=== PATIENT | female | born 1990 | race Caucasian/White ===

== ENCOUNTER 2023-05-08 08:47 | Outpatient (REF) | payer OTHER, SELFPAY ==
[2023-05-12 16:12] LABS: Age Gdln ACOG Testing Note (.); HPV Aptima Negative (Negative); IGP, Aptima HPV, rfx 16/18,45 Note (.)
== END 2023-05-08 10:00 | disposition home or self-care (01) ==
LOC: LAB 08:47
PROVIDERS: Visit Provider Obstetrics & Gynecology
DX: Z12.4 Encounter for screening for malignant neoplasm of cervix (principal)
CPT/HCPCS: 87624; G0145

== ENCOUNTER 2023-05-08 12:31 | Outpatient (OUT) | payer OTHER, SELFPAY ==
[2023-05-08 12:59] LABS: Estimated Average Glucose 103 mg/dL; Glycohemoglobin A1C 5.2 % (4.5-6.2)
[2023-05-08 13:36] LABS: Basophils Absolute Auto 0.1 10^3/uL (0.0-0.1); Basophils Percent Auto 0.7 % (0.2-2.0); Eosinophils Absolute Auto 0.3 10^3/uL (0.0-0.7); Eosinophils Percent Auto 2.8 % (0.9-7.0); Hematocrit 34.1 % (36.0-48.0); Hemoglobin 10.3 g/dL (12.0-16.0); Immature Granulocytes Abs Auto 0.02 10^3/uL (0.00-0.03); Immature Granulocytes Pct Auto 0.2 % (0.0-0.5); Lymphocytes Absolute Auto 3.4 10^3/uL (1.2-3.8); Lymphocytes Percent Auto 35.7 % (20.5-60.0); Mean Corpuscular HGB Conc 30.2 g/dL (29.9-35.2); Mean Corpuscular Hemoglobin 23.3 pg (26.7-34.0); Mean Corpuscular Volume 77.1 fL (81.0-99.0); Mean Platelet Volume 9.9 fL (9.5-13.5); Monocytes Absolute Auto 0.6 10^3/uL (0.3-0.8); Neutrophils Absolute Auto 5.3 10^3/uL (1.4-6.5); Neutrophils Percent Auto 54.6 % (43.0-75.0); Platelet Count 401 10^3/uL (150-450); Red Blood Count 4.42 10^6/uL (4.20-5.40); Red Cell Distribution Width 14.6 % (11.0-15.0); White Blood Count 9.6 10^3/uL (4.0-11.0)
[2023-05-08 14:03] LABS: Free T4 1.08 ng/dL (0.76-1.46)
[2023-05-08 14:07] LABS: HCG Quantitative <1 mIU/mL
[2023-05-09 04:16] LABS: DHEA-Sulfate 89.8 ug/dL (84.8-378.0); Luteinizing Hormone(LH) 3.6 mIU/mL (.)
[2023-05-11 06:09] LABS: DHEA, Serum 172 ng/dL (31-701)
== END 2023-05-08 12:32 | disposition home or self-care (01) ==
LOC: LAB 12:31
PROVIDERS: Visit Provider Obstetrics & Gynecology
DX: N92.6 Irregular menstruation, unspecified (principal)
CPT/HCPCS: 36415; 82626; 82627; 83001; 83002; 83036; 84439; 84443; 84702; 85025

== ENCOUNTER 2023-07-20 11:55 | Outpatient (RCR) | payer SELFPAY ==
[2023-07-20 12:37] LABS: HCG Quantitative 684 mIU/mL
== END 2023-08-16 16:57 | disposition home or self-care (01) ==
LOC: LAB 11:55
PROVIDERS: Visit Provider Obstetrics & Gynecology
DX: N92.6 Irregular menstruation, unspecified (principal)
CPT/HCPCS: 36415; 84702

== ENCOUNTER 2023-07-22 07:30 | Outpatient (OUT) | payer SELFPAY ==
[2023-07-22 08:25] LABS: HCG Quantitative 1839 mIU/mL
== END 2023-07-22 07:31 | disposition home or self-care (01) ==
LOC: LAB 07:33
PROVIDERS: Visit Provider Obstetrics & Gynecology
DX: N92.6 Irregular menstruation, unspecified (principal)
CPT/HCPCS: 36415; 84702

== ENCOUNTER 2023-08-17 08:31 | Outpatient (OUT) | payer OTHER, SELFPAY ==
--- NOTE | 2023-08-17 08:36 | US_ITS ---
The [address] [address] Patient Name: ERIKA NEWMAN MRN: [id number] date: 1990 Sex: F Assigned Patient Location: US Current Patient Location: US Accession/Order Number: [id number] Exam Date: 08/17/2023 08:36 Report Date: 08/17/2023 15:29 At the request of: JOEY MUNOZ Procedure: US OB transvaginal EXAMINATION: US OB transvaginal HISTORY: MISSED MENSES COMPARISON: No relevant comparison available. FINDINGS: GESTATIONAL SAC: Present and normal appearing. YOLK SAC: Present and normal appearing. POLE: Present and normal appearing. CARDIAC: Present. UTERUS: Normal size and appearance. OVARIES: Right: Corpus lutein cyst. Left: Normal. CERVIX: 4.2 cm in length and closed. CUL-DE-SAC: Normal. OTHER: None. AGE BY LMP: 8 weeks 5 days RYANN BY LMP: 03/23/2024 AGE BY US CRL: 8 weeks 3 days RYANN BY US CRL: 03/25/2024 US/US OB transvaginal IMPRESSION: 1. Single live intrauterine . Electronically authenticated by: CAM RODRÍGUEZ Date: 08/17/2023 15:29
== END 2023-08-17 08:32 | disposition home or self-care (01) ==
LOC: US 08:33
PROVIDERS: Visit Provider Obstetrics & Gynecology
DX: Z34.91 Encounter for supervision of normal pregnancy, unspecified, first trimester (principal); Z3A.08 8 weeks gestation of pregnancy; N92.6 Irregular menstruation, unspecified
CPT/HCPCS: 76817

== ENCOUNTER 2023-09-14 13:03 | Outpatient (OUT) | payer OTHER, SELFPAY ==
--- OUTSIDE RECORDS SUMMARY | 2023-09-14 13:07 | XMS_ITS | CCD ---
Author Name Unknown Address [address] [place] [address] Organization [facility] Care Team Providers Care Kaiawhina Kohanga Reo Name Role Phone Eleazar GUARDADO Primary Care Physician [phone] GINGER COOLEY Referring Unavailable KENYATTA BARKER Primary Care Unavailable Shantell Parker Primary Care Physician Eleazar GUARDADO Attending Unavailable Marlen GONZALEZ Attending Unavailable Marlen GONZALEZ Attending Unavailable Shantell Parker Attending Unavailable Shantell Parker Attending Unavailable SANDY NEWMAN Attending Unavailable Allergies Allergy Classification Reported Allergen(s) Allergy Type Date of Onset Reaction(s) Facility (6 sources) metroNIDAZOLE; Translations: [metronidazole] Drug Allergy Weal (disorder) [facility] Medications Current Medications Medication Drug Class(es) Dates Sig (Normalized) Sig (Original) Alcohol Swabs (4 sources) Start: 12-22-2021 Alcohol Swabs Alcohol Swabs, See Instructions, 100 EA, 0, Alcohol swabs to use when testing blood sugar TID PRN, [facility], 164, cm, 12/22/21 8:44:00 EDT, Height/Length Dosing, 126.7, kg, 12/22/21 8:44:00 EDT, Weight Dosing Start Date: 12/22/21 Status: Ordered benzonatate 100 mg oral capsule (1 source) Non-narcotic Antitussive Start: 12-07-2022 End: 12-17-2022 take 1 capsule by mouth three times daily benzonatate 100 mg Cap 100 mg = 1 cap(s), Oral, TID, X 10 day(s), # 30 cap(s), Refills(s) 0, Pharmacy: [id number], 164, cm, 12/07/22 13:57:00 EDT, Height/Length Dosing, 100.8, kg, 12/07/22 13:57:00 EDT, Weight Dosing Start Date: 12/07/22 Stop Date: 12/17/22 Status: Ordered cephalexin 500 mg oral capsule (2 sources) Cephalosporin Antibacterial Start: 03-31-2022 End: 04-07-2022 take 2 capsules by mouth twice daily Keflex 500 mg Cap 1,000 mg = 2 cap(s), Oral, BID, X 7 day(s), # 28 cap(s), Refills(s) 0, Pharmacy: [facility], 164, cm, 03/31/22 16:32:00 EDT, Height/Length Dosing, 121.6, kg, 03/31/22 16:32:00 EDT, Weight Dosing Start Date: 03/31/22 Stop Date: 04/07/22 Status: Ordered Glucometer (4 sources) Start: 12-22-2021 Glucometer Glucometer, See Instructions, 1 EA, 0, Glucometer to test blood sugar TID PRN E11.9, [facility] [address], Supply, 164, cm, 12/22/21 8:44:00 EDT, Height/Length Dosing, 126.7, kg, 12/22/21 8:44:00 EDT, Weight Dosing Start Date: 12/22/21 Status: Ordered metFORMIN hydrochloride 1000 mg oral tablet (4 sources) Biguanide Start: 10-20-2019 take 1 tablet by mouth twice daily metformin 1000 mg oral tablet, extended release 1,000 mg = 1 tab(s), Oral, BID, Refills(s) 0 Start Date: 10/20/19 Status: Ordered Single Use Alcohol Pad (4 sources) Start: 12-22-2021 Single Use Alcohol Pad Single Use Alcohol Pad, See Instructions, 100 EA, 1, Single Use Alcohol Pad - Use once daily prior to injection., [facility] [address], Supply, 164, cm, 12/22/21 8:44:00 EDT, Height/Length Dosing, 126.7, kg, 12/22/21 8:44:00 EDT, Weight Dosing Start Date: 12/22/21 Status: Ordered Completed/Discontinued Medications Medication Drug Class(es) Dates Sig (Normalized) Sig (Original) [id number] 200 actuat albuterol 0.09 mg/actuat metered dose inhaler (2 sources) beta2-Adrenergic Agonist Start: 05-26-2021 take 1 dose by inhalation four times daily for cough ProAir HFA 90 mcg/inh inhalation aerosol 2 puff(s), Inhalation, QID, 1 EA, Refill(s) 0, for cough Start Date: 05/26/21 Status: Ordered Albuterol (Eqv-ProAir HFA) 90 mcg/inh inhalation aerosol (1 source) Start: 12-07-2022 take 1 dose by inhalation every six hours Albuterol (Eqv-ProAir HFA) 90 mcg/inh inhalation aerosol 2 puff(s), Inhalation, q6hr, 1 EA, Refill(s) 1, [id number], 164, cm, 12/07/22 13:57:00 EDT, Height/Length Dosing, 100.8, kg, 12/07/22 13:57:00 EDT, Weight Dosing Start Date: 12/07/22 Status: Ordered ProAir HFA 90 mcg/inh inhalation aerosol (2 sources) Start: 05-26-2021 take 1 dose by inhalation four times daily for cough ProAir HFA 90 mcg/inh inhalation aerosol 2 puff(s), Inhalation, QID, 1 EA, Refill(s) 0, for cough Start Date: 05/26/21 Status: Ordered Problems Active Problems Problem Classification Problem Date Documented Da te Episodic/Chronic Acute bronchitis (1 source) Acute infective bronchitis; Translations: [Acute bronchitis due to other specified organisms] Onset: 12-07-2022 Episodic Administrative/social admission (1 source) Counseling procedure with explicit context; Translations: [Dietary counseling and surveillance] Episodic Diabetes mellitus with complications (6 sources) Type 2 diabetes mellitus in obese; Translations: [Complication due to diabetes mellitus] Onset: 03-31-2022 12-22-2021 Chronic Genitourinary symptoms and ill-defined conditions (4 sources) Dysuria 12-22-2021 Episodic Headache; including migraine (5 sources) Migraine 02-11-2020 Chronic Other endocrine disorders (5 sources) Polycystic ovaries 12-07-2020 Chronic Other female genital disorders (3 sources) Abnormal uterine bleeding 03-31-2022 Chronic Other gastrointestinal disorders (5 sources) Irritable bowel syndrome 11-09-2020 Chronic Other nutritional; endocrine; and metabolic disorders (6 sources) Body mass index 40+ - severely obese; Translations: [Body mass index (BMI) 45.0-49.9, adult] Onset: 03-31-2022 11-09-2020 Chronic Other nutritional; endocrine; and metabolic disorders (6 sources) Morbid obesity; Translations: [Morbid (severe) obesity due to excess calories] Onset: 03-31-2022 12-07-2020 Chronic Other nutritional; endocrine; and metabolic disorders (1 source) Obese class II; Translations: [Body mass index (BMI) 37.0-37.9, adult] Onset: 12-07-2022 Chronic Other nutritional; endocrine; and metabolic disorders (1 source) Obesity; Translations: [Other obesity due to excess calories] Onset: 12-07-2022 Chronic Other skin disorders (5 sources) Acanthosis nigricans 03-03-2019 Episodic Thyroid disorders (5 sources) Goiter 03-03-2019 Chronic Unclassified (1 source) Drug therapy finding 12-07-2020 Urinary tract infections (4 sources) Acute hemorrhagic cystitis; Translations: [Acute cystitis with hematuria] Onset: 03-31-2022 Episodic Past or Other Problems Problem Classification Problem Date Documented Da te Episodic/Chronic Unclassified (5 sources) Onset: 03-17-2012 Resolved: 12-13-2012 03-25-2015 Unclassified (4 sources) Patient encounter status 12-22-2021 Results Test Name Value Interpretation Reference Range Facility Patient Educationon 01-30-20 Patient Education Nutrition BMI for Adults What is BMI? Body mass index (BMI) is a number that is calculated from a person's weight and height. BMI can help estimate how much of a person's weight is composed of fat. BMI does not measure body fat directly. Rather, it is an alternative to procedures that directly measure body fat, which can be difficult and expensive. BMI can help identify people who may be at higher risk for certain medical problems. What are BMI measurements used for? BMI is used as a screening tool to identify possible weight problems. It helps determine whether a person is obese, overweight, a healthy weight, or underweight. BMI is useful for: ? Identifying a weight problem that may be related to a medical condition or may increase the risk for medical problems. ? Promoting changes, such as changes in diet and exercise, to help reach a healthy weight. BMI screening can be repeated to see if these changes are working. How is BMI calculated? BMI involves measuring your weight in relation to your height. Both height and weight are measured, and the BMI is calculated from those numbers. This can be done either in [place] or metric measurements. Note that charts and online BMI calculators are available to help you find your BMI quickly and easily without having to do these calculations yourself. To calculate your BMI in [place] measurements: 1. Measure your weight in pounds (lb). 2. Multiply the number of pounds by 703. ? For example, for a person who weighs 180 lb, multiply that number by 703, which equals 126,540. 3. Measure your height in inches. Then multiply that number by itself to get a measurement called inches squared. ? For example, for a person who is 70 inches tall, the inches squared measurement is 70 inches x 70 inches, which equals 4,900 inches squared. 4. Divide the total from step 2 (number of lb x 703) by the total from step 3 (inches squared): 126,540 ? 4,900 = 25.8. This is your BMI. To calculate your BMI in metric measurements: 1. Measure your weight in kilograms (kg). 2. Measure your height in meters (m). Then multiply that number by itself to get a measurement called meters squared. ? For example, for a person who is 1.75 m tall, the meters squared measurement is 1.75 m x 1.75 m, which is equal to 3.1 meters squared. 3. Divide the number of kilograms (your weight) by the meters squared number. In this example: 70 ? 3.1 = 22.6. This is your BMI. What do the results mean? BMI charts are used to identify whether you are underweight, normal weight, overweight, or obese. The following guidelines will be used: ? Underweight: BMI less than 18.5. ? Normal weight: BMI between 18.5 and 24.9. ? Overweight: BMI between 25 and 29.9. ? Obese: BMI of 30 or above. Keep these notes in mind: ? Weight includes both fat and muscle, so someone with a muscular build, such as an athlete, may have a BMI that is higher than 24.9. In cases like these, BMI is not an accurate measure of body fat. ? To determine if excess body fat is the cause of a BMI of 25 or higher, further assessments may need to be done by a health care provider. ? BMI is usually interpreted in the same way for men and women. Where to find more information For more information about BMI, including tools to quickly calculate your BMI, go to these websites: ? Centers for Disease Control and Prevention: www.cdc.gov ? [place] Heart Association: www.heart.org ? National Heart, Lung, and Blood [place]: www.nhlbi.nih.gov Summary ? Body mass index (BMI) is a number that is calculated from a person's weight and height. ? BMI may help estimate how much of a person's weight is composed of fat. BMI can help identify those who may be at higher risk for certain medical problems. ? BMI can be measured using [place] measurements or metric measurements. ? BMI charts are used to identify whether you are underweight, normal weight, overweight, or obese. This information is not intended to replace advice given to you by your health care provider. Make sure you discuss any questions you have with your health care provider. Document Revised: 05/26/2020 Document Reviewed: 04/02/2020 [employer] Patient Education ? 2022 [employer] Budget-Friendly Healthy Eating There are many ways to save money at the grocery store and continue to eat healthy. You can be successful if you: ? Plan meals according to your budget. ? Make a grocery list and only purchase food according to your grocery list. ? Prepare food yourself at home. What are tips for following this plan? Reading food labels ? Compare food labels between brand name foods and the store brand. Often the nutritional value is the same, but the store brand is lower cost. ? Look for products that do not have added sugar, fat, or salt (sodium). These often cost the same but are healthier for you. Products may be labeled as: ? Sugar-free. ? Nonfat. ? (more content not included)... Normal [facility] Ambulatory Visit Summaryon 0 01-26-2023 Ambulatory Visit Summary ERIKA NEWMAN :1990 Visit Date:01/26/2023 Ambulatory Visit Instructions Your Care Team Attending Physician - Shantell Parker PA-C Primary Care Physician - Shantell Parker PA-C This Is Your Medications List Misc Prescription (Alcohol Swabs) Misc Prescription (Glucometer) Misc Prescription (Lancets) Misc Prescription (Single Use Alcohol Pad) Misc Prescription (Test strips) albuterol (Albuterol (Eqv-ProAir HFA) 90 mcg/inh inhalation aerosol) Procedures Performed TM tube, Tonsillectomy and adenoidectomy. Discharge Vitals Heart Rate (Peripheral) 84 Respiratory Rate 20 Blood Pressure 128/72 Height 164 cm Height 65 in Weight 97.0 kg Weight 213.4 lb BMI 36.06 Medications What How Much When Why Instructions Unchanged albuterol (Albuterol (Eqv-ProAir HFA) 90 mcg/ inh inhalation aerosol) 2 Puffs Inhalation Every 6 hours Unchanged Misc Prescription (Alcohol Swabs) See instructions Type 2 diabetes mellitus with morbid obesity Alcohol swabs to use when testing blood sugar TID PRN Unchanged Misc Prescription (Glucometer) See instructions Type 2 diabetes mellitus with morbid obesity Glucometer to test blood sugar TID PRN E11.9 Unchanged Misc Prescription (Lancets) See instructions Type 2 diabetes mellitus with morbid obesity Test blood sugar TID PRN E11.9 Unchanged Misc Prescription (Single Use Alcohol Pad) See instructions Type 2 diabetes mellitus with morbid obesity Single Use Alcohol Pad - Use once daily prior to injection. Unchanged Misc Prescription (Test strips) See instructions Type 2 diabetes mellitus with morbid obesity Test blood sugar TID PRN E11.9 Allergies metroNIDAZOLE (Hives) Problems Ongoing - Any problem that you are currently receiving treatment for. Acanthosis nigricans Acute cystitis with hematuria BMI 45.0-49.9, adult Dysuria Goiter Irritable bowel Migraines Morbid (severe) obesity due to excess calories Polycystic ovary disease Type 2 diabetes mellitus with morbid obesity Historical - Any problem that you are no longer receiving treatment for. Abnormal uterine bleeding (AUB) Screening for lipid disorders Normal [facility] Medicine Office/Clini c Noteon 12-11-2022 Family Medicine Office/Clinic Note Chief Complaint cough History of Present Illness 32 y/o female presents to the office for concern of cough. Respiratory C/O: Duration: _ 1 day Body aches: no Chest congestion: yes Chills: no Cough: yes Ear complaints: no Eye itching/watering: no Fever: no Headache: yes Nasal congestion: yes Nasal discharge: no Poor appetite: no Reduced activity: no Sinus pain/pressure: yes Sneezing: no Sputum production: no Wheezing: no Ill contacts: no Remedies tried: mucinex, only took one dose. nausea: sometimes. Patient has no other questions or concerns at this time. Review of Systems PHQ Score Initial Depression Screen Score: 0 Negative unless stated in HPI. Physical Exam Vitals & Measurements T: 36.8 ?C(Oral) HR: 60(Peripheral) RR: 20 BP: 128/84 SpO2: 99% HT: 65 in HT: 164 cm WT: 100.8 kg WT: 221.76 lb BMI: 37.48 General: Obese female well hydrated, no apparent distress Head: Normocephalic atraumatic Eyes: EOMI, sclera clear Ears: Bilateral tympanic membranes pearly [place] with good cone of light Nose: clear drainage no deformity or lesion Mouth: Mucous membranes moist. Normal oropharynx with mildly erythematous posterior oropharynx without lesion or exudate. Tongue normal.. Neck: shotty cervical lymph nodes Lungs: Mild wheezing with inspiration, otherwise lungs clear to auscultation. Cardio: Regular rate and rhythm with no murmur Mental status: Alert and oriented x3. Appropriate mood and affect. Assessment/Plan 1. Acute bronchitis, viral (J20.8: Acute bronchitis due to other specified organisms) Discussed with patient this infection is more than likely viral in nature. Advised it can take up to 10 to 12 days for symptoms to completely resolve. Prescription for albuterol inhaler and benzonatate tablets sent to local pharmacy. Albuterol is to be used up to 4 times daily as needed for shortness of breath. Benzonatate tablets can be used to aid with cough suppression. Advised to continue [id number] remedies such as Mucinex, Sudafed, Tylenol or ibuprofen as needed for symptomatic management. Advised to contact office in 1 week if symptoms do not improve or begin to worsen as antibiotic therapy will be considered at that time. 2. Adult BMI 37.0-37.9 kg/sq m (Z68.37: Body mass index [BMI] 37.0-37.9, adult) The standard range for ages 18 and older is >=18.5 and < 25 kg/m2. Your BMI today was above this range, this falls in the overweight to obese category and there are medical benefits to weight loss. We can offer counselling, referral, and/or medical support in addressing this problem. Your BMI and weight management will be followed at subsequent visits. 3. Obesity due to excess calories (E66.09: Other obesity due to excess calories) See above Patient verbalized understanding and is agreeable to plan and course of treatment. This documentation was completed by voice-activated device and software. Inaccuracies compared to the original dictation of this provider are possible although this document has been overread and corrected. Follow-up With When Contact Information Keith BOYD, Shantell Read Only if needed [address] [place] [phone] Additional Instructions: Patient Education Budget-Friendly Healthy Eating Acute Bronchitis, Adult Problem List/Past Medical History Ongoing Acanthosis nigricans Acute cystitis with hematuria BMI 45.0-49.9, adult Dysuria Goiter Irritable bowel Migraines Morbid (severe) obesity due to excess calories Polycystic ovary disease Type 2 diabetes mellitus with morbid obesity Historical Abnormal uterine bleeding (AUB) Screening for lipid disorders Procedure/Surgical History TM tube, Tonsillectomy and adenoidectomy. Medications Albuterol (Eqv-ProAir HFA) 90 mcg/inh inhalation aerosol, 2 puff(s), Inhalation, q6hr, 1 refills Alcohol Swabs, See Instructions benzonatate 100 mg Cap, 100 mg= 1 cap(s), Oral, TID Glucometer, See Instructions Lancets, See Instructions Single Use Alcohol Pad, See Instructions, 1 refills Test strips, See Instructions Allergies metroNIDAZOLE (Hives) Social History Alcohol - Denies Alcohol Use, 12/13/2012 Employment/School Unemployed, 12/13/2012 Exercise - Does not exercise, 12/13/2012 Home/Environment Lives with Father, Mother. Living situation: Home/Independent. Alcohol abuse in household: No. Substance abuse in household: No. Smoker in household: No. Injuries/Abuse/Neg lect in household: No. Feels unsafe at home: No. Safe place to go: Yes. Agency(s)/Others notified: No. Family/Friends available for support: Yes. Concern for family members at home: No. Major illness in household: No. Financial concerns: No. TV/Computer concerns: No., 12/13/2012 Nutrition/Health Regular, 12/13/2012 Sexual Sexually active: Yes., 12/13/2012 Substance Abuse - Denies Substance Abuse, 12/13/2012 Tobacco - Denies Tobacco Use, 12/13/2012 Never (less than 100 in lifetime) Tobacco (more content not included)... Normal [facility] Comment on above: Result Comment: Elec tronically Signed By: Keith BOYD, Shantell Read\.br\Date and Time Signed: 12/11/22 21:41 EDT Patient Educationon 12-12-19 Patient Education Nutrition Budget-Friendly Healthy Eating There are many ways to save money at the grocery store and continue to eat healthy. You can be successful if you: ? Plan meals according to your budget. ? Make a grocery list and only purchase food according to your grocery list. ? Prepare food yourself. What are tips for following this plan? Reading food labels ? Compare food labels between brand name foods and the store brand. Often the nutritional value is the same, but the store brand is lower cost. ? Look for products that do not have added sugar, fat, or salt (sodium). These often cost the same but are healthier for you. Products may be labeled as: ? Sugar-free. ? Nonfat. ? Low-fat. ? Sodium-free. ? Low-sodium. ? Look for lean ground beef labeled as at least 92% lean and 8% fat. Shopping ? Buy only the items on your grocery list and go only to the areas of the store that have the items on your list. ? Use coupons only for foods and brands you normally buy. Avoid buying items you wouldn't normally buy simply because they are on sale. ? Check online and in newspapers for weekly deals. ? Buy healthy items from the bulk bins when available, such as herbs, spices, flour, pasta, nuts, and dried fruit. ? Buy fruits and vegetables that are in season. Prices are usually lower on in-season produce. ? Look at the unit winn on the winn tag. Use it to compare different brands and sizes to find out which item is the best deal. ? Choose healthy items that are often low-cost, such as carrots, potatoes, apples, bananas, and oranges. Dried or canned beans are a low-cost protein source. ? Buy in bulk and freeze extra food. Items you can buy in bulk include meats, fish, poultry, frozen fruits, and frozen vegetables. ? Avoid buying riwxl-tw-qwv foods, such as pre-cut fruits and vegetables and pre-made salads. ? If possible, shop around to discover where you can find the best prices. Consider other retailers such as [employer] stores, larger wholesale stores, local fruit and vegetable [employer], and [employer] markets. ? Do not shop when you are hungry. If you shop while hungry, it may be hard to stick to your list and budget. ? Resist impulse buying. Use your grocery list as your official plan for the week. ? Buy a variety of vegetables and fruits by purchasing fresh, frozen, and canned items. ? Look at the top and bottom shelves for deals. Foods at eye level (eye level of an adult or child) are usually more expensive. ? Be efficient with your time when shopping. The more time you spend at the store, the more money you are likely to spend. ? To save money when choosing more expensive foods like meats and dairy: ? Choose cheaper cuts of meat, such as bone-in chicken thighs and drumsticks instead of skinless and boneless chicken. When you are ready to prepare the chicken, you can remove the skin yourself to make it healthier. ? Choose lean meats like chicken or turkey instead of beef. ? Choose canned seafood, such as tuna, salmon, or sardines. ? Buy eggs as a low-cost source of protein. ? Buy dried beans and peas, such as lentils, split peas, or kidney beans instead of meats. Dried beans and peas are a good alternative source of protein. ? Buy the larger tubs of yogurt instead of individual-sized containers. ? Choose water instead of sodas and other sweetened beverages. ? Avoid buying chips, cookies, and other junk food. These items are usually expensive and not healthy. Cooking ? Make extra food and freeze the extras in meal-sized containers or in individual portions for fast meals and snacks. ? Pre-cook on days when you have extra time to prepare meals in advance. You can keep these meals in the fridge or freezer and reheat for a quick meal. ? When you come home from the grocery store, wash, peel, and cut fruits and vegetables so they are ready to use and eat. This will help reduce food waste. Meal planning ? Do not eat out or get fast food. Prepare food at home. ? Make a grocery list and make sure to bring it with you to the store. If you have a smart phone, you could use your phone to create your shopping list. ? Plan meals and snacks according to a grocery list and budget you create. ? Use leftovers in your meal plan for the week. ? Look for recipes where you can cook once and make enough food for two meals. ? Include budget-friendly meals like stews, casseroles, and stir-jaramillo dishes. ? Try some meatless meals or try no cook meals like salads. ? Make sure that half your plate is filled with fruits or vegetables. Choose from fresh, frozen, or canned fruits and vegetables. If eating canned, remember to rinse them before eating. This will remove any excess salt added for packaging. Summary ? Eating healthy on a budget is possible if you plan your meals according to your budget, purchase according to your budget and grocery list, and prepare food yourself. ? Tips for buying more food on a (more content not included)... Normal [facility] Ambulatory Visit Summaryon 0 12-07-2022 Ambulatory Visit Summary ERIKA NEWMAN :1990 Visit Date:12/07/2022 Ambulatory Visit Instructions Your Diagnosis Acute bronchitis, viral Adult BMI 37.0-37.9 kg/sq m Obesity due to excess calories Your Care Team Attending Physician - Shantell Parker PA-C Primary Care Physician - Shantell Parker PA-C. This Is Your Medications List Misc Prescription (Alcohol Swabs) Misc Prescription (Glucometer) Misc Prescription (Lancets) Misc Prescription (Single Use Alcohol Pad) Misc Prescription (Test strips) albuterol (Albuterol (Eqv-ProAir HFA) 90 mcg/inh inhalation aerosol) benzonatate (benzonatate 100 mg Cap) [Image Removed: STOP]Stop taking these medications metformin (metformin 1000 mg oral tablet, extended release) Procedures Performed TM tube, Tonsillectomy and adenoidectomy. Discharge Vitals Temperature (Oral) 36.8 ?C Heart Rate (Peripheral) 60 Respiratory Rate 20 Blood Pressure 128/84 Height 164 cm Height 65 in Weight 100.8 kg Weight 221.76 lb BMI 37.48 Medications What How Much When Why Instructions New benzonatate (benzonatate 100 mg Cap) 1 Capsules By Mouth 3 times a day Duration: 10 Days Pickup at [facility] #[id number] Changed albuterol (Albuterol (Eqv-ProAir HFA) 90 mcg/ inh inhalation aerosol) 2 Puffs Inhalation Every 6 hours Pickup at [facility] #[id number] Unchanged Misc Prescription (Alcohol Swabs) See instructions Type 2 diabetes mellitus with morbid obesity Alcohol swabs to use when testing blood sugar TID PRN Unchanged Misc Prescription (Glucometer) See instructions Type 2 diabetes mellitus with morbid obesity Glucometer to test blood sugar TID PRN E11.9 Unchanged Misc Prescription (Lancets) See instructions Type 2 diabetes mellitus with morbid obesity Test blood sugar TID PRN E11.9 Unchanged Misc Prescription (Single Use Alcohol Pad) See instructions Type 2 diabetes mellitus with morbid obesity Single Use Alcohol Pad - Use once daily prior to injection. Unchanged Misc Prescription (Test strips) See instructions Type 2 diabetes mellitus with morbid obesity Test blood sugar TID PRN E11.9 Pharmacy Information [facility] #[id number]: [address] [place], [place] [phone] What How Much When Comments Stop Taking metformin (metformin 1000 mg oral tablet, extended release) 1 Tablets By Mouth 2 times a day Medications and Immunizations Administered Not Given influenza virus vaccine, inactivated, Postpone due to refusal Allergies metroNIDAZOLE (Hives) Problems Ongoing - Any problem that you are currently receiving treatment for. Acanthosis nigricans Acute cystitis with hematuria BMI 45.0-49.9, adult Dysuria Goiter Irritable bowel Migraines Morbid (severe) obesity due to excess calories Polycystic ovary disease Type 2 diabetes mellitus with morbid obesity Historical - Any problem that you are no longer receiving treatment for. Abnormal uterine bleeding (AUB) Screening for lipid disorders [facility] Ambulatory Visit Summary ERIKA NEWMAN :1990 Visit Date:12/07/2022 Ambulatory Visit Instructions Your Diagnosis Acute bronchitis, viral Adult BMI 37.0-37.9 kg/sq m Obesity due to excess calories Your Care Team Attending Physician - Shantell Parker PA-C Primary Care Physician - Shantell Parker PA-C This Is Your Medications List Misc Prescription (Alcohol Swabs) Misc Prescription (Glucometer) Misc Prescription (Lancets) Misc Prescription (Single Use Alcohol Pad) Misc Prescription (Test strips) albuterol (Albuterol (Eqv-ProAir HFA) 90 mcg/inh inhalation aerosol) benzonatate (benzonatate 100 mg Cap) [Image Removed: STOP]Stop taking these medications metformin (metformin 1000 mg oral tablet, extended release) Procedures Performed TM tube, Tonsillectomy and adenoidectomy. Discharge Vitals Temperature (Oral) 36.8 ?C Heart Rate (Peripheral) 60 Respiratory Rate 20 Blood Pressure 128/84 Height 164 cm Height 65 in Weight 100.8 kg Weight 221.76 lb BMI 37.48 Medications What How Much When Why Instructions New benzonatate (benzonatate 100 mg Cap) 1 Capsules By Mouth 3 times a day Duration: 10 Days Pickup at [facility] #[id number] Changed albuterol (Albuterol (Eqv-ProAir HFA) 90 mcg/ inh inhalation aerosol) 2 Puffs Inhalation Every 6 hours Pickup at [facility] #[id number] Unchanged Misc Prescription (Alcohol Swabs) See instructions Type 2 diabetes mellitus with morbid obesity Alcohol swabs to use when testing blood sugar TID PRN Unchanged Misc Prescription (Glucometer) See instructions Type 2 diabetes mellitus with morbid obesity Glucometer to test blood sugar TID PRN E11.9 Unchanged Misc Prescription (Lancets) See instructions Type 2 diabetes mellitus with morbid obesity Test blood sugar TID PRN E11.9 Unchanged Misc Prescription (Single Use Alcohol Pad) See instructions Type 2 diabetes mellitus with morbid obesity Single Use Alcohol Pad - Use once daily prior to injection. Unchanged Misc Prescription (Test strips) See instructions Type 2 diabetes mellitus with morbid obesity Test blood sugar TID PRN E11.9 Pharmacy Information [facility] #[id number]: [address], [place] [phone] What How Much When Comments Stop Taking metformin (metformin 1000 mg oral tablet, extended release) 1 Tablets By Mouth 2 times a day Medications and Immunizations Administered Not Given influenza virus vaccine, inactivated, Postpone due to refusal Allergies metroNIDAZOLE (Hives) Problems Ongoing - Any problem that you are currently receiving treatment for. Acanthosis nigricans Acute cystitis with hematuria BMI 45.0-49.9, adult Dysuria Goiter Irritable bowel Migraines Morbid (severe) obesity due to excess calories Polycystic ovary disease Type 2 diabetes mellitus with morbid obesity Historical - Any problem that you are no longer receiving treatment for. Abnormal uterine bleeding (AUB) Screening for lipid disorders [facility] Provider Letteron 12-07-2022 Provider Letter December 07, 2022 ERIKA NEWMAN [address] [place] [address] To Whom It May Concern, Please excuse above patient from work. Date of Illness: From: _12/07/22 To: _ May Return to Work On: 12/08/22 Restrictions: _None Comments: _ Sincerely, Shantell BIRD [facility] [address] [facility] Ambulatory Visit Summaryon 0 03-31-2022 Ambulatory Visit Summary ERIKA NEWMAN :1990 Visit Date:03/31/2022 Ambulatory Visit Instructions Your Diagnosis Acute cystitis with hematuria Dysuria BMI 45.0-49.9, adult Morbid (severe) obesity due to excess calories Urinary frequency Tests Performed Urnls Dip Stick Auto w/ Microscopy POC 96743 Your Care Team Attending Physician - JULY MELLO FAAFP, Marlen Parson Primary Care Physician - Eleazar MELCHOR This Is Your Medications List cephalexin (Keflex 500 mg Cap) Contact prescribing physician if questions or concerns Misc Prescription (Alcohol Swabs) Misc Prescription (Glucometer) Misc Prescription (Lancets) Misc Prescription (Single Use Alcohol Pad) Misc Prescription (Test strips) albuterol (ProAir HFA 90 mcg/inh inhalation aerosol) metformin (metformin 1000 mg oral tablet, extended release) Procedures Performed TM tube, Tonsillectomy and adenoidectomy. Discharge Vitals Temperature (Temporal Artery) 36.7 ?C Heart Rate (Peripheral) 88 Respiratory Rate 16 Blood Pressure 128/84 Height 164.0 cm Height 164 cm Weight 121.6 kg Weight 121.6 kg BMI 45.21 Medications What How Much When Why Instructions New cephalexin (Keflex 500 mg Cap) 2 Capsules By Mouth 2 times a day Duration: 7 Days Pickup at [address] Unchanged albuterol (ProAir HFA 90 mcg/ inh inhalation aerosol) 2 Puffs Inhalation 4 times a day for cough Contact prescribing physician if questions or concerns Unchanged metformin (metformin 1000 mg oral tablet, extended release) 1 Tablets By Mouth 2 times a day Contact prescribing physician if questions or concerns Unchanged Misc Prescription (Alcohol Swabs) See instructions Type 2 diabetes mellitus with morbid obesity Alcohol swabs to use when testing blood sugar TID PRN Contact prescribing physician if questions or concerns Unchanged Misc Prescription (Glucometer) See instructions Type 2 diabetes mellitus with morbid obesity Glucometer to test blood sugar TID PRN E11.9 Contact prescribing physician if questions or concerns Unchanged Misc Prescription (Lancets) See instructions Type 2 diabetes mellitus with morbid obesity Test blood sugar TID PRN E11.9 Contact prescribing physician if questions or concerns Unchanged Misc Prescription (Single Use Alcohol Pad) See instructions Type 2 diabetes mellitus with morbid obesity Single Use Alcohol Pad - Use once daily prior to injection. Contact prescribing physician if questions or concerns Unchanged Misc Prescription (Test strips) See instructions Type 2 diabetes mellitus with morbid obesity Test blood sugar TID PRN E11.9 Contact prescribing physician if questions or concerns Pharmacy Information [address]: [address] [place], [place] [phone] Test Results Urnls Dip Stick Auto w/ Microscopy POC 87055 (03/31/2022) Urine WBC POC - 5-10 Urine RBC POC - too numerous to count Urine Epithelial Cells POC - Negative Bilirubin Urine Dipstick - Negative Blood Urine Dipstick - 3+ Large Glucose Urine Dipstick - Negative Ketones Urine Dipstick - Negative Leukocytes Urine Dipstick - 2+ Moderate Nitrite Urine Dipstick - Negative Protein Urine Dipstick - 2+ (100 mg/dl) Specific [place] Urine Dipstick - 1.025 Urine Appearance Urine Dipstick - Cloudy Urine Color Urine Dipstick - Yellow Urobilinogen Urine Dipstick - Normal 0.2-1 EU/dl pH Urine Dipstick - 8.5 Medications and Immunizations Administered Not Given SARS-CoV-2 mRNA (tozinameran 5y-11y) vac, Postpone due to refusal Allergies metroNIDAZOLE (Hives) Problems Ongoing - Any problem that you are currently receiving treatment for. Acanthosis nigricans Acute cystitis with hematuria BMI 45.0-49.9, adult Dysuria Goiter Irritable bowel Migraines Morbid (severe) obesity due to excess calories Polycystic ovary disease Type 2 diabetes mellitus with morbid obesity Historical - Any problem that you are no longer receiving treatment for. Abnormal uterine bleeding (AUB) Screening for lipid disorders [facility] Family Medicine Office/Clini c Noteon 03-31-2022 Family Medicine Office/Clinic Note Chief Complaint P here for urinary frequency, tired, bilateral low back pain, cramping in pelvic area,some dysuria, light pink noted on toilet paper, no period since December. Last UTI three months ago. Room 3 History of Present Illness Erika is accompanied by her mother. She complains of back pain, fatigue, burning with urination and nausea. She did experience some pink spotting earlier today but none since then. She is not currently menstruating. She notes that her symptoms onset 03/27/2022. She denies fever or vomiting. She was evaluated by Dr. Cooley of [facility] in 11/2021 with menorrhagia and was treated for bladder infection. Dr. Cooley did prescribe progesterone for 2 months as she was having abnormal vaginal bleeding and anemia. She has not had menses in 2 months, her hemoglobin was 9.2 and she does not recall being told to supplement iron. She admits she has increased her caffeine intake lately since she is working a different job and is tired in the morning. She went to the diabetes education class and she has lost some weight. She has not been monitoring her glucose at home consistently as she does not have lancets. Her last home glucose check was about 117 mg/dL following a meal. She is now taking metformin 1000 mg twice daily. She admits to being noncompliant with the metformin in the beginning but has since become more consistent. She has experienced diarrhea since starting this medication if she has increased fats or carbohydrates in her diet. Review of Systems PHQ Score Initial Depression Screen Score: 0 Review of systems is as per above in HPI. Physical Exam Vitals & Measurements T: 36.7 ?C(Temporal Artery) HR: 88(Peripheral) RR: 16 BP: 128/84 SpO2: 97% HT: 164.0 cm HT: 164 cm WT: 121.6 kg WT: 121.6 kg BMI: 45.21 General: Patient is overweight, no acute distress although she is rubbing her central low back throughout this visit. She appears well hydrated. Musculoskeletal: Back without CVA tenderness, her discomfort is more over the lumbosacral area with no palpable muscle spasm in that area. Abdomen: Soft and nontender. Assessment/Plan 1. Acute cystitis with hematuria (N30.01: Acute cystitis with hematuria) She does not present as pyelonephritis, we will treat for 7 days with Keflex, however, since she has had a fairly recent UTI and her symptoms have been nearly a week in duration. We discussed preventative measures particularly to avoid caffeine and increased water for hydration. 2. Type 2 diabetes mellitus with morbid obesity (E11.69: Type 2 diabetes mellitus with other specified complication) Recent diagnosis for the patient, she has not been checking blood sugar herself, she has been to diabetic education and is more compliant with the metformin she had been prescribed in the past for polycystic ovaries. Her mother believes that she has lost weight but unfortunately our scale does not bear that out since 05/2021. 3. BMI 45.0-49.9, adult (Z68.42: Body mass index [BMI] 45.0-49.9, adult) Urged healthy diet with decreased calories and increased vegetables. Encouraged increased activity and a goal of 150min per week of exercise. 4. Morbid (severe) obesity due to excess calories (E66.01: Morbid (severe) obesity due to excess calories) Increases risk to sequelae of type 2 diabetes. Orders: cephalexin, 1,000 mg = 2 cap(s), Oral, BID, X 7 day(s), # 28 cap(s), Refills(s) 0, Pharmacy: [facility], 164, cm, 03/31/22 16:32:00 EDT, Height/Length Dosing, 121.6, kg, 03/31/22 16:32:00 EDT, Weight Dosing Urnls Dip Stick Auto w/ Microscopy POC 59058 ATTESTATION: Documentation services were performed after patient or guardian consented to allow Kristan Melendez to record this visit. ALEXI vessel specialist and provider reviewed before signing. ALEXI: Lulú Bowles. Follow-up With When Contact Information DEBBY BIRD, Eleazar Paul [address] [place] [address]- Additional Instructions: return as otherwise scheduled Patient Education Blood Glucose Monitoring, Adult Problem List/Past Medical History Ongoing Acanthosis nigricans Acute cystitis with hematuria BMI 45.0-49.9, adult Dysuria Goiter Irritable bowel Migraines Morbid (severe) obesity due to excess calories Polycystic ovary disease Type 2 diabetes mellitus with morbid obesity Historical Abnormal uterine bleeding (AUB) Screening for lipid disorders Procedure/Surgical History TM tube, Tonsillectomy and adenoidectomy. Medications Alcohol Swabs, See Instructions, Still taking, not as prescribed: pt states she has not been testing her blood sugars Glucometer, See Instructions, Still taking, not as prescribed: pt states she has not been testing her blood sugars Keflex 500 mg Cap, 1000 mg= 2 cap(s), Oral, BID Lancets, See Instructions, Still taking, not as prescribed: pt states she has not been testing her blood sugars metformin 1000 mg oral tablet, extended release, 1000 mg= 1 tab(s), Oral, BID ProAir (more content not included)... [facility] Comment on above: Result Comment: Elec tronically Signed By: Marlen GONZALEZ MD, FAAFP\.br\Date and Time Signed: 03/31/22 19:00 EDT\.br\Electronically Co-Signed By: Lulú Bowles\.br\Date and Time Co-Signed: 03/31/22 18:13 EDT Patient Educationon 03-31-20 Patient Education Endocrinology Blood Glucose Monitoring, Adult Monitoring your blood sugar (glucose) is an important part of managing your diabetes (diabetes mellitus). Blood glucose monitoring involves checking your blood glucose as often as directed and keeping a record (log) of your results over time. Checking your blood glucose regularly and keeping a blood glucose log can: ? Help you and your health care provider adjust your diabetes management plan as needed, including your medicines or insulin. ? Help you understand how food, exercise, illnesses, and medicines affect your blood glucose. ? Let you know what your blood glucose is at any time. You can quickly find out if you have low blood glucose (hypoglycemia) or high blood glucose (hyperglycemia). Your health care provider will set individualized treatment goals for you. Your goals will be based on your age, other medical conditions you have, and how you respond to diabetes treatment. Generally, the goal of treatment is to maintain the following blood glucose levels: ? Before meals (preprandial): 80?130 mg/dL (4.4?7.2 mmol/L). ? After meals (postprandial): below 180 mg/dL (10 mmol/L). ? A1c level: less than 7%. Supplies needed: ? Blood glucose meter. ? Test strips for your meter. Each meter has its own strips. You must use the strips that came with your meter. ? A needle to prick your finger (lancet). Do not use a lancet more than one time. ? A device that holds the lancet (lancing device). ? A journal or log book to write down your results. How to check your blood glucose 1. Wash your hands with soap and water. 2. Prick the side of your finger (not the tip) with the lancet. Use a different finger each time. 3. Gently rub the finger until a small drop of blood appears. 4. Follow instructions that come with your meter for inserting the test strip, applying blood to the strip, and using your blood glucose meter. 5. Write down your result and any notes. Some meters allow you to use areas of your body other than your finger (alternative sites) to test your blood. The most common alternative sites are: ? Forearm. ? Thigh. ? Palm of the hand. If you think you may have hypoglycemia, or if you have a history of not knowing when your blood glucose is getting low (hypoglycemia unawareness), do not use alternative sites. Use your finger instead. Alternative sites may not be as accurate as the fingers, because blood flow is slower in these areas. This means that the result you get may be delayed, and it may be different from the result that you would get from your finger. Follow these instructions at home: Blood glucose log ? Every time you check your blood glucose, write down your result. Also write down any notes about things that may be affecting your blood glucose, such as your diet and exercise for the day. This information can help you and your health care provider: ? Look for patterns in your blood glucose over time. ? Adjust your diabetes management plan as needed. ? Check if your meter allows you to download your records to a computer. Most glucose meters store a record of glucose readings in the meter. If you have type 1 diabetes: ? Check your blood glucose 2 or more times a day. ? Also check your blood glucose: ? Before every insulin injection. ? Before and after exercise. ? Before meals. ? 2 hours after a meal. ? Occasionally between 2:00 a.m. and 3:00 a.m., as directed. ? Before potentially dangerous tasks, like driving or using heavy machinery. ? At bedtime. ? You may need to check your blood glucose more often, up to 6?10 times a day, if you: ? Use an insulin pump. ? Need multiple daily injections (MDI). ? Have diabetes that is not well-controlled. ? Are ill. ? Have a history of severe hypoglycemia. ? Have hypoglycemia unawareness. If you have type 2 diabetes: ? If you take insulin or other diabetes medicines, check your blood glucose 2 or more times a day. ? If you are on intensive insulin therapy, check your blood glucose 4 or more times a day. Occasionally, you may also need to check between 2:00 a.m. and 3:00 a.m., as directed. ? Also check your blood glucose: ? Before and after exercise. ? Before potentially dangerous tasks, like driving or using heavy machinery. ? You may need to check your blood glucose more often if: ? Your medicine is being adjusted. ? Your diabetes is not well-controlled. ? You are ill. General tips ? Always keep your supplies with you. ? If you have questions or need help, all blood glucose meters have a 24-hour hotline phone number that you can call. You may also contact your health care provider. ? After you use a few boxes of test strips, adjust (calibrate) your blood glucose meter by following instructions that came with your meter. Contact a health care provider if: ? Your blood glucose is at or above 240 mg/dL (13.3 mmol/L) (more content not included)... [facility] Provider Letteron 03-31-2022 Provider Letter March 31, 2022 ERIKA NEWMAN [address] [place] [address] ERIKA NEWMAN 1990 To Whom It May Concern, Please excuse above patient from work. Date of Illness: 03/31/22 May Return to Work On: 04/03/22 Sincerely, Marlen Gonzalez MD [facility] [address] [address] [facility] Diabetic Self Management Edu cationon 03-02-2022 Diabetic Self Management Education [id number] Normal [facility] CHEMISTRYOrdered By: SYSTEM SYSTEM on 12-22-2021 Albumin [Mass/Vol] 4.0 g/dL Normal 3.3 - 5.0 gm/dL [facility] Albumin/Globulin [Mass ratio] 1.3 {ratio} Normal 1.1 - 2.2 [facility] ALP [Catalytic activity/Vol] 45 [iU]/d Normal 21 - 98 Int._Unit/L [facility] ALT No additional P-5'-P [Catalytic activity/Vol] 25 [iU]/d Normal 6 - 46 Int._Unit/L [facility] Anion gap [Moles/Vol] 11 mmol/L Normal 6 - 16 mEq/L [facility] AST [Catalytic activity/Vol] 20 [iU]/d Normal 5 - 43 Int._Unit/L [facility] Bilirubin [Mass/Vol] 0.9 mg/dL Normal 0.0 - 1 .1 mg/dL [facility] Calcium [Mass/Vol] 9.3 mg/dL Normal 8.9 - 11. 1 mg/dL [facility] Chloride [Moles/Vol] 107 mmol/L Normal 101 - 1 11 mmol/L [facility] Cholesterol [Mass/Vol] 138 mg/dL Normal 120 - 200 mg/dL [facility] Cholesterol in HDL [Mass/Vol] 40 mg/dL Invalid Interpretation Code [facility] Cholesterol in LDL [Mass/Vol] 87 mg/dL Normal <=129mg/dL [facility] Cholesterol in VLDL [Mass/Vol] 20 mg/dL Normal 7 - 40 mg/dL [facility] CO2 [Moles/Vol] 23 mmol/L Normal 21 - 31 mmol/L [facility] Creatinine [Mass/Vol] 0.6 mg/dL Normal 0.5 - 1.3 mg/dL [facility] GFR/1.73 sq M.predicted among blacks MDRD (S/P/Bld) [Vol rate/Area] mL/min/1.73 m2 Normal >=59mL/min/1. 73 m2 [facility] Chem S GFR/1.73 sq M.predicted among non-blacks MDRD (S/P/Bld) [Vol rate/Area] mL/min/1.73 m2 Normal >=59mL/min/1. 73 m2 [facility] Globulin (S) [Mass/Vol] 3.1 g/dL Normal 1.4 - 4.0 gm/dL [facility] Glucose [Mass/Vol] 99 mg/dL Normal 55 - 199 mg/dL [facility] Potassium [Moles/Vol] 4.2 mmol/L Normal 3.5 - 5.3 mmol/L [facility] Protein [Mass/Vol] 7.1 g/dL Normal 6.0 - 7.8 gm/dL [facility] Sodium [Moles/Vol] 137 mmol/L Normal 135 - 145 mmol/L [facility] Triglyceride [Mass/Vol] 99 mg/dL Normal <=149mg/dL [facility] TSH Qn 2.73 m[IU]/L Normal 0.34 - 5.60 mcIU/mL [facility] Urea nitrogen [Mass/Vol] 10 mg/dL Normal 5 - 21 mg/dL [facility] Urea nitrogen/Creatinine [Mass ratio] 17 mg/mg Normal 10 - 20 [facility] CHEMISTRYOrdered By: Yari Gray on 12-22-2021 Albumin DL <= 20 mg/L (U) [Mass/Vol] 79.6 microgram/mL High 0.0 - 19.0 mcg/mL [facility] HEMATOLOGYOrdered By: SYSTEM SYSTEM on 12-22-2021 Basophils/100 WBC (Bld) 0.5 % Normal 0.0 - 2.0 % [facility] Basophils/Leukocytes Auto (Bld) [Pure # fraction] 0.1 E9/L Normal 0.0 - 0.2 E9/L [facility] Eosinophils/100 WBC (Bld) 1.5 % Normal 0.0 - 8.0 % [facility] Eosinophils/Leukocytes Auto (Bld) [Pure # fraction] 0.2 E9/L Normal 0.0 - 0.5 E9/L [facility] Lymphocytes/100 WBC (Bld) 36.2 % Normal 14.0 - 50.0 % [facility] Lymphocytes/Leukocytes Auto (Bld) [Pure # fraction] 4.8 E9/L High 1.0 - 4.0 E9/L [facility] Monocytes/100 WBC (Bld) 3.8 % Low 4.0 - 14.0 % [facility] Monocytes/Leukocytes Auto (Bld) [Pure # fraction] 0.5 E9/L Normal 0.2 - 1.0 E9/L [facility] Neutrophils/100 WBC (Bld) 58.0 % Normal 36.0 - 75.0 % [facility] Neutrophils/Leukocytes Auto (Bld) [Pure # fraction] 7.7 E9/L High 2.0 - 7.5 E9/L [facility] HEMATOLOGYOrdered By: Ioana Singletary on 12-22-2021 Erythrocyte distribution width (RBC) [Ratio] 16.2 % High 10.9 - 14.2 % [facility] Hematocrit (Bld) [Volume fraction] 30.1 % Low 34.0 - 46.0 % [facility] Hemoglobin (Bld) [Mass/Vol] 9.2 g/dL Low 12.0 - 16.0 gm/dL [facility] Hypochromia Auto Ql (Bld) Present (12/22/21 10:10 AM) Normal [facility] MCH (RBC) [Entitic mass] 21.8 pg Low 27.0 - 34.0 pg [facility] MCHC (RBC) [Mass/Vol] 30.5 g/dL Low 31.4 - 36.0 gm/dL [facility] MCV (RBC) [Entitic vol] 71.7 fL Low 80.0 - 100.0 fL [facility] Microcytes Ql (Bld) Present (12/22/21 10:10 AM) Normal [facility] Morphology Darci (Bld) [Interp] See Morphology (12/22/21 10:10 AM) Normal [facility] Ovalocytes LM Ql (Bld) Present (12/22/21 10:10 AM) Normal [facility] Platelet mean volume (Bld) [Entitic vol] 7.8 fL Normal 6.4 - 10.8 fL [facility] Platelets (Bld) [#/Vol] 570.0 E9/L High 150.0 - 500.0 E9/L [facility] Platelets Large LM Ql (Bld) Present (12/22/21 10:10 AM) Normal [facility] RBC (Bld) [#/Vol] 4.2 E12/L Low 4.3 - 5.9 E12/L [facility] WBC corrected for nucl RBC Auto (Bld) [#/Vol] 13.2 E9/L High 4.0 - 11.0 E9/L [facility] URINALYSISOrdered By: Maria Ines dutton on 12-22-2021 Bacteria LM Ql (Urine sed) Trace /HPF Normal Trace/HPF [facility] UA Auto SS Bilirubin Ql (U) 1+ *ABN* (12/22/21 10:10 AM) Invalid Interpretation Code Negative [facility] UA Auto SS Clarity (U) Turbid *ABN* (12/22/21 10:10 AM) Invalid Interpretation Code Clear [facility] UA Auto SS Color (U) STRAW Invalid Interpretation Code [facility] UA Auto SS Crystals LM Ql (Urine sed) Present (12/22/21 10:10 AM) Normal [facility] UA Auto SS Epithelial cells.squamous LM.HPF (Urine sed) [#/Area] 0-2 /HPF Normal 0-2/HPF [facility] UA Aut o SS Glucose Test strip (U) [Mass/Vol] Negative (12/22/21 10:10 AM) Normal Negative [facility] UA Auto SS Hemoglobin Ql (U) 3+ *ABN* (12/22/21 10:10 AM) Invalid Interpretation Code Negative [facility] UA Auto SS Ketones (U) [Mass/Vol] Negative (12/22/21 10:10 AM) Normal Negative [facility] UA Auto SS [place].plasma/[place] .RBC (Bld) [Mass ratio] 4-20 /HPF Normal 0-3/HPF [facility] UA Auto SS Nitrite Ql (U) Negative (12/22/21 10:10 AM) Normal Negative [facility] UA Auto SS pH (U) 5.5 *NA* (12/22/21 10:10 AM) Invalid Interpretation Code 5.0 - 9.0 [facility] UA Auto SS Protein (U) [Mass/Vol] 1+ *ABN* (12/22/21 10:10 AM) Invalid Interpretation Code Negative [facility] UA Auto SS Specific gravity (U) [Rel density] >=1.030 *NA* (12/22/21 10:10 AM) Invalid Interpretation Code 1.005 - 1.030 [facility] UA Auto SS UA Spec Desc Clean Catch (12/22/21 10:10 AM) Normal [facility] UA Auto SS Urobilinogen Qn (U) [id number] {Ann'U}/dL Normal 0.0 - 1.0 EU/dL [facility] UA Auto SS WBC Auto Ql (U) Negative (12/22/21 10:10 AM) Normal Negative [facility] UA Auto SS WBC LM.HPF (Urine sed) [#/Area] 0-5 /HPF Normal 0-5/HPF [facility] UA Auto SS Hemoglobin A1Con 12-07-2021 Glucose [Mass/Vol] 157 mg/dL Normal [facility] Comment on above: Result Comment: The ADA and AACC recommend providing the estimated average glucose result to permit better patient understanding of their HBA1c result. Performed By: #### G LYHGB #### [address] [place] [address] Substation Maintenance Technician: Suman Villalta MD HbA1c (Bld) [Mass fraction] 7.1 % High 4.0-6.0 [facility] Comment on above: Performed By: #### G LYHGB #### [address] [place] [address] Substation Maintenance Technician: Suman Villalta MD Vital Signs Date Time Vital Sign Value Performing Clinician Faci lity 12-07-2022 13:53-0400 Blood Pressure Location Shantell Parker [facility] 12-07-2022 13:53-0400 Body temperature 98.24 [degF] Shantell Parker [facility] 12-07-2022 13:53-0400 Diastolic blood pressure 84 mm[Hg] Shantell Parker [facility] 12-07-2022 13:53-0400 Heart rate 60 /min Shantell Parker [facility] 12-07-2022 13:53-0400 Respiratory rate 20 /min Shantell Parker [facility] 12-07-2022 13:53-0400 SaO2% (BldA) [Mass fraction] 99 % Shantell Felixzier [facility] 12-07-2022 13:53-0400 Systolic blood pressure 128 mm[Hg] Shantell Parker [facility] 03-31-2022 16:19-0400 Blood Pressure Location [facility] [employer] [facility] 03-31-2022 16:19-0400 Body temperature 98.06 [degF] Marlen BROWN [facility] 03-31-2022 16:19-0400 Diastolic blood pressure 84 mm[Hg] Marlen BROWN [facility] [place] 03-31-2022 16:19-0400 Heart rate 88 /min Marlen BROWN [facility] [place] 03-31-2022 16:19-0400 Respiratory rate 16 /min Marlen GONZALEZ [facility] 03-31-2022 16:19-0400 SaO2% (BldA) [Mass fraction] 97 % Marlen GONZALEZ [facility] 03-31-2022 16:19-0400 Systolic blood pressure 128 mm[Hg] Marlen GONZALEZ [facility] Encounters Encounter Date Encounter Type Care Provider Facility Start: 09-12-2023 End: 09-12-2023 ambulatory SANDY NEWMAN Not Available Start: 08-17-2023 End: 08-17-2023 ambulatory SANDY NEWMAN Not Available Start: 01-26-2023 End: 01-27-2023 ambulatory [facility] Start: 12-07-2022 End: 12-08-2022 ambulatory Shantell Parker [facility] Start: 12-07-2022 End: 12-07-2022 Patient encounter procedure Shantell Parker [facility] Start: 03-31-2022 End: 04-01-2022 ambulatory Marlen GONZALEZ [facility] Start: 03-31-2022 End: 03-31-2022 Patient encounter procedure Marlen GONZALEZ [facility] Start: 03-31-2022 ambulatory Eleazar GUARDADO Facility:[facility] Start: 03-24-2022 ambulatory Eleazar A GUARDADO [facility] Start: 03-01-2022 ambulatory Eleazar GUARDADO [facility] Start: 01-02-2022 End: 04-02-2022 Recurring Kenyatta VELASQUEZ [facility] Start: 12-22-2021 End: 12-22-2021 Lab Drop off Kenyatta VELASQUEZ [facility] Start: 12-07-2021 End: 12-08-2021 ambulatory [facility] Start: 12-05-2021 End: 12-05-2021 Patient encounter procedure Ana Garcia [facility] Procedures Date Procedure Procedure Detail Performing Clinician TM tube Ana Radha Tonsillectomy and adenoidectomy Ana Radha Immunizations Immunization Date Immunization Notes Care Provider Fa cili 12-15-2012 tetanus toxoid, reduced diphtheria toxoid, and acellular pertussis vaccine, adsorbed Ana Radha [facility] Comment on above: Reason for Medicatio n: Other (see comment) 04-19-2006 tetanus toxoid, reduced diphtheria toxoid, and acellular pertussis vaccine, adsorbed Ana Radha [facility] NEGATED: Highlighted row has not occurred!12-07-2022 influenza virus vaccine, unspecified formulation Shantell Parker [facility] NEGATED: Highlighted row has not occurred!03-31-2022 SARS-CoV-2 mRNA (tozinameran 5y-11y) vaccine Marlen GONZALEZ [facility] NEGATED: Highlighted row has not occurred!09-16-2019 influenza virus vaccine, live, attenuated, for intranasal use Ana Garcia [facility] Payers Date Payer Category Payer Unknown [id number] 2023 Private Health Insurance [id number] 2021 Private Health Insurance 2014 Unknown [id number] 1989 Unknown [id number] 2.16.8 [id number] 1989 Unknown [id number] 2.16.8 [id number] 1989 Unknown [id number] 2.16.8 [id number] 1989 Unknown [id number] 2.16.8 [id number] 1989 Unknown [id number] 2.16.8 [id number] 1989 Unknown [id number] 2.16.8 [id number] 1989 Unknown [id number] 2.16.8 [id number] 1989 Unknown [id number] 1989 Unknown [id number] Private Health Insurance [id number] Social History Date Type Detail Facility Start: 05-25-2021 End: 12-07-2022 Tobacco smoking status Never smoked tobacco (finding) [facility] Tobacco smoking status Never [facility] Sex Assigned At Female [facility] Medical Equipment Procedure Code Equipment Code Equipment Origin al Text Equipment Identifier Dates Lancets, See Instructions, 100 EA, 0, Test blood sugar TID PRN E11.9, [facility], 164, cm, 12/22/21 8:44:00 EDT, Height/Length Dosing, 126.7, kg, 12/22/21 8:44:00 EDT, Weight Dosing Start: 12-22-2021 Test strips, See Instructions, 100 EA, 0, Test blood sugar TID PRN E11.9, [facility] , Supply, 164, cm, 12/22/21 8:44:00 EDT, Height/Length Dosing, 126.7, kg, 12/22/21 8:44:00 EDT, Weight Dosing Start: 12-22-2021 Lancets, See Instructions, 100 EA, 0, Test blood sugar TID PRN E11.9, [facility] , Supply, 164, cm, 12/22/21 8:44:00 EDT, Height/Length Dosing, 126.7, kg, 12/22/21 8:44:00 EDT, Weight Dosing Start: 12-22-2021 Test strips, See Instructions, 100 EA, 0, Test blood sugar TID PRN E11.9, [facility] , Supply, 164, cm, 12/22/21 8:44:00 EDT, Height/Length Dosing, 126.7, kg, 12/22/21 8:44:00 EDT, Weight Dosing Start: 12-22-2021 Lancets, See Instructions, 100 EA, 0, Test blood sugar TID PRN E11.9, [facility], Supply, 164, cm, 12/22/21 8:44:00 EDT, Height/Length Dosing, 126.7, kg, 12/22/21 8:44:00 EDT, Weight Dosing Start: 12-22-2021 Test strips, See Instructions, 100 EA, 0, Test blood sugar TID PRN E11.9, [facility], Supply, 164, cm, 12/22/21 8:44:00 EDT, Height/Length Dosing, 126.7, kg, 12/22/21 8:44:00 EDT, Weight Dosing Start: 12-22-2021 Lancets, See Instructions, 100 EA, 0, Test blood sugar TID PRN E11.9, [facility] [address], Supply, 164, cm, 12/22/21 8:44:00 EDT, Height/Length Dosing, 126.7, kg, 12/22/21 8:44:00 EDT, Weight Dosing Start: 12-22-2021 Test strips, See Instructions, 100 EA, 0, Test blood sugar TID PRN E11.9, [facility], [place], 164, cm, 12/22/21 8:44:00 EDT, Height/Length Dosing, 126.7, kg, 12/22/21 8:44:00 EDT, Weight Dosing Start: 12-22-2021 Functional Status Date Assessment Result Facility 12-07[facility]2022 [facility] Status N/A [facility] Discharge instructions 03-31-2022 Note Date & Type Note Facility 03-31-2022 Hospital Discharg e instructions Patient Education 03/31/2022 16:56:20 Blood Glucose Monitoring, Adult Blood Glucose Monitoring, Adult Monitoring your blood sugar (glucose) is an important part of managing your diabetes (diabetes mellitus). Blood glucose monitoring involves checking your blood glucose as often as directed and keeping a record (log) of your results over time. Checking your blood glucose regularly and keeping a blood glucose log can: Help you and your health care provider adjust your diabetes management plan as needed, including your medicines or insulin. Help you understand how food, exercise, illnesses, and medicines affect your blood glucose. Let you know what your blood glucose is at any time. You can quickly find out if you have low blood glucose (hypoglycemia) or high blood glucose (hyperglycemia). Your health care provider will set individualized treatment goals for you. Your goals will be based on your age, other medical conditions you have, and how you respond to diabetes treatment. Generally, the goal of treatment is to maintain the following blood glucose levels: Before meals (preprandial): 80 130 mg/dL (4.4 7.2 mmol/L). After meals (postprandial): below 180 mg/dL (10 mmol/L). A1c level: less than 7%. Supplies needed: Blood glucose meter. Test strips for your meter. Each meter has its own strips. You must use the strips that came with your meter. A needle to prick your finger (lancet). Do not use a lancet more than one time. A device that holds the lancet (lancing device). A journal or log book to write down your results. How to check your blood glucose 1.Wash your hands with soap and water. 2.Prick the side of your finger (not the tip) with the lancet. Use a different finger each time. 3.Gently rub the finger until a small drop of blood appears. 4.Follow instructions that come with your meter for inserting the test strip, applying blood to the strip, and using your blood glucose meter. 5.Write down your result and any notes. Some meters allow you to use areas of your body other than your finger (alternative sites) to test your blood. The most common alternative sites are: Forearm. Thigh. Palm of the hand. If you think you may have hypoglycemia, or if you have a history of not knowing when your blood glucose is getting low (hypoglycemia unawareness), do not use alternative sites. Use your finger instead. Alternative sites may not be as accurate as the fingers, because blood flow is slower in these areas. This means that the result you get may be delayed, and it may be different from the result that you would get from your finger. Follow these instructions at home: Blood glucose log Every time you check your blood glucose, write down your result. Also write down any notes about things that may be affecting your blood glucose, such as your diet and exercise for the day. This information can help you and your health care provider: ?Look for patterns in your blood glucose over time. ?Adjust your diabetes management plan as needed. Check if your meter allows you to download your records to a computer. Most glucose meters store a record of glucose readings in the meter. If you have type 1 diabetes: Check your blood glucose 2 or more times a day. Also check your blood glucose: ?Before every insulin injection. ?Before and after exercise. ?Before meals. ?2 hours after a meal. ?Occasionally between 2:00 a.m. and 3:00 a.m., as directed. ?Before potentially dangerous tasks, like driving or using heavy machinery. ?At bedtime. You may need to check your blood glucose more often, up to 6 10 times a day, if you: ?Use an insulin pump. ?Need multiple daily injections (MDI). ?Have diabetes that is not well-controlled. ?Are ill. ?Have a history of severe hypoglycemia. ?Have hypoglycemia unawareness. If you have type 2 diabetes: If you take insulin or other diabetes medicines, check your blood glucose 2 or more times a day. If you are on intensive insulin therapy, check your blood glucose 4 or more times a day. Occasionally, you may also need to check between 2:00 a.m. and 3:00 a.m., as directed. Also check your blood glucose: ?Before and after exercise. ?Before potentially dangerous tasks, like driving or using heavy machinery. You may need to check your blood glucose more often if: ?Your medicine is being adjusted. ?Your diabetes is not well-controlled. ?You are ill. General tips Always keep your supplies with you. If you have questions or need help, all blood glucose meters have a 24-hour hotline phone number that you can call. You may also contact your health care provider. After you use a few boxes of test strips, adjust (calibrate) your blood glucose meter by following instructions that came with your meter. Contact a health care provider if: Your blood glucose is at or above 240 mg/dL (13.3 mmol/L) for 2 days in a row. You have been sick or have had a fever for 2 days or longer, and you are not getting better. You have any of the following problems for more than 6 hours: ?You cannot eat or drink. ?You have nausea or vomiting. ?You have diarrhea. Get help right away if: Your blood glucose is lower than 54 mg/dL (3 mmol/L). You become confused or you have trouble thinking clearly. You have difficulty breathing. You have moderate or large ketone levels in your urine. Summary Monitoring your blood sugar (glucose) is an important part of managing your diabetes (diabetes mellitus). Blood glucose monitoring involves checking your blood glucose as often as directed and keeping a record (log) of your results over time. Your health care provider will set individualized treatment goals for you. Your goals will be based on your age, other medical conditions you have, and how you respond to diabetes treatment. Every time you check your blood glucose, write down your result. Also write down any notes about things that may be affecting your blood glucose, such as your diet and exercise for the day. This information is not intended to replace advice given to you by your health care provider. Make sure you discuss any questions you have with your health care provider. Document Released: 09/05/2004 Document Revised: 06/27/2019 Document Reviewed: 02/12/2017 [employer] Patient Education 2020 [employer] Follow Up Care 03/31/2022 11:31:15 With:Eleazar MELCHOR Address: [address] [place] [id number]- When: Unknown Comments:return as otherwise scheduled [facility] + Plan note 12-23-2021 Laboratory Note Date & Type Note Facility 12-23-2021 Evaluation + Plan note Future Scheduled TestsTIBC Calculated 12/23/21Ferritin 12/23/21Folate Level 12/23/21Iron Level 12/23/21Vitamin B12 Level 12/23/21 [facility] Evaluation + Plan note Note Date & Type Note Facility Evaluation + Plan note No data available for this section [facility] Evaluation + Plan note Note Date & Type Note Facility Evaluation + Plan note Future Appointments Appointment Date:01/02/2022 09:00:00 AM Scheduled Provider:Bill ATKINSON, ДМТИРИЙ, Erika FERNANDEZ Location:[facility] Appointment Type:DM Diabetes Initial Assessment [address] (F Appointment Date:03/24/2022 09:00:00 AM Scheduled Provider:Eleazar MELCHOR Location:[facility] Appointment Type:[facility] Discharge instructions Note Date & Type Note Facility Hospital Discharge instructions No data available for this section [facility] Progress note Note Date & Type Note Facility Progress note No data available for this section [facility] Summary Purpose Family History No Family History Records FoundNo Family History Records FoundNo Family History Records Found Advance Directives No Advanced Directives Records FoundNo Advanced Directives Records FoundNo Advanced Directives Records Found Additional Source Comments INFORMATION SOURCE (unrecogn ized section and content) DATE CREATED AUTHOR 12/08/2021 Jackie chicas DATE CREATED AUTHOR AUTHOR'S ORGANIZ ATION 01/29/2023 [facility] DATE CREATED AUTHOR AUTHOR'S ORGANIZ ATION 09/14/2023 [facility] EPIC Care Team (unrecognized sect ion and content) Personnel Name: Eleazar MELCHOR Address: [address] [place] [id number]- Personnel Name: Eleazar MELCHOR Address: [address] [place] [address]- Personnel Name: Shantell Parker PA-C Address: Address: [address] [place] [address]- FOR RECORDS PERTAINING TO PATIENTS WHO ARE OR HAVE BEEN ENROLLED IN A CHEMICAL DEPENDENCY/SUBSTANCEABUSE PROGRAM, SOME INFORMATION MAY BE OMITTED. This clinical summary was aggregated from multiple sources. Caution should be exercised in using it in the provision of clinical care. This summary normalizes information from multiple sources, and as a consequence, information in this document may materially change the coding, format and clinical context of patient data. In addition, data may be omitted in some cases. CLINICAL DECISIONS SHOULD BE BASED ON THE PRIMARY CLINICAL RECORDS. [facility] [employer] provides no warranty or guarantee of the accuracy or completeness of information in this document.
[2023-09-14 13:40] LABS: Basophils Percent Auto 0.4 % (0.2-2.0); Eosinophils Absolute Auto 0.1 10^3/uL (0.0-0.7); Eosinophils Percent Auto 0.9 % (0.9-7.0); Hemoglobin 10.6 g/dL (12.0-16.0); Immature Granulocytes Abs Auto 0.02 10^3/uL (0.00-0.03); Immature Granulocytes Pct Auto 0.2 % (0.0-0.5); Lymphocytes Absolute Auto 3.1 10^3/uL (1.2-3.8); Mean Corpuscular HGB Conc 30.3 g/dL (29.9-35.2); Mean Corpuscular Hemoglobin 24.4 pg (26.7-34.0); Mean Corpuscular Volume 80.5 fL (81.0-99.0); Mean Platelet Volume 9.8 fL (9.5-13.5); Monocytes Absolute Auto 0.5 10^3/uL (0.3-0.8); Monocytes Percent Auto 5.1 % (1.7-12.0); Neutrophils Absolute Auto 6.5 10^3/uL (1.4-6.5); Neutrophils Percent Auto 63.4 % (43.0-75.0); Platelet Count 334 10^3/uL (150-450); Red Blood Count 4.35 10^6/uL (4.20-5.40); Red Cell Distribution Width 16.1 % (11.0-15.0); White Blood Count 10.2 10^3/uL (4.0-11.0)
[2023-09-14 13:48] LABS: Estimated Average Glucose 114 mg/dL; Glycohemoglobin A1C 5.6 % (4.5-6.2)
[2023-09-14 13:55] LABS: Thyroid Stimulating Hormone 1.082 uIU/mL (0.358-3.740)
[2023-09-15 08:13] LABS: HBsAg Screen Negative (Negative); HCV Ab Non Reactive (Non Reactive)
[2023-09-15 09:12] LABS: Rapid Plasma Reagin, Quant Non Reactive titer (NonRea<1:1); Rubella Antibodies, IgG 1.23 index (Immune >0.99)
[2023-09-19 07:09] LABS: HIV Ab/p24 Ag Screen Non Reactive (Non Reactive)
== END 2023-09-14 13:04 | disposition home or self-care (01) ==
LOC: LAB 13:05
PROVIDERS: Visit Provider Obstetrics & Gynecology
DX: N92.6 Irregular menstruation, unspecified (principal)
CPT/HCPCS: 36415; 83036; 84443; 85025; 86592; 86762; 86803; 86850; 86900; 86901; 87086; 87340; 87389

== ENCOUNTER 2023-10-24 09:17 | Outpatient (OUT) | payer OTHER, SELFPAY ==
[2023-10-26 02:07] LABS: AFP Value 24.1 ng/mL (.); Gest. Age on Collection Date 18.4 weeks (.); Gestat. Age Based On As provided (.); Insulin Dep Diabetes No (.); Maternal Age At EDD 34.5 yr (.); OSBR Risk 1 IN 10000 (.); Results Report (.)
== END 2023-10-24 09:18 | disposition home or self-care (01) ==
LOC: LAB 09:17
PROVIDERS: Visit Provider Obstetrics & Gynecology
DX: Z34.92 Encounter for supervision of normal pregnancy, unspecified, second trimester (principal); Z36.1 Encounter for antenatal screening for raised alphafetoprotein level
CPT/HCPCS: 36415; 82105

== ENCOUNTER 2023-11-07 09:31 | Outpatient (OUT) | payer OTHER, SELFPAY ==
--- NOTE | 2023-11-07 09:33 | US_ITS ---
[address] [address] Patient Name: ERIKA NEWMAN MRN: [id number] date: 1990 Sex: F Assigned Patient Location: [facility] Current Patient Location: [facility] Accession/Order Number: [id number] Exam Date: 11/07/2023 09:34 Report Date: 11/07/2023 11:35 At the request of: JOEY MUNOZ Procedure: US OB cervical length EXAMINATION: US OB anatomy, US OB cervical length HISTORY: ANATOMY COMPARISON: No relevant comparison available. TECHNIQUE: Transabdominal sonographic examination was performed for obstetrical and evaluation. FINDINGS: Number: 1 Heart Rate: 155.0 bpm H.B. /min Amniotic Fluid Volume: Subjectively normal Placental Location: ANTERIOR with lower margin 5.7 cm from os. Incidental small venous crooks. Cervix Length: 5.1 cm, closed. ANATOMY: Normal Structures -cerebellum, choroid plexus, cisterna magna, lateral cerebral ventricles, orbits, midline falx, four-chamber heart, RVOT, LVOT, stomach, kidneys, bladder, umbilical cord insertion into abdomen, three-vessel cord, cervical spine, thoracic spine, lumbar spine, sacral spine, right upper extremity, left upper extremity, right lower extremity, left lower extremity. SUBOPTIMALLY SEEN: Hard palate ABNORMALITIES: None BIOMETRY: BPD: 4.8 cm 20 weeks 3 days HC: 17.7 cm 20 weeks 1 days AC: 15.3 cm 20 weeks 4 days FL: 3.3 cm 20 weeks 1 days EFW:347.7 grams; 40% FL/AC: 21.3 FL/BPD: 68.1 HC/AC: 1.2 GESTATIONAL AGE: Age by EDC: 20 weeks 3 days RYANN by EDC: 03/23/2024 Age by current US: 20 weeks 2 days RYANN by current US: 03/24/2024 US/US OB cervical length IMPRESSION: 1. Single live intrauterine with growth detailed above. 2. Suboptimal visualization of the hard palate due to position. Electronically authenticated by: CAM RODRÍGUEZ Date: 11/07/2023 11:35
--- NOTE | 2023-11-07 09:33 | US_ITS ---
[address] [address] Patient Name: ERIKA NEWMAN MRN: [id number] date: 1990 Sex: F Assigned Patient Location: [facility] Current Patient Location: [facility] Accession/Order Number: [id number] Exam Date: 11/07/2023 09:34 Report Date: 11/07/2023 11:35 At the request of: JOEY MUNOZ Procedure: US OB anatomy EXAMINATION: US OB anatomy, US OB cervical length HISTORY: ANATOMY COMPARISON: No relevant comparison available. TECHNIQUE: Transabdominal sonographic examination was performed for obstetrical and evaluation. FINDINGS: Number: 1 Heart Rate: 155.0 bpm H.B. /min Amniotic Fluid Volume: Subjectively normal Placental Location: ANTERIOR with lower margin 5.7 cm from os. Incidental small venous crooks. Cervix Length: 5.1 cm, closed. ANATOMY: Normal Structures -cerebellum, choroid plexus, cisterna magna, lateral cerebral ventricles, orbits, midline falx, four-chamber heart, RVOT, LVOT, stomach, kidneys, bladder, umbilical cord insertion into abdomen, three-vessel cord, cervical spine, thoracic spine, lumbar spine, sacral spine, right upper extremity, left upper extremity, right lower extremity, left lower extremity. SUBOPTIMALLY SEEN: Hard palate ABNORMALITIES: None BIOMETRY: BPD: 4.8 cm 20 weeks 3 days HC: 17.7 cm 20 weeks 1 days AC: 15.3 cm 20 weeks 4 days FL: 3.3 cm 20 weeks 1 days EFW:347.7 grams; 40% FL/AC: 21.3 FL/BPD: 68.1 HC/AC: 1.2 GESTATIONAL AGE: Age by EDC: 20 weeks 3 days RYANN by EDC: 03/23/2024 Age by current US: 20 weeks 2 days RYANN by current US: 03/24/2024 US/US OB anatomy IMPRESSION: 1. Single live intrauterine with growth detailed above. 2. Suboptimal visualization of the hard palate due to position. Electronically authenticated by: CAM RODRÍGUEZ Date: 11/07/2023 11:35
--- OUTSIDE RECORDS SUMMARY | 2023-11-07 09:33 | XMS_ITS | CCD ---
Author Name Unknown Address [address] [place] [address] Organization [facility] Care Team Providers Care Design Cell Engineer Name Role Phone Eleazar GUARDADO Primary Care Physician GINGER COOLEY Referring Unavailable KENYATTA BARKER Primary Care Unavailable Shantell Parker Primary Care Physician NIHARIKA NEWMAN Attending Unavailable JOEY SCHUSTER Attending Unavailable NIHARIKA NEWMAN Attending Unavailable Unavailable Primary Care Provider UnavailShantell Diaz Referring Unavailable Shantell Parker Attending Unavailable Shantell Parker Admitting Unavailable Boo Hoyt Attending Unavailable Boo Hyot Admitting Unavailable Jeremy Ortega Attending Unavailable Boo Hoyt Attending Unavailable Shantell Parker Attending Unavailable Shantell Parker Attending Unavailable Shantell Parker Attending Unavailable Shantell Parker Attending Unavailable Allergies Allergy Classification Reported Allergen(s) Allergy Type Date of Onset Reaction(s) Facility (9 sources) metroNIDAZOLE; Translations: [metronidazole] Drug Allergy Weal (disorder) [facility] (4 sources) Penicillins Propensity to adverse reactions 3 [facility] Medications Current Medications Medication Drug Class(es) Dates Sig (Normalized) Sig (Original) [id number] 200 actuat albuterol 0.09 mg/actuat metered dose inhaler (5 sources) beta2-Adrenergic Agonist Start: 12-07-2022 take 2 puff(s) by mouth every six hours albuterol HFA 90 mcg/act inhaler inhale 2 puffs by mouth and INTO THE LUNGS every 6 hours 0 12/07/2022 Active Start: 05-26-2021 take 1 dose by inhal ation four times daily for cough ProAir HFA 90 mcg/inh inhalation aerosol 2 puff(s), Inhalation, QID, 1 EA, Refill(s) 0, for cough Start Date: 05/26/21 Status: Ordered Alcohol Swabs (7 sources) Start: 12-22-2021 Alcohol Swabs Alcohol Swabs, See Instructions, 100 EA, 0, Alcohol swabs to use when testing blood sugar TID PRN, [facility] , Supply, 164, cm, 12/22/21 8:44:00 EDT, Height/Length Dosing, 126.7, kg, 12/22/21 8:44:00 EDT, Weight Dosing Start Date: 12/22/21 Status: Ordered aspirin 81 mg oral capsule (1 source) Platelet Aggregation Inhibitor, Nonsteroidal Anti-inflammatory Drug Start: 11-01-2023 take 1 mg by mouth every twenty-four hours aspirin 81 mg oral capsule mg cap(s), Oral, q24hr, Refills(s) 0 Start Date: 11/01/23 Status: Ordered benzonatate 100 mg oral capsule (1 source) Non-narcotic Antitussive Start: 12-07-2022 End: 12-17-2022 take 1 capsule by mouth three times daily benzonatate 100 mg Cap 100 mg = 1 cap(s), Oral, TID, X 10 day(s), # 30 cap(s), Refills(s) 0, [id number], 164, cm, 12/07/22 13:57:00 EDT, Height/Length Dosing, 100.8, kg, 12/07/22 13:57:00 EDT, Weight Dosing Start Date: 12/07/22 Stop Date: 12/17/22 Status: Ordered cephalexin 500 mg oral capsule (2 sources) Cephalosporin Antibacterial Start: 03-31-2022 End: 04-07-2022 take 2 capsules by mouth twice daily Keflex 500 mg Cap 1,000 mg = 2 cap(s), Oral, BID, X 7 day(s), # 28 cap(s), Refills(s) 0, Pharmacy: [facility] , 164, cm, 03/31/22 16:32:00 EDT, Height/Length Dosing, 121.6, kg, 03/31/22 16:32:00 EDT, Weight Dosing Start Date: 03/31/22 Stop Date: 04/07/22 Status: Ordered dextromethorphan hydrobromide 3 mg/ml / promethazine hydrochloride 1.25 mg/ml oral solution (2 sources) Phenothiazine, Uncompetitive I-prntub-N-asparta te Receptor Antagonist, Sigma-1 Agonist Start: 10-27-2023 take 5 mL by mouth every six hours for cough dextromethorphan-prom ethazine 15 mg-6.25 mg/5 mL Oral Syrup 5 mL 5 mL, Oral, q6hr for cough, 240 mL, Refill(s) 0, [facility] #[id number], 164, cm, 10/27/23 13:44:00 EST, Height/Length Dosing, 101, kg, 10/27/23 13:44:00 EST, Weight Dosing Start Date: 10/27/23 Status: Ordered Glucometer (7 sources) Start: 12-22-2021 Glucometer Glucometer, See Instructions, 1 EA, 0, Glucometer to test blood sugar TID PRN E11.9, [facility], 164, cm, 12/22/21 8:44:00 EDT, Height/Length Dosing, 126.7, kg, 12/22/21 8:44:00 EDT, Weight Dosing Start Date: 12/22/21 Status: Ordered metFORMIN hydrochloride 1000 mg oral tablet (4 sources) Biguanide Start: 10-20-2019 take 1 tablet by mouth twice daily metformin 1000 mg oral tablet, extended release 1,000 mg = 1 tab(s), Oral, BID, Refills(s) 0 Start Date: 10/20/19 Status: Ordered methylPREDNISolone (3 sources) Corticosteroid Start: 10-24-2023 methylPREDNISolone (Medrol Dospak) 4 MG tablets Indications: Hives Day 1: 6 tablets Day 2: 5 tablets Day 3: 4 tablets Day 4: 3 tablets Day 5: 2 tablets Day 6: 1 tablet 21 tablet 0 10/24/2023 Active polysaccharide iron complex 391 mg oral capsule (4 sources) Start: 09-20-2023 End: 01-03-2025 take 1 capsule by mouth in the morning iron polysaccharides (ProFe) 391.3 (180 Fe) MG capsule Indications: Anemia during in first trimester Take 1 capsule (391.3 mg) by mouth in the morning. 90 capsule 3 09/20/2023 09/19/2024 Active predniSONE 20 mg oral tablet (2 sources) Start: 10-27-2023 take 2 tablets by mouth once daily in the morning, then take 1 tablet by mouth once daily in the morning predniSONE 20 mg Tab See Instructions, 2 po QAM x4 days, then 1 po QAM x4 days, # 12 tab(s), Refills(s) 0, [facility]acy: [id number], 164, cm, 10/27/23 13:44:00 EST, Height/Length Dosing, 101, kg, 10/27/23 13:44:00 EST, Weight Dosing Start Date: 10/27/23 Status: Ordered Multivitamins (1 source) Start: 11-01-2023 take 1 tablet by mouth once daily Multivitamins 1 tab(s), Oral, Daily, Refill(s) 0 Start Date: 11/01/23 Status: Ordered Vit-Fe Fumarate-FA ( Plus/Iron) 27-1 MG tablet (4 sources) Start: 08-17-2023 End: 08-16-2024 take 1 tablet by mouth in the morning Vit-Fe Fumarate-FA ( Plus/Iron) 27-1 MG tablet Indications: Missed menses Take 1 tablet by mouth in the morning. 90 tablet 3 08/17/2023 08/16/2024 Active Single Use Alcohol Pad (7 sources) Start: 12-22-2021 Single Use Alcohol Pad Single Use Alcohol Pad, See Instructions, 100 EA, 1, Single Use Alcohol Pad - Use once daily prior to injection., [facility], Supply, 164, cm, 12/22/21 8:44:00 EDT, Height/Length Dosing, 126.7, kg, 12/22/21 8:44:00 EDT, Weight Dosing Start Date: 12/22/21 Status: Ordered Zinc (1 source) Start: 11-01-2023 take 1 mg by mouth once daily Zinc mg, Oral, Daily, Refills(s) 0 Start Date: 11/01/23 Status: Ordered Completed/Discontinued Medications Medication Drug Class(es) Dates Sig (Normalized) Sig (Original) Albuterol (Eqv-ProAir HFA) 90 mcg/inh inhalation aerosol (3 sources) Start: 11-01-2023 take 1 dose by inhalation every six hours Albuterol (Eqv-ProAir HFA) 90 mcg/inh inhalation aerosol 2 puff(s), Inhalation, q6hr, 1 EA, Refill(s) 0, [facility] #[id number], 164, cm, 11/01/23 15:38:00 EST, Height/Length Dosing, 97.5, kg, 11/01/23 15:38:00 EST, Weight Dosing Start Date: 11/01/23 Status: Ordered Start: 12-07-2022 take 1 dose by inhal ation every six hours Albuterol (Eqv-ProAir HFA) 90 mcg/inh inhalation aerosol 2 puff(s), Inhalation, q6hr, 1 EA, Refill(s) 1, [facility] #[id number], 164, cm, 12/07/22 13:57:00 EDT, Height/Length Dosing, [...] context; Translations: [Dietary counseling and surveillance] Episodic Allergic reactions (2 sources) Urticaria; Translations: [Urticaria, unspecified] 10-24-2023 Episodic Diabetes mellitus with complications (9 sources) Type 2 diabetes mellitus in obese; Translations: [Complication due to diabetes mellitus] Onset: 03-31-2022 12-22-2021 Chronic Genitourinary symptoms and ill-defined conditions (7 sources) Dysuria 12-22-2021 Episodic Headache; including migraine (8 sources) Migraine 02-11-2020 Chronic Influenza (2 sources) Influenza; Translations: [Influenza due to unidentified influenza virus with other respiratory manifestations] Onset: 10-27-2023 Episodic Other endocrine disorders (8 sources) Polycystic ovaries 12-07-2020 Chronic Other female genital disorders (6 sources) Abnormal uterine bleeding 03-31-2022 Chronic Other gastrointestinal disorders (8 sources) Irritable bowel syndrome 11-09-2020 Chronic Other inflammatory condition of skin (2 sources) Pruritus, unspecified; Translations: [Unspecified pruritic disorder] 10-24-2023 Episodic Other nutritional; endocrine; and metabolic disorders (9 sources) Body mass index 40+ - severely obese; Translations: [Body mass index (BMI) 45.0-49.9, adult] Onset: 03-31-2022 11-09-2020 Chronic Other nutritional; endocrine; and metabolic disorders (9 sources) Morbid obesity; Translations: [Morbid (severe) obesity due to excess calories] Onset: 03-31-2022 12-07-2020 Chronic Other nutritional; endocrine; and metabolic disorders (3 sources) Obese class II; Translations: [Body mass index (BMI) 37.0-37.9, adult] Onset: 12-07-2022 Chronic Other nutritional; endocrine; and metabolic disorders (2 sources) Obesity; Translations: [Other obesity due to excess calories] Onset: 12-07-2022 Chronic Other nutritional; endocrine; and metabolic disorders (1 source) Body mass index 30+ - obesity 11-01-2023 Chronic Other nutritional; endocrine; and metabolic disorders (1 source) Obesity caused by energy imbalance 11-01-2023 Chronic Other skin disorders (8 sources) Acanthosis nigricans 03-03-2019 Episodic Other upper respiratory infections (1 source) Acute pharyngitis; Translations: [Acute pharyngitis, unspecified] Onset: 10-27-2023 Episodic Residual codes; unclassified (1 source) Gestation period, 19 weeks; Translations: [19 weeks gestation of ] Onset: 11-01-2023 Episodic Thyroid disorders (8 sources) Goiter 03-03-2019 Chronic Unclassified (1 source) Drug therapy finding 12-07-2020 Urinary tract infections (7 sources) Acute hemorrhagic cystitis; Translations: [Acute cystitis with hematuria] Onset: 03-31-2022 Episodic Past or Other Problems Problem Classification Problem Date Documented Da te Episodic/Chronic Unclassified (8 sources) Onset: 03-17-2012 Resolved: 12-13-2012 03-25-2015 Unclassified (7 sources) Patient encounter status 12-22-2021 Results Test Name Value Interpretation Reference Range Facility Family Medicine Office/Clini c Noteon 11-06-2023 Family Medicine Office/Clinic Note Chief Complaint c/o sore throat, not feeling well HPI Staff C/O: Onset: Sunday Location: Symptoms: cough, nasal congestion, ear congestion, rattle in chest OTC: tested flu B + History of Present Illness I have reviewed staff HPI and it is correct. Erika Newman is a 33-year-old female with concerns regarding sore throat, still not feeling well. The patient was seen on 08/26/2023, diagnosed with influenza B. She is accompanied by her mother. Patient denies any known contact with individuals with influenza. She mentions a female coworker, who has bronchitis and pneumonia. She denies experiencing fevers and has been monitoring her temperature daily. She also denies any episodes of vomiting, but reports experiencing nausea when she has severe coughing spells. Since becoming , she notes that blowing her nose triggers vomiting. She used a neti pot without any issues. She reports otalgia, particularly during coughing episodes, with the right ear being more affected than the left. Sprite tastes unusual to her. She consumes Coca Cola but has been hydrating adequately with water. She took Tylenol Cold and Flu for 2 days in a row, which alleviated her headache and throat pain. She was taking promethazine but discontinued since she started taking Tylenol. She has somnolence when taking Benadryl. Her symptoms started 10/30/2023 PM. Her mother asked if she could consume chicken or bone broth. She does not prefer broth. On 07/24/2023, she visited her HEATING AND COOLING SYSTEMS ENGINEER due to the presence of hives on her hand and arm. She was prescribed steroids. She completed a course of metronidazole at the end of 09/2023 for bacterial vaginosis. Currently, she is 19 weeks after trying to conceive for 5 years. She also reported an episode of urinary incontinence. The patient was advised that she was beyond the recommended period for Tamiflu administration. Patient has no other questions at this time. Her sister's is 4 days behind. She has been absent from her job since 10/29/2023 Review of Systems PHQ Score Initial Depression Screen Score: 0 SCORE All negative except as noted in the HPI. Physical Exam Vitals & Measurements T: 36.8 ?C(Temporal Artery) HR: 103(Peripheral) RR: 18 BP: 124/72 SpO2: 100% HT: 65 in HT: 164 cm WT: 97.5 kg WT: 214.5 lb BMI: 36.25 General: Obese female appears mildly ill, well hydrated, no acute distress. Head: Normocephalic atraumatic? Eyes: EOMI, sclera clear? Ears: Fluid line present bilaterally, serous in nature. Nose: No deformity, discharge, inflammation or lesion? Mouth: Mucous membranes moist. Normal oropharynx, posterior pharynx without lesion or exudate. Tongue normal.? Neck: Tender cervical lymphadenopathy. Lungs: Lungs clear to auscultation? Cardio: Regular rate and rhythm with no murmur? Mental status: Alert and oriented x3. Appropriate mood and affect. Assessment/Plan 1. Influenza B (J10.1: Influenza due to other identified influenza virus with other respiratory manifestations) Encouraged the patient can use Tylenol Cold, Sudafed, saline nasal spray, Afrin, Nasacort, Benadryl, Claritin, or Zyrtec for symptomatic management. A prescription for albuterol inhaler was sent to the local pharmacy. Advised to use every 6 hours as needed for shortness of breath or chest congestion. Encouraged to stay hydrated, rest, and was offered a work note if needed. 2. 19 weeks gestation of (Z3A.19: 19 weeks gestation of ) Encouraged the patient to follow up with rotary adjuster. If symptoms worsen, she will contact our office. 3. BMI 36.0-36.9,adult (Z68.36: Body mass index [BMI] 36.0-36.9, adult) The standard range for ages 18 and older is >=18.5 and < 25 kg/m2. Your BMI today was above this range, this falls in the overweight to obese category and there are medical benefits to weight loss. We can offer counselling, referral, and/or medical support in addressing this problem. Your BMI and weight management will be followed at subsequent visits. 4. Class 2 obesity due to excess calories in adult (E66.09: Other obesity due to excess calories) See above. Patient verbalized understanding and is agreeable to plan and course of treatment. This documentation was completed by voice-activated device and software. Inaccuracies compared to the original dictation of this provider are possible although this document has been overread and corrected. Portions of this record may have been created with voice recognition artificial intelligence software, specifically [employer] Voice, Webstep and or [employer]. Substitutions may have occurred due to the inherent limitations of voice recognition and artificial intelligence software. ATTESTATION: This note has been generated by [employer] and edited by Isaac Higgins, Quality Collar Separator. Follow-up No qualifying data available Patient Education Influenza, Adult Problem List/Past Medical History (more content not included)... Normal [facility] Comment on above: Result Comment: Elec tronically Signed By: Shantell Parker PA-C\.br\Date and Time Signed: 11/06/23 06:36 EST\.br\Electronically Co-Signed By: Kamila Vogt\.br\Date and Time Co-Signed: 11/01/23 19:15 EST Ambulatory Visit Summaryon 0 11-01-2023 Ambulatory Visit Summary TRENTERIKA :1990 Visit Date:11/01/2023 Ambulatory Visit Instructions Your Diagnosis Influenza B 19 weeks gestation of BMI 36.0-36.9,adult Class 2 obesity due to excess calories in adult Your Care Team Attending Physician - Shantell Parker PA-C Primary Care Physician - Shantell Parker PA-C This Is Your Medications List albuterol (Albuterol (Eqv-ProAir HFA) 90 mcg/inh inhalation aerosol) Contact prescribing physician if questions or concerns Misc Prescription (Alcohol Swabs) Misc Prescription (Glucometer) Misc Prescription (Lancets) Misc Prescription (Single Use Alcohol Pad) Misc Prescription (Test strips) aspirin (aspirin 81 mg oral capsule) dextromethorphan-pr omethazine (dextromethorphan-p romethazine 15 mg-6.25 mg/5 mL Oral Syrup 5 mL) multivitamin, ( Multivitamins) predniSONE (predniSONE 20 mg Tab) zinc sulfate (Zinc) Procedures Performed TM tube, Tonsillectomy and adenoidectomy. Discharge Vitals Temperature (Temporal Artery) 36.8 ?C Heart Rate (Peripheral) 103 Respiratory Rate 18 Blood Pressure 124/72 Height 164 cm Height 65 in Weight 97.5 kg Weight 214.5 lb BMI 36.25 Medications What How Much When Why Instructions New albuterol (Albuterol (Eqv-ProAir HFA) 90 mcg/ inh inhalation aerosol) 2 Puffs Inhalation Every 6 hours Pickup at [facility] #[id number] Unchanged aspirin (aspirin 81 mg oral capsule) By Mouth Every 24 hours Contact prescribing physician if questions or concerns Unchanged dextromethorphan-pr omethazine (dextromethorphan-p romethazine 15 mg-6.25 mg/ 5 mL Oral Syrup 5 mL) 5 Milliliter By Mouth Every 6 hours as needed for for cough Influenza Sore throat BMI 37.0-37.9, adult Contact prescribing physician if questions or concerns [...] prescribing physician if questions or concerns Unchanged multivitamin, ( Multivitamins) 1 Tablets By Mouth Every day Contact prescribing physician if questions or concerns Unchanged predniSONE (predniSONE 20 mg Tab) See instructions Influenza Sore throat BMI 37.0-37.9, adult 2 po QAM x4 days, then 1 po QAM x4 days Contact prescribing physician if questions or concerns Unchanged zinc sulfate (Zinc) By Mouth Every day Contact prescribing physician if questions or concerns Pharmacy Information [facility] #[id number]: [address], [place] [id number] [phone] Allergies metroNIDAZOLE (Hives) Problems Ongoing - Any problem that you are currently receiving treatment for. Acanthosis nigricans Acute cystitis with hematuria BMI 36.0-36.9,adult Class 2 obesity due to excess calories in adult Dysuria Goiter Irritable bowel Migraines Morbid (severe) obesity due to excess calories Polycystic ovary disease Type 2 diabetes mellitus with morbid obesity Historical - Any problem that you are no longer receiving treatment for. Abnormal uterine bleeding (AUB) BMI 45.0-49.9, adult Screening for lipid disorders Patient Survey You may receive a survey via text or e-mail asking about your office visit. Please share your experience with us by completing your survey. We appreciate your feedback and thank you for choosing us for your care. [facility] Patient Educationon 11-01-19 Patient Education Infectious Disease Influenza, Adult Influenza, also called the flu, is a viral infection that mainly affects the respiratory tract. This includes the lungs, nose, and throat. The flu spreads easily from person to person (is contagious). It causes common cold symptoms, along with high fever and body aches. What are the causes? This condition is caused by the influenza virus. You can get the virus by: ? Breathing in droplets that are in the air from an infected person's cough or sneeze. ? Touching something that has the virus on it (has been contaminated) and then touching your mouth, nose, or eyes. What increases the risk? The following factors may make you more likely to get the flu: ? Not washing or sanitizing your hands often. ? Having close contact with many people during cold and flu season. ? Touching your mouth, eyes, or nose without first washing or sanitizing your hands. ? Not getting an annual flu shot. You may have a higher risk for the flu, including serious problems, such as a lung infection (pneumonia), if you: ? Are older than 65. ? Are . ? Have a weakened disease-fighting system (immune system). This includes people who have HIV or AIDS, are on chemotherapy, or are taking medicines that reduce (suppress) the immune system. ? Have a long-term (chronic) illness, such as heart disease, kidney disease, diabetes, or lung disease. ? Have a liver disorder. ? Are severely overweight (morbidly obese). ? Have anemia. ? Have asthma. What are the signs or symptoms? Symptoms of this condition usually begin suddenly and last 4?14 days. These may include: ? Fever and chills. ? Headaches, body aches, or muscle aches. ? Sore throat. ? Cough. ? Runny or stuffy (congested) nose. ? Chest discomfort. ? Poor appetite. ? Weakness or fatigue. ? Dizziness. ? Nausea or vomiting. How is this diagnosed? This condition may be diagnosed based on: ? Your symptoms and medical history. ? A physical exam. ? Swabbing your nose or throat and testing the fluid for the influenza virus. How is this treated? If the flu is diagnosed early, you can be treated with antiviral medicine that is given by mouth (orally) or through an IV. This can help reduce how severe the illness is and how long it lasts. Taking care of yourself at home can help relieve symptoms. Your health care provider may recommend: ? Taking giii-ifs-ftatxsn medicines. ? Drinking plenty of fluids. In many cases, the flu goes away on its own. If you have severe symptoms or complications, you may be treated in a hospital. Follow these instructions at home: Activity ? Rest as needed and get plenty of sleep. ? Stay home from work or school as told by your health care provider. Unless you are visiting your health care provider, avoid leaving home until your fever has been gone for 24 hours without taking medicine. Eating and drinking ? Take an oral rehydration solution (ORS). This is a drink that is sold at pharmacies and retail stores. ? Drink enough fluid to keep your urine pale yellow. ? Drink clear fluids in small amounts as you are able. Clear fluids include water, ice chips, fruit juice mixed with water, and low-calorie sports drinks. ? Eat bland, fjws-qh-mfqwrs foods in small amounts as you are able. These foods include bananas, applesauce, rice, lean meats, toast, and crackers. ? Avoid drinking fluids that contain a lot of sugar or caffeine, such as energy drinks, regular sports drinks, and soda. ? Avoid alcohol. ? Avoid spicy or fatty foods. General instructions ? Take movt-hjy-xknunxh and prescription medicines only as told by your health care provider. ? Use a cool mist humidifier to add humidity to the air in your home. This can make it easier to breathe. ? When using a cool mist humidifier, clean it daily. Empty the water and replace it with clean water. ? Cover your mouth and nose when you cough or sneeze. ? Wash your hands with soap and water often and for at least 20 seconds, especially after you cough or sneeze. If soap and water are not available, use alcohol-based hand agronomy professor. ? Keep all follow-up visits. This is important. How is this prevented? ? Get an annual flu shot. This is usually available in late summer, fall, or winter. Ask your health care provider when you should get your flu shot. ? Avoid contact with people who are sick during cold and flu season. This is generally fall and winter. Contact a health care provider if: ? You develop new symptoms. ? You have: ? Chest pain. ? Diarrhea. ? A fever. ? Your cough gets worse. ? You produce more mucus. ? You feel nauseous or you vomit. Get help right away if you: ? Develop shortness of breath or have difficulty breathing. ? Have skin or nails that turn a bluish color. ? Have severe pain or stiffness in your neck. ? Deve (more content not included)... Normal [facility] Grp A Strp PCRon 10-29-2023 Grp A Strp Intrl Ctrl Pass Normal [facility] Comment on above: Performed By: #### 1 [id number] ####[facility] [id number] [place] [address] S. pyogenes DNA ARNIE+probe Ql (Throat) Negative [facility] Comment on above: Result Comment: Test ing performed using DNA amplification. Performed By: #### 1 [id number] ####[facility] [id number] [place] [address] Family Medicine Office/Clini c Noteon 10-27-2023 Family Medicine Office/Clinic Note Chief Complaint sore throat, cough, ear pain HPI Staff 33 year old female presents with a sore throat since yesterday, cough, ear pain when coughing feels pain in her abdomen 19 weeks has been exposed to strep throat History of Present Illness 33-year-old female currently 19 weeks to the clinic for complaint of a sore throat which started yesterday. She also has a cough which is hurting her ears 1 cough and causes mild discomfort in the upper abdomen area. Review of Systems PHQ Score Initial Depression Screen Score: 0 SCORE Constitutional: Denies fevers, chills or general sense of illness Eyes: Denies visual change or eye discharge Head/Ears/Nose/Thro at: Denies earache. Focal complaint of a sore throat Respiratory: Denies shortness of breath. She does have a cough which is keeping her up at nighttime Cardiovascular: Denies chest pain GI/ : Denies abdominal pain, n/v. Musculoskeletal: Denies Joint pain, Denies muscle pain Neurologic: Denies Headache, Denies focal neuro symptoms Physical Exam Vitals & Measurements T: 36.7 ?C(Oral) HR: 97(Peripheral) BP: 122/74 SpO2: 100% HT: 65 in HT: 164 cm WT: 101 kg WT: 222.2 lb BMI: 37.55 Primary assessment: Airway patent. Respirations unlabored. Normal respiratory effort Constitutional: Vital signs reviewed. Well appearing. No distress. Psychiatric: Mental status appropriate. Normal affect Skin: Warm and dry. No rashes noted. Eyes: Conjunctiva clear. No photophobia HENT: Normal TMs. Posterior pharynx clear. Negative cervical lymphadenopathy. Thorax/ Respiratory: Respiratory effort non-labored. BBS clear ant/post. No wheezes, rales or rhonchi. Musculoskeletal: Neck supple Neurologic: Alert and oriented Assessment/Plan 1. Influenza (J11.1: Influenza due to unidentified influenza virus with other respiratory manifestations) Ordered: dextromethorphan-pr omethazine, 5 mL, Oral, q6hr for cough, 240 mL, Refill(s) 0, [id number], 164, cm, 10/27/23 13:44:00 EST, Height/Length Dosing, 101, kg, 10/27/23 13:44:00 EST, Weight Dosing predniSONE, See Instructions, 2 po QAM x4 days, then 1 po QAM x4 days, # 12 tab(s), Refills(s) 0, Pharmacy: [facility] #[id number], 164, cm, 10/27/23 13:44:00 EST, Height/Length Dosing, 101, kg, 10/27/23 13:44:00 EST, Weight Dosing 2. Sore throat (J02.9: Acute pharyngitis, unspecified) Ordered: dextromethorphan-pr omethazine, 5 mL, Oral, q6hr for cough, 240 mL, Refill(s) 0, [facility] #[id number], 164, cm, 10/27/23 13:44:00 EST, Height/Length Dosing, 101, kg, 10/27/23 13:44:00 EST, Weight Dosing predniSONE, See Instructions, 2 po QAM x4 days, then 1 po QAM x4 days, # 12 tab(s), Refills(s) 0, Pharmacy: [facility] #[id number], 164, cm, 10/27/23 13:44:00 EST, Height/Length Dosing, 101, kg, 10/27/23 13:44:00 EST, Weight Dosing Group A Strep by PCR Influenza Type A&B POC 10102 Rapid Strep POC 64154 3. BMI 37.0-37.9, adult (Z68.37: Body mass index [BMI] 37.0-37.9, adult) Ordered: dextromethorphan-pr omethazine, 5 mL, Oral, q6hr for cough, 240 mL, Refill(s) 0, [facility] #[id number], 164, cm, 10/27/23 13:44:00 EST, Height/Length Dosing, 101, kg, 10/27/23 13:44:00 EST, Weight Dosing predniSONE, See Instructions, 2 po QAM x4 days, then 1 po QAM x4 days, # 12 tab(s), Refills(s) 0, Pharmacy: [facility] #[id number], 164, cm, 10/27/23 13:44:00 EST, Height/Length Dosing, 101, kg, 10/27/23 13:44:00 EST, Weight Dosing Body Mass Index (BMI) documented 3008F -Patient is positive for influenza B, strep test was negative. The throat swab will be sent for a strep culture. -40-20 prednisone taper over total of 8 days. She has been advised she can stop this early if she desires. This is to help with her sore throat and her tightness with breathing. We did talk about an inhaler and she feels she does not need the same. -Prescription for Promethazine DM cough syrup, 5 mL every 6 hours for cough. She has been advised this will make her sleepy -Primary care provider in 5 to 7 days for symptoms or not improving. Follow-up No qualifying data available Problem List/Past Medical History Ongoing Acanthosis nigricans Acute cystitis with hematuria Dysuria Goiter Irritable bowel Migraines Morbid (severe) obesity due to excess calories Polycystic ovary disease Type 2 diabetes mellitus with morbid obesity Historical Abnormal uterine bleeding (AUB) BMI 45.0-49.9, adult Screening for lipid disorders Procedure/Surgical History TM tube, Tonsillectomy and adenoidectomy. Medications Alcohol Swabs, See Instructions dextromethorphan-pr omethazine 15 mg-6.25 mg/5 mL Oral Syrup 5 mL, 5 mL, Oral, q6hr, PRN Glucometer, See Instructions Lancets, See Instructions predniSONE 20 mg Tab, See Instructions Single Use Alcohol Pad, See Instructions, 1 refills Test strips, See Instructions Allergies metroNIDAZOLE (Hives) Social History Alcohol - Denies Alcohol Use, 12/13/2012 Employment/School Unemployed, 12/13/2012 Exercise - Does not exe (more content not included)... Normal [facility] Comment on above: Result Comment: Elec tronically Signed By: Lai BOYD, Boo Saha\.br\Date and Time Signed: 10/27/23 14:06 EST Patient Letter FTon 2023 Patient Letter [facility] [address], [facility] [place] [address] October 27, 2023 ERIKA NEWMAN [address] [place] [address] : 1990 Please excuse ERIKA NEWMAN from work . Date and/or Time of Absence: From: 10/26/2023 To: 10/30/2023 May return to work on: 10/31/2023 Restrictions: None Comments: Please excuse due to an acute illness. Provider Signature: Boo Hoyt PA-C Physician [employer] [facility] [address] [place] [address] [place] [address] Gagan [facility] AFP, SERUM, OPEN SPINA BIFID Aon 10-26-2023 AFP MOM 0.65 . [facility] AFP VALUE 24.1 ng/mL . [facility] COMMENT: Comment . [facility] Comment on above: Zulema Farr , Ph.D., [facility] Director References: Available Upon Request. Multiples Of Median Cutoffs For AFP Elevations Pham 2.5 Black 2.8 IDD 2.0 Twins 4.5 Abbreviation Definitions IDD - Insulin Dep Diabetes OSBR - Open Spina Bifida Risk For further inquiries contact [employer] [facility] at [phone]. This test was developed and its performance characteristics determined by [employer]. It has not been cleared or approved by the Food and Drug Administration. Performed at: [facility] [place], [place] [id number] Ballistics Professor: Marita Duggan [facility], Phone: [phone] GEST. AGE ON COLLECTION DATE 18.4 . weeks [facility] GESTAT. AGE BASED ON As provided . [facility] Comment on above: Recalculations are n ot recommended when gestational dating by LMP and ultrasound are within 10 days. INSULIN DEP DIABETES No . [facility] INTERPRETATION Comment . [facility] Comment on above: Interpretation: Scre en Negative This result is screen negative for OSB. The AFP MoM calculated is based on the gestational age provided. MS-AFP can identify up to 80% of open neural tube defects. Closed neural tube defects and some open defects may not be detected by this test. This test does not screen for Down Syndrome or Trisomy 18. If screening for Down Syndrome or Trisomy 18 is desired, contact [facility] [employer] [facility] to discuss available options. The [place] [employer] recommends amniocentesis be offered to women age 35 and older. [age] [facility] MULTIPLE GESTATION No . [facility] OSBR RISK [address] [place] [address] . [facility] RACE . [facility] RESULTS Report . [facility] TEST RESULTS: Negative . [facility] WEIGHT 215 . lbs [facility] N [id number] 3 16 N 1 Y 215 White/ [facility] CT Abdomen w/ Contraston CT Abdomen w/ Contrast Exam Date/Time: 02/06/2023 10:25 EDT Reason for Exam: Soft tissue mass, flank, deep;Other (please specify) Report IMPRESSION: NO MASS OF SUBCUTANEOUS FATTY TISSUE OR ABDOMINAL WALL MUSCULATURE IS EVIDENT. CLINICAL HISTORY: Soft tissue mass, flank, deep. COMPARISON: 08/25/2018. COMMENT: Images were obtained following the administration of oral and intravenous contrast. No mass is delineated in subcutaneous fatty tissue of the abdomen or pelvis. The abdominal wall musculature is normal in appearance, without evidence of mass or diastases. The liver, spleen, pancreas, gallbladder, adrenal glands, and kidneys are normal in appearance. The renal collecting systems are not dilated. There are small nonspecific retroperitoneal lymph nodes. No retroperitoneal lymphadenopathy is evident. The abdominal aorta is normal in diameter. No aneurysm is noted. There is orally administered contrast in the stomach, small bowel, and colon. Bowel loops are not dilated, and there is no evidence of bowel obstruction. The appendix is normal. There is fecal material in the colon, that limits evaluation. There is no evidence of diverticulitis. No abdominal inflammatory complex, no free air, nor free fluid is noted. There is minimal umbilical dehiscence, that contains fat. The uterus is anteverted. There is heterogeneity in the density of the myometrium, with areas of decreased attenuation and areas that mildly contrast enhance, with the appearance nonspecific. Leiomyomatous involvement is a possibility. There are small follicular ovarian cysts bilaterally. The urinary bladder is unremarkable. No pelvic lymphadenopathy is evident. No significant bony abnormality is evident. All CT scans at this facility use dose modulation, iterative reconstruction, and/or weight based dosing when appropriate to reduce radiation dose to as low as reasonably achievable. Ordering Provider: Shantell Parker FINAL REPORT Dictated: 02/06/2023 2:14 pm Al Burks M.D. Signed (Electronic Signature): 02/06/2023 2:14 pm Signed by: Al Burks M.D. Transcribed by: HIWOT Technologist: RICHELLE Technical Comments GFR (mL/min/1/73m2) na Contrast: Isovue 300 Contrast amount in ml's: 100 Oral contrast amount in ml's: 900 Normal [facility] Consent for Treatmenton 01-16 Consent for Treatment [id number]#[id number]:127 Normal [facility] Medicine Office/Clini c Noteon 02-01-2023 Family Medicine Office/Clinic Note Chief Complaint See below HPI Staff complaints of _pt has lost 70lbs recently (jun 08-present). pt has bilateral spots under bilat breast. Onset:1 month Characteristics:L side tender at times OTC tried: History of Present Illness I have reviewed staff HPI and it is correct. 32 y/o female presents to the office for concerns of spots under our breasts. Started about a month ago. Painful to touch, reports no redness, swelling to the area. Does not affect breathing. Pain described as a throbbing, sometimes dull ache, other times stabbing. Comes and goes. Never had this happen before. No hx of skin cancer, eczema, or rashes. No hx of injury or surgery to the area. Patient reports intentional 70 lb weight loss since June. Decreased portion size and increased physical activity. No chest pain, palpitations, cough, congestion, abdominal pain, N/V/D, hematuria, or dysuria. Review of Systems PHQ Score Initial Depression Screen Score: 0 Negative unless stated in HPI. Physical Exam Vitals & Measurements HR: 84(Peripheral) RR: 20 BP: 128/72 SpO2: 98% HT: 65 in HT: 164 cm WT: 97.0 kg WT: 213.4 lb BMI: 36.06 General: obese female, well hydrated in no acute distress Eyes: EOMI, conjunctiva and sclera are clear Ears: No deformity or lesion of external ear. Canals and TM appear normal bilaterally. TM's intact and pearly louis with normal light reflex. Hearing grossly normal and conversational to speech Nose: no deformity, discharge, inflammation or lesions Mouth: Mucous membranes moist with non-erythematous or edematous oropharynx and posterior pharynx. Tongue normal and free of lesions. Neck: supple, trachea is midline with no masses or lymphadenopathy. Thyroid is without nodules or tenderness Lungs: Normal respiratory effort and clear to auscultation Cardio: regular rate and rhythm, no murmur or rub Abdomen: flat, nondistended. Excess skin due to weight loss. Normoactive bowel sounds in all four quadrants. Tenderness to palpation of Upper quadrant by the lower ribs. multiple Small soft tissue masses, less than 3 mm. left more tender than right. Musculoskeletal: No deformity or scoliosis noted. Normal range of motion. Joints normal. No erythema, edema, effusion, or ecchymosis Extremity: No clubbing, cyanosis, edema, or deformity, with normal ROM in both upper and lower bilateral extremities Neurologic: Grossly normal Skin: No rashes, ulcerations, or suspicious lesions on exposed skin Mental Status: Alert and oriented x3. Normal mood and affect Assessment/Plan 1. Abdominal wall mass of right upper quadrant (R19.01: Right upper quadrant abdominal swelling, mass and lump) I am unsure the cause of the pain, but there are multiple soft tissue masses located superficial to the ribs. Second opinion from Devorah Russo CNP in office to confirm need for imaging. Advised to try Tylenol or ibuprofen along with ice or heat for relief. Does not seem muscular in nature. CT scan ordered to determine cause of pain. Patient will be contacted once prior authorization is performed to schedule imaging. Ordered: CT Abdomen w/ Contrast 2. BMI 36.0-36.9,adult (Z68.36: Body mass index [BMI] 36.0-36.9, adult) The standard range for ages 18 and older is >=18.5 and < 25 kg/m2. Your BMI today was above this range, this falls in the overweight to obese category and there are medical benefits to weight loss. We can offer counselling, referral, and/or medical support in addressing this problem. Your BMI and weight management will be followed at subsequent visits. 3. Morbid (severe) obesity due to excess calories (E66.01: Morbid (severe) obesity due to excess calories) See above. Patient verbalized understanding and is agreeable to plan and course of treatment. This documentation was completed by voice-activated device and software. Inaccuracies compared to the original dictation of this provider are possible although this document has been overread and corrected. Follow-up With When Contact Information Keith BOYD, Shantell Read Only if needed [address] [place] [phone]- [phone] Additional Instructions: Patient Education BMI for Adults Budget-Friendly Healthy Eating Problem List/Past Medical History Ongoing Acanthosis nigricans Acute cystitis with hematuria Dysuria Goiter Irritable bowel Migraines Morbid (severe) obesity due to excess calories Polycystic ovary disease Type 2 diabetes mellitus with morbid obesity Historical Abnormal uterine bleeding (AUB) BMI 45.0-49.9, adult Screening for lipid disorders Procedure/Surgical History TM tube, Tonsillectomy and adenoidectomy. Medications Albuterol (Eqv-ProAir HFA) 90 mcg/inh inhalation aerosol, 2 puff(s), Inhalation, q6hr, 1 refills Alcohol Swabs, See Instructions Glucometer, See Instructions Lancets, See Instructions Single Use Alcohol Pad, See Instructions, 1 refills Test strips, See Instructions Allergies metroNIDAZOLE (Hives) (more content not included)... Normal [facility] Comment on above: Result Comment: Elec tronically Signed By: Keith BOYD, Shantell Read\.br\Date and Time Signed: 02/01/23 11:16 EDT Patient Educationon 01-30-20 Patient Education Nutrition BMI [...] numbers. This can be done either in [place] or metric measurements. Note that charts and online BMI calculators are available to help you find your BMI quickly and easily without having to do these calculations yourself. To calculate your BMI in [place] ([place] measurements: 1. Measure your weight in [...] for Disease Control and Prevention: www.cdc.gov ? [place] Heart Association: www.heart.org ? National Heart, Lung, and Blood [place]: www.nhlbi.nih.gov Summary ? Body mass index (BMI) is a number that is calculated from a person's weight and height. ? BMI may help estimate how much of a person's weight is composed of fat. BMI can help identify those who may be at higher risk for certain medical problems. ? BMI can be measured using [place] measurements or metric measurements. ? BMI charts are used to identify whether you are underweight, normal weight, overweight, or obese. This information is not intended to replace advice given to you by your health care provider. Make sure you discuss any questions you have with your health care provider. Document Revised: 05/26/2020 Document Reviewed: 04/02/2020 [employer] Patient Education ? 2022 [employer]. Budget-Friendly Healthy Eating There are many ways [...] Nonfat. ? (more content not included)... Normal [facility] Ambulatory Visit Summaryon 0 01-26-2023 Ambulatory Visit Summary ERIKA NEWMAN :1990 MRN: Visit Date:01/26/2023 Ambulatory Visit Instructions Your Care [...] bleeding (AUB) Screening for lipid disorders Normal [facility] Family Medicine Office/Clini c Noteon 12-11-2022 Family Medicine [...] aid with cough suppression. Advised to continue dxhf-rky-vtaohzo remedies such as Mucinex, Sudafed, Tylenol or [...] and corrected. Follow-up With When Contact Information Shantell Parker PA-C Only if needed [address] [place] [address]- [phone] Additional Instructions: Patient Education Budget-Friendly Healthy Eating [...] in household: No. Smoker in household: No. Injuries/Abuse/Negl ect in household: No. Feels unsafe at home: [...] lifetime) Tobacco (more content not included)... Normal [facility] Comment on above: Result Comment: Elec tronically Signed By: Shantell Parker PA-C\.br\Date and Time Signed: 12/11/22 21:41 EDT Patient [...] fruits, and frozen vegetables. ? Avoid buying bbsfe-jt-qmk foods, such as pre-cut fruits and vegetables and pre-made salads. ? If possible, shop around to discover where you can find the best prices. Consider other retailers such as dollar stores, larger wholesale stores, local fruit and vegetable [employer], and [employer]iest [employer] markets. ? Do not shop when you [...] on a (more content not included)... Normal [facility] Ambulatory Visit Summaryon 0 12-07-2022 Ambulatory Visit Summary ERIKA NEWMAN Jennifer :1990 Visit Date:12/07/2022 Ambulatory Visit Instructions Your [...] a day Duration: 10 Days Pickup at [facility] #[id number] Changed albuterol (Albuterol (Eqv-ProAir HFA) 90 mcg/ inh inhalation aerosol) 2 Puffs Inhalation Every 6 hours Pickup at [facility] #[id number] Unchanged Misc Prescription (Alcohol Swabs) See instructions [...] TID PRN E11.9 Pharmacy Information [facility] #[id number]: [address] [place], [place] [id number] [phone] What How Much When Comments Stop Taking [...] uterine bleeding (AUB) Screening for lipid disorders [facility] Ambulatory Visit Summary ERIKA NEWMAN :1990 Visit [...] a day Duration: 10 Days Pickup at [facility] #[id number] Changed albuterol (Albuterol (Eqv-ProAir HFA) 90 mcg/ inh inhalation aerosol) 2 Puffs Inhalation Every 6 hours Pickup at [facility] #[id number] Unchanged Misc Prescription (Alcohol Swabs) See instructions [...] blood sugar TID PRN E11.9 Pharmacy Information [facility] #[id number]: [address], [place] [id number] [phone] What How Much When Comments Stop Taking [...] uterine bleeding (AUB) Screening for lipid disorders [facility] Provider Letteron 12-07-2022 Provider Letter December 07, 2022 ERIKA [address] [place] [address] To Whom It May Concern, Please excuse above patient from work. Date of Illness: From: _12/07/22 To: _ May Return to Work On: 12/08/22 Restrictions: _None Comments: _ Sincerely, Shantell BIRD [facility] [address] [address] Normal [facility] CHEMISTRYOrdered By: SYSTEM SYSTEM on 12-22-2021 [...] 3.1 g/dL Normal 1.4 - 4.0 gm/dL [facility] Rem[facility] Glucose [Mass/Vol] 99 mg/dL Normal 55 - 199 mg/dL [facility] Potassium [Moles/Vol] 4.2 mmol/L Normal 3.5 - 5.3 mmol/L [facility] Protein [Mass/Vol] 7.1 g/dL Normal 6.0 - 7.8 gm/dL [facility] Remisol Sodium [Moles/Vol] 137 mmol/L Normal 135 - 145 mmol/L [facility] Remisol Triglyceride [Mass/Vol] 99 mg/dL Normal <=149mg/dL [facility] TSH Qn 2.73 m[IU]/L Normal 0.34 - 5.60 mcIU/mL [facility] Rem[facility] Urea nitrogen [Mass/Vol] 10 mg/dL Normal 5 - 21 mg/dL [facility] Remisol Urea nitrogen/Creatinine [Mass ratio] 17 mg/mg Normal 10 - 20 [facility] Remisol CHEMISTRYOrdered By: Yari Gray on 12-22-2021 Albumin DL <= 20 mg/L (U) [Mass/Vol] 79.6 microgram/mL High 0.0 - 19.0 mcg/mL [facility] Remisol HEMATOLOGYOrdered By: [employer] SYSTEM on 12-22-2021 Basophils/100 WBC (Bld) 0.5 % Normal 0.0 - 2.0 % [facility] HemeAutoSS Basophils/Leukocytes Auto (Bld) [Pure # fraction] 0.1 E9/L Normal 0.0 - 0.2 E9/L [facility] HemeAutoSS Eosinophils/100 WBC (Bld) 1.5 % Normal 0.0 - 8.0 % [facility] HemeAutoSS Eosinophils/Leukocyte s Auto (Bld) [Pure # fraction] 0.2 E9/L Normal 0.0 - 0.5 E9/L [facility] HemeAutoSS Lymphocytes/100 WBC (Bld) 36.2 % Normal 14.0 - 50.0 % [facility] HemeAutoSS Lymphocytes/Leukocyte s Auto (Bld) [Pure # fraction] 4.8 E9/L High 1.0 - 4.0 E9/L [facility] HemeAutoSS Monocytes/100 WBC (Bld) 3.8 % Low 4.0 - 14.0 % [facility] HemeAutoSS Monocytes/Leukocytes Auto (Bld) [Pure # fraction] 0.5 E9/L Normal 0.2 - 1.0 E9/L [facility] HemeAutoSS Neutrophils/100 WBC (Bld) 58.0 % Normal 36.0 - 75.0 % [facility] HemeAutoSS Neutrophils/Leukocyte s Auto (Bld) [Pure # fraction] 7.7 E9/L [...] Present (12/22/21 10:10 AM) Normal [facility] HemeManSS MCH (RBC) [Entitic mass] 21.8 pg [...] AM) Normal Negative [facility] UA Auto SS [place].plasma/Lith[place] m.RBC (Bld) [Mass ratio] 4-20 /HPF Normal 0-3/HPF [facility] UA Auto SS Nitrite Ql (U) Negative (12/22/21 10:10 AM) Normal Negative [facility] UA Auto SS pH (U) 5.5 *NA* (12/22/21 10:10 AM) Invalid Interpretation Code 5.0 - 9.0 [facility] UA Auto SS Protein (U) [Mass/Vol] 1+ *ABN* (12/22/21 10:10 AM) Invalid Interpretation Code Negative [facility] UA Auto SS Specific gravity (U) [Rel density] >=1.030 *NA* (12/22/21 10:10 AM) Invalid Interpretation Code 1.005 - 1.030 [facility] UA Auto SS UA Spec Desc Clean Catch (12/22/21 10:10 AM) Normal [facility] UA Auto SS Urobilinogen Qn (U) 0.0349952 {Ann'U}/dL Normal 0.0 - 1.0 EU/dL [facility] UA Auto SS WBC Auto Ql (U) Negative (12/22/21 10:10 AM) Normal Negative [facility] UA Auto SS WBC LM.HPF (Urine sed) [#/Area] 0-5 /HPF Normal 0-5/HPF [facility] UA Auto SS Hemoglobin A1Con 12-07-2021 Glucose [Mass/Vol] 157 mg/dL Normal [facility] Comment on above: Result Comment: The ADA and AACC recommend providing the estimated average glucose result to permit better patient understanding of their HBA1c result. Performed By: #### G LYHGB #### [facility] [address] [place] [address] Ballistics Professor: Suman Villalta MD HbA1c (Bld) [Mass fraction] 7.1 % High 4.0-6.0 [facility] Comment on above: Performed By: #### G LYHGB #### [facility] [facility] [address] [place] [address] Ballistics Professor: Suman Villalta MD Vital Signs Date Time Vital Sign Value Performing Clinician Facility 11-01-2023 15:29-0500 Blood Pressure Location Shantell Parker [facility] [place] 11-01-2023 15:29-0500 Body temperature 98.24 [degF] Shantell Parker [facility] 11-01-2023 15:29-0500 Diastolic blood pressure 72 mm[Hg] Shantell Parker [facility] 11-01-2023 15:29-0500 Heart rate 103 /min Shantell Parker [facility] 11-01-2023 15:29-0500 Respiratory rate 18 /min Shantell Parker [facility] 11-01-2023 15:29-0500 SaO2% (BldA) [Mass fraction] 100 % Shantell Parker [facility] 11-01-2023 15:29-0500 Systolic blood pressure 124 mm[Hg] Shantell Parker [facility] 10-27-2023 13:41-0500 Blood Pressure Location Boo Hoyt [facility] 10-27-2023 13:41-0500 Body temperature 98.06 [degF] Boo Hoyt [facility] 10-27-2023 13:41-0500 Diastolic blood pressure 74 mm[Hg] Boo Hoyt [facility] 10-27-2023 13:41-0500 Heart rate 97 /min Boo Hoyt [facility] 10-27-2023 13:41-0500 SaO2% (BldA) [Mass fraction] 100 % Boo Hoyt [facility] 10-27-2023 13:41-0500 Systolic blood pressure 122 mm[Hg] Boo Hoyt [facility] 12-07-2022 13:53-0400 Blood Pressure Location Shantell Felixzier [facility] 12-07-2022 13:53-0400 Body temperature 98.24 [degF] Shantell Felixzier [facility] 12-07-2022 13:53-0400 Diastolic blood pressure 84 mm[Hg] Shantell Felixzier [facility] 12-07-2022 13:53-0400 Heart rate 60 /min Shantell Felixzier [facility] 12-07-2022 13:53-0400 Respiratory rate 20 /min Shantell Felixzier [facility] 12-07-2022 13:53-0400 SaO2% (BldA) [Mass fraction] 99 % Shantell Felixzier [facility] 12-07-2022 13:53-0400 Systolic blood pressure 128 mm[Hg] Shantell Felixzier [facility] 03-31-2022 16:19-0400 Blood Pressure [facility] 03-31-2022 16:19-0400 Body temperature 98.06 [degF] Marlen BROWN [facility] 03-31-2022 16:19-0400 Diastolic blood pressure 84 mm[Hg] [facility] 07-15-20[facility] 16:19-0400 Heart rate 88 /min [facility] 03-31-2022 16:19-0400 Respiratory rate 16 /min [facility] 03-31-2022 16:19-0400 SaO2% (BldA) [Mass fraction] 97 % [facility] 03-31-2022 16:19-0400 Systolic blood pressure 128 mm[Hg] [facility] Encounters Encounter Date Encounter Type Care Provider Facility Start: 11-01-2023 End: 11-02-2023 ambulatory Shantell Parker Facility:[facility] Start: 11-01-2023 ambulatory Jeremy Borjai lity:[facility] Start: 11-01-2023 End: 11-01-2023 Patient encounter procedure Shantell Parker [facility] Start: 10-27-2023 End: 10-28-2023 ambulatory Boo Hoyt Facility:[facility] Start: 10-27-2023 End: 10-27-2023 Patient encounter procedure Boo Hoyt [facility] Start: 10-24-2023 Bamboo flowsheet Niharika BIRD Work Phone: [facility] Start: 10-24-2023 Bamboo flowsheet Niharika BIRD Work Phone: [facility] Start: 10-24-2023 Clinisync Result Encounter Joey Schuster DO Work Phone: [facility] Unsolicited Start: 10-24-2023 End: 10-25-2023 ambulatory NIHARIKA NEWMAN Not Available Start: 10-24-2023 End: 10-24-2023 Patient encounter procedure Shantell Parker [facility] Start: 10-24-2023 End: 10-24-2023 Office outpatient visit 15 minutes Niharika Trent PA Work Phone: [facility] Comment on above: Pruritus; Hives Start: 10-10-2023 End: 10-10-2023 ambulatory JOEY MARIELY Not Available Start: 09-12-2023 End: 09-12-2023 ambulatory NIHARIKA NEWMAN Not Available Start: 08-17-2023 End: 08-17-2023 ambulatory NIHARIKA NEWMAN Not Available Start: 02-06-2023 End: 02-07-2023 ambulatory Shantell Parker Facility:[facility] Start: 01-26-2023 End: 01-27-2023 [facility] Start: 12-07-2022 End: 12-08-2022 ambulatory Shantell Parker Facility:[facility] Start: 12-07-2022 End: 12-07-2022 Patient encounter procedure Shantell Parker [facility] Start: 03-31-2022 End: 03-31-2022 Patient encounter procedure Marlen MCDOWELL [facility] Start: 01-02-2022 End: 04-02-2022 Recurring Kenyatta VELASQUEZ [facility] Start: 12-22-2021 End: 12-22-2021 Lab Drop off Kenyatta VELASQUEZ [facility] Start: 12-07-2021 End: 12-08-2021 ambulatory GINGER Rosa [facility] Start: 12-05-2021 End: 12-05-2021 Patient encounter procedure Ana Garcia [facility] Procedures Date Procedure Procedure Detail Performing Clinician Start: 10-24-2023 AFP, SERUM, OPEN SPI NA BIFIDA Joey Mariely DO Work Phone: TM tube Ana Garcia Tonsillectomy and adenoidectomy Ana Radha Plan of Treatment Date Care Activity Detail Author Start: 11-07-2023 End: 11-07-2023 Patient encounter procedure 11/07/2023 10:50 AM EST Routine [facility] [address] [facility] [place] [address] Niharika Newman PA [facility] [place] [address] [facility] Start: 11-07-2023 End: 11-07-2023 Professional / ancillary services management 11/07/2023 9:30 AM EST Ancillary Procedure [facility] [address] [place] [id number] [facility] Start: 10-24-2023 End: 10-24-2023 Patient encounter procedure 10/24/2023 9:50 AM EST Office Visit [facility] [address] [place] [address] Niharika Newman PA [address] [place], [place] [id number] Arrived [facility] Comment on above: Arrived Bile acids, total Bile acids, to rosa Lab Routine Pruritus Ordered: 10/24/2023 [facility] Work Phone: Comment on above: Ordered: 10/24/2023 Hepatic function 200 0 panel - Serum or Plasma Hepatic function panel Lab Routine Pruritus Ordered: 10/24/2023 [facility] Comment on above: Ordered: 10/24/2023 Immunizations Immunization Date Immunization Notes Care Provider Julian gregg 12-15-2012 tetanus toxoid, reduced diphtheria toxoid, and acellular pertussis vaccine, adsorbed Ana Radha [facility] Comment on above: Reason for Medicatio n: Other (see comment) 04-19-2006 tetanus toxoid, reduced diphtheria toxoid, and acellular pertussis vaccine, adsorbed Ana Radha [facility] NEGATED: Highlighted row has not occurred!12-07-2022 influenza virus vaccine, unspecified formulation Shantellmichael FelixParker [facility] NEGATED: Highlighted row has not occurred!03-31-2022 SARS-CoV-2 mRNA (tozinameran 5y-11y) vaccine Marlen MCDOWELL [facility] NEGATED: Highlighted row has not occurred!09-16-2019 influenza virus vaccine, live, attenuated, for intranasal use Ana Radha [facility] Payers Date Payer Category Payer Unknown [id number] 2023 Unknown RUPAL CARLTONDebra [employer] [id number] 2023-Present [phone] [address] [facility] [place] [address] [id number] 2023 Private Health Insurance [id number] 2014 Unknown [id number] 1989 Unknown [id number] [id number] .2.174 1989 Unknown [id number] 2.16.840.1.018638.3.579 .2.1259 1989 Unknown [id number] 2.16.840.1.013275.3.579 .2.1259 1989 Unknown [id number] 2.16.840.1.297826.3.579 .2.1259 1989 Unknown [id number] 2.16.840.1.457184.3.579 .2.1259 1989 Unknown [id number] 2.16.840.1.836450.3.579 .2.727 1989 Unknown [id number] 2.16.840.1.985355.3.579 .2.727 1989 Unknown [id number] 2.16.840.1.717944.3.579 .2.727 1989 Unknown [id number] 2.16.840.1.695145.3.579 .2.727 1989 Unknown [id number] 2.16.840.1.590049.3.579 .2.727 1989 Unknown [id number] 2.16.840.1.650181.3.579 .2.727 1989 Unknown [id number] 2.16.840.1.309838.3.579 .2.727 1989 Unknown [id number] 2.16.840.1.081195.3.579 .2.727 Private Health Insurance [id number] Self-pay Social History Date Type Detail Facility Start: 05-25-2021 End: 11-01-2023 Tobacco smoking status Never smoked tobacco (finding) [facility] Tobacco smoking status Never [facility] Sex Assigned At Female [facility] Tobacco smoking status NHIS Tobacco smoking consumption unknown [facility] Start: 07-01-2023 [facility] Start: 1990 Sex Assigned At Not on file [facility] Medical Equipment Procedure Code Equipment Code Equipment [...] 12-22-2021 Functional Status Date Assessment Result Facility 11-01-2023 Functional Status N/A [facility] 10-27-2023 Functional Status N/A [facility] 12-07-2022 Functional Status N/A [facility] 03-31-2022 Functional Status N/A [facility] Discharge instructions 11-01-2023 Note Date & Type Note Facility 11-01-2023 Hospital Discharg e instructions Patient Education 11/01/2023 16:19:53 Influenza, Adult Influenza, Adult Influenza, also called the flu, is a viral infection that mainly affects the respiratory tract. This includes the lungs, nose, and throat. The flu spreads easily from person to person (is contagious). It causes common cold symptoms, along with high fever and body aches. What are the causes? This condition is caused by the influenza virus. You can get the virus by: Breathing in droplets that are in the air from an infected person's cough or sneeze. Touching something that has the virus on it (has been contaminated) and then touching your mouth, nose, or eyes. What increases the risk? The following factors may make you more likely to get the flu: Not washing or sanitizing your hands often. Having close contact with many people during cold and flu season. Touching your mouth, eyes, or nose without first washing or sanitizing your hands. Not getting an annual flu shot. You may have a higher risk for the flu, including serious problems, such as a lung infection (pneumonia), if you: Are older than 65. Are . Have a weakened disease-fighting system (immune system). This includes people who have HIV or AIDS, are on chemotherapy, or are taking medicines that reduce (suppress) the immune system. Have a long-term (chronic) illness, such as heart disease, kidney disease, diabetes, or lung disease. Have a liver disorder. Are severely overweight (morbidly obese). Have anemia. Have asthma. What are the signs or symptoms? Symptoms of this condition usually begin suddenly and last 4 14 days. These may include: Fever and chills. Headaches, body aches, or muscle aches. Sore throat. Cough. Runny or stuffy (congested) nose. Chest discomfort. Poor appetite. Weakness or fatigue. Dizziness. Nausea or vomiting. How is this diagnosed? This condition may be diagnosed based on: Your symptoms and medical history. A physical exam. Swabbing your nose or throat and testing the fluid for the influenza virus. How is this treated? If the flu is diagnosed early, you can be treated with antiviral medicine that is given by mouth (orally) or through an IV. This can help reduce how severe the illness is and how long it lasts. Taking care of yourself at home can help relieve symptoms. Your health care provider may recommend: Taking mfmq-hfj-bixoecs medicines. Drinking plenty of fluids. In many cases, the flu goes away on its own. If you have severe symptoms or complications, you may be treated in a hospital. Follow these instructions at home: Activity Rest as needed and get plenty of sleep. Stay home from work or school as told by your health care provider. Unless you are visiting your health care provider, avoid leaving home until your fever has been gone for 24 hours without taking medicine. Eating and drinking Take an oral rehydration solution (ORS). This is a drink that is sold at pharmacies and retail stores. Drink enough fluid to keep your urine pale yellow. Drink clear fluids in small amounts as you are able. Clear fluids include water, ice chips, fruit juice mixed with water, and low-calorie sports drinks. Eat bland, mudk-ly-olvyuj foods in small amounts as you are able. These foods include bananas, applesauce, rice, lean meats, toast, and crackers. Avoid drinking fluids that contain a lot of sugar or caffeine, such as energy drinks, regular sports drinks, and soda. Avoid alcohol. Avoid spicy or fatty foods. General instructions Take bnyr-kce-ldbitge and prescription medicines only as told by your health care provider. Use a cool mist humidifier to add humidity to the air in your home. This can make it easier to breathe. ?When using a cool mist humidifier, clean it daily. Empty the water and replace it with clean water. Cover your mouth and nose when you cough or sneeze. Wash your hands with soap and water often and for at least 20 seconds, especially after you cough or sneeze. If soap and water are not available, use alcohol-based hand agronomy professor. Keep all follow-up visits. This is important. How is this prevented? Get an annual flu shot. This is usually available in late summer, fall, or winter. Ask your health care provider when you should get your flu shot. Avoid contact with people who are sick during cold and flu season. This is generally fall and winter. Contact a health care provider if: You develop new symptoms. You have: ?Chest pain. ?Diarrhea. ?A fever. Your cough gets worse. You produce more mucus. You feel nauseous or you vomit. Get help right away if you: Develop shortness of breath or have difficulty breathing. Have skin or nails that turn a bluish color. Have severe pain or stiffness in your neck. Develop a sudden headache or sudden pain in your face or ear. Cannot eat or drink without vomiting. These symptoms may represent a serious problem that is an emergency. Do not wait to see if the symptoms will go away. Get medical help right away. Call your local emergency services (911 in the [place] Do not drive yourself to the hospital. Summary Influenza, also called the flu, is a viral infection that primarily affects your respiratory tract. Symptoms of the flu usually begin suddenly and last 4 14 days. Getting an annual flu shot is the best way to prevent getting the flu. Stay home from work or school as told by your health care provider. Unless you are visiting your health care provider, avoid leaving home until your fever has been gone for 24 hours without taking medicine. Keep all follow-up visits. This is important. This information is not intended to replace advice given to you by your health care provider. Make sure you discuss any questions you have with your health care provider. Document Revised: 04/22/2021 Document Reviewed: 04/22/2021 [employer] Patient Education 2022 [employer]. [facility] History of Present illness Narrative 10-24-2023 Niharika MARGE Newman - 10/24/2023 9:50 AM EST Note Date & Type Note Facility 10-24-2023 History of Presen t illness Narrative Reason for Appointment: Patient ID: Erika Newman is a 33 y.o. female who presents for Rash Patient presents today for Acute Visit appointment. Pt presents for hives, uticaria to the left wrist and right wrist post having beer spilled on area yesterday. Pt denies taking any medication prior to arrival today. Denied fever, chills or abdominal pain Current Medications: has a current medication list which includes the following prescription(s): albuterol hfa, profe, methylprednisolone, and plus/iron. Medical History: Active Ambulatory Problems Diagnosis Date Noted No Active Ambulatory Problems Resolved Ambulatory Problems Diagnosis Date Noted No Resolved Ambulatory Problems Past Medical History: Diagnosis Date PCOS (polycystic ovarian syndrome) Family History Problem Relation Name Age of Onset No Known Problems Mother Heart disease Father Diabetes Father Hypertension Father No Known Problems Sister No Known Problems Son Social History Tobacco Use Smoking status: Not on file Smokeless tobacco: Not on file Substance Use Topics Alcohol use: Not on file Drug use: Not on file Past Surgical History: Procedure Laterality Date TONSILLECTOMY and adenoidectomy Allergies Allergen Reactions Penicillins Review of Systems: Review of Systems Constitutional: Negative. HENT: Negative. Eyes: Negative. Respiratory: Negative. Cardiovascular: Negative. Gastrointestinal: Negative. Genitourinary: Negative. Musculoskeletal: Negative. Skin: Positive for rash. Hives to bilateral upper extremities Neurological: Negative. All other systems reviewed and are negative. Hematological: Negative. Endocrine: Negative. Allergic/Immunologic: Negative. Objective Physical Exam Constitutional: Appearance: Normal appearance. She is normal weight. HENT: Head: Normocephalic. Cardiovascular: Rate and Rhythm: Normal rate. Pulses: Normal pulses. Pulmonary: Effort: Pulmonary effort is normal. Breath sounds: Normal breath sounds. Abdominal: Palpations: Abdomen is soft. Musculoskeletal: General: Normal range of motion. Neurological: General: No focal deficit present. Mental Status: She is alert and oriented to person, place, and time. Skin: General: Skin is warm and dry. Findings: Rash present. Comments: Hives to palms, wrists and head, Psychiatric: Mood and Affect: Mood normal. Behavior: Behavior normal. Thought Content: Thought content normal. Judgment: Judgment normal. Vitals and nursing note reviewed. Vitals: Estimated body mass index is 38.09 kg/m as calculated from the following: Height as of 03/12/23: 5' 3 . Weight as of 10/10/23: 215 lb. BP: Patient's last menstrual period was 06/17/2023. Assessment/Plan Encounter Diagnoses Name Primary? Pruritus Hives Rash appears to be uricaria s/p spilling beer on wrist. Pt given script for medrol dose guanako. Encouraged to take pepcid and benadryl. Bile salt and liver panel labs given if symptoms continue but pt denies abdominal pain or nausea. Pt will follow up for sched ob appointment heart rate 156 Documented by MARGE Moreno on behalf of: MARGE Moreno documented in this encounter [facility] Discharge instructions 03-31-2022 Note Date & [...] 09/05/2004 Document Revised: 06/27/2019 Document Reviewed: 02/12/2017 [employer] Patient Education 2020 [employer]. Follow Up Care 03/31/2022 11:31:15 With:Eleazar MELCHOR Address: [address] [place] [address]- When: Unknown Comments:return as otherwise scheduled [facility] Evaluation + Plan note 12-23-2021 Laboratory Note Date & Type Note Facility 12-23-2021 Evaluation + Plan note Future Scheduled TestsTIBC Calculated 12/23/21Ferritin 12/23/21Folate Level 12/23/21Iron Level 12/23/21Vitamin B12 Level 12/23/21 [facility] Evaluation + Plan note Note Date & Type Note Facility Evaluation + Plan note No data available for this section [facility] Evaluation + Plan note Note Date & Type Note Facility Evaluation + Plan note Future Appointments Appointment Date:01/02/2022 09:00:00 AM Scheduled Provider:Bill ATKINSON, ДМИТРИЙ, Erika FERNANDEZ Location:[facility] Appointment Type:DM Diabetes Initial Assessment [address] (F Appointment Date:03/24/2022 09:00:00 AM Scheduled Provider:Eleazar MELCHOR Location:[facility] Appointment Type:[facility] Evaluation note Note Date & Type Note Facility Evaluation note Diagnosis Pruritus Unspecified pruritic disorder Hives Unspecified urticaria documented in this encounter [facility] Discharge instructions Note Date & Type Note Facility Hospital Discharge instructions No data available for this section [facility] Progress note Note Date & Type Note Facility Progress note No data available for this section [facility] Summary Purpose Family History No Family History Records FoundNo Family History Records Found No data available for this section No data available for this section No data available for this section No Family History Records Found Advance Directives No Advanced Directives Records FoundNo Advanced Directives Records FoundNo Advanced Directives Records Found Additional Source Comments INFORMATION SOURCE (unrecogn ized section and content) DATE CREATED AUTHOR 12/08/2021 [facility] DATE CREATED AUTHOR AUTHOR'S ORGANIZ ATION 10/25/2023 [facility] EPIC DATE CREATED AUTHOR AUTHOR'S ORGANIZ ATION 11/07/2023 [facility] Care Team (unrecognized sect ion and content) Personnel Name: Eleazar MELCHOR Address: [address] [place] [address] Personnel Name: Eleazar MELCHOR Address: [address] [place] [address]- Personnel Name: Shantell Parker PA-C Address: Address: [address] [place] [address]- Personnel Name: Shantell Parker PA-C Address: Address: [address] [place] [address]- Personnel Name: Shantell Parker PA-C Address: Address: [address] [place] [address]- Personnel Name: Shantell Parker PA-C Address: Address: [address] [place] [address]- Reason for Visit (unrecogniz ed section and content) Reason Comments Rash FOR RECORDS PERTAINING TO PATIENTS WHO ARE [...] BE BASED ON THE PRIMARY CLINICAL RECORDS. [employer] [facility]. provides no warranty or guarantee of the accuracy or completeness of information in this document.
== END 2023-11-07 09:32 | disposition home or self-care (01) ==
LOC: NOMS 09:31
PROVIDERS: Visit Provider Obstetrics & Gynecology
DX: Z36.89 Encounter for other specified antenatal screening (principal); Z3A.20 20 weeks gestation of pregnancy
CPT/HCPCS: 76805; 76817

== ENCOUNTER 2023-11-28 10:08 | Outpatient (OUT) | payer OTHER, SELFPAY ==
--- NOTE | 2023-11-28 10:10 | US_ITS ---
[address] [address] Patient Name: ERIKA NEWMAN MRN: [id number] date: 1990 Sex: F Assigned Patient Location: [facility] Current Patient Location: [facility] Accession/Order Number: [id number] Exam Date: 11/28/2023 10:11 Report Date: 11/28/2023 11:26 At the request of: JOEY MUNOZ Procedure: US OB incomplete anatomy EXAM: US OB incomplete anatomy HISTORY: Second trimester COMPARISON: Ultrasound OB anatomy 11/07/2023 TECHNIQUE: Transabdominal ultrasound FINDINGS: Heart rate: 148 bpm Amniotic fluid: Subjectively normal Anatomy: Nose and lips (hard palate) without appreciable abnormality. GA: 23 weeks 3 days RYANN: 03/23/2024 US/US OB incomplete anatomy IMPRESSION: 1. Single live intrauterine . 2. Adequate visualization of the hard palate; no appreciable abnormality. Electronically authenticated by: CAM RODRÍGUEZ Date: 11/28/2023 11:26
--- OUTSIDE RECORDS SUMMARY | 2023-11-28 10:20 | XMS_ITS | CCD ---
Author Name Unknown Address [address] [place] [address] Organization [facility] Care Team Providers Care Joy Operator Name Role Phone Eleazar GUARDADO Primary Care Physician [phone] GINGER COOLEY Referring Unavailable KENYATTA BARKER Primary Care Unavailable Shantell Parker Primary Care Physician Unavailable Primary Care Provider UnavailShantell Diaz Referring Unavailable Shantell Parker Attending Unavailable Shantell Parker Admitting Unavailable Boo Hoyt Attending Unavailable Boo Hoyt Admitting Unavailable Jeremy Ortega Attending Unavailable Boo Hoyt Attending Unavailable Shantell Parker Attending Unavailable Shantell Parker Attending Unavailable Shantell Parker Attending Unavailable Shantell Parker Attending Unavailable NIHARIKA NEWMAN Attending Unavailable JOEY MUNOZ Attending Unavailable NIHARIKA NEWMAN Attending Unavailable NIHARIKA NEWMAN Attending Unavailable Allergies Allergy Classification Reported Allergen(s) Allergy Type Date of Onset Reaction(s) Facility (9 sources) metroNIDAZOLE; Translations: [metronidazole] Drug Allergy Weal (disorder) [facility] (4 sources) Penicillins Propensity to adverse reactions 3 [facility] Medications Current Medications Medication Drug Class(es) Dates Sig (Normalized) Sig (Original) [id number] 200 actuat albuterol 0.09 mg/actuat metered dose [...] blood sugar TID PRN, [facility] , Supply, 164, cm, 12/22/21 8:44:00 EDT, [...] day(s), # 30 cap(s), Refills(s) 0, Pharm[facility]: [id number], 164, cm, 12/07/22 13:57:00 EDT, Height/Length Dosing, [...] 28 cap(s), Refills(s) 0, Pharmacy: [facility] [place] , 164, cm, 03/31/22 16:32:00 EDT, Height/Length Dosing, 121.6, kg, 03/31/22 16:32:00 EDT, Weight Dosing Start Date: 03/31/22 Stop Date: 04/07/22 Status: Ordered dextromethorphan hydrobromide 3 mg/ml / promethazine hydrochloride 1.25 mg/ml oral solution (2 sources) Phenothiazine, Uncompetitive C-pxdrop-C-asparta te Receptor Antagonist, Sigma-1 Agonist Start: 10-27-2023 take 5 mL by mouth every six hours for cough dextromethorphan-prom ethazine 15 mg-6.25 mg/5 mL Oral Syrup 5 mL 5 mL, Oral, q6hr for cough, 240 mL, Refill(s) 0, [id number], 164, cm, 10/27/23 13:44:00 EST, Height/Length Dosing, 101, kg, 10/27/23 13:44:00 EST, Weight Dosing Start Date: 10/27/23 Status: Ordered Glucometer (7 sources) Start: 12-22-2021 Glucometer Glucometer, See Instructions, 1 EA, 0, Glucometer to test blood sugar TID PRN E11.9, [facility], 164, cm, 12/22/21 8:44:00 EDT, Height/Length Dosing, [...] oral capsule (4 sources) Start: 09-20-2023 End: 09-19-2024 take 1 capsule by mouth in the [...] days, # 12 tab(s), Refills(s) 0, [id number], 164, cm, 10/27/23 13:44:00 EST, Height/Length Dosing, [...] - Use once daily prior to injection., [facility], Supply, 164, cm, 12/22/21 8:44:00 EDT, [...] q6hr, 1 EA, Refill(s) 0, [facility] #[id number], 164, cm, 11/01/23 15:38:00 EST, Height/Length Dosing, 97.5, kg, 11/01/23 15:38:00 EST, Weight Dosing Start Date: 11/01/23 Status: Ordered Start: 12-07-2022 take 1 dose by inhal ation every six hours Albuterol (Eqv-ProAir HFA) 90 mcg/inh inhalation aerosol 2 puff(s), Inhalation, q6hr, 1 EA, Refill(s) 1, [facility] #89794, 164, cm, 12/07/22 13:57:00 EDT, Height/Length Dosing, [...] prefer broth. 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 If symptoms worsen, she will contact our [...] with voice recognition artificial intelligence software, specifically [employer], [employer] and or [employer]. Substitutions may have occurred due to the inherent limitations of voice recognition and artificial intelligence software. ATTESTATION: This note has been generated by Eduora and edited by Isaac Higgins, Quality Instructor Programmable Controllers. Follow-up No qualifying data available Patient Education Influenza, Adult Problem List/Past Medical History (more content not included)... Normal [facility] Comment on above: Result Comment: Elec [...] Puffs Inhalation Every 6 hours Pickup at [id number] Unchanged aspirin (aspirin 81 mg oral capsule) [...] physician if questions or concerns Pharmacy Information [facility][id number]: [address], [place] [phone] Allergies metroNIDAZOLE (Hives) Problems Ongoing - Any [...] you for choosing us for your care. [facility] Patient Educationon 11-01-19 Patient Education Infectious Disease [...] health care provider may recommend: ? Taking bmur-iyf-tcilscn medicines. ? Drinking plenty of fluids. In [...] and low-calorie sports drinks. ? Eat bland, xlwu-bt-wjnytk foods in small amounts as you are able. These foods include bananas, applesauce, rice, lean meats, toast, and crackers. ? Avoid drinking fluids that contain a lot of sugar or caffeine, such as energy drinks, regular sports drinks, and soda. ? Avoid alcohol. ? Avoid spicy or fatty foods. General instructions ? Take pvfi-lac-rokzwoe and prescription medicines only as told by [...] water are not available, use alcohol-based hand sanitation supervisor. ? Keep all follow-up visits. This is [...] ? Deve (more content not included)... Normal [facility] Grp A Strp PCRon 10-29-2023 Grp A Strp Intrl Ctrl Pass Normal [facility] Comment on above: Performed By: #### 1 [id number] ####[facility] [address] [place] [address] S. pyogenes DNA ARNIE+probe Ql (Throat) Negative Normal [facility] Comment on above: Result Comment: Test ing performed using DNA amplification. Performed By: #### 1 [id number] ####[facility] [address] [place] [address] Family Medicine Office/Clini c Noteon 10-27-2023 Family [...] cough, 240 mL, Refill(s) 0, [facility][id number], 164, cm, 10/27/23 13:44:00 EST, Height/Length Dosing, 101, kg, 10/27/23 13:44:00 EST, Weight Dosing predniSONE, See Instructions, 2 po QAM x4 days, then 1 po QAM x4 days, # 12 tab(s), Refills(s) 0, Pharmacy: [facility] #07207, 164, cm, 10/27/23 13:44:00 EST, Height/Length Dosing, 101, kg, 10/27/23 13:44:00 EST, Weight Dosing 2. Sore throat (J02.9: Acute pharyngitis, unspecified) Ordered: dextromethorphan-pr omethazine, 5 mL, Oral, q6hr for cough, 240 mL, Refill(s) 0, [facility] #29395, 164, cm, 10/27/23 13:44:00 EST, Height/Length Dosing, 101, kg, 10/27/23 13:44:00 EST, Weight Dosing predniSONE, See Instructions, 2 po QAM x4 days, then 1 po QAM x4 days, # 12 tab(s), Refills(s) 0, Pharmacy: [facility] #[id number], 164, cm, 10/27/23 13:44:00 EST, Height/Length Dosing, 101, kg, 10/27/23 13:44:00 EST, Weight Dosing Group A Strep by PCR Influenza Type A&B POC 17151 Rapid Strep POC 04706 3. BMI 37.0-37.9, adult (Z68.37: Body mass index [BMI] 37.0-37.9, adult) Ordered: dextromethorphan-pr omethazine, 5 mL, Oral, q6hr for cough, 240 mL, Refill(s) 0, [facility] #[id number], 164, cm, 10/27/23 13:44:00 EST, Height/Length Dosing, 101, kg, 10/27/23 13:44:00 EST, Weight Dosing predniSONE, See Instructions, 2 po QAM x4 days, then 1 po QAM x4 days, # 12 tab(s), Refills(s) 0, Pharmacy: [facility] #03800, 164, cm, 10/27/23 13:44:00 EST, Height/Length Dosing, [...] not exe (more content not included)... Normal [facility] Comment on above: Result Comment: Elec tronically Signed By: Boo Hoyt PA-C\.br\Date and Time Signed: 10/27/23 14:06 EST Patient Letter FTon 2023 Patient Letter [facility] [address], [place] [address] October 27, 2023 ERIKA NEWMAN [address] [place] [address] : 1990 Please excuse ERIKA NEWMAN from work . Date and/or Time of Absence: From: 10/26/2023 To: 10/30/2023 May return to work on: 10/31/2023 Restrictions: None Comments: Please excuse due to an acute illness. Provider Signature: Boo Hoyt PA-C Physician Playground Aide [facility] Care [address] [place] [address]. [place] [address] Normal [facility] AFP, SERUM, OPEN SPINA BIFID Aon 10-26-2023 AFP MOM 0.65 . [facility] AFP VALUE 24.1 ng/mL . [facility] COMMENT: Comment . [facility] Comment on above: Zulema Farr , Ph.D., [facility] Director References: Available Upon Request. Multiples Of Median Cutoffs For AFP Elevations Pham 2.5 Black 2.8 IDD 2.0 Twins 4.5 Abbreviation Definitions IDD - Insulin Dep Diabetes OSBR - Open Spina Bifida Risk For further inquiries contact [employer] at [phone]. This test was developed and its performance characteristics determined by [employer]. It has not been cleared or approved by the Food and Drug Administration. Performed at: [facility] [address] [place], [place] [id number] Acid Filler: Marita Duggan [facility], Phone: [phone] GEST. AGE ON COLLECTION DATE 18.4 . weeks [facility] GESTAT. AGE BASED ON As provided . [facility] Comment on above: Recalculations are n ot recommended when gestational dating by LMP and ultrasound are within 10 days. INSULIN DEP DIABETES No . [facility] INTERPRETATION Comment . [facility] Comment on above: Interpretation: Scre en Negative [...] Customer Services to discuss available options. The [employer]nec[employer] recommends amniocentesis be offered to women age 35 and older. [age] [facility] MULTIPLE GESTATION No . [facility] OS[place] [address] [place] [address] . [facility] RACE . [facility] RESULTS Report . [facility] TEST RESULTS: Negative . [facility] WEIGHT 215 . lbs [facility] N [id number] 3 16 N 1 Y 215 White/ [facility] CT Abdomen w/ Contraston CT Abdomen w/ [...] Oral contrast amount in ml's: 900 Normal [facility] Consent for Treatmenton 01-16 Consent for Treatment [id number] Normal [facility] Medicine Office/Clini c Noteon 02-01-2023 Family Medicine [...] Keith BOYD, Shantell Read Only if needed [address] [place] [phone] Additional Instructions: Patient Education BMI for Adults [...] metroNIDAZOLE (Hives) (more content not included)... Normal [facility] Comment on above: Result Comment: Elec [...] numbers. This can be done either in Indian (U.S.) or metric measurements. Note that charts and online BMI calculators are available to help you find your BMI quickly and easily without having to do these calculations yourself. To calculate your BMI in Indian (U.S.) measurements: 1. Measure your weight in [...] for Disease Control and Prevention: www.cdc.gov ? [place] Heart Association: www.heart.org ? National Heart, Lung, and Blood [place]: www.nhlbi.nih.gov Summary ? Body mass index (BMI) is a number that is calculated from a person's weight and height. ? BMI may help estimate how much of a person's weight is composed of fat. BMI can help identify those who may be at higher risk for certain medical problems. ? BMI can be measured using Indian measurements or metric measurements. ? BMI charts are used to identify whether you are underweight, normal weight, overweight, or obese. This information is not intended to replace advice given to you by your health care provider. Make sure you discuss any questions you have with your health care provider. Document Revised: 05/26/2020 Document Reviewed: 04/02/2020 [employer] Patient Education ? 2022 Embrace. Budget-Friendly Healthy Eating There are many ways [...] Nonfat. ? (more content not included)... Normal [facility] Ambulatory Visit Summaryon 0 01-26-2023 Ambulatory [...] bleeding (AUB) Screening for lipid disorders [facility] Family Medicine Office/Clini c Noteon 12-11-2022 [...] aid with cough suppression. Advised to continue otzq-jxk-mzufqvc remedies such as Mucinex, Sudafed, Tylenol or [...] Shantell Parker PA-C Only if needed [address] [place] [address] [phone] Additional Instructions: Patient Education Budget-Friendly Healthy Eating [...] lifetime) Tobacco (more content not included)... Normal [facility] Comment on above: Result Comment: Elec [...] fruits, and frozen vegetables. ? Avoid buying mxirg-nu-isp foods, such as pre-cut fruits and vegetables and pre-made salads. ? If possible, shop around to discover where you can find the best prices. Consider other retailers such as dollar stores, larger wholesale stores, local fruit and vegetable IntoOutdoors, and [place] markets. ? Do not shop when you [...] on a (more content not included)... Normal [facility] Ambulatory Visit Summaryon 0 12-07-2022 Ambulatory Visit Summary DEE DEE NEWMANChel Rodriguez :1990 Visit Date:12/07/2022 Ambulatory Visit Instructions Your [...] a day Duration: 10 Days Pickup at [facility] #53157 Changed albuterol (Albuterol (Eqv-ProAir HFA) 90 mcg/ inh inhalation aerosol) 2 Puffs Inhalation Every 6 hours [facility]up at [facility]571 Unchanged Misc Prescription (Alcohol Swabs) See instructions [...] blood sugar TID PRN E11.9 Pharmacy Information [id number]: [address] [place], [place] [phone] What How Much When Comments Stop Taking [...] uterine bleeding (AUB) Screening for lipid disorders [facility] Ambulatory Visit Summary ERIKA NEWMAN :1990 MRN:[id number] Visit Date:12/07/2022 Ambulatory Visit Instructions Your Diagnosis [...] a day Duration: 10 Days [facility]up at [facility]202 Changed albuterol (Albuterol (Eqv-ProAir HFA) 90 mcg/ inh inhalation aerosol) 2 Puffs Inhalation Every 6 hours Pickup at [facility] #47037 Unchanged Misc Prescription (Alcohol Swabs) See instructions [...] blood sugar TID PRN E11.9 Pharmacy Information [facility] #[id number]: [address] [place], [place] [phone] What How Much When Comments Stop Taking [...] bleeding (AUB) Screening for lipid disorders Normal [facility] Provider Letteron 12-07-2022 Provider Letter December 07, 2022 ERIKA [address]erv[address] [place] [address] To Whom It May Concern, Please excuse above patient from work. Date of Illness: From: _12/07/22 To: _ May Return to Work On: 12/08/22 Restrictions: _None Comments: _ Sincerely, Shantell BIRD Family [facility] [address] [address] Normal [facility] CHEMISTRYOrdered By: SYSTEM SYSTEM on 12-22-2021 [...] - 19.0 mcg/mL [facility] Remisol HEMATOLOGYOrdered By: Akvo SYSTEM on 12-22-2021 Basophils/100 WBC (Bld) 0.5 [...] AM) Normal Negative [facility] UA Auto SS [place].plasma/Lithiu m.RBC (Bld) [Mass ratio] 4-20 /HPF Normal 0-3/HPF [facility] UA Auto SS Nitrite Ql (U) Negative (12/22/21 10:10 AM) Normal Negative [facility] UA Auto SS pH (U) 5.5 *NA* (12/22/21 10:10 AM) Invalid Interpretation Code 5.0 - 9.0 [facility]A Auto SS Protein (U) [Mass/Vol] 1+ *ABN* (12/22/21 10:10 AM) Invalid Interpretation Code Negative [facility] UA Auto SS Specific gravity (U) [Rel density] >=1.030 *NA* (12/22/21 10:10 AM) Invalid Interpretation Code 1.005 - 1.030 [facility] UA Auto SS UA Spec Desc Clean Catch (12/22/21 10:10 AM) Normal [facility] UA Auto SS Urobilinogen Qn (U) 0.9177889 {Ann'U}/dL Normal 0.0 - 1.0 EU/dL [facility] UA Auto SS WBC Auto Ql (U) Negative (12/22/21 10:10 AM) Normal Negative [facility] UA Auto SS WBC LM.HPF (Urine sed) [#/Area] 0-5 /HPF Normal 0-5/HPF [facility] UA Auto SS Hemoglobin A1Con 12-07-2021 Glucose [Mass/Vol] 157 mg/dL Normal [facility] Comment on above: Result Comment: The ADA and AACC recommend providing the estimated average glucose result to permit better patient understanding of their HBA1c result. Performed By: #### G LYHGB #### [address] [place], [place] [id number] Acid Filler: Suman Villalta MD HbA1c (Bld) [Mass fraction] 7.1 % High 4.0-6.0 [facility] Comment on above: Performed By: #### G LYHGB #### [address] [place] [address] Acid Filler: Suman Villalta MD Vital Signs Date Time Vital Sign Value Performing Clinician Facility 11-01-2023 15:29-0500 Blood Pressure Location Shantell Parker [facility] 11-01-2023 15:29-0500 Body temperature 98.24 [degF] Shantell Parker [facility] 11-01-2023 15:29-0500 Diastolic blood pressure 72 mm[Hg] Shantell Parker [facility] 11-01-2023 15:29-0500 Heart rate 103 /min Shantell Parker [facility] 11-01-2023 15:29-0500 Respiratory rate 18 /min Shantell Parker [facility] 11-01-2023 15:29-0500 SaO2% (BldA) [Mass fraction] 100 % Shantell Parker [facility] 11-01-2023 15:29-0500 Systolic blood pressure 124 mm[Hg] Shantell Parker [facility] 10-27-2023 13:41-0500 Blood Pressure Location Boo Hoyt [facility] 10-27-2023 13:41-0500 Body temperature 98.06 [degF] Boo Hoyt [facility] 10-27-2023 13:41-0500 Diastolic blood pressure 74 mm[Hg] Boo Hoyt [facility] 10-27-2023 13:41-0500 Heart rate 97 /min Boo Hoyt [facility] 10-27-2023 13:41-0500 SaO2% (BldA) [Mass fraction] 100 % Boo Hoyt [facility] 10-27-2023 13:41-0500 Systolic blood pressure 122 mm[Hg] Boo Hoyt [facility] 12-07-2022 13:53-0400 Blood Pressure Location Shantell Felixzier [facility] 12-07-2022 13:53-0400 Body temperature 98.24 [degF] Shantell Felixzier [facility] 12-07-2022 13:53-0400 Diastolic blood pressure 84 mm[Hg] Shantell Felixzier [facility] 12-07-2022 13:53-0400 Heart rate 60 /min Shantell Felixzier [facility] 12-07-2022 13:53-0400 Respiratory rate 20 /min Shantell Felixzier [facility] 12-07-2022 13:53-0400 SaO2% (BldA) [Mass fraction] 99 % Shantell Felixzier [facility] 12-07-2022 13:53-0400 Systolic blood pressure 128 mm[Hg] Shantell Felixzier [facility] 03-31-2022 16:19-0400 [facility] 03-31-2022 16:19-0400 Body temperature 98.06 [degF] [facility] 03-31-2022 16:19-0400 Diastolic blood pressure 84 mm[Hg] Marlen BROWN [facility] 03-31-2022 16:19-0400 Heart rate 88 /min Marlen [employer] [facility] 03-31-2022 16:19-0400 Respiratory rate 16 /min [employer] [facility] 03-31-2022 16:19-0400 SaO2% (BldA) [Mass fraction] 97 % [employer] [facility] 03-31-2022 16:19-0400 Systolic blood pressure 128 mm[Hg] [employer] [facility] Encounters Encounter Date Encounter Type Care Provider Facility Start: 11-07-2023 End: 11-07-2023 ambulatory NIHARIKA NEWMAN Not Available Start: 11-01-2023 End: 11-02-2023 ambulatory Shantell Parker Facility:[facility] Start: 11-01-2023 ambulatory Jeremy Guerrero lity:PINKY Becker Start: 11-01-2023 End: 11-01-2023 Patient encounter procedure Shantell Parker [facility] Start: 10-27-2023 End: 10-28-2023 ambulatory Boo Hoyt Facility:[facility] Start: 10-27-2023 End: 10-27-2023 Patient encounter procedure Boo Hoyt [facility] Start: 10-24-2023 Bamboo flowsheet Niharika BIRD Work Phone: [facility] Start: 10-24-2023 Bamboo flowsheet Niharika BIRD Work Phone: [facility] Start: 10-24-2023 [facility] Result Encounter Joey Kaspero DO Work Phone: [facility] Unsolicited Start: 10-24-2023 End: 10-25-2023 ambulatory Shantell Parker Facility:[facility] Start: 10-24-2023 End: 10-24-2023 Patient encounter procedure Shantell Parker [facility] Start: 10-24-2023 End: 10-24-2023 Office outpatient visit 15 minutes Niharika Newman PA Work Phone: [facility] Comment on above: Pruritus; Hives Start: 10-10-2023 End: 10-10-2023 ambulatory JOEY MARIELY Not Available Start: 09-12-2023 End: 09-12-2023 ambulatory NIHARIKA TRENT Not Available Start: 08-17-2023 End: 08-17-2023 ambulatory NIHARIKA TRENT Not Available Start: 02-06-2023 End: 02-07-2023 ambulatory Shantell Parker Facility:[facility] Start: 01-26-2023 End: 01-27-2023 ambulatory Shantell Parker Facility:[facility] Start: 12-07-2022 End: 12-08-2022 ambulatory Shantell Parker Facility:[facility] Start: 12-07-2022 End: 12-07-2022 Patient encounter procedure Shantell Parker [facility] Start: 03-31-2022 End: 03-31-2022 Patient encounter procedure Marlen MCDOWELL [facility] Start: 01-02-2022 End: 04-02-2022 Recurring Kenyatta VELASQUEZ [facility] Start: 12-22-2021 End: 12-22-2021 Lab Drop off Kenyatta VELASQUEZ [facility] Start: 12-07-2021 End: 12-08-2021 [facility] Start: 12-05-2021 End: 12-05-2021 Patient encounter procedure Ana Blank Radha [facility] Procedures Date Procedure Procedure Detail Performing Clinician Start: 10-24-2023 AFP, SERUM, OPEN SPI NA BIFIDA Joey Mariely DO Work Phone: TM tube Ana Radha Tonsillectomy and adenoidectomy Ana Radha Plan of Treatment Date Care Activity Detail Author Start: 11-07-2023 End: 11-07-2023 Patient encounter procedure 11/07/2023 10:50 AM EST Routine [facility] [address] [place] [id number] Niharika Newman PA [address] [place] [address] [facility] Start: 11-07-2023 End: 11-07-2023 Professional / ancillary services management 11/07/2023 9:30 AM EST Ancillary Procedure [facility] [address] [place] [phone] [facility] Start: 10-24-2023 End: 10-24-2023 Patient encounter procedure 10/24/2023 9:50 AM EST Office Visit [facility] [address] [place] [phone] Niharika Newman, PA [address] [place] [address] Arrived [facility] Comment on above: Arrived Bile acids, total Bile acids, to rosa Lab Routine Pruritus Ordered: 10/24/2023 [email or web address] Work Phone: Comment on above: Ordered: 10/24/2023 Hepatic function 200 0 panel - Serum or Plasma Hepatic function panel Lab Routine Pruritus Ordered: 10/24/2023 [facility] Comment on above: Ordered: 10/24/2023 Immunizations Immunization Date Immunization Notes Care Provider Fa marysol 12-15-2012 tetanus toxoid, reduced diphtheria toxoid, and acellular pertussis vaccine, adsorbed Ana Radha [facility] Comment on above: Reason for Medicatio n: Other (see comment) 04-19-2006 tetanus toxoid, reduced diphtheria toxoid, and acellular pertussis vaccine, adsorbed Ana Radha [facility] NEGATED: Highlighted row has not occurred!12-07-2022 influenza virus vaccine, unspecified formulation Shantell Parker [place] [facility] NEGATED: Highlighted row has not occurred!03-31-2022 SARS-CoV-2 mRNA (tozinameran 5y-11y) vaccine Marlen MCDOWELL [place] [facility] NEGATED: Highlighted row has not occurred!09-16-2019 influenza virus vaccine, live, attenuated, for intranasal use Ana Radha [facility] Payers Date Payer Category Payer Unknown RUPAL GOLDSMITH [employer] [id number] 2023-Present [phone] [place] [id number] 2023 Unknown [id number] 2023 Private Health Insurance [id number] 2014 Unknown [id number] 1989 Unknown [id number] 2.16.840.1.338931.3.579 .2.174 1989 Unknown [id number] 2.16.840.1.778323.3.579 .2.727 1989 Unknown [id number] 2.16.840.1.560930.3.579 .2.727 1989 Unknown [id number] 2.16.840.1.148236.3.579 .2.727 1989 Unknown [id number] 2.16.840.1.922086.3.579 .2.727 1989 Unknown [id number] 2.16.840.1.670003.3.579 .2.727 1989 Unknown [id number] 2.16.840.1.633782.3.579 .2.727 1989 Unknown [id number] 2.16.840.1.377147.3.579 .2.727 1989 Unknown [id number] 2.16.840.1.754275.3.579 .2.727 1989 Unknown [id number] 2.16.840.1.069239.3.579 .2.1259 1989 Unknown [id number] 2.16.840.1.742621.3.579 .2.1259 1989 Unknown [id number] 2.16.840.1.449116.3.579 .2.1259 1989 Unknown [id number] 2.16.840.1.305954.3.579 .2.1259 1989 Unknown [id number] 2.16.840.1.776364.3.579 .2.1259 Private Health Insurance [id number] Self-pay Social History Date Type Detail Facility Start: 05-25-2021 End: 11-01-2023 Tobacco smoking status Never smoked tobacco (finding) [facility] Tobacco smoking status Never [facility] Sex Assigned At Female [facility] Tobacco smoking status NHIS Tobacco smoking consumption unknown [facility] Healthcare Start: 07-01-2023 [facility] Start: 1990 Sex Assigned At Not on file N [facility] Healthcare Medical Equipment Procedure Code Equipment Code Equipment Origin al Text Equipment Identifier Dates Lancets, See Instructions, 100 EA, 0, Test blood sugar TID PRN E11.9, [facility] [address], Supply, 164, cm, 12/22/21 8:44:00 EDT, Height/Length Dosing, 126.7, kg, 12/22/21 8:44:00 EDT, Weight Dosing Start: 12-22-2021 Test strips, See Instructions, 100 EA, 0, Test blood sugar TID PRN E11.9, [facility] [address], Supply, 164, cm, 12/22/21 8:44:00 EDT, Height/Length Dosing, 126.7, kg, 12/22/21 8:44:00 EDT, Weight Dosing Start: 12-22-2021 Lancets, See Instructions, 100 EA, 0, Test blood sugar TID PRN E11.9, [facility] [address], Supply, 164, cm, 12/22/21 8:44:00 EDT, Height/Length Dosing, 126.7, kg, 12/22/21 8:44:00 EDT, Weight Dosing Start: 12-22-2021 Test strips, See Instructions, 100 EA, 0, Test blood sugar TID PRN E11.9, [facility] [address], Supply, 164, cm, 12/22/21 8:44:00 EDT, Height/Length Dosing, 126.7, kg, 12/22/21 8:44:00 EDT, Weight Dosing Start: 12-22-2021 Lancets, See Instructions, 100 EA, 0, Test blood sugar TID PRN E11.9, [facility] [address], Supply, 164, cm, 12/22/21 8:44:00 EDT, Height/Length Dosing, 126.7, kg, 12/22/21 8:44:00 EDT, Weight Dosing Start: 12-22-2021 Test strips, See Instructions, 100 EA, 0, Test blood sugar TID PRN E11.9, [facility] , Supply, 164, cm, 12/22/21 8:44:00 EDT, Height/Length Dosing, 126.7, kg, 12/22/21 8:44:00 EDT, Weight Dosing Start: 12-22-2021 Lancets, See Instructions, 100 EA, 0, Test blood sugar TID PRN E11.9, [facility] , Supply, 164, cm, 12/22/21 8:44:00 EDT, Height/Length Dosing, 126.7, kg, 12/22/21 8:44:00 EDT, Weight Dosing Start: 12-22-2021 Test strips, See Instructions, 100 EA, 0, Test blood sugar TID PRN E11.9, [facility] , Supply, 164, cm, 12/22/21 8:44:00 EDT, Height/Length Dosing, 126.7, kg, 12/22/21 8:44:00 EDT, Weight Dosing Start: 12-22-2021 Lancets, See Instructions, 100 EA, 0, Test blood sugar TID PRN E11.9, [facility] [address], Supply, 164, cm, 12/22/21 8:44:00 EDT, Height/Length Dosing, 126.7, kg, 12/22/21 8:44:00 EDT, Weight Dosing Start: 12-22-2021 Test strips, See Instructions, 100 EA, 0, Test blood sugar TID PRN E11.9, [facility] [address], Supply, 164, cm, 12/22/21 8:44:00 EDT, Height/Length Dosing, 126.7, kg, 12/22/21 8:44:00 EDT, Weight Dosing Start: 12-22-2021 Lancets, See Instructions, 100 EA, 0, Test blood sugar TID PRN E11.9, [facility] [address], Supply, 164, cm, 12/22/21 8:44:00 EDT, Height/Length Dosing, 126.7, kg, 12/22/21 8:44:00 EDT, Weight Dosing Start: 12-22-2021 Test strips, See Instructions, 100 EA, 0, Test blood sugar TID PRN E11.9, [facility] [address], Supply, 164, cm, 12/22/21 8:44:00 EDT, Height/Length Dosing, 126.7, kg, 12/22/21 8:44:00 EDT, Weight Dosing Start: 12-22-2021 Lancets, See Instructions, 100 EA, 0, Test blood sugar TID PRN E11.9, [facility] [address], Supply, 164, cm, 12/22/21 8:44:00 EDT, Height/Length Dosing, 126.7, kg, 12/22/21 8:44:00 EDT, Weight Dosing Start: 12-22-2021 Test strips, See Instructions, 100 EA, 0, Test blood sugar TID PRN E11.9, [facility] [address], Supply, 164, cm, 12/22/21 8:44:00 EDT, Height/Length Dosing, 126.7, kg, 12/22/21 8:44:00 EDT, Weight Dosing Start: 12-22-2021 Functional Status Date Assessment Result Facility 11-01-2023 Functional Status N/A [facility] 10-27-2023 Functional Status N/A [facility] 12-07-2022 Functional Status N/A [facility] 03-31-2022 Functional Status N/A [facility] Discharge instructions 11-01-2023 Note Date & [...] Your health care provider may recommend: Taking bwgz-myt-lyfeaza medicines. Drinking plenty of fluids. In many [...] water, and low-calorie sports drinks. Eat bland, tmpc-ec-avredr foods in small amounts as you are able. These foods include bananas, applesauce, rice, lean meats, toast, and crackers. Avoid drinking fluids that contain a lot of sugar or caffeine, such as energy drinks, regular sports drinks, and soda. Avoid alcohol. Avoid spicy or fatty foods. General instructions Take ogjr-dag-prlbren and prescription medicines only as told by [...] water are not available, use alcohol-based hand sanitation supervisor. Keep all follow-up visits. This is important. [...] provider. Document Revised: 04/22/2021 Document Reviewed: 04/22/2021 [employer] Patient Education 2022 [employer]. [facility] History of Present illness Narrative 10-24-2023 MARGE Moreno - 10/24/2023 9:50 AM EST Note Date [...] of: MARGE Moreno documented in this encounter [facility] Discharge instructions 03-31-2022 Note Date & Type [...] 09/05/2004 Document Revised: 06/27/2019 Document Reviewed: 02/12/2017 [employer] Patient Education [employer]bill. Follow Up Care 03/31/2022 11:31:15 With:Eleazar MELCHOR Address: [address] [place] [phone] When: Unknown Comments[facility] 12-23-2021 Laboratory Note Date & Type Note Facility 12-23-2021 Evaluation + Plan note Future Scheduled TestsTIBC Calculated 12/23/21Ferritin 12/23/21Folate Level 12/23/21Iron Level 12/23/21Vitamin B12 Level 12/23/21 [place] [facility] Evaluation + Plan note Note Date & Type Note Facility Evaluation + Plan note No data available for this section [facility] Evaluation + Plan note Note Date & Type Note Facility Evaluation + Plan note Future Appointments Appointment Date:01/02/2022 09:00:00 AM Scheduled Provider:Bill ATKINSON RDN, Erika FERNANDEZ Location:[facility] Appointment Type:DM Diabetes Initial Assessment [address] (F Appointment Date:03/24/2022 09:00:00 AM Scheduled Provider:Eleazar MELCHOR Location:[facility] Appointment Type: [facility] Evaluation note Note Date & Type Note Facility Evaluation note Diagnosis Pruritus Unspecified pruritic disorder Hives Unspecified urticaria documented in this encounter [facility] Discharge instructions Note Date & Type Note Facility Hospital Discharge instructions No data available for this section [facility] Progress note Note Date & Type Note Facility Progress note No data available for this section [facility] Summary Purpose Family History No Family History Records Found No data available for this section No data available for this section No data available for this section No Family History Records FoundNo Family History Records Found Advance Directives No Advanced Directives Records FoundNo Advanced Directives Records FoundNo Advanced Directives Records Found Additional Source Comments INFORMATION SOURCE (unrecogn ized section and content) DATE CREATED AUTHOR 12/08/2021 [facility] DATE CREATED AUTHOR AUTHOR'S ORGANIZ ATION 11/07/2023 [facility] DATE CREATED AUTHOR AUTHOR'S ORGANIZ ATION 11/14/2023 [facility] EPIC Care Team (unrecognized sect ion and content) Personnel Name: Eleazar MELCHOR Address: [address] [place] [address] Personnel Name: Eelazar MELCHOR Address: [address] [place] [address] Personnel Name: Shantell Parker PA-C Address: Address: [address] [place] [address]- Personnel Name: Shantell Parker PA-C Address: Address: [address] [place] [address]- Personnel Name: Shantell Parker PA-C Address: Address: [address] [place] [address]- Personnel Name: Shantell Parker PA-C Address: Address: [address] [place] [address]- Reason for Visit (unrecogniz ed section and [...] BE BASED ON THE PRIMARY CLINICAL RECORDS. [facility] [employer] [facility]. provides no warranty or guarantee of the accuracy or completeness of information in this document.
== END 2023-11-28 10:09 | disposition home or self-care (01) ==
LOC: NOMS 10:08
PROVIDERS: Visit Provider Obstetrics & Gynecology
DX: Z34.92 Encounter for supervision of normal pregnancy, unspecified, second trimester (principal); Z3A.23 23 weeks gestation of pregnancy
CPT/HCPCS: 76815

== ENCOUNTER 2023-12-06 09:10 | Outpatient (OUT) | payer OTHER, SELFPAY ==
--- OUTSIDE RECORDS SUMMARY | 2023-12-06 09:19 | XMS_ITS | CCD ---
Author Organization [facility] Care Team Providers Care Design Draftsman Name Role Phone Eleazar GUARDADO Primary Care [...] Attending Unavailable NIHARIKA NEWMAN Attending Unavailable JOEY SHCUSTER Attending Unavailable NIHARIKA NEWMAN Attending Unavailable NIHARIKA NEWMAN Attending Unavailable Allergies Allergy Classification Reported Allergen(s) Allergy Type Date of Onset Reaction(s) Facility (9 sources) metroNIDAZOLE; Translations: [metronidazole] Drug Allergy Weal (disorder) [facility] (4 sources) Penicillins Propensity to adverse reactions 3 [facility] Medications Current Medications Medication Drug Class(es) Dates Sig (Normalized) Sig (Original) [id number] 200 actuat albuterol 0.09 mg/actuat metered dose [...] blood sugar TID PRN, [facility], Supply, 164, cm, 12/22/21 8:44:00 EDT, Height/Length [...] day(s), # 30 cap(s), Refills(s) 0, Pharmacy: [facility] #[id number], 164, cm, 12/07/22 13:57:00 EDT, Height/Length Dosing, 100.8, kg, 12/07/22 13:57:00 EDT, Weight Dosing Start Date: 12/07/22 Stop Date: 12/17/22 Status: Ordered cephalexin 500 mg oral capsule (2 sources) Cephalosporin Antibacterial Start: 03-31-2022 End: 04-07-2022 take 2 capsules by mouth twice daily Keflex 500 mg Cap 1,000 mg = 2 cap(s), Oral, BID, X 7 day(s), # 28 cap(s), Refills(s) 0, [facility]: [facility], 164, cm, 03/31/22 16:32:00 EDT, Height/Length Dosing, 121.6, kg, 03/31/22 16:32:00 EDT, Weight Dosing Start Date: 03/31/22 Stop Date: 04/07/22 Status: Ordered dextromethorphan hydrobromide 3 mg/ml / promethazine hydrochloride 1.25 mg/ml oral solution (2 sources) Phenothiazine, Uncompetitive H-frpqcl-M-asparta te Receptor Antagonist, Sigma-1 Agonist Start: 10-27-2023 take 5 mL by mouth every six hours for cough dextromethorphan-prom ethazine 15 mg-6.25 mg/5 mL Oral Syrup 5 mL 5 mL, Oral, q6hr for cough, 240 mL, Refill(s) 0, [id number], 164, cm, 10/27/23 13:44:00 EST, Height/Length Dosing, 101, kg, 10/27/23 13:44:00 EST, Weight Dosing Start Date: 10/27/23 Status: Ordered Glucometer (7 sources) Start: 12-22-2021 Glucometer Glucometer, See Instructions, 1 EA, 0, Glucometer to test blood sugar TID PRN E11.9, [facility], 164, cm, 12/22/21 8:44:00 EDT, Height/Length [...] days, # 12 tab(s), Refills(s) 0, Pharmacy: [facility] #[id number], 164, cm, 10/27/23 13:44:00 EST, Height/Length Dosing, [...] - Use once daily prior to injection., [facility], Supply, 164, cm, 12/22/21 8:44:00 EDT, [...] q6hr, 1 EA, Refill(s) 0, [facility] #[id number], 164, cm, 11/01/23 15:38:00 EST, Height/Length Dosing, 97.5, kg, 11/01/23 15:38:00 EST, Weight Dosing Start Date: 11/01/23 Status: Ordered Start: 12-07-2022 take 1 dose by inhal ation every six hours Albuterol (Eqv-ProAir HFA) 90 mcg/inh inhalation aerosol 2 puff(s), Inhalation, q6hr, 1 EA, Refill(s) 1, [facility] #[id number], 164, cm, 12/07/22 13:57:00 EDT, Height/Length Dosing, [...] prefer broth. On 07/24/2023, she visited her [facility] [facility] due to the presence of hives on [...] Encouraged the patient to follow up with oncology rep. If symptoms worsen, she will contact our [...] with voice recognition artificial intelligence software, specifically [employer], Sulia and or SeeOn. Substitutions may have occurred due to the inherent limitations of voice recognition and artificial intelligence software. ATTESTATION: This note has been generated by Candido TRUONG and edited by Isaac Higgins, Quality Radio Despatcher. Follow-up No qualifying data available Patient Education Influenza, Adult Problem List/Past Medical History (more content not included)... Normal [facility] Comment on above: Result Comment: Elec tronically [...] Puffs Inhalation Every 6 hours [facility] at [id number] Unchanged aspirin (aspirin 81 mg oral capsule) [...] questions or concerns Pharmacy Information [id number]: [address] [place], [place] [phone] Allergies metroNIDAZOLE (Hives) Problems Ongoing - Any [...] you for choosing us for your care. Gagan [facility] Patient Educationon 11-01-19 Patient Education Infectious Disease [...] health care provider may recommend: ? Taking vhid-gob-ccjuptc medicines. ? Drinking plenty of fluids. In [...] and low-calorie sports drinks. ? Eat bland, kqcf-zx-zkptqw foods in small amounts as you are able. These foods include bananas, applesauce, rice, lean meats, toast, and crackers. ? Avoid drinking fluids that contain a lot of sugar or caffeine, such as energy drinks, regular sports drinks, and soda. ? Avoid alcohol. ? Avoid spicy or fatty foods. General instructions ? Take oioi-jax-xbuddtk and prescription medicines only as told by [...] water are not available, use alcohol-based hand pallet rectifier. ? Keep all follow-up visits. This is [...] ? Deve (more content not included)... Normal [facility] Grp A Strp PCRon 10-29-2023 Grp A Strp Intrl Ctrl Pass Normal Fis [facility] Comment on above: Performed By: #### 1 [id number] ####[facility] [address] [place] [address] S. pyogenes DNA ARNIE+probe Ql (Throat) Negative Normal [facility] Comment on above: Result Comment: Test ing performed using DNA amplification. Performed By: #### 1 [id number] ####[facility] [address] [place] [address] Family Medicine Office/Clini c Noteon 10-27-2023 Family [...] cough, 240 mL, Refill(s) 0, [facility] #[id number], 164, cm, 10/27/23 13:44:00 EST, Height/Length Dosing, 101, kg, 10/27/23 13:44:00 EST, Weight Dosing predniSONE, See Instructions, 2 po QAM x4 days, then 1 po QAM x4 days, # 12 tab(s), Refills(s) 0, Pharmacy: [facility] #[id number], 164, cm, 10/27/23 13:44:00 EST, Height/Length Dosing, 101, kg, 10/27/23 13:44:00 EST, Weight Dosing 2. Sore throat (J02.9: Acute pharyngitis, unspecified) Ordered: dextromethorphan-pr omethazine, 5 mL, Oral, q6hr for cough, 240 mL, Refill(s) 0, [facility] #[id number], 164, cm, 10/27/23 13:44:00 EST, Height/Length Dosing, 101, kg, 10/27/23 13:44:00 EST, Weight Dosing predniSONE, See Instructions, 2 po QAM x4 days, then 1 po QAM x4 days, # 12 tab(s), Refills(s) 0, Pharmacy: [facility] #[id number], 164, cm, 10/27/23 13:44:00 EST, Height/Length Dosing, 101, kg, 10/27/23 13:44:00 EST, Weight Dosing Group A Strep by PCR Influenza Type A&B POC 05624 Rapid Strep POC 53339 3. BMI 37.0-37.9, adult (Z68.37: Body mass index [BMI] 37.0-37.9, adult) Ordered: dextromethorphan-pr omethazine, 5 mL, Oral, q6hr for cough, 240 mL, Refill(s) 0, [facility] #[id number], 164, cm, 10/27/23 13:44:00 EST, Height/Length Dosing, 101, kg, 10/27/23 13:44:00 EST, Weight Dosing predniSONE, See Instructions, 2 po QAM x4 days, then 1 po QAM x4 days, # 12 tab(s), Refills(s) 0, Pharmacy: [facility] #[id number], 164, cm, 10/27/23 13:44:00 EST, Height/Length Dosing, [...] not exe (more content not included)... Normal [facility] Comment on above: Result Comment: Elec tronically Signed By: Boo Hoyt PA-C\.br\Date and Time Signed: 10/27/23 14:06 EST Patient Letter FTon 2023 Patient Letter [facility] [address] [place] [address], [facility] [place] [address] October 27, 2023 ERIKA NEWMAN [address] [place] [address] : 1990 Please excuse ERIKA NEWMAN from work . Date and/or Time of Absence: From: 10/26/2023 To: 10/30/2023 May return to work on: 10/31/2023 Restrictions: None Comments: Please excuse due to an acute illness. 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 [address] [place] [address] Normal [facility] AFP, SERUM, OPEN SPINA BIFID Aon 10-26-2023 AFP MOM 0.65 . [facility] AFP VALUE 24.1 ng/mL . [facility] COMMENT: Comment . [facility] Comment on above: Zulema Farr , Ph.D., [facility] Director References: Available Upon Request. Multiples Of Median Cutoffs For AFP Elevations Pham 2.5 Black 2.8 IDD 2.0 Twins 4.5 Abbreviation Definitions IDD - Insulin Dep Diabetes OSBR - Open Spina Bifida Risk For further inquiries contact [employer] at [phone]. This test was developed and its performance characteristics determined by [employer]. It has not been cleared or approved by the Food and Drug Administration. Performed at: [facility] [address] [place], [place] [id number] Senior Oracle Adf Developer: Marita Duggan [facility], Phone: [phone] GEST. AGE ON COLLECTION DATE 18.4 . weeks [facility] GESTAT. AGE BASED ON As provided . [facility] Comment on above: Recalculations are n ot recommended when gestational dating by LMP and ultrasound are within 10 days. INSULIN DEP DIABETES No . [facility] INTERPRETATION Comment . [facility] Comment on above: Interpretation: Scre en Negative [...] Customer Services to discuss available options. The [place] [employer] Obstetricians and Gynec[employer] recommends amniocentesis be offered to women age 35 and older. [age] [facility] MULTIPLE GESTATION No . [facility] OS[place] RISK [address] [place] [address] . [facility] RACE . [facility] RESULTS Report . [facility] TEST RESULTS: Negative . [facility] WEIGHT 215 . lbs [facility] N [id number] 3 16 N 1 Y 215 White/ [facility] CT Abdomen w/ Contraston CT Abdomen w/ [...] Oral contrast amount in ml's: 900 Normal [facility] Consent for Treatmenton 01-16 Consent for Treatment [id number] Normal [place] [facility] Medicine Office/Clini c Noteon 02-01-2023 [facility] Medicine Office/Clinic Note Chief Complaint See below [...] Keith BOYD, Shantell Read Only if needed [address] [place] [phone] Additional Instructions: Patient Education BMI for Adults [...] metroNIDAZOLE (Hives) (more content not included)... Normal [facility] Comment on above: Result Comment: Elec tronically [...] numbers. This can be done either in Portuguese (U.S.) or metric measurements. Note that charts and online BMI calculators are available to help you find your BMI quickly and easily without having to do these calculations yourself. To calculate your BMI in Portuguese (U.S.) measurements: 1. Measure your weight in [...] for Disease Control and Prevention: www.cdc.gov ? [place] Heart Association: www.heart.org ? National Heart, Lung, and Blood [place]: www.nhlbi.nih.gov Summary ? Body mass index (BMI) is a number that is calculated from a person's weight and height. ? BMI may help estimate how much of a person's weight is composed of fat. BMI can help identify those who may be at higher risk for certain medical problems. ? BMI can be measured using Portuguese measurements or metric measurements. ? BMI charts are used to identify whether you are underweight, normal weight, overweight, or obese. This information is not intended to replace advice given to you by your health care provider. Make sure you discuss any questions you have with your health care provider. Document Revised: 05/26/2020 Document Reviewed: 04/02/2020 [employer] Patient Education ? 2022 [employer]. Budget-Friendly Healthy Eating There are many ways [...] Nonfat. ? (more content not included)... Normal [facility] Ambulatory Visit Summaryon 0 01-26-2023 Ambulatory Visit [...] bleeding (AUB) Screening for lipid disorders Normal [facility] Family Medicine Office/Clini c Noteon 12-11-2022 Family [...] aid with cough suppression. Advised to continue wjcp-nmq-lvaejes remedies such as Mucinex, Sudafed, Tylenol or [...] Shantell Parker PA-C Only if needed [address] [place] [address]- [phone] Additional Instructions: Patient Education Budget-Friendly Healthy Eating [...] lifetime) Tobacco (more content not included)... Normal [facility] Comment on above: Result Comment: Elec tronically [...] fruits, and frozen vegetables. ? Avoid buying offts-vs-bww foods, such as pre-cut fruits and vegetables and pre-made salads. ? If possible, shop around to discover where you can find the best prices. Consider other retailers such as dollar stores, larger wholesale stores, local fruit and vegetable stands, and [employer] markets. ? Do not shop when you [...] on a (more content not included)... Normal [facility] Ambulatory Visit Summaryon 0 12-07-2022 Ambulatory Visit Summary DEE DEE NEWMANChel Rodriguez :1990 Visit Date:12/07/2022 Ambulatory Visit Instructions Your Diagnosis Acute bronchitis, viral Adult BMI 37.0-37.9 kg/sq m Obesity due to excess calories Your Care Team Attending Physician - Shantell Parker PA-C. Primary Care Physician - Shantell Parker PA-C. [...] a day Duration: 10 Days Pickup at [facility] #[id number] Changed albuterol (Albuterol (Eqv-ProAir HFA) 90 mcg/ inh inhalation aerosol) 2 Puffs Inhalation Every 6 hours Pickup at [facility] #[id number] Unchanged Misc Prescription (Alcohol Swabs) See instructions [...] blood sugar TID PRN E11.9 Pharmacy Information [facility][id number]: [address] [place], [place] [phone] What How Much When Comments Stop Taking [...] uterine bleeding (AUB) Screening for lipid disorders [facility] Ambulatory Visit Summary ERIKA NEWMAN :1990 Visit [...] a day Duration: 10 Days Pickup at [facility] #[id number] Changed albuterol (Albuterol (Eqv-ProAir HFA) 90 mcg/ inh inhalation aerosol) 2 Puffs Inhalation Every 6 hours Pickup at [facility] #[id number] Unchanged Misc Prescription (Alcohol Swabs) See instructions [...] blood sugar TID PRN E11.9 Pharmacy Information [facility] #[id number]: [address] [place], [place] [phone] What How Much When Comments Stop Taking [...] bleeding (AUB) Screening for lipid disorders Normal [facility] Provider Letteron 12-07-2022 Provider Letter December 07, 2022 ERIKA [address] [place] [address] To Whom It May Concern, Please excuse above patient from work. Date of Illness: From: _12/07/22 To: _ May Return to Work On: 12/08/22 Restrictions: _None Comments: _ Sincerely, Shantell BIRD [facility] Medicine [address] [address] Normal [facility] CHEMISTRYOrdered By: SYSTEM SYSTEM on 12-22-2021 Albumin [...] - 19.0 mcg/mL [facility] Remisol HEMATOLOGYOrdered By: Fenergo SYSTEM on 12-22-2021 Basophils/100 WBC (Bld) 0.5 [...] AM) Normal Negative [facility] UA Auto SS Garnavillo.plasma/Lithiu m.RBC (Bld) [Mass ratio] 4-20 /HPF Normal 0-3/HPF [facility] UA Auto SS Nitrite Ql (U) Negative (12/22/21 10:10 AM) Normal Negative [facility] UA Auto SS pH (U) 5.5 *NA* (12/22/21 10:10 AM) Invalid Interpretation Code 5.0 - 9.0 [facility] UA Auto SS Protein (U) [Mass/Vol] 1+ *ABN* (12/22/21 10:10 AM) Invalid Interpretation Code Negative [facility] UA Auto SS Specific gravity (U) [Rel density] >=1.030 *NA* (12/22/21 10:10 AM) Invalid Interpretation Code 1.005 - 1.030 [facility] UA Auto SS UA Spec Desc Clean Catch (12/22/21 10:10 AM) Normal [facility] UA Auto SS Urobilinogen Qn (U) 0.0882544 {Ann'U}/dL Normal 0.0 - 1.0 EU/dL [facility] UA Auto SS WBC Auto Ql (U) Negative (12/22/21 10:10 AM) Normal Negative [facility] UA Auto SS WBC LM.HPF (Urine sed) [#/Area] 0-5 /HPF Normal 0-5/HPF [facility] UA Auto SS Hemoglobin A1Con 12-07-2021 Glucose [Mass/Vol] 157 mg/dL Normal [facility] Comment on above: Result Comment: The ADA and AACC recommend providing the estimated average glucose result to permit better patient understanding of their HBA1c result. Performed By: #### G LYHGB #### [facility] [address] [place], [place] [id number] Senior Oracle Adf Developer: Suman Villalta MD HbA1c (Bld) [Mass fraction] 7.1 % High 4.0-6.0 [facility] Comment on above: Performed By: #### G LYHGB #### [facility] [address] [place], [place] [id number] Senior Oracle Adf Developer: Suman Villalta MD Vital Signs Date Time Vital Sign Value Performing Clinician Facility 11-01-2023 15:29-0500 Blood Pressure Location Shantell Parker [facility] 11-01-2023 15:29-0500 Body temperature 98.24 [degF] Shantell Parker [facility] 11-01-2023 15:29-0500 Diastolic blood pressure 72 mm[Hg] Shantell Parker [facility] 11-01-2023 15:29-0500 Heart rate 103 /min Shantell Parker [facility] 11-01-2023 15:29-0500 Respiratory rate 18 /min Shantell Parker [facility] 11-01-2023 15:29-0500 SaO2% (BldA) [Mass fraction] 100 % Shantell Parker [facility] 11-01-2023 15:29-0500 Systolic blood pressure 124 mm[Hg] Shantell Parker [facility] 10-27-2023 13:41-0500 Blood Pressure Location Boo Hoyt [facility] 10-27-2023 13:41-0500 Body temperature 98.06 [degF] Boo Hoyt [facility] 10-27-2023 13:41-0500 Diastolic blood pressure 74 mm[Hg] Boo Hoyt [facility] 10-27-2023 13:41-0500 Heart rate 97 /min Boo Hoyt [facility] 10-27-2023 13:41-0500 SaO2% (BldA) [Mass fraction] 100 % Boo Hoyt [facility] 10-27-2023 13:41-0500 Systolic blood pressure 122 mm[Hg] Boo Hoyt [facility] 12-07-2022 13:53-0400 Blood Pressure Location Shantell [facility] 12-07-2022 13:53-0400 Body temperature 98.24 [degF] Shantell [facility] 12-07-2022 13:53-0400 Diastolic blood pressure 84 mm[Hg] Shantell [facility] 12-07-2022 13:53-0400 Heart rate 60 /min Shantell Felixzier [facility] 12-07-2022 13:53-0400 Respiratory rate 20 /min Shantell Felixzier [facility] 12-07-2022 13:53-0400 SaO2% (BldA) [Mass fraction] 99 % Shantell Felixzier [facility] 12-07-2022 13:53-0400 Systolic blood pressure 128 mm[Hg] Shantell Felixzier [facility] 03-31-2022 16:19-0400 Blood Pressure [facility] 03-31-2022 16:19-0400 Body temperature 98.06 [degF] [facility] [employer] [facility] 03-31-2022 16:19-0400 Diastolic blood pressure 84 mm[Hg] Marlen BROWN [facility] 03-31-2022 16:19-0400 Heart rate 88 /min [facility] [employer] [facility] 03-31-2022 16:19-0400 Respiratory rate 16 /min [employer] [facility] 03-31-2022 16:19-0400 SaO2% (BldA) [Mass fraction] 97 % [facility] [employer] [facility] 03-31-2022 16:19-0400 Systolic blood pressure 128 mm[Hg] [facility] [facility] Encounters Encounter Date Encounter Type Care Provider Facility Start: 11-07-2023 End: 11-07-2023 ambulatory NIHARIKA NEWMAN Not Available Start: 11-01-2023 End: 11-02-2023 ambulatory Shantell Parker Facility:[facility] Start: 11-01-2023 ambulatory Jeremy Borjai lity:CC Rosita Start: 11-01-2023 End: 11-01-2023 Patient encounter procedure Shantell Parker [facility] Start: 10-27-2023 End: 10-28-2023 ambulatory Boo Hoyt Facility:[facility] Start: 10-27-2023 End: 10-27-2023 Patient encounter procedure Boo Hoyt [facility] Start: 10-24-2023 Bamboo flowsheet Niharika BIRD Work Phone: [facility] Start: 10-24-2023 Bamboo flowsheet Niharika BIRD Work Phone: [facility] Start: 10-24-2023 [facility] Result Encounter Joey Schuster DO Work Phone: [facility] Unsolicited Start: 10-24-2023 End: 10-25-2023 [facility]ulatory [facility] Start: 10-24-2023 End: 10-24-2023 Patient encounter procedure Shantell Parker [facility] Start: 10-24-2023 End: 10-24-2023 Office outpatient visit 15 minutes Niharika BIRD Work Phone: [facility] Comment on above: Pruritus; Hives Start: 10-10-2023 End: 10-10-2023 ambulatory JOEY SCHUSTER Not Available Start: 09-12-2023 End: 09-12-2023 ambulatory NIHARIKA NEWMAN Not Available Start: 08-17-2023 End: 08-17-2023 ambulatory NIHARIKA NEWMAN Not Available Start: 02-06-2023 End: 02-07-2023 ambulatory Shantell Parker Facility:[facility] Start: 01-26-2023 End: 01-27-2023 ambulatory [facility] Start: 12-07-2022 End: 12-08-2022 ambulatory [facility] Start: 12-07-2022 End: 12-07-2022 Patient encounter procedure Shantell Parker [facility] Start: 03-31-2022 End: 03-31-2022 Patient encounter procedure Marlen MCDOWELL [facility] Start: 01-02-2022 End: 04-02-2022 Recurring Kenyatta VEALSQUEZ [facility] Start: 12-22-2021 End: 12-22-2021 Lab Drop off Kenyatta VELASQUEZ [facility] Start: 12-07-2021 End: 12-08-2021 ambulatory GINGER [facility] Start: 12-05-2021 End: 12-05-2021 Patient encounter procedure Ana Garcia [facility] Procedures Date Procedure Procedure Detail Performing Clinician Start: 10-24-2023 AFP, SERUM, OPEN SPI NA BIFIDA Joey Mariely DO Work Phone: TM tube Ana Garcia Tonsillectomy and adenoidectomy Ana Radha Plan of Treatment Date Care Activity Detail Author Start: 11-07-2023 End: 11-07-2023 Patient encounter procedure 11/07/2023 10:50 AM EST Routine [facility] [address] [place] [place] [phone] Niharika Newman PA [address] [place] [address] [facility] Start: 11-07-2023 End: 11-07-2023 Professional / ancillary services management 11/07/2023 9:30 AM EST Ancillary Procedure [facility] [address] [place] [id number] [facility] Start: 10-24-2023 End: 10-24-2023 Patient encounter procedure 10/24/2023 9:50 AM EST Office Visit [facility] [address] [place] [phone] Niharika Newman PA [address] [place], [place] [id number] Arrived [facility] Comment on above: [...] and acellular pertussis vaccine, adsorbed Ana Radha [facility] Comment on above: Reason for Medicatio n: Other (see comment) 04-19-2006 tetanus toxoid, reduced diphtheria toxoid, and acellular pertussis vaccine, adsorbed Ana Radha [facility] NEGATED: Highlighted row has not occurred!12-07-2022 influenza virus vaccine, unspecified formulation Shantell Parker [facility] Moe NEGATED: Highlighted row has not occurred!03-31-2022 SARS-CoV-2 mRNA (tozinameran 5y-11y) vaccine Marlen JULY [facility] Moe NEGATED: Highlighted row has not occurred!09-16-2019 influenza virus vaccine, live, attenuated, for intranasal use Ana Radha [facility] Payers Date Payer Category Payer Unknown RUPAL CARLTONLUDWIGDebra [employer] [id number] 2023-Present [phone] [address] [place] [address] [id number] 2023 Unknown [id number] 2023 Private Health Insurance [id number] 2014 Unknown [id number] 1989 Unknown [id number] 2.16.840.1.184624.3.579 .2.174 1989 Unknown [id number] 2.16.840.1.289552.3.579 .2.727 1989 Unknown [id number] 2.16.840.1.646681.3.579 .2.727 1989 Unknown [id number] 2.16.840.1.234947.3.579 .2.727 1989 Unknown [id number] 2.16.840.1.772921.3.579 .2.727 1989 Unknown [id number] 2.16.840.1.935881.3.579 .2.727 1989 Unknown [id number] 2.16.840.1.584202.3.579 .2.727 1989 Unknown [id number] 2.16.840.1.158576.3.579 .2.727 1989 Unknown [id number] 2.16.840.1.493055.3.579 .2.727 1989 Unknown [id number] 2.16.840.1.266593.3.579 .2.1259 1989 Unknown [id number] 2.16.840.1.102082.3.579 .2.1259 1989 Unknown [id number] 2.16.840.1.339482.3.579 .2.1259 1989 Unknown [id number] 2.16.840.1.354602.3.579 .2.1259 1989 Unknown [id number] 2.16.840.1.647568.3.579 .2.1259 Private Health Insurance [id number] Self-pay Social History Date Type Detail Facility Start: 05-25-2021 End: 11-01-2023 Tobacco smoking status Never smoked tobacco (finding) [facility] Tobacco smoking status Never [facility] Sex Assigned At Female [facility] Tobacco smoking status NHIS Tobacco smoking consumption unknown [facility] Start: 07-01-2023 [facility] Start: 1990 Sex Assigned At Not on file N [facility] Medical Equipment Procedure Code Equipment Code [...] PRN E11.9, [facility] JAYSON KAUR, Supply, 164, cm, 12/22/21 8:44:00 EDT, Height/Length Dosing, 126.7, kg, 12/22/21 8:44:00 EDT, Weight Dosing Start: 12-22-2021 Functional Status Date Assessment Result Facility 11-01-2023 Functional Status N[facility] 10-27-2023 Functional Status N/A [facility] 12-07-2022 Functional Status N[facility] 03-31-2022 Functional Status N/A [facility] Discharge instructions 11-01-2023 Note Date & [...] Your health care provider may recommend: Taking ilue-xhu-cqwsqgp medicines. Drinking plenty of fluids. In many [...] water, and low-calorie sports drinks. Eat bland, mqbz-lt-zygaqc foods in small amounts as you are able. These foods include bananas, applesauce, rice, lean meats, toast, and crackers. Avoid drinking fluids that contain a lot of sugar or caffeine, such as energy drinks, regular sports drinks, and soda. Avoid alcohol. Avoid spicy or fatty foods. General instructions Take gzgj-zml-lhgcdrn and prescription medicines only as told by [...] water are not available, use alcohol-based hand pallet rectifier. Keep all follow-up visits. This is important. [...] provider. Document Revised: 04/22/2021 Document Reviewed: 04/22/2021 [employer] Patient Education 2022 [employer]. [facility] Moe History of Present illness Narrative 10-24-2023 Niharika NewmanMARGE - 10/24/2023 9:50 AM EST Note Date [...] of: MARGE Moreno documented in this encounter [facility] Discharge instructions 03-31-2022 Note Date & [...] 09/05/2004 Document Revised: 06/27/2019 Document Reviewed: 02/12/2017 [employer] Patient Education [employer]. Follow Up Care 03/31/2022 11:31:15 With:Eleazar MELCHOR Address: [address] [place] [id number]- When: Unknown Comments:return as otherwise scheduled [facility] Evaluation + Plan note 12-23-2021 Laboratory Note Date & Type Note Facility 12-23-2021 Evaluation + Plan note Future Scheduled TestsTIBC Calculated 12/23/21Ferritin 12/23/21Folate Level 12/23/21Iron Level 12/23/21Vitamin B12 Level 12/23/21 [facility] Evaluation + Plan note Note Date & Type Note Facility Evaluation + Plan note No data available for this section [facility] Evaluation + Plan note Note Date & Type Note Facility Evaluation + Plan note Future Appointments Appointment Date:01/02/2022 09:00:00 AM Scheduled Provider:Bill ATKINSON, ДМИТРИЙ, Erika FERNANDEZ Location:[facility] Appointment Type:DM Diabetes Initial Assessment [address] (F Appointment Date:03/24/2022 09:00:00 AM Scheduled Provider:Eleazar MELCHOR Location:[facility] Appointment Type:[facility] Evaluation note Note Date & Type Note Facility Evaluation note Diagnosis Pruritus Unspecified pruritic disorder Hives Unspecified urticaria documented in this encounter [facility] Discharge instructions Note Date & Type Note Facility Hospital Discharge instructions No data available for this section [facility] Progress note Note Date & Type Note Facility Progress note No data available for this section [facility] Moe Summary Purpose Family [...] DATE CREATED AUTHOR 12/08/2021 Jackie Craigkacy Evans [facility]iva DATE CREATED AUTHOR AUTHOR'S ORGANIZ ATION 11/07/2023 [facility] DATE CREATED AUTHOR AUTHOR'S ORGANIZ ATION 11/14/2023 [facility] EPIC Care Team (unrecognized sect ion and content) Personnel Name: Eleazar MELCHOR Address: [address] [place] [address] Personnel Name: Eleazar MELCHOR Address: [address] [place] [address] Personnel Name: Shantell Parker PA-C Address: Address: [address] [place] [address]- Personnel Name: Shantell Parker PA-C Address: Address: [address] [place] [address]- Personnel Name: Shantell Parker PA-C Address: Address: [address] [place] [address]- Personnel Name: Shantell Parker PA-C Address: Address: [address] [place] [address]- Reason for Visit (unrecogniz ed section and [...] BE BASED ON THE PRIMARY CLINICAL RECORDS. [facility] provides no warranty or guarantee of the accuracy or completeness of information in this document.
[2023-12-06 11:31] LABS: Basophils Percent Auto 0.3 % (0.2-2.0); Eosinophils Absolute Auto 0.1 10^3/uL (0.0-0.7); Hematocrit 30.7 % (36.0-48.0); Hemoglobin 9.2 g/dL (12.0-16.0); Immature Granulocytes Pct Auto 0.7 % (0.0-0.5); Lymphocytes Absolute Auto 2.7 10^3/uL (1.2-3.8); Lymphocytes Percent Auto 18.6 % (20.5-60.0); Mean Corpuscular Hemoglobin 25.3 pg (26.7-34.0); Mean Corpuscular Volume 84.3 fL (81.0-99.0); Mean Platelet Volume 10.1 fL (9.5-13.5); Monocytes Absolute Auto 0.6 10^3/uL (0.3-0.8); Monocytes Percent Auto 4.3 % (1.7-12.0); Neutrophils Percent Auto 75.1 % (43.0-75.0); Platelet Count 344 10^3/uL (150-450); Red Blood Count 3.64 10^6/uL (4.20-5.40); Red Cell Distribution Width 13.7 % (11.0-15.0); White Blood Count 14.6 10^3/uL (4.0-11.0)
[2023-12-06 13:21] LABS: Glucose 1 Hour 170 mg/dL (<130)
== END 2023-12-06 09:11 | disposition home or self-care (01) ==
LOC: LAB 09:11
PROVIDERS: Visit Provider Obstetrics & Gynecology
DX: Z13.1 Encounter for screening for diabetes mellitus (principal)
CPT/HCPCS: 36415; 82950; 85025

== ENCOUNTER 2023-12-25 09:29 | Outpatient (OUT) | payer OTHER, SELFPAY ==
[2023-12-25 10:00] LABS: Glucose Fasting 76 mg/dL (<95)
[2023-12-25 11:50] LABS: Glucose 1 Hour 160 mg/dL (<180)
[2023-12-25 13:15] LABS: Glucose 3 Hour 100 mg/dL (<140)
[2023-12-25 13:16] LABS: Glucose 2 Hour 162 mg/dL (<155)
== END 2023-12-25 09:30 | disposition home or self-care (01) ==
LOC: LAB 09:29
PROVIDERS: Visit Provider Obstetrics & Gynecology
DX: R73.09 Other abnormal glucose (principal)
CPT/HCPCS: 36415; 82951; 82952

== ENCOUNTER 2024-01-04 07:33 | Outpatient (RCR) | payer OTHER, SELFPAY ==
[2023-12-28 10:20] VITALS: BP 138/72; PULSE 98; TEMP 36.7; O2SAT 98
[2023-12-28] MEDS: FERRIC CARBOXYMALTOSE 750 MG in 0.9 % SODIUM CHLORIDE 250 ML 1060 MG IV (10:50)
--- NOTE | 2023-12-28 13:42 | PC.NURSE ---
1020: Pt. to [facility] amb. accompanied by significant other. Seated in recliner. VSS. Denies questions. IV initiated to right hand without difficultly. Pt. tolerated well. 1050: IV Injectafer initiated at this time. Pt. brought own snacks. Denies needs.
--- NOTE | 2023-12-28 13:47 | PC.NURSE ---
1125: IV iron completed without s&s of adverse reaction. Iv d/c'd, pressure to site. D/c'd amb. to home.
[2024-01-04 10:25] VITALS: BP 121/76; PULSE 90; TEMP 36.1; O2SAT 98
[2024-01-04] MEDS: FERRIC CARBOXYMALTOSE 750 MG in 0.9 % SODIUM CHLORIDE 250 ML 1060 MG IV (10:42)
== END 2024-01-15 23:59 | disposition home or self-care (01) ==
LOC: INF 07:33
PROVIDERS: Visit Provider Obstetrics & Gynecology
DX: O99.019 Anemia complicating pregnancy, unspecified trimester (principal); D50.9 Iron deficiency anemia, unspecified; Z3A.00 Weeks of gestation of pregnancy not specified
CPT/HCPCS: 96365; J1439

== ENCOUNTER 2024-01-10 10:14 | Outpatient (OUT) | payer OTHER, SELFPAY ==
--- NOTE | 2024-01-10 10:16 | US_ITS ---
[address] [address] Patient Name: ERIKA NEWMAN MRN: [id number] date: 1990 Sex: F Assigned Patient Location: [facility] Current Patient Location: [facility] Accession/Order Number: [id number] Exam Date: 01/10/2024 10:16 Report Date: 01/10/2024 10:50 At the request of: JOEY MUNOZ Procedure: US OB growth EXAMINATION: US OB growth HISTORY: SIZE INCONSISTENT WITH DATES COMPARISON: Ultrasound OB anatomy 12/06/2023, 11/28/2023 FINDINGS: Heart Rate: 151.0 bpm Number: 1.0 Position: bREECH Amniotic Fluid Volume: 19.7 cm Maximum Vertical Pocket: 7.1 cm BIOMETRY: BPD: 7.6 cm cm; 30 weeks 4 days; 70% HC: 28.2 cmcm; 30 weeks 6 days ; 55% AC: 26.2 cm cm; 30 weeks 3 days; 69% FL: 5.4 cm cm; 28 weeks 3 days; 11% EFW: 1461.4 grams; 46% FL/AC: 20.5 FL/BPD: 70.5 HC/AC: 1.1 GESTATIONAL AGE: Age by EDC: 29 weeks 4 days RYANN by EDC: 03/23/2024 Age by US: 30 weeks 1 day RYANN by US: 03/19/2024 US/US OB growth IMPRESSION: 1. Single live intrauterine with growth detailed above. Electronically authenticated by: CAM RODRÍGUEZ Date: 01/10/2024 10:50
--- OUTSIDE RECORDS SUMMARY | 2024-01-10 10:31 | XMS_ITS | CCD ---
Author Organization [facility] Care Team Providers Care Manager Float Name Role Phone Eleazar GUARDADO Primary Care Physician [phone] GINGER COOLEY Referring Unavailable KENYATTA BARKER Primary [...] NEWMAN Attending Unavailable NIHARIKA NEWMAN Attending Unavailable MARIELYJOEY MARCUM Attending Unavailable TRENT, NIHARIKA Attending Unavailable Allergies Allergy Classification Reported Allergen(s) Allergy Type Date of Onset Reaction(s) Facility (9 sources) metroNIDAZOLE; Translations: [metronidazole] Drug Allergy Weal (disorder) [facility] (4 sources) Penicillins Propensity to adverse reactions 3 [facility] Medications Current Medications Medication Drug Class(es) Dates Sig (Normalized) Sig (Original) [id number] 200 actuat albuterol 0.09 mg/actuat metered dose [...] when testing blood sugar TID PRN, [facility], Supply, 164, cm, 12/22/21 [...] day(s), # 30 cap(s), Refills(s) 0, Pharmacy: [facility] #[id number], 164, cm, 12/07/22 13:57:00 EDT, Height/Length Dosing, 100.8, kg, 12/07/22 13:57:00 EDT, Weight Dosing Start Date: 12/07/22 Stop Date: 12/17/22 Status: Ordered cephalexin 500 mg oral capsule (2 sources) Cephalosporin Antibacterial Start: 03-31-2022 End: 04-07-2022 take 2 capsules by mouth twice daily Keflex 500 mg Cap 1,000 mg = 2 cap(s), Oral, BID, X 7 day(s), # 28 cap(s), Refills(s) 0, Pharmacy: [facility] , 164, cm, 03/31/22 16:32:00 EDT, Height/Length Dosing, 121.6, kg, 03/31/22 16:32:00 EDT, Weight Dosing Start Date: 03/31/22 Stop Date: 04/07/22 Status: Ordered dextromethorphan hydrobromide 3 mg/ml / promethazine hydrochloride 1.25 mg/ml oral solution (2 sources) Phenothiazine, Uncompetitive B-yzuzff-I-asparta te Receptor Antagonist, Sigma-1 Agonist Start: 10-27-2023 take 5 mL by mouth every six hours for cough dextromethorphan-prom ethazine 15 mg-6.25 mg/5 mL Oral Syrup 5 mL 5 mL, Oral, q6hr for cough, 240 mL, Refill(s) 0, [facility] #[id number], 164, cm, 10/27/23 13:44:00 EST, Height/Length Dosing, 101, kg, 10/27/23 13:44:00 EST, Weight Dosing Start Date: 10/27/23 Status: Ordered Glucometer (7 sources) Start: 12-22-2021 Glucometer Glucometer, See Instructions, 1 EA, 0, Glucometer to test blood sugar TID PRN E11.9, [facility], 164, cm, 12/22/21 8:44:00 EDT, Height/Length [...] # 12 tab(s), Refills(s) 0, Pharmacy: [facility] #[id number], 164, cm, 10/27/23 13:44:00 EST, Height/Length Dosing, [...] - Use once daily prior to injection., [facility], Supply, 164, cm, 12/22/21 8:44:00 EDT, [...] q6hr, 1 EA, Refill(s) 0, [facility] #[id number], 164, cm, 11/01/23 15:38:00 EST, Height/Length Dosing, 97.5, kg, 11/01/23 15:38:00 EST, Weight Dosing Start Date: 11/01/23 Status: Ordered Start: 12-07-2022 take 1 dose by inhal ation every six hours Albuterol (Eqv-ProAir HFA) 90 mcg/inh inhalation aerosol 2 puff(s), Inhalation, q6hr, 1 EA, Refill(s) 1, [facility] #[id number], 164, cm, 12/07/22 13:57:00 EDT, Height/Length Dosing, [...] prefer broth. On 07/24/2023, she visited her ACCOUNTANT PROPERTY due to the presence of hives on [...] Encouraged the patient to follow up with political science chair. If symptoms worsen, she will contact our [...] with voice recognition artificial intelligence software, specifically Personal Estate Manager, [employer] and or Synchro. Substitutions may have occurred due to the inherent limitations of voice recognition and artificial intelligence software. ATTESTATION: This note has been generated by [email or web address] ALEXI and edited by Isaac Higgins, Quality Parts Driver. Follow-up No qualifying data available Patient Education Influenza, Adult Problem List/Past Medical History (more content not included)... Normal [facility] Comment on above: Result Comment: [...] Every 6 hours Pickup at [facility] #[id number] Unchanged aspirin (aspirin 81 mg oral capsule) [...] questions or concerns Pharmacy Information [facility][id number]: [address] [place], [place] [id number] [phone] Allergies metroNIDAZOLE (Hives) Problems Ongoing - Any [...] you for choosing us for your care. [facility] Patient Educationon 11-01-19 Patient Education Infectious [...] health care provider may recommend: ? Taking bpav-hbu-wfqzajc medicines. ? Drinking plenty of fluids. In [...] and low-calorie sports drinks. ? Eat bland, ufqf-hf-cehrlj foods in small amounts as you are able. These foods include bananas, applesauce, rice, lean meats, toast, and crackers. ? Avoid drinking fluids that contain a lot of sugar or caffeine, such as energy drinks, regular sports drinks, and soda. ? Avoid alcohol. ? Avoid spicy or fatty foods. General instructions ? Take uptq-wbv-doovwtr and prescription medicines only as told by [...] water are not available, use alcohol-based hand sales planner. ? Keep all follow-up visits. This is [...] Deve (more content not included)... Normal [facility] Grp A Strp PCRon 10-29-2023 Grp A Strp Intrl Ctrl Pass Normal [facility] Comment on above: Performed By: #### 1 [id number] ####[facility] [address] [place] [address] S. pyogenes DNA ARNIE+probe Ql (Throat) Negative Normal [facility] Comment on above: Result Comment: Test ing performed using DNA amplification. Performed By: #### 1 [id number] ####[facility] [address] [place] [address] Family Medicine Office/Clini c Noteon 10-27-2023 Family [...] cough, 240 mL, Refill(s) 0, [facility] #[id number], 164, cm, 10/27/23 13:44:00 EST, Height/Length Dosing, 101, kg, 10/27/23 13:44:00 EST, Weight Dosing predniSONE, See Instructions, 2 po QAM x4 days, then 1 po QAM x4 days, # 12 tab(s), Refills(s) 0, Pharmacy: [facility] #[id number], 164, cm, 10/27/23 13:44:00 EST, Height/Length Dosing, 101, kg, 10/27/23 13:44:00 EST, Weight Dosing 2. Sore throat (J02.9: Acute pharyngitis, unspecified) Ordered: dextromethorphan-pr omethazine, 5 mL, Oral, q6hr for cough, 240 mL, Refill(s) 0, [facility] #[id number], 164, cm, 10/27/23 13:44:00 EST, Height/Length Dosing, 101, kg, 10/27/23 13:44:00 EST, Weight Dosing predniSONE, See Instructions, 2 po QAM x4 days, then 1 po QAM x4 days, # 12 tab(s), Refills(s) 0, Pharmacy: [facility] #[id number], 164, cm, 10/27/23 13:44:00 EST, Height/Length Dosing, 101, kg, 10/27/23 13:44:00 EST, Weight Dosing Group A Strep by PCR Influenza Type A&B POC 76907 Rapid Strep POC 70328 3. BMI 37.0-37.9, adult (Z68.37: Body mass index [BMI] 37.0-37.9, adult) Ordered: dextromethorphan-pr omethazine, 5 mL, Oral, q6hr for cough, 240 mL, Refill(s) 0, [facility] #[id number], 164, cm, 10/27/23 13:44:00 EST, Height/Length Dosing, 101, kg, 10/27/23 13:44:00 EST, Weight Dosing predniSONE, See Instructions, 2 po QAM x4 days, then 1 po QAM x4 days, # 12 tab(s), Refills(s) 0, Pharmacy: [facility] #[id number], 164, cm, 10/27/23 13:44:00 EST, Height/Length Dosing, [...] exe (more content not included)... Normal [facility] Comment on above: Result Comment: Elec tronically Signed By: Boo Hoyt PA-C\.br\Date and Time Signed: 10/27/23 14:06 EST Patient Letter FTon 2023 Patient Letter [facility] [address] [facility] [place] [address] October 27, 2023 ERIKA NEWMAN [address] [place] [address] : 1990 Please excuse ERIKA NEWMAN from work . Date and/or Time of Absence: From: 10/26/2023 To: 10/30/2023 May return to work on: 10/31/2023 Restrictions: None Comments: Please excuse due to an acute illness. Provider Signature: Boo Hoyt PA-C Physician Assistant Kitchen Manager [facility] [address] [place] [address] Normal [facility] AFP, SERUM, OPEN SPINA BIFID Aon 10-26-2023 AFP MOM 0.65 . [facility] AFP VALUE 24.1 ng/mL . [facility] COMMENT: Comment . [facility] Comment on above: Zulema Farr , Ph.D., [facility] Director References: Available Upon Request. Multiples Of Median Cutoffs For AFP Elevations Pham 2.5 Black 2.8 IDD 2.0 Twins 4.5 Abbreviation Definitions IDD - Insulin Dep Diabetes OSBR - Open Spina Bifida Risk For further inquiries contact [employer] at [phone]. This test was developed and its performance characteristics determined by [employer]. It has not been cleared or approved by the Food and Drug Administration. Performed at: [facility] [address] [id number] Associate Buyer: Marita Duggan [facility], Phone: [phone] GEST. AGE ON COLLECTION DATE 18.4 . weeks [facility] GESTAT. AGE BASED ON As provided . [facility] Comment on above: Recalculations are n ot recommended when gestational dating by LMP and ultrasound are within 10 days. INSULIN DEP DIABETES No . [facility] INTERPRETATION Comment . [facility] Comment on above: Interpretation: Scre en [...] Customer Services to discuss available options. The [place] [employer] and [employer]nec[employer] recommends amniocentesis be offered to women age 35 and older. [age]ANN [age] [facility] MULTIPLE GESTATION No . [facility] OSBR R[place]K [address] [place] [address] . [facility] RACE . [facility] RESULTS Report . [facility] TEST RESULTS: Negative . [facility] WEIGHT 215 . lbs [facility] N [id number] 3 16 N 1 Y 215 White/ [facility] CT Abdomen w/ Contraston CT Abdomen [...] contrast amount in ml's: 900 Normal [facility] Consent for Treatmenton 01-16 Consent for Treatment [id number] Normal [facility] Medicine Office/Clini c Noteon 02-01-2023 Family Medicine [...] Information Shantell Parker PA-C Only if needed [address] [place] [phone] Additional Instructions: Patient Education BMI for Adults [...] metroNIDAZOLE (Hives) (more content not included)... Normal [facility] Comment on above: Result Comment: Elec [...] numbers. This can be done either in [place]utanese (U.S.) or metric measurements. Note that charts and online BMI calculators are available to help you find your BMI quickly and easily without having to do these calculations yourself. To calculate your BMI in [place]anese (U.S.) measurements: 1. Measure your weight in [...] for Disease Control and Prevention: www.cdc.gov ? [place] Heart Association: www.heart.org ? National Heart, Lung, and Blood [place]: www.nhlbi.nih.gov Summary ? Body mass index (BMI) is a number that is calculated from a person's weight and height. ? BMI may help estimate how much of a person's weight is composed of fat. BMI can help identify those who may be at higher risk for certain medical problems. ? BMI can be measured using Bhutanese measurements or metric measurements. ? BMI charts are used to identify whether you are underweight, normal weight, overweight, or obese. This information is not intended to replace advice given to you by your health care provider. Make sure you discuss any questions you have with your health care provider. Document Revised: 05/26/2020 Document Reviewed: 04/02/2020 [employer] Patient Education ? 2022 [employer]. Budget-Friendly Healthy Eating There are many ways [...] ? (more content not included)... Normal [facility] Ambulatory Visit Summaryon 0 01-26-2023 Ambulatory Visit Summary TRENT ERIKA Rodriguez :1990 Visit Date:01/26/2023 Ambulatory Visit Instructions Your [...] (AUB) Screening for lipid disorders Normal [facility] Family Medicine Office/Clini c Noteon [...] aid with cough suppression. Advised to continue qwse-ude-imhstao remedies such as Mucinex, Sudafed, Tylenol or [...] Shantell Parker PA-C Only if needed [address] [place] [phone]- [phone] Additional Instructions: Patient Education Budget-Friendly Healthy Eating [...] Tobacco (more content not included)... Normal [facility] Comment on above: Result Comment: Elec tronically Signed By: Shantell Parker PA-C\.br\Date and Time Signed: 12/11/22 21:41 EDT Patient Educationon 12-12-19 23 Patient Education Nutrition Budget-Friendly Healthy Eating There [...] fruits, and frozen vegetables. ? Avoid buying ywvio-si-tjq foods, such as pre-cut fruits and vegetables and pre-made salads. ? If possible, shop around to discover where you can find the best prices. Consider other retailers such as dollar stores, larger wholesale stores, local fruit and vegetable Advice Company, and SCREEMO markets. ? Do not shop when you [...] a (more content not included)... Normal [facility] Ambulatory Visit Summaryon 0 12-07-2022 Ambulatory Visit Summary TRENT ERIKA R :1990 MRN: Visit Date:12/07/2022 Ambulatory Visit Instructions Your Diagnosis [...] a day Duration: 10 Days Pickup at [facility] #[id number] Changed albuterol (Albuterol (Eqv-ProAir HFA) 90 mcg/ inh inhalation aerosol) 2 Puffs Inhalation Every 6 hours Pickup at [facility] #04780 Unchanged Misc Prescription (Alcohol Swabs) See instructions [...] blood sugar TID PRN E11.9 Pharmacy Information [facility] #[id number]: [address] [place], [place] [id number] [phone] What How Much When Comments Stop Taking [...] (AUB) Screening for lipid disorders Gagan [facility] Ambulatory Visit Summary ERIKA NEWMAN :1990 [...] a day Duration: 10 Days Pickup at [facility][id number] Changed albuterol (Albuterol (Eqv-ProAir HFA) 90 mcg/ inh inhalation aerosol) 2 Puffs Inhalation Every 6 hours Pickup at [facility] #86921 Unchanged Misc Prescription (Alcohol Swabs) See instructions [...] blood sugar TID PRN E11.9 Pharmacy Information [facility] #[id number]: [address] [place], [place] [phone] What How Much When Comments Stop Taking [...] (AUB) Screening for lipid disorders Gagan [facility] Provider Letteron 12-07-2022 Provider Letter December 07, 2022 ERIKA [address] [place] [address] To Whom It May Concern, Please excuse above patient from work. Date of Illness: From: _12/07/22 To: _ May Return to Work On: 12/08/22 Restrictions: _None Comments: _ Sincerely, Shantell BIRD [facility] [place] [address] [place] [address] Normal [facility] CHEMISTRYOrdered By: SYSTEM SYSTEM on [...] - 19.0 mcg/mL [facility] Remisol HEMATOLOGYOrdered By: HYGIEIA SYSTEM on 12-22-2021 Basophils/100 WBC (Bld) 0.5 [...] HemeManSS Morphology Darci (Bld) [Interp] See Morphology (4/7/22 10:10 AM) Normal [facility] HemeManSS Ovalocytes LM [...] AM) Normal Negative [facility] UA Auto SS [place].plasma/Lithiu m.RBC (Bld) [Mass ratio] 4-20 /HPF Normal 0-3/HPF [facility] UA Auto SS Nitrite Ql (U) Negative (12/22/21 10:10 AM) Normal Negative [facility] UA Auto SS pH (U) 5.5 *NA* (12/22/21 10:10 AM) Invalid Interpretation Code 5.0 - 9.0 [facility] UA Auto SS Protein (U) [Mass/Vol] 1+ *ABN* (12/22/21 10:10 AM) Invalid Interpretation Code Negative [facility] UA Auto SS Specific gravity (U) [Rel density] >=1.030 *NA* (12/22/21 10:10 AM) Invalid Interpretation Code 1.005 - 1.030 [facility] UA Auto SS UA Spec Desc Clean Catch (12/22/21 10:10 AM) Normal [facility] UA Auto SS Urobilinogen Qn (U) 0.3440113 {Ann'U}/dL Normal 0.0 - 1.0 EU/dL [facility] Auto SS WBC Auto Ql (U) Negative (12/22/21 10:10 AM) Normal Negative [facility] UA Auto SS WBC LM.HPF (Urine sed) [#/Area] 0-5 /HPF Normal 0-5/HPF [facility] UA Auto SS Hemoglobin A1Con 12-07-2021 Glucose [Mass/Vol] 157 mg/dL Normal [facility] Comment on above: Result Comment: The ADA and AACC recommend providing the estimated average glucose result to permit better patient understanding of their HBA1c result. Performed By: #### G LYHGB #### [facility] [address] [place], [place] [id number] Associate Buyer: Suman Villalta MD HbA1c (Bld) [Mass fraction] 7.1 % High 4.0-6.0 [facility] Comment on above: Performed By: #### G LYHGB #### [facility] [address] [place], [place] [id number] Associate Buyer: Suman Villalta MD Vital Signs Date Time Vital Sign Value Performing Clinician Facility 11-01-2023 15:29-0500 Blood Pressure Location Shantell Parker [facility] [place] 11-01-2023 15:29-0500 Body temperature 98.24 [degF] Shantell Parker [facility] 11-01-2023 15:29-0500 Diastolic blood pressure 72 mm[Hg] Shantell Parker [facility] 11-01-2023 15:29-0500 Heart rate 103 /min Shantell Parker [facility] 11-01-2023 15:29-0500 Respiratory rate 18 /min Shantell Parker [facility] 11-01-2023 15:29-0500 SaO2% (BldA) [Mass fraction] 100 % Shantell Parker [facility] 11-01-2023 15:29-0500 Systolic blood pressure 124 mm[Hg] Shantell Parker [facility] 10-27-2023 13:41-0500 Blood Pressure Location Boo Hoyt [facility] 10-27-2023 13:41-0500 Body temperature 98.06 [degF] Boo Hoyt [facility] 10-27-2023 13:41-0500 Diastolic blood pressure 74 mm[Hg] Boo Hoyt [facility] 10-27-2023 13:41-0500 Heart rate 97 /min Boo Hoyt [facility] 10-27-2023 13:41-0500 SaO2% (BldA) [Mass fraction] 100 % Boo Hoyt [facility] 10-27-2023 13:41-0500 Systolic blood pressure 122 mm[Hg] Boo Hoyt [facility] 12-07-2022 13:53-0400 Blood Pressure Location Shantell Felixzier [facility] 12-07-2022 13:53-0400 Body temperature 98.24 [degF] Shantell Felixzier [facility] 12-07-2022 13:53-0400 Diastolic blood pressure 84 mm[Hg] Shantellmichael FelixParker [facility] 12-07-2022 13:53-0400 Heart rate 60 /min Shantell Felixzier [facility] 12-07-2022 13:53-0400 Respiratory rate 20 /min Shantell Felixzier [facility] 12-07-2022 13:53-0400 SaO2% (BldA) [Mass fraction] 99 % Shantell Felixzier [facility] 12-07-2022 13:53-0400 Systolic blood pressure 128 mm[Hg] Shantell Felixzier [facility] 03-31-2022 16:19-0400 Blood Pressure Location Marlen MCDOWELL [facility] 03-31-2022 16:19-0400 Body temperature 98.06 [degF] Marlen BROWN [facility] [place] 03-31-2022 16:19-0400 Diastolic blood pressure 84 mm[Hg] Marlen BROWN [facility] [place] 03-31-2022 16:19-0400 Heart rate 88 /min YODIL [facility] 03-31-2022 16:19-0400 Respiratory rate 16 /min YODIL [facility] [place] 03-31-2022 16:19-0400 SaO2% (BldA) [Mass fraction] 97 % YODIL [facility] [place] 03-31-2022 16:19-0400 Systolic blood pressure 128 mm[Hg] YODIL [facility] Encounters Encounter Date Encounter Type Care Provider Facility Start: 01-02-2024 End: 01-02-2024 ambulatory NIHARIKA NEWMAN Not Available Start: 12-05-2023 End: 12-05-2023 ambulatory JOEY MUNOZ Not Available Start: 11-07-2023 End: 11-07-2023 ambulatory NIHARIKA NEWMAN Not Available Start: 11-01-2023 End: 11-02-2023 ambulatory Shantell Parker Facility:[facility] Start: 11-01-2023 ambulatory Jeremy Guerrero lity:[facility] Start: 11-01-2023 End: 11-01-2023 Patient encounter procedure Shantell Parker [facility] Start: 10-27-2023 End: 10-28-2023 ambulatory Boo Hoyt Facility:[facility] Start: 10-27-2023 End: 10-27-2023 Patient encounter procedure Boo Hoyt [facility] Start: 10-24-2023 Bamboo flowsheet Niharika Newman PA Work Phone: [facility] Start: 10-24-2023 Bamboo flowsheet Niharika BIRD Work Phone: [facility] Start: 10-24-2023 [facility] Result Encounter Joeyolamide Kaspero DO Work Phone: [facility] Unsolicited Start: 10-24-2023 End: 10-25-2023 ambulatory [facility]antell [facility] Start: 10-24-2023 End: 10-24-2023 Patient encounter procedure Shantell Parker [facility] [place] Start: 10-24-2023 End: 10-24-2023 Office outpatient visit 15 minutes Niharika BIRD Work Phone: [facility] Comment on above: Pruritus; Hives Start: 10-10-2023 End: 10-10-2023 ambulatory JOEY MARIELY Not Available Start: 09-12-2023 End: 09-12-2023 ambulatory NIHARIKA NEWMAN Not Available Start: 08-17-2023 End: 08-17-2023 ambulatory NIHARIKA NEWMAN Not Available Start: 02-06-2023 End: 02-07-2023 ambulatory Shantell Parker Facility:[facility] Start: 01-26-2023 End: 01-27-2023 ambulatory [facility]antell Parker [facility] Start: 12-07-2022 End: 12-08-2022 ambulatory Shantell Parker Facility:[facility] Start: 12-07-2022 End: 12-07-2022 Patient encounter procedure Shantell Parker [facility] Start: 03-31-2022 End: 03-31-2022 Patient encounter procedure Marlen MCDOWELL [facility] [place] Start: 01-02-2022 End: 04-02-2022 Swapna VELASQUEZ [facility] Start: 12-22-2021 End: 12-22-2021 Lab Drop off Kenyatta VELASQUEZ [facility] Start: 12-07-2021 End: 12-08-2021 ambulatory GINGER HUNTLEYERINN Mejia [facility] Start: 12-05-2021 End: 12-05-2021 Patient encounter procedure Ana Parson Rad[facility] Procedures Date Procedure Procedure Detail Performing Clinician Start: 10-24-2023 AFP, SERUM, OPEN SPI NA BIFIDA Joey Mariely DO Work Phone: TM tube Ana Radha Tonsillectomy and adenoidectomy Ana Radha Plan of Treatment Date Care Activity Detail Author Start: 11-07-2023 End: 11-07-2023 Patient encounter procedure 11/07/2023 10:50 AM EST Routine [facility] [address] [place] [id number] Niharika Newman PA [address] [place], [place] [address] [address] [facility] Start: 11-07-2023 End: 11-07-2023 Professional / ancillary services management 11/07/2023 9:30 AM EST Ancillary Procedure [facility] [address] [place] [address] [facility] Start: 10-24-2023 End: 10-24-2023 Patient encounter procedure 10/24/2023 9:50 AM EST Office Visit [facility] [address] [place] [phone] Niharika Newman, PA [address] [place] [address] Arrived [facility] Comment on above: Arrived Bile acids, total Bile acids, to rosa Lab Routine Pruritus Ordered: 10/24/2023 [facility] Work Phone: Comment on above: Ordered: 10/24/2023 Hepatic function 200 0 panel - Serum or Plasma Hepatic function panel Lab Routine Pruritus Ordered: 10/24/2023 [facility] Comment on above: Ordered: 10/24/2023 Immunizations Immunization Date Immunization Notes [facility]-2012 tetanus toxoid, reduced diphtheria toxoid, and acellular pertussis vaccine, adsorbed Ana Radha [facility] Comment on above: Reason for Medicatio n: Other (see comment) 04-19-2006 tetanus toxoid, reduced diphtheria toxoid, and acellular pertussis vaccine, adsorbed Ana Radha [facility] NEGATED: Highlighted row has not occurred!12-07-2022 influenza virus vaccine, unspecified formulation Shantell Parker [facility] [place] NEGATED: Highlighted row has not occurred!03-31-2022 SARS-CoV-2 mRNA (tozinameran 5y-11y) vaccine Marlen MCDOWELL [facility] NEGATED: Highlighted row has not occurred!09-16-2019 influenza virus vaccine, live, attenuated, for intranasal use Ana Radha [facility] Payers Date Payer Category Payer Unknown [employer] [id number] 2023-Present [phone] [address] [place] [address] [id number] 2023 Unknown [id number] 2023 Private Health Insurance [id number] 2014 Unknown [id number] 1989 Unknown [id number] 2.16.840.1.718983.3.579 .2.174 1989 Unknown [id number] 2.16.840.1.638566.3.579 .2.727 1989 Unknown [id number] 2.16.840.1.929674.3.579 .2.727 1989 Unknown [id number] 2.16.840.1.263226.3.579 .2.727 1989 Unknown [id number] 2.16.840.1.902247.3.579 .2.727 1989 Unknown [id number] 2.16.840.1.912039.3.579 .2.727 1989 Unknown [id number] 2.16.840.1.400189.3.579 .2.727 1989 Unknown [id number] 2.16.840.1.750582.3.579 .2.727 1989 Unknown [id number] 2.16.840.1.525384.3.579 .2.727 1989 Unknown [id number] 2.16.840.1.056890.3.579 .2.1259 1989 Unknown [id number] 2.16.840.1.637927.3.579 .2.1259 1989 Unknown [id number] 2.16.840.1.810915.3.579 .2.1259 1989 Unknown [id number] 2.16.840.1.167605.3.579 .2.1259 1989 Unknown [id number] 2.16.840.1.896340.3.579 .2.1259 1989 Unknown [id number] 2.16.840.1.680454.3.579 .2.1259 1989 Unknown [id number] 2.16.840.1.963855.3.579 .2.1259 Private Health Insurance [id number] Self-pay Social History Date Type Detail Facility Start: 05-25-2021 End: 11-01-2023 Tobacco smoking status Never smoked tobacco (finding) [facility] Tobacco smoking status Never [facility] Sex Assigned At Female [facility] Tobacco smoking status NHIS Tobacco smoking consumption unknown [facility] Start: 07-01-2023 [facility] Start: 1990 Sex Assigned At Not on file [facility] Medical Equipment Procedure Code Equipment Code Equipment Origin al Text Equipment Identifier Dates Lancets, See Instructions, 100 EA, 0, Test blood sugar TID PRN E11.9, [facility] [employer], Supply, 164, cm, 12/22/21 8:44:00 EDT, Height/Length Dosing, 126.7, kg, 12/22/21 8:44:00 EDT, Weight Dosing Start: 12-22-2021 Test strips, See Instructions, 100 EA, 0, Test blood sugar TID PRN E11.9, [facility], Supply, 164, cm, 12/22/21 8:44:00 EDT, Height/Length Dosing, 126.7, kg, 12/22/21 8:44:00 EDT, Weight Dosing Start: 12-22-2021 Lancets, See Instructions, 100 EA, 0, Test blood sugar TID PRN E11.9, [facility] [address], Supply, 164, cm, 12/22/21 8:44:00 EDT, Height/Length Dosing, 126.7, kg, 12/22/21 8:44:00 EDT, Weight Dosing Start: 12-22-2021 Test strips, See Instructions, 100 EA, 0, Test blood sugar TID PRN E11.9, [facility] [address], Supply, 164, cm, 12/22/21 8:44:00 EDT, [...] Assessment Result Facility 11-01-2023 Functional Status N[facility] 10-27-2023 Functional Status N/A [facility] 12-07-2022 Functional Status N/A [facility] 03-31-2022 Functional Status N/A [facility] Discharge instructions 11-01-2023 Note Date & [...] Your health care provider may recommend: Taking bttj-lns-zehjedu medicines. Drinking plenty of fluids. In many [...] water, and low-calorie sports drinks. Eat bland, lrwa-eh-mrvirg foods in small amounts as you are able. These foods include bananas, applesauce, rice, lean meats, toast, and crackers. Avoid drinking fluids that contain a lot of sugar or caffeine, such as energy drinks, regular sports drinks, and soda. Avoid alcohol. Avoid spicy or fatty foods. General instructions Take fjfs-mvx-uvnknhp and prescription medicines only as told by [...] water are not available, use alcohol-based hand sales planner. Keep all follow-up visits. This is important. [...] provider. Document Revised: 04/22/2021 Document Reviewed: 04/22/2021 [employer] Patient Education 2022 [employer]. [facility] History of Present illness Narrative 10-24-2023 MARGE [...] of: MARGE Moreno documented in this encounter [facility] Discharge instructions 03-31-2022 Note Date & Type [...] 09/05/2004 Document Revised: 06/27/2019 Document Reviewed: 02/12/2017 [employer] Patient Education 2020 [employer]. Follow Up Care 03/31/2022 11:31:15 With:Eleazar MELCHOR Address: [address] [place] [address]- When: Unknown Comments:[facility] as otherwise scheduled [facility] note 12-23-2021 Laboratory Note Date & Type Note Facility 12-23-2021 Evaluation + Plan note Future Scheduled TestsTIBC Calculated 12/23/21Ferritin 12/23/21Folate Level 12/23/21Iron Level 12/23/21Vitamin B12 Level 12/23/21 [facility] Evaluation + Plan note Note Date & Type Note Facility Evaluation + Plan note No data available for this section [facility] Evaluation + Plan note Note Date & Type Note Facility Evaluation + Plan note Future Appointments Appointment Date:01/02/2022 09:00:00 AM Scheduled Provider:Bill ATKINSON RDN, LD, Megan K Location:[facility] Appointment Type:DM Diabetes Initial Assessment [address] RD (F Appointment Date:03/24/2022 09:00:00 AM Scheduled Provider:Eleazar MELCHOR Location:[facility] Appointment Type:FM Open [facility] Evaluation note Note Date & Type Note Facility Evaluation note Diagnosis Pruritus Unspecified pruritic disorder Hives Unspecified urticaria documented in this encounter [facility] Discharge instructions Note Date & Type Note Facility Hospital Discharge instructions No data available for this section [facility] Progress note Note Date & Type Note Facility Progress note No data available for this section [facility] Summary Purpose Family History [...] chicas DATE CREATED AUTHOR AUTHOR'S ORGANIZ ATION 11/07/2023 [facility] DATE CREATED AUTHOR AUTHOR'S ORGANIZ ATION 01/03/2024 [facility] EPIC Care Team (unrecognized sect ion and content) Personnel Name: Eleazar MELCHOR Address: [address] [place] [address] Personnel Name: Eleazar MELCHOR Address: [address] [place] [address] Personnel Name: Shantell Parker PA-C Address: Address: [address] [place] [address]- Personnel Name: Shantell Parker PA-C Address: Address: [address] [place] [address]- Personnel Name: Shantell Parker PA-C Address: Address: [address] [place] [address]- Personnel Name: Shantell Parker PA-C Address: Address: [address] [place] [address]- Reason for Visit (unrecogniz ed section and [...] BE BASED ON THE PRIMARY CLINICAL RECORDS. [facility] [facility]. provides no warranty or guarantee of the accuracy or completeness of information in this document.
== END 2024-01-10 10:15 | disposition home or self-care (01) ==
LOC: NOMS 10:14
PROVIDERS: Visit Provider Obstetrics & Gynecology
DX: O26.849 Uterine size-date discrepancy, unspecified trimester (principal); Z3A.30 30 weeks gestation of pregnancy
CPT/HCPCS: 76816

== ENCOUNTER 2024-01-29 11:19 | Outpatient (OUT) | payer OTHER, SELFPAY ==
[2024-01-29 11:48] LABS: Basophils Percent Auto 0.3 % (0.2-2.0); Eosinophils Absolute Auto 0.1 10^3/uL (0.0-0.7); Eosinophils Percent Auto 1.1 % (0.9-7.0); Hematocrit 34.9 % (36.0-48.0); Hemoglobin 10.7 g/dL (12.0-16.0); Immature Granulocytes Abs Auto 0.05 10^3/uL (0.00-0.03); Immature Granulocytes Pct Auto 0.5 % (0.0-0.5); Lymphocytes Absolute Auto 2.1 10^3/uL (1.2-3.8); Lymphocytes Percent Auto 21.1 % (20.5-60.0); Mean Corpuscular HGB Conc 30.7 g/dL (29.9-35.2); Mean Corpuscular Hemoglobin 26.7 pg (26.7-34.0); Mean Platelet Volume 10.7 fL (9.5-13.5); Monocytes Absolute Auto 0.6 10^3/uL (0.3-0.8); Monocytes Percent Auto 5.8 % (1.7-12.0); Neutrophils Absolute Auto 7.1 10^3/uL (1.4-6.5); Neutrophils Percent Auto 71.2 % (43.0-75.0); Platelet Count 218 10^3/uL (150-450); Red Blood Count 4.01 10^6/uL (4.20-5.40); Red Cell Distribution Width 19.5 % (11.0-15.0); White Blood Count 9.9 10^3/uL (4.0-11.0)
== END 2024-01-29 11:20 | disposition home or self-care (01) ==
LOC: LAB 11:21
PROVIDERS: PCP Obstetrics & Gynecology; Visit Provider Obstetrics & Gynecology
DX: O99.011 Anemia complicating pregnancy, first trimester (principal)
CPT/HCPCS: 36415; 85025

== ENCOUNTER 2024-02-13 11:37 | Outpatient (OUT) | payer OTHER, SELFPAY ==
--- NOTE | 2024-02-13 11:38 | US_ITS ---
[address] [address] Patient Name: ERIKA NEWMAN MRN: [id number] date: 1990 Sex: F Assigned Patient Location: [facility] Current Patient Location: [facility] Accession/Order Number: [id number] Exam Date: 02/13/2024 11:39 Report Date: 02/13/2024 12:09 At the request of: SANDY TRENT Procedure: US OB growth EXAMINATION: US OB growth HISTORY: ANEMIA, EDEMA COMPARISON: No relevant comparison available. FINDINGS: Heart Rate: 134.0 bpm Amniotic Fluid Volume: 14.4 cm Number: 1.0 Position: Cephalic presentation, longitudinal lie Maximum Vertical Pocket: 5.2 cm cm 4.0 cm cm 2.8 cm cm 2.3 cm cm BIOMETRY: BPD: 8.4 cm cm; 34 weeks 0 days; 35% HC: 31.7 cmcm; 35 weeks 4 days , 43% AC: 31.1 cm cm; 35 weeks 0 days, 73% FL: 6.6 cm cm; 33 weeks 6 days; 27.3 % % EFW: 2490.3 grams, 5 lbs. 8 oz., 53% FL/AC: 21.1 FL/BPD: 78.1 HC/AC: 1.0 GESTATIONAL AGE: Age by EDC: 34 weeks 3 days RYANN by EDC: 03/23/2024 Age by US: 34 weeks 4 days RYANN by US: 03/22/2024 US/US OB growth IMPRESSION: Normal interval growth Electronically authenticated by: KATIE BUENO Date: 02/13/2024 12:09
--- OUTSIDE RECORDS SUMMARY | 2024-02-13 11:49 | XMS_ITS | CCD ---
Author Organization [facility] Care Team Providers Care Line Supply Name Role Phone Eleazar GUARDADO Primary Care Physician [phone] GINGER COOLEY Referring Unavailable KENYATTA BARKER Primary Care Unavailable Shantell Parker Primary Care Physician [phone] Unavailable Primary Care Provider UnavailShantell Diaz Referring Unavailable Shantell Parker Attending Unavailable Shantell Parker Admitting Unavailable Boo Hoyt Attending Unavailable Boo Hoyt Admitting Unavailable Jeremy Ortega Attending Unavailable Boo Hoyt Attending Unavailable Shantell Parker Attending Unavailable Shantell Parker Attending Unavailable Shantell Parker Attending Unavailable Shantell Parker Attending Unavailable TRENT, NIHARIKA Attending Unavailable MARIELYJOEY Attending Unavailable TRENT, NIHARIKA Attending Unavailable TRENT, NIHARIKA Attending Unavailable MARIELYJOEY Artis Attending Unavailable TRENT, NIHARIKA Attending Unavailable MARIELY, JOEY Attending Unavailable MARIELY, JOEY Attending Unavailable MARIELYJOEY MARCUM Attending Unavailable Allergies Allergy Classification Reported Allergen(s) Allergy Type Date of Onset Reaction(s) Facility (9 sources) metroNIDAZOLE; Translations: [metronidazole] Drug Allergy Weal (disorder) [facility] (4 sources) Penicillins Propensity to adverse reactions 3 [facility] Medications Current Medications Medication Drug Class(es) Dates Sig (Normalized) Sig (Original) [id number] 200 actuat albuterol 0.09 mg/actuat metered dose [...] when testing blood sugar TID PRN, [facility], 164, cm, 12/22/21 8:44:00 EDT, Height/Length [...] 30 cap(s), Refills(s) 0, Pharmacy: [facility][id number], 164, cm, 12/07/22 13:57:00 EDT, Height/Length Dosing, 100.8, kg, 12/07/22 13:57:00 EDT, Weight Dosing Start Date: 12/07/22 Stop Date: 12/17/22 Status: Ordered cephalexin 500 mg oral capsule (2 sources) Cephalosporin Antibacterial Start: 03-31-2022 End: 04-07-2022 take 2 capsules by mouth twice daily Keflex 500 mg Cap 1,000 mg = 2 cap(s), Oral, BID, X 7 day(s), # 28 cap(s), Refills(s) 0, Pharmacy: [facility] [address] [facility], 164, cm, 03/31/22 16:32:00 EDT, Height/Length Dosing, 121.6, kg, 03/31/22 16:32:00 EDT, Weight Dosing Start Date: 03/31/22 Stop Date: 04/07/22 Status: Ordered dextromethorphan hydrobromide 3 mg/ml / promethazine hydrochloride 1.25 mg/ml oral solution (2 sources) Phenothiazine, Uncompetitive H-zvxqeb-Y-asparta te Receptor Antagonist, Sigma-1 Agonist Start: 10-27-2023 take 5 mL by mouth every six hours for cough dextromethorphan-prom ethazine 15 mg-6.25 mg/5 mL Oral Syrup 5 mL 5 mL, Oral, q6hr for cough, 240 mL, Refill(s) 0, [id number], 164, cm, 10/27/23 13:44:00 EST, Height/Length Dosing, 101, kg, 10/27/23 13:44:00 EST, Weight Dosing Start Date: 10/27/23 Status: Ordered Glucometer (7 sources) Start: 12-22-2021 Glucometer Glucometer, See Instructions, 1 EA, 0, Glucometer to test blood sugar TID PRN E11.9, [facility], Supply, 164, cm, 12/22/21 8:44:00 EDT, Height/Length [...] # 12 tab(s), Refills(s) 0, Pharmacy: [facility] #[id number], 164, cm, 10/27/23 13:44:00 EST, Height/Length Dosing, [...] - Use once daily prior to injection., [facility], Supply, 164, cm, 12/22/21 8:44:00 EDT, [...] q6hr, 1 EA, Refill(s) 0, [facility][id number], 164, cm, 11/01/23 15:38:00 EST, Height/Length Dosing, 97.5, kg, 11/01/23 15:38:00 EST, Weight Dosing Start Date: 11/01/23 Status: Ordered Start: 12-07-2022 take 1 dose by inhal ation every six hours Albuterol (Eqv-ProAir HFA) 90 mcg/inh inhalation aerosol 2 puff(s), Inhalation, q6hr, 1 EA, Refill(s) 1, [facility] #[id number], 164, cm, 12/07/22 13:57:00 EDT, Height/Length Dosing, [...] prefer broth. 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 If symptoms worsen, she will contact our [...] with voice recognition artificial intelligence software, specifically [employer], [employer] and or [email or web address]. Substitutions may have occurred due to the inherent limitations of voice recognition and artificial intelligence software. ATTESTATION: This note has been generated by [employer] TRUONG and edited by Isaac Higgins, Quality Single Needle Operator. Follow-up No qualifying data available Patient Education Influenza, Adult Problem List/Past Medical History (more content not included)... Normal [facility] Comment on above: Result Comment: Elec tronically Signed By: Shantell Parker PA-C\.br\Date and Time Signed: 11/06/23 06:36 EST\.br\Electronically Co-Signed By: Kamila Vogt\.br\Date and Time Co-Signed: 11/01/23 19:15 EST Ambulatory Visit Summaryon 0 11-01-2023 Ambulatory Visit Summary DEE DEE NEWMANChel Rodriguez :1990 Visit Date:11/01/2023 Ambulatory Visit Instructions Your [...] Puffs Inhalation Every 6 hours Pickup at [facility] #[id number] Unchanged aspirin (aspirin 81 mg oral capsule) [...] physician if questions or concerns Pharmacy Information [facility] #[id number]: [address] [place], [place] [phone] Allergies metroNIDAZOLE (Hives) Problems Ongoing - Any [...] you for choosing us for your care. [facility] Patient Educationon 11-01-19 Patient Education Infectious [...] health care provider may recommend: ? Taking oorw-gdq-wdpztnh medicines. ? Drinking plenty of fluids. In [...] and low-calorie sports drinks. ? Eat bland, esec-lm-sgrlko foods in small amounts as you are able. These foods include bananas, applesauce, rice, lean meats, toast, and crackers. ? Avoid drinking fluids that contain a lot of sugar or caffeine, such as energy drinks, regular sports drinks, and soda. ? Avoid alcohol. ? Avoid spicy or fatty foods. General instructions ? Take insw-lsl-iktysgi and prescription medicines only as told by [...] water are not available, use alcohol-based hand face hardener. ? Keep all follow-up visits. This is [...] ? Deve (more content not included)... Normal [facility] Grp A Strp PCRon 10-29-2023 Grp A Strp Intrl Ctrl Pass Normal [facility] Comment on above: Performed By: #### 1 [id number] ####[facility] [address] [place] [address] S. pyogenes DNA ARNIE+probe Ql (Throat) Negative Normal [facility] Comment on above: Result Comment: Test ing performed using DNA amplification. Performed By: #### 1 [id number] ####[facility] [address] [place] [address] Family Medicine Office/Clini c Noteon 10-27-2023 Family [...] cough, 240 mL, Refill(s) 0, [facility] #[id number], 164, cm, 10/27/23 13:44:00 EST, Height/Length Dosing, 101, kg, 10/27/23 13:44:00 EST, Weight Dosing predniSONE, See Instructions, 2 po QAM x4 days, then 1 po QAM x4 days, # 12 tab(s), Refills(s) 0, Pharmacy: [facility] #[id number], 164, cm, 10/27/23 13:44:00 EST, Height/Length Dosing, 101, kg, 10/27/23 13:44:00 EST, Weight Dosing 2. Sore throat (J02.9: Acute pharyngitis, unspecified) Ordered: dextromethorphan-pr omethazine, 5 mL, Oral, q6hr for cough, 240 mL, Refill(s) 0, [facility] #[id number], 164, cm, 10/27/23 13:44:00 EST, Height/Length Dosing, 101, kg, 10/27/23 13:44:00 EST, Weight Dosing predniSONE, See Instructions, 2 po QAM x4 days, then 1 po QAM x4 days, # 12 tab(s), Refills(s) 0, Pharmacy: [facility] #[id number], 164, cm, 10/27/23 13:44:00 EST, Height/Length Dosing, 101, kg, 10/27/23 13:44:00 EST, Weight Dosing Group A Strep by PCR Influenza Type A&B POC 06391 Rapid Strep POC 99117 3. BMI 37.0-37.9, adult (Z68.37: Body mass index [BMI] 37.0-37.9, adult) Ordered: dextromethorphan-pr omethazine, 5 mL, Oral, q6hr for cough, 240 mL, Refill(s) 0, [facility] #[id number], 164, cm, 10/27/23 13:44:00 EST, Height/Length Dosing, 101, kg, 10/27/23 13:44:00 EST, Weight Dosing predniSONE, See Instructions, 2 po QAM x4 days, then 1 po QAM x4 days, # 12 tab(s), Refills(s) 0, Pharmacy: [facility] #[id number], 164, cm, 10/27/23 13:44:00 EST, Height/Length Dosing, [...] not exe (more content not included)... Normal [facility] Comment on above: Result Comment: Elec tronically Signed By: Lai BOYD, Boo WLeilani\.br\Date and Time Signed: 10/27/23 14:06 EST Patient Letter FTon 2023 Patient Letter [facility] [address], [place] [address] October 27, 2023 ERIKA NEWMAN [address] [place] [address] : 1990 Please excuse ERIKA NEWMAN from work . Date and/or Time of Absence: From: 10/26/2023 To: 10/30/2023 May return to work on: 10/31/2023 Restrictions: None Comments: Please excuse due to an acute illness. Provider Signature: Boo Hoyt PA-C Physician Doll Wigs Hackler [facility] [address] [place] [address] [place] [address] [facility] AFP, SERUM, OPEN SPINA BIFID Aon 10-26-2023 AFP MOM 0.65 . [facility] AFP VALUE 24.1 ng/mL . [facility] COMMENT: Comment . [facility] Comment on above: Zulema Farr , Ph.D., [facility] Director References: Available Upon Request. Multiples Of Median Cutoffs For AFP Elevations Pham 2.5 Black 2.8 IDD 2.0 Twins 4.5 Abbreviation Definitions IDD - Insulin Dep Diabetes OSBR - Open Spina Bifida Risk For further inquiries contact [employer] [facility] at [phone]. This test was developed and its performance characteristics determined by [facility] DEPT.. It has not been cleared or approved by the Food and Drug Administration. Performed at: [facility] [address] [id number] Foundation Drill Operator Helper: Marita Duggan Formerly [facility], Phone: [phone] GEST. AGE ON COLLECTION DATE 18.4 . weeks [facility] GESTAT. AGE BASED ON As provided . [facility] Comment on above: Recalculations are n ot recommended when gestational dating by LMP and ultrasound are within 10 days. INSULIN DEP DIABETES No . [facility] INTERPRETATION Comment . [facility] Comment on above: Interpretation: [...] Customer Services to discuss available options. The [place] [employer] recommends amniocentesis be offered to women age 35 and older. [age] [facility] MULTIPLE GESTATION No . [facility] [place] R[place] [place] [address] . [facility] RACE . [facility] RESULTS Report . [facility] TEST RESULTS: Negative . [facility] WEIGHT 215 . lbs [facility] N [id number] 3 16 N 1 Y 215 White/ [facility] CT Abdomen w/ Contraston [...] Oral contrast amount in ml's: [address] [facility] Consent for Treatmenton 01-16 Consent for Treatment [id number] [facility] Family Medicine Office/Clini c Noteon 02-01-2023 Family Medicine [...] Information Shantell Parker PA-C Only if needed [address] [place] [phone] Additional Instructions: Patient Education BMI for Adults [...] metroNIDAZOLE (Hives) (more content not included)... Normal [facility] Comment on above: Result Comment: [...] numbers. This can be done either in Green[place]ic (U.S.) or metric measurements. Note that charts and online BMI calculators are available to help you find your BMI quickly and easily without having to do these calculations yourself. To calculate your BMI in Green[place]ic (U.S.) measurements: 1. Measure your weight in [...] for Disease Control and Prevention: www.cdc.gov ? [place] Heart Association: www.heart.org ? National Heart, Lung, and Blood [place]: www.nhlbi.nih.gov Summary ? Body mass index (BMI) is a number that is calculated from a person's weight and height. ? BMI may help estimate how much of a person's weight is composed of fat. BMI can help identify those who may be at higher risk for certain medical problems. ? BMI can be measured using Green[place]ic measurements or metric measurements. ? BMI charts are used to identify whether you are underweight, normal weight, overweight, or obese. This information is not intended to replace advice given to you by your health care provider. Make sure you discuss any questions you have with your health care provider. Document Revised: 05/26/2020 Document Reviewed: 04/02/2020 [employer] Patient Education ? 2022 [employer] Budget-Friendly Healthy Eating There are many [...] Nonfat. ? (more content not included)... Normal [facility] Ambulatory Visit Summaryon 0 01-26-2023 Ambulatory Visit Summary TRENTERIKA :1990 MRN: Visit Date:01/26/2023 Ambulatory Visit Instructions [...] bleeding (AUB) Screening for lipid disorders Normal [facility] Medicine Office/Clini c Noteon 12-11-2022 Family Medicine [...] sclera clear Ears: Bilateral tympanic membranes pearly wahsington with good cone of light Nose: clear [...] aid with cough suppression. Advised to continue uiem-gpw-nwiutga remedies such as Mucinex, Sudafed, Tylenol or [...] Shantell Parker PA-C Only if needed [address] [place] [phone] [phone] Additional Instructions: Patient Education Budget-Friendly Healthy Eating [...] lifetime) Tobacco (more content not included)... Normal [facility] Comment on above: Result Comment: Elec tronically Signed By: Parker PA-C, Shantell E.\.br\Date and Time Signed: 12/11/22 21:41 EDT Patient [...] fruits, and frozen vegetables. ? Avoid buying duovn-el-cti foods, such as pre-cut fruits and vegetables and pre-made salads. ? If possible, shop around to discover where you can find the best prices. Consider other retailers such as dollar stores, larger wholesale stores, local fruit and vegetable gifted2you, and Exinda markets. ? Do not shop when you [...] on a (more content not included)... Normal [facility] Ambulatory Visit Summaryon 0 12-07-2022 Ambulatory Visit Summary ERIKA NEWMAN :1990 MRN:12-- Visit Date:12/07/2022 Ambulatory Visit Instructions Your Diagnosis [...] a day Duration: 10 Days Pickup at [facility] #04455 Changed albuterol (Albuterol (Eqv-ProAir HFA) 90 mcg/ inh inhalation aerosol) 2 Puffs Inhalation Every 6 hours Pickup at [facility] #89264 Unchanged Misc Prescription (Alcohol Swabs) See instructions [...] blood sugar TID PRN E11.9 Pharmacy Information [facility] #[id number]: [address], [place] [phone] What How Much When Comments Stop Taking [...] uterine bleeding (AUB) Screening for lipid disorders [facility] Ambulatory Visit Summary ERIKA NEWMAN :1990 [...] a day Duration: 10 Days Pickup at [facility]08681 Changed albuterol (Albuterol (Eqv-ProAir HFA) 90 mcg/ inh inhalation aerosol) 2 Puffs Inhalation Every 6 hours Pickup at [facility]47810 Unchanged Misc Prescription (Alcohol Swabs) See instructions [...] blood sugar TID PRN E11.9 Pharmacy Information [facility] #55840: [address], [place] [phone] What How Much When Comments Stop Taking [...] bleeding (AUB) Screening for lipid disorders Normal [facility] Provider Letteron 12-07-2022 Provider Letter December 07, 2022 ERIKA [address]antes[address] [place] [address] To Whom It May Concern, Please excuse above patient from work. Date of Illness: From: _12/07/22 To: _ May Return to Work On: 12/08/22 Restrictions: _None Comments: _ Sincerely, Shantell BIRD [facility] [address] [facility] CHEMISTRYOrdered By: SYSTEM SYSTEM on [...] 20 mg/dL Normal 7 - 40 mg/dL FT Remisol CO2 [Moles/Vol] 23 mmol/L Normal 21 - 31 mmol/L [facility] Remisol Creatinine [Mass/Vol] 0.6 mg/dL Normal 0.5 - 1.3 mg/dL [facility] Remisol GFR/1.73 sq M.predicted among blacks MDRD (S/P/Bld) [Vol rate/Area] mL/min/1.73 m2 Normal >=59mL/min/1. 73 m2 FT Chem S GFR/1.73 sq M.predicted among non-blacks [...] AM) Normal Negative [facility] UA Auto SS [place].plasma/Lithiu m.RBC (Bld) [Mass ratio] 4-20 /HPF Normal 0-3/HPF [facility] UA Auto SS Nitrite Ql (U) Negative (12/22/21 10:10 AM) Normal Negative [facility] UA Auto SS pH (U) 5.5 *NA* (12/22/21 10:10 AM) Invalid Interpretation Code 5.0 - 9.0 [facility] UA Auto SS Protein (U) [Mass/Vol] 1+ *ABN* (12/22/21 10:10 AM) Invalid Interpretation Code Negative [facility] UA Auto SS Specific gravity (U) [Rel density] >=1.030 *NA* (12/22/21 10:10 AM) Invalid Interpretation Code 1.005 - 1.030 [facility] UA Auto SS UA Spec Desc Clean Catch (12/22/21 10:10 AM) Normal [facility] UA Auto SS Urobilinogen Qn (U) 0.8495454 {Ann'U}/dL Normal 0.0 - 1.0 EU/dL FT UA Auto SS WBC Auto Ql (U) Negative (12/22/21 10:10 AM) Normal Negative [facility] UA Auto SS WBC LM.HPF (Urine sed) [#/Area] 0-5 /HPF Normal 0-5/HPF [facility] UA Auto SS Hemoglobin A1Con 12-07-2021 Glucose [Mass/Vol] 157 mg/dL Normal [facility] Comment on above: Result Comment: The ADA and AACC recommend providing the estimated average glucose result to permit better patient understanding of their HBA1c result. Performed By: #### G LYHGB #### [facility] [place] [address] Foundation Drill Operator Helper: Suman Villalta MD HbA1c (Bld) [Mass fraction] 7.1 % High 4.0-6.0 [facility] Comment on above: Performed By: #### G LYHGB #### [facility] [address] [place] [address] Foundation Drill Operator Helper: Suman Villalta MD Vital Signs Date Time Vital Sign Value Performing Clinician Facility 11-01-2023 15:29-0500 Blood Pressure [facility] 11-01-2023 15:29-0500 Body temperature 98.24 [degF] Shantell Parker [facility] 11-01-2023 15:29-0500 Diastolic blood pressure 72 mm[Hg] Shantell Parker [facility] 11-01-2023 15:29-0500 Heart rate 103 /min Shantell Parker [facility] 11-01-2023 15:29-0500 Respiratory rate 18 /min Shantell Parker [facility] 11-01-2023 15:29-0500 SaO2% (BldA) [Mass fraction] 100 % Shantell Parker [facility] 11-01-2023 15:29-0500 Systolic blood pressure 124 mm[Hg] Shantell Parker [facility] 10-27-2023 13:41-0500 Blood Pressure Location Boo Hoyt [facility] 10-27-2023 13:41-0500 Body temperature 98.06 [degF] Boo Hoyt [facility] 10-27-2023 13:41-0500 Diastolic blood pressure 74 mm[Hg] Boo Hoyt [facility] 10-27-2023 13:41-0500 Heart rate 97 /min oBo Hoyt [facility] 10-27-2023 13:41-0500 SaO2% (BldA) [Mass fraction] 100 % Boo Hoyt [facility] 10-27-2023 13:41-0500 Systolic blood pressure 122 mm[Hg] Boo Hoyt [facility] 12-07-2022 13:53-0400 Blood Pressure Location Shantell Parker [facility] 12-07-2022 13:53-0400 Body temperature 98.24 [degF] Shantell Parker [facility] 12-07-2022 13:53-0400 Diastolic blood pressure 84 mm[Hg] Shantell Parker [facility] 12-07-2022 13:53-0400 Heart rate 60 /min Shantell Parker [facility] 12-07-2022 13:53-0400 Respiratory rate 20 /min Shantell Parker [facility] 12-07-2022 13:53-0400 SaO2% (BldA) [Mass fraction] 99 % Shantell Parker [facility] 12-07-2022 13:53-0400 Systolic blood pressure 128 mm[Hg] Shantell Parker [facility] 03-31-2022 16:19-0400 Blood [facility] 03-31-2022 16:19-0400 Body temperature 98.06 [degF] Marlen MCDOWELL [facility] 03-31-2022 16:19-0400 Diastolic blood pressure 84 mm[Hg] Marlen MCDOWELL [facility] 03-31-2022 16:19-0400 Heart rate 88 /min [facility] 03-31-2022 16:19-0400 Respiratory rate 16 /min [facility] 03-31-2022 16:19-0400 SaO2% (BldA) [Mass fraction] 97 % [facility] Moe 03-31-2022 16:19-0400 Systolic blood pressure 128 mm[Hg] [facility]ie Encounters Encounter Date Encounter Type Care Provider Facility Start: 02-12-2024 End: 02-12-2024 ambulatory JOEY MARIELY Not Available Start: 01-29-2024 End: 01-29-2024 ambulatory JOEY MARIELY Not Available Start: 01-15-2024 End: 01-15-2024 ambulatory JOEY MARIELY Not Available Start: 01-02-2024 End: 01-02-2024 ambulatory NIHARIKA TRENT Not Available Start: 12-05-2023 End: 12-05-2023 ambulatory JOEY MARIELY Not Available Start: 11-07-2023 End: 11-07-2023 ambulatory NIHARIKA TRENT Not Available Start: 11-01-2023 End: 11-02-2023 ambulatory Shantell Parker Facility: [facility] Start: 11-01-2023 ambulatory Jeremy Guerrero lity:PINKY Becker Start: 11-01-2023 End: 11-01-2023 Patient encounter procedure Shantell Parker [facility] Start: 10-27-2023 End: 10-28-2023 ambulatory Boo Hoyt Facility:[facility] Start: 10-27-2023 End: 10-27-2023 Patient encounter procedure Boo Hoyt [facility] Start: 10-24-2023 Bamboo flowsheet Niharika BIRD Work Phone: [facility] Start: 10-24-2023 Bamboo flowsheet Niharika BIRD Work Phone: [facility] Start: 10-24-2023 [facility] Result Encounter Joey Mariely DO Work Phone: [facility] Unsolicited Start: 10-24-2023 End: 10-25-2023 ambulatory Shantell Parker Facility:[facility] Start: 10-24-2023 End: 10-24-2023 Patient encounter procedure Shantell Parker [facility] Start: 10-24-2023 End: 10-24-2023 Office outpatient visit 15 minutes Niharika BIRD Work Phone: [facility] Comment on above: Pruritus; Hives Start: 10-10-2023 End: 10-10-2023 ambulatory JOEY MARIELY Not Available Start: 09-12-2023 End: 09-12-2023 ambulatory NIHARIKA NEWMAN Not Available Start: 08-17-2023 End: 08-17-2023 ambulatory NIHARIKA NEWMAN Not Available Start: 02-06-2023 End: 02-07-2023 ambulatory Shantell Parker Facility:[facility] Start: 01-26-2023 End: 01-27-2023 [facility]ulatory [facility] Start: 12-07-2022 End: 12-08-2022 ambulatory Shantell Parker Facility: [facility] Start: 12-07-2022 End: 12-07-2022 Patient encounter procedure Shantell Parker [facility] Start: 03-31-2022 End: 03-31-2022 Patient encounter procedure Marlen MCDOWELL [facility] Start: 01-02-2022 End: 04-02-2022 Recurring Kenyatta A DONFARTUNR [facility] Start: 12-22-2021 End: 12-22-2021 Lab Drop off Kenyatta A [facility] Start: 12-07-2021 End: 12-08-2021 ambulatory GINGER COOLEY [facility] Start: 12-05-2021 End: 12-05-2021 Patient encounter procedure Ana J Radha [facility] Procedures Date Procedure Procedure Detail Performing Clinician Start: 10-24-2023 AFP, SERUM, OPEN SPI NA BIFIDA Joey Schuster DO Work Phone: TM tube Ana Radha Tonsillectomy and adenoidectomy Ana Radha Plan of Treatment Date Care Activity Detail Author Start: 11-07-2023 End: 11-07-2023 Patient encounter procedure 11/07/2023 10:50 AM EST Routine [facility] [address] [place] [id number] Niharika Newman PA [address] [place] [address] [facility] Start: 11-07-2023 End: 11-07-2023 Professional / ancillary services management 11/07/2023 9:30 AM EST Ancillary Procedure [facility] [address] [place] [id number] [facility] Start: 10-24-2023 End: 10-24-2023 Patient encounter procedure 10/24/2023 9:50 AM EST Office Visit [facility] [address] [place] [id number] Niharika Newman PA [address] [place] [address] Arrived [facility] Comment on above: Arrived Bile acids, total Bile acids, to rosa Lab Routine Pruritus Ordered: 10/24/2023 [facility] Work Phone: Comment on above: Ordered: 10/24/2023 Hepatic function 200 0 panel - Serum or Plasma Hepatic function panel Lab Routine Pruritus Ordered: 10/24/2023 [facility] Comment on above: Ordered: 10/24/2023 Immunizations Immunization Date Immunization Notes Care Provider Fa cili 12-15-2012 tetanus toxoid, reduced diphtheria toxoid, and acellular pertussis vaccine, adsorbed Ana Radha [facility] Comment on above: Reason for Medicatio n: Other (see comment) 04-19-2006 tetanus toxoid, reduced diphtheria toxoid, and acellular pertussis vaccine, adsorbed Ana Radha [facility] NEGATED: Highlighted row has not occurred!12-07-2022 influenza virus vaccine, unspecified formulation Shantell Parker [facility] NEGATED: Highlighted row has not occurred!03-31-2022 SARS-CoV-2 mRNA (tozinameran 5y-11y) vaccine Marlen MCDOWELL [facility] NEGATED: Highlighted row has not occurred!09-16-2019 influenza virus vaccine, live, attenuated, for intranasal use Ana Radha [facility] Payers Date Payer Category Payer Unknown [employer] [id number] 2023-Present [phone] [address] [place] [address] [id number] 2023 Unknown [id number] 2023 Private Health Insurance [id number] 2014 Unknown [id number] 1989 Unknown [id number] 2.16.840.1.734636.3.579 .2.174 1989 Unknown [id number] 2.16.840.1.156339.3.579 .2.727 1989 Unknown [id number] 2.16.840.1.319265.3.579 .2.727 1989 Unknown [id number] 2.16.840.1.139608.3.579 .2.727 1989 Unknown [id number] 2.16.840.1.193401.3.579 .2.727 1989 Unknown [id number] 2.16.840.1.171972.3.579 .2.727 1989 Unknown [id number] 2.16.840.1.656052.3.579 .2.727 1989 Unknown [id number] 2.16.840.1.953572.3.579 .2.727 1989 Unknown [id number] 2.16.840.1.434221.3.579 .2.727 1989 Unknown [id number] 2.16.840.1.445815.3.579 .2.1259 1989 Unknown [id number] 2.16.840.1.828657.3.579 .2.1259 1989 Unknown [id number] 2.16.840.1.311831.3.579 .2.1259 1989 Unknown [id number] 2.16.840.1.541046.3.579 .2.9 1989 Unknown [id number] 2.16.840.1.522783.3.579 .2.1259 1989 Unknown [id number] 2.16.840.1.017814.3.579 .2.9 1989 Unknown [id number] 2.16.840.1.360918.3.579 .2.9 1989 Unknown [id number] 2.16.840.1.432369.3.579 .2.9 1989 Unknown [id number] 2.16.840.1.255765.3.579 .2.9 1989 Unknown [id number] 2.16.840.1.171552.3.579 .2.9 Private Health Insurance [id number] Self-pay Social History Date Type Detail Facility Start: 05-25-2021 End: 11-01-2023 Tobacco smoking status Never smoked tobacco (finding) [facility] Tobacco smoking status Never [facility] Sex Assigned At Female [facility] Tobacco smoking status SDIS Tobacco smoking consumption unknown [facility] Start: 07-01-2023 [facility] Start: 1990 Sex Assigned At Not on file [facility] Medical Equipment Procedure Code Equipment Code Equipment Origin al Text Equipment Identifier Dates Lancets, See Instructions, 100 EA, 0, Test blood sugar TID PRN E11.9, [facility] [employer], Supply, 164, cm, 12/22/21 8:44:00 EDT, Height/Length Dosing, 126.7, kg, 12/22/21 8:44:00 EDT, Weight Dosing Start: 12-22-2021 Test strips, See Instructions, 100 EA, 0, Test blood sugar TID PRN E11.9, [facility], Supply, 164, cm, 12/22/21 8:44:00 EDT, [...] Facility 11-01-2023 Functional Status N/A [facility] 10-27-2023 Functional Status N/A [facility] 12-07-2022 Functional Status N/A [facility] 03-31-2022 Functional Status N/A [facility] Hospital Discharge instructions 11-01-2023 Note Date [...] Your health care provider may recommend: Taking aejm-onl-uztofcj medicines. Drinking plenty of fluids. In many [...] water, and low-calorie sports drinks. Eat bland, dtys-pw-swxtfl foods in small amounts as you are able. These foods include bananas, applesauce, rice, lean meats, toast, and crackers. Avoid drinking fluids that contain a lot of sugar or caffeine, such as energy drinks, regular sports drinks, and soda. Avoid alcohol. Avoid spicy or fatty foods. General instructions Take lpsi-suh-kgfzdeb and prescription medicines only as told by [...] water are not available, use alcohol-based hand face hardener. Keep all follow-up visits. This is important. [...] provider. Document Revised: 04/22/2021 Document Reviewed: 04/22/2021 [employer] Patient Education 2022 [employer] [facility] Abie History of Present illness Narrative 10-24-2023 MARGE [...] of: MARGE Moreno documented in this encounter [facility] Hospital Discharge instructions 03-31-2022 Note Date & [...] 09/05/2004 Document Revised: 06/27/2019 Document Reviewed: 02/12/2017 [employer] Patient Education 2020 [employer] Follow Up Care 03/31/2022 11:31:15 With:Eleazar MELCHOR Address: [place] [address]- When: Unknown Comments:[facility] 12-23-2021 Laboratory Note Date & Type Note Facility 12-23-2021 Evaluation + Plan note Future Scheduled TestsTIBC Calculated 12/23/21Ferritin 12/23/21Folate Level 12/23/21Iron Level 12/23/21Vitamin B12 Level 12/23/21 [facility] Evaluation + Plan note Note Date & Type Note Facility Evaluation + Plan note No data available for this section [facility] Evaluation + Plan note Note Date & Type Note Facility Evaluation + Plan note Future Appointments Appointment Date:01/02/2022 09:00:00 AM Scheduled Provider:Bill MS, MATTN, Erika FERNANDEZ [facility] Appointment Type:DM Diabetes Initial Assessment [address] (F Appointment Date:03/24/2022 09:00:00 AM Scheduled Provider:Eleazar MELCHOR Location:[facility] Appointment Type:[facility] Evaluation note Note Date & Type Note Facility Evaluation note Diagnosis Pruritus Unspecified pruritic disorder Hives Unspecified urticaria documented in this encounter [facility] Discharge instructions Note Date & Type Note Facility Hospital Discharge instructions No data available for this section [facility] Progress note Note Date & Type Note Facility Progress note No data available for this section [facility] Summary Purpose Family History No Family [...] DATE CREATED AUTHOR AUTHOR'S ORGANIZ ATION 11/07/2023 Chano [facility] DATE CREATED AUTHOR AUTHOR'S ORGANIZ ATION 02/12/2024 [facility] EPIC Care Team (unrecognized sect ion and content) Personnel Name: Eleazar MELCHOR Address: [address] [place] [address] Personnel Name: Eleazar MELCHOR Address: [address] [place] [address] Personnel Name: Shantell Parker PA-C Address: Address: [address] [place] [address]- Personnel Name: Shantell Parker PA-C Address: Address: [address] [place] [address]- Personnel Name: Shantell Parker PA-C Address: Address: [address] [place] [address]- Personnel Name: Shantell Parker PA-C Address: Address: [address] [place] [address]- Reason for Visit (unrecogniz ed section and [...] BE BASED ON THE PRIMARY CLINICAL RECORDS. [employer] [facility]. provides no warranty or guarantee of the accuracy or completeness of information in this document.
== END 2024-02-13 11:38 | disposition home or self-care (01) ==
LOC: NOMS 11:37
PROVIDERS: PCP Obstetrics & Gynecology; Visit Provider Physician Assistant
DX: O12.03 Gestational edema, third trimester (principal); O99.013 Anemia complicating pregnancy, third trimester; Z3A.34 34 weeks gestation of pregnancy
CPT/HCPCS: 76816

== ENCOUNTER 2024-02-26 19:08 | Outpatient (REF) | payer OTHER, SELFPAY ==
--- OUTSIDE RECORDS SUMMARY | 2024-02-26 19:13 | XMS_ITS | CCD ---
Author Organization [facility] Care Team Providers Care Telemarketing Manager Name Role Phone Eleazar GUARDADO Primary Care Physician [phone] GINGER COOLEY Referring Unavailable KENYATTA BARKER Primary [...] Parker Attending Unavailable TRENT, NIHARIKA Attending Unavailable MARIELYTANIAY Attending Unavailable TRENT, NIHARIKA Attending Unavailable TRENT, NIHARKIA Attending Unavailable MARIELYTANIAY Attending Unavailable TRENT, NIHARIKA Attending Unavailable MARIELY, JOEY Attending Unavailable MARIELY, JOEY Attending Unavailable MARIELY, JOEY Attending Unavailable TRENT, NIHARIKA Attending Unavailable Allergies Allergy Classification Reported Allergen(s) Allergy Type Date of Onset Reaction(s) Facility (9 sources) metroNIDAZOLE; Translations: [metronidazole] Drug Allergy Weal (disorder) [facility] (4 sources) Penicillins Propensity to adverse reactions 3 [facility] Medications Current Medications Medication Drug Class(es) Dates Sig (Normalized) Sig (Original) [id number] 200 actuat albuterol 0.09 mg/actuat metered dose [...] blood sugar TID PRN, [facility], 164, cm, 12/22/21 8:44:00 EDT, Height/Length [...] 30 cap(s), Refills(s) 0, Pharmacy: [facility] #[id number], 164, cm, 12/07/22 13:57:00 EDT, Height/Length Dosing, 100.8, kg, 12/07/22 13:57:00 EDT, Weight Dosing Start Date: 12/07/22 Stop Date: 12/17/22 Status: Ordered cephalexin 500 mg oral capsule (2 sources) Cephalosporin Antibacterial Start: 03-31-2022 End: 04-07-2022 take 2 capsules by mouth twice daily Keflex 500 mg Cap 1,000 mg = 2 cap(s), Oral, BID, X 7 day(s), # 28 cap(s), Refills(s) 0, [facility]acy: [facility], 164, cm, 03/31/22 16:32:00 EDT, Height/Length Dosing, 121.6, kg, 03/31/22 16:32:00 EDT, Weight Dosing Start Date: 03/31/22 Stop Date: 04/07/22 Status: Ordered dextromethorphan hydrobromide 3 mg/ml / promethazine hydrochloride 1.25 mg/ml oral solution (2 sources) Phenothiazine, Uncompetitive B-wbcegb-V-asparta te Receptor Antagonist, Sigma-1 Agonist Start: 10-27-2023 take 5 mL by mouth every six hours for cough dextromethorphan-prom ethazine 15 mg-6.25 mg/5 mL Oral Syrup 5 mL 5 mL, Oral, q6hr for cough, 240 mL, Refill(s) 0, [facility] #[id number], 164, cm, 10/27/23 13:44:00 EST, Height/Length Dosing, 101, kg, 10/27/23 13:44:00 EST, Weight Dosing Start Date: 10/27/23 Status: Ordered Glucometer (7 sources) Start: 12-22-2021 Glucometer Glucometer, See Instructions, 1 EA, 0, Glucometer to test blood sugar TID PRN E11.9, [facility], Supply, 164, cm, 12/22/21 8:44:00 [...] # 12 tab(s), Refills(s) 0, Pharmacy: [facility] #[id number], 164, cm, 10/27/23 13:44:00 EST, Height/Length Dosing, [...] - Use once daily prior to injection., [facility], Supply, 164, cm, 12/22/21 8:44:00 EDT, [...] q6hr, 1 EA, Refill(s) 0, [id number], 164, cm, 11/01/23 15:38:00 EST, Height/Length Dosing, 97.5, kg, 11/01/23 15:38:00 EST, Weight Dosing Start Date: 11/01/23 Status: Ordered Start: 12-07-2022 take 1 dose by inhal ation every six hours Albuterol (Eqv-ProAir HFA) 90 mcg/inh inhalation aerosol 2 puff(s), Inhalation, q6hr, 1 EA, Refill(s) 1, [facility][id number], 164, cm, 12/07/22 13:57:00 EDT, Height/Length Dosing, [...] prefer broth. 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 If symptoms worsen, she will contact our [...] with voice recognition artificial intelligence software, specifically [employer] vascular solution, [employer] and or [employer]. Substitutions may have occurred due to the inherent limitations of voice recognition and artificial intelligence software. ATTESTATION: This note has been generated by Candido TRUONG and edited by Isaac Higgins, Quality Loss Prevention Officer. Follow-up No qualifying data available Patient Education Influenza, Adult Problem List/Past Medical History (more content not included)... Normal [facility] Comment on above: Result Comment: Elec tronically Signed By: Shantell Parker PA-C\.br\Date and Time Signed: 11/06/23 06:36 EST\.br\Electronically Co-Signed By: Kamila Vogt\.br\Date and Time Co-Signed: 11/01/23 19:15 EST Ambulatory Visit Summaryon 0 11-01-2023 Ambulatory Visit Summary TRENT ERIKA Rodriguez :1990 Visit Date:11/01/2023 Ambulatory Visit Instructions [...] Puffs Inhalation Every 6 hours Pickup at [facility] #[id number] Unchanged aspirin (aspirin 81 mg oral capsule) [...] physician if questions or concerns Pharmacy Information [id number]: [address] [id number] [phone] Allergies metroNIDAZOLE (Hives) Problems Ongoing - Any [...] you for choosing us for your care. [facility] Patient Educationon 11-01-19 Patient Education Infectious [...] health care provider may recommend: ? Taking ezrx-koh-qclmqrm medicines. ? Drinking plenty of fluids. In [...] and low-calorie sports drinks. ? Eat bland, cimo-ay-fojusx foods in small amounts as you are able. These foods include bananas, applesauce, rice, lean meats, toast, and crackers. ? Avoid drinking fluids that contain a lot of sugar or caffeine, such as energy drinks, regular sports drinks, and soda. ? Avoid alcohol. ? Avoid spicy or fatty foods. General instructions ? Take eawi-wnu-lrjbnma and prescription medicines only as told by [...] water are not available, use alcohol-based hand quality control manager. ? Keep all follow-up visits. This is [...] ? Deve (more content not included)... Normal [facility] Grp A Strp PCRon 10-29-2023 Grp A Strp Intrl Ctrl Pass Normal Fis her [facility] Comment on above: Performed By: #### 1 [id number] ####[facility] [address] [place] [address] S. pyogenes DNA ARNIE+probe Ql (Throat) Negative Normal [facility] Comment on above: Result Comment: Test ing performed using DNA amplification. Performed By: #### 1 [id number] ####[facility] [address] [place] [address] Family Medicine Office/Clini c Noteon 10-27-2023 Family [...] cough, 240 mL, Refill(s) 0, [id number], 164, cm, 10/27/23 13:44:00 EST, Height/Length Dosing, 101, kg, 10/27/23 13:44:00 EST, Weight Dosing predniSONE, See Instructions, 2 po QAM x4 days, then 1 po QAM x4 days, # 12 tab(s), Refills(s) 0, [facility]acy: [facility] #[id number], 164, cm, 10/27/23 13:44:00 EST, Height/Length Dosing, 101, kg, 10/27/23 13:44:00 EST, Weight Dosing 2. Sore throat (J02.9: Acute pharyngitis, unspecified) Ordered: dextromethorphan-pr omethazine, 5 mL, Oral, q6hr for cough, 240 mL, Refill(s) 0, [facility] #[id number], 164, cm, 10/27/23 13:44:00 EST, Height/Length Dosing, 101, kg, 10/27/23 13:44:00 EST, Weight Dosing predniSONE, See Instructions, 2 po QAM x4 days, then 1 po QAM x4 days, # 12 tab(s), Refills(s) 0, Pharmacy: [facility] #[id number], 164, cm, 10/27/23 13:44:00 EST, Height/Length Dosing, 101, kg, 10/27/23 13:44:00 EST, Weight Dosing Group A Strep by PCR Influenza Type A&B POC 98692 Rapid Strep POC 11478 3. BMI 37.0-37.9, adult (Z68.37: Body mass index [BMI] 37.0-37.9, adult) Ordered: dextromethorphan-pr omethazine, 5 mL, Oral, q6hr for cough, 240 mL, Refill(s) 0, [facility] #[id number], 164, cm, 10/27/23 13:44:00 EST, Height/Length Dosing, 101, kg, 10/27/23 13:44:00 EST, Weight Dosing predniSONE, See Instructions, 2 po QAM x4 days, then 1 po QAM x4 days, # 12 tab(s), Refills(s) 0, Pharmacy: [facility] #[id number], 164, cm, 10/27/23 13:44:00 EST, Height/Length Dosing, [...] not exe (more content not included)... Normal [facility] Comment on above: Result Comment: Elec tronically Signed By: Lai BOYD, Boo W.\.br\Date and Time Signed: 10/27/23 14:06 EST [facility] [address], [place] [address] October 27, 2023 ERIKA NEWMAN [address] [place] [address] : 1990 Please excuse ERIKA NEWMAN from work . Date and/or Time of Absence: From: 10/26/2023 To: 10/30/2023 May return to work on: 10/31/2023 Restrictions: None Comments: Please excuse due to an acute illness. Provider Signature: Boo Hoyt PA-C Physician Economics Analyst [address] [place] [address] Normal [facility] AFP, SERUM, OPEN SPINA BIFID Aon 10-26-2023 AFP MOM 0.65 . [facility] AFP VALUE 24.1 ng/mL . [facility] COMMENT: Comment . [facility] Comment on above: Zulema Farr , Ph.D., [facility] Director References: Available Upon Request. Multiples Of Median Cutoffs For AFP Elevations Pham 2.5 Black 2.8 IDD 2.0 Twins 4.5 Abbreviation Definitions IDD - Insulin Dep Diabetes OSBR - Open Spina Bifida Risk For further inquiries contact [facility] at [phone]. This test was developed and its performance characteristics determined by [employer]. It has not been cleared or approved by the Food and Drug Administration. Performed at: [facility] [employer] [id number] Consulting Psychologist: Marita Duggan [facility], Phone: [phone] GEST. AGE ON COLLECTION DATE 18.4 . weeks [facility] GESTAT. AGE BASED ON As provided . [facility] Comment on above: Recalculations are n ot recommended when gestational dating by LMP and ultrasound are within 10 days. INSULIN DEP DIABETES No . [facility] INTERPRETATION Comment . [facility] Comment on above: Interpretation: Scre en [...] Customer Services to discuss available options. The [place] [employer] recommends amniocentesis be offered to women age 35 and older. MATER[age] [facility] MULTIPLE GESTATION No . [facility] OSBR RISK 1 [place] [address] . [facility] RACE . [facility] RESULTS Report . [facility] TEST RESULTS: Negative . [facility] WEIGHT 215 . lbs [facility] N [id number] 3 16 N 1 Y 215 White/ [facility] CT Abdomen w/ Contraston CT Abdomen w/ [...] Oral contrast amount in ml's: 900 Normal [facility] Consent for Treatmenton 01-16 Consent for Treatment [id number] Normal [facility] Medicine Office/Clini c Noteon 02-01-2023 Family Medicine [...] Keith BOYD, Shantell Read Only if needed [address] [place] [phone] Additional Instructions: Patient Education BMI for Adults [...] metroNIDAZOLE (Hives) (more content not included)... Normal [facility] Comment on above: Result Comment: Elec tronically [...] numbers. This can be done either in [place] ([place] or metric measurements. Note that charts and online BMI calculators are available to help you find your BMI quickly and easily without having to do these calculations yourself. To calculate your BMI in [place] ([place] measurements: 1. Measure your weight in [...] for Disease Control and Prevention: www.cdc.gov ? [place] Heart Association: www.heart.org ? National Heart, Lung, and Blood [place]: www.nhlbi.nih.gov Summary ? Body mass index (BMI) is a number that is calculated from a person's weight and height. ? BMI may help estimate how much of a person's weight is composed of fat. BMI can help identify those who may be at higher risk for certain medical problems. ? BMI can be measured using [place]i measurements or metric measurements. ? BMI charts are used to identify whether you are underweight, normal weight, overweight, or obese. This information is not intended to replace advice given to you by your health care provider. Make sure you discuss any questions you have with your health care provider. Document Revised: 05/26/2020 Document Reviewed: 04/02/2020 [employer] Patient Education ? 2022 [employer] Budget-Friendly Healthy Eating There are many [...] Nonfat. ? (more content not included)... Normal [facility] Ambulatory Visit Summaryon 0 01-26-2023 Ambulatory Visit Summary DEE DEE NEWMANChel Rodriguez :1990 MRN: Visit Date:01/26/2023 Ambulatory Visit Instructions [...] bleeding (AUB) Screening for lipid disorders Normal [facility] Family Medicine Office/Clini c Noteon 12-11-2022 Family [...] aid with cough suppression. Advised to continue cayt-hrc-lsrlalh remedies such as Mucinex, Sudafed, Tylenol or [...] Shantell Parker PA-C Only if needed [address] [place] [phone] Additional Instructions: Patient Education Budget-Friendly Healthy Eating [...] lifetime) Tobacco (more content not included)... Normal [facility] Comment on above: Result Comment: Elec tronically [...] fruits, and frozen vegetables. ? Avoid buying erbli-dp-ota foods, such as pre-cut fruits and vegetables and pre-made salads. ? If possible, shop around to discover where you can find the best prices. Consider other retailers such as dollar stores, larger wholesale stores, local fruit and vegetable stands, and farmers markets. ? Do not shop when you [...] on a (more content not included)... Normal [facility] Ambulatory Visit Summaryon 0 12-07-2022 Ambulatory Visit Summary ERIKA NEWMAN :1990 MRN:12 [...] a day Duration: 10 Days [id number] Changed albuterol (Albuterol (Eqv-ProAir HFA) 90 mcg/ inh inhalation aerosol) 2 Puffs Inhalation Every 6 hours Pickup at [facility] #[id number] Unchanged Misc Prescription (Alcohol Swabs) See instructions [...] blood sugar TID PRN E11.9 Pharmacy Information [facility] #[id number]: [address] [place], [place] [phone] What How Much When Comments Stop Taking [...] uterine bleeding (AUB) Screening for lipid disorders [facility] Ambulatory Visit Summary TRENTERIKA :1990 Visit Date:12/07/2022 Ambulatory Visit Instructions Your [...] a day Duration: 10 Days [facility]60193 Changed albuterol (Albuterol (Eqv-ProAir HFA) 90 mcg/ inh inhalation aerosol) 2 Puffs Inhalation Every 6 hours Pickup at [facility] #[id number] Unchanged Misc Prescription (Alcohol Swabs) See instructions [...] blood sugar TID PRN E11.9 Pharmacy Information [facility] #[id number]: [address] [place], [place] [phone] What How Much When Comments Stop Taking [...] bleeding (AUB) Screening for lipid disorders Normal [facility] Provider Letteron 12-07-2022 Provider Letter December 07, 2022 ERIKA [address] [place] [address] To Whom It May Concern, Please excuse above patient from work. Date of Illness: From: _12/07/22 To: _ May Return to Work On: 12/08/22 Restrictions: _None Comments: _ Sincerely, Shantell BIRD Family Medicine [address] [address] Normal [facility] CHEMISTRYOrdered By: SYSTEM SYSTEM on 12-22-2021 Albumin [...] AM) Normal Negative [facility] UA Auto SS [place].plasma/Lithiu m.RBC (Bld) [Mass ratio] 4-20 /HPF Normal 0-3/HPF FT UA Auto SS Nitrite Ql (U) Negative (12/22/21 10:10 AM) Normal Negative [facility]A Auto SS pH (U) 5.5 *NA* (12/22/21 10:10 AM) Invalid Interpretation Code 5.0 - 9.0 FT UA Auto SS Protein (U) [Mass/Vol] 1+ *ABN* (12/22/21 10:10 AM) Invalid Interpretation Code Negative [facility] UA Auto SS Specific gravity (U) [Rel density] >=1.030 *NA* (12/22/21 10:10 AM) Invalid Interpretation Code 1.005 - 1.030 [facility] UA Auto SS UA Spec Desc Clean Catch (12/22/21 10:10 AM) Normal [facility] UA Auto SS Urobilinogen Qn (U) 0.1849481 {Ann'U}/dL Normal 0.0 - 1.0 EU/dL [facility] UA Auto SS WBC Auto Ql (U) Negative (12/22/21 10:10 AM) Normal Negative [facility] UA Auto SS WBC LM.HPF (Urine sed) [#/Area] 0-5 /HPF Normal 0-5/HPF [facility] UA Auto SS Hemoglobin A1Con 12-07-2021 Glucose [Mass/Vol] 157 mg/dL Normal [facility] Comment on above: Result Comment: The ADA and AACC recommend providing the estimated average glucose result to permit better patient understanding of their HBA1c result. Performed By: #### G LYHGB #### [facility] [address] [place], [place] [id number] Consulting Psychologist: Suman Villalta MD HbA1c (Bld) [Mass fraction] 7.1 % High 4.0-6.0 [facility] Comment on above: Performed By: #### G LYHGB #### [facility] [address] [place], [place] [id number] Consulting Psychologist: Suman Villalta MD Vital Signs Date Time Vital Sign Value Performing Clinician Facility 11-01-2023 15:29-0500 Blood Pressure Location Shantell Parker [facility] 11-01-2023 15:29-0500 Body temperature 98.24 [degF] Shantell Parker [facility] 11-01-2023 15:29-0500 Diastolic blood pressure 72 mm[Hg] Shantell Parker [facility] 11-01-2023 15:29-0500 Heart rate 103 /min Shantell Parker [facility] 11-01-2023 15:29-0500 Respiratory rate 18 /min Shantell Parker [facility] 11-01-2023 15:29-0500 SaO2% (BldA) [Mass fraction] 100 % Shantell Parker [facility] 11-01-2023 15:29-0500 Systolic blood pressure 124 mm[Hg] Shantell Parker [facility] 10-27-2023 13:41-0500 Blood Pressure Location Boo Hoyt [facility] 10-27-2023 13:41-0500 Body temperature 98.06 [degF] Boo Hoyt [facility] 10-27-2023 13:41-0500 Diastolic blood pressure 74 mm[Hg] Boo Hoyt [facility] 10-27-2023 13:41-0500 Heart rate 97 /min Boo Hoyt [facility] 10-27-2023 13:41-0500 SaO2% (BldA) [Mass fraction] 100 % Boo Hoyt [facility] 10-27-2023 13:41-0500 Systolic blood pressure 122 mm[Hg] Boo Hoyt [facility] 12-07-2022 13:53-0400 Blood Pressure Location Shantell Parker [facility] 12-07-2022 13:53-0400 Body temperature 98.24 [degF] Shantell Parker [facility] 12-07-2022 13:53-0400 Diastolic blood pressure 84 mm[Hg] Shantell Parker [facility] 12-07-2022 13:53-0400 Heart rate 60 /min Shantell Parker [facility] 12-07-2022 13:53-0400 Respiratory rate 20 /min Shantell Parker [facility] 12-07-2022 13:53-0400 SaO2% (BldA) [Mass fraction] 99 % Shantell Parker [facility] 12-07-2022 13:53-0400 Systolic blood pressure 128 mm[Hg] Shantell Parker [facility] 03-31-2022 16:19-0400 Blood Pressure [facility] 03-31-2022 16:19-0400 Body temperature 98.06 [degF] Marlen MCDOWELL [facility] 03-31-2022 16:19-0400 Diastolic blood pressure 84 mm[Hg] Marlen MCDOWELL [facility] 03-31-2022 16:19-0400 Heart rate 88 /min [employer] [facility] 03-31-2022 16:19-0400 Respiratory rate 16 /min [employer] [facility] 03-31-2022 16:19-0400 SaO2% (BldA) [Mass fraction] 97 % [employer] [facility] 03-31-2022 16:19-0400 Systolic blood pressure 128 mm[Hg] [employer] [facility] Encounters Encounter Date Encounter Type Care Provider Facility Start: 02-21-2024 End: 02-21-2024 ambulatory NIHARIKA TRENT Not Available Start: 02-12-2024 End: 02-12-2024 ambulatory JOEY MARIELY Not Available Start: 01-29-2024 End: 01-29-2024 ambulatory JOEY MARIELY Not Available Start: 01-15-2024 End: 01-15-2024 ambulatory JOEY MARIELY Not Available Start: 01-02-2024 End: 01-02-2024 ambulatory NIHARIKA TRENT Not Available Start: 12-05-2023 End: 12-05-2023 ambulatory JOEY MARIELY Not Available Start: 11-07-2023 End: 11-07-2023 ambulatory NIHARIKA TRENT Not Available Start: 11-01-2023 End: 11-02-2023 ambulatory Shantell Parker Facility:[facility] Start: 11-01-2023 ambulatory Jeremy Guerrero lity:[facility] [place] Start: 11-01-2023 End: 11-01-2023 Patient encounter procedure Shantell Parker [facility] Start: 10-27-2023 End: 10-28-2023 ambulatory Boo Hoyt Facility[facility] Start: 10-27-2023 End: 10-27-2023 Patient encounter procedure Boo Hoyt [facility] Start: 10-24-2023 Bamboo flowsheet Niharika BIRD Work Phone: [facility] Start: 10-24-2023 Bamboo flowsheet Niharika BIRD Work Phone: [facility] Start: 10-24-2023 [facility] Result Encounter Joey Mariely DO Work Phone: [facility] Unsolicited Start: 10-24-2023 End: 10-25-2023 ambulatory Shantell Parker Facility:[facility] Start: 10-24-2023 End: 10-24-2023 Patient encounter procedure Shantell Parker [facility] Start: 10-24-2023 End: 10-24-2023 Office outpatient visit 15 minutes Niharika BIRD Work Phone: [facility] Comment on above: Pruritus; Hives Start: 10-24-2023 End: 10-24-2023 ambulatory NIHARIKA TRENT Not Available Start: 10-10-2023 End: 10-10-2023 ambulatory JOEY MARIELY Not Available Start: 09-12-2023 End: 09-12-2023 ambulatory NIHARIKA TRENT Not Available Start: 08-17-2023 End: 08-17-2023 ambulatory NIHARIKA TRENT Not Available Start: 02-06-2023 End: 02-07-2023 ambulatory Shantell Parker [facility] Start: 01-26-2023 End: 01-27-2023 ambulatory Shantell Parker Facility:[facility] Start: 12-07-2022 End: 12-08-2022 ambulatory Shantell Parker Facility: [facility] Start: 12-07-2022 End: 12-07-2022 Patient encounter procedure Shantell Parker [facility] Start: 03-31-2022 End: 03-31-2022 Patient encounter procedure Marlen MCDOWELL [facility] Start: 01-02-2022 End: 04-02-2022 Recurring Kenyatta Paul [employer] [facility] Start: 12-22-2021 End: 12-22-2021 Lab Drop off Kenyatta A LanxILLER [facility] Start: 12-07-2021 End: 12-08-2021 ambulatory [facility] Start: 12-05-2021 End: 12-05-2021 Patient encounter procedure Ana Garcia [facility] Procedures Date Procedure Procedure Detail Performing Clinician Start: 10-24-2023 AFP, SERUM, OPEN SPI NA BIFIDA Joey Mariely DO Work Phone: TM tube Ana Radha Tonsillectomy and adenoidectomy Ana Radha Plan of Treatment Date Care Activity Detail Author Start: 11-07-2023 End: 11-07-2023 Patient encounter procedure 11/07/2023 10:50 AM EST Routine [facility] [address] [place] [address] Niharika Newman PA [address] [place], [place] [phone] [facility] Start: 11-07-2023 End: 11-07-2023 Professional / ancillary services management 11/07/2023 9:30 AM EST Ancillary Procedure [facility] [address] [place] [id number] [facility] Start: 10-24-2023 End: 10-24-2023 Patient encounter procedure 10/24/2023 9:50 AM EST Office Visit [facility] [address] [place] [address] Niharika Newman PA [address] [place] [address] Arrived [facility] Comment on above: Arrived Bile acids, total Bile acids, to rosa Lab Routine Pruritus Ordered: 10/24/2023 [facility] Work Phone: Comment on above: Ordered: 10/24/2023 Hepatic function 200 0 panel - Serum or Plasma Hepatic function panel Lab Routine Pruritus Ordered: 10/24/2023 [facility] Comment on above: Ordered: 10/24/2023 Immunizations Immunization Date Immunization Notes Care Provider [facility] 12-15-2012 tetanus toxoid, reduced diphtheria toxoid, and acellular pertussis vaccine, adsorbed Ana Radha [facility] Comment on above: Reason for Medicatio n: Other (see comment) 04-19-2006 tetanus toxoid, reduced diphtheria toxoid, and acellular pertussis vaccine, adsorbed Ana Radha [facility] NEGATED: Highlighted row has not occurred!12-07-2022 influenza virus vaccine, unspecified formulation Shantell Parker [facility] NEGATED: Highlighted row has not occurred!03-31-2022 SARS-CoV-2 mRNA (tozinameran 5y-11y) vaccine Marlen MCDOWELL [facility] NEGATED: Highlighted row has not occurred!09-16-2019 influenza virus vaccine, live, attenuated, for intranasal use Ana Garcia [facility] Payers Date Payer Category Payer Unknown [employer] [id number] 2023-Present [phone] [address] [place] [address] [id number] 2023 Unknown [id number] 2023 Private Health Insurance [id number] 2014 Unknown [id number] 1989 Unknown [id number] 2.16.840.1.450826.3.579 .2.174 1989 Unknown [id number] 2.16.840.1.421800.3.579 .2.727 1989 Unknown [id number] 2.16.840.1.045666.3.579 .2.727 1989 Unknown [id number] 2.16.840.1.919031.3.579 .2.727 1989 Unknown [id number] 2.16.840.1.687175.3.579 .2.727 1989 Unknown [id number] 2.16.840.1.672367.3.579 .2.727 1989 Unknown [id number] 2.16.840.1.804192.3.579 .2.727 1989 Unknown [id number] 2.16.840.1.108947.3.579 .2.727 1989 Unknown [id number] 2.16.840.1.905620.3.579 .2.727 1989 Unknown [id number] 2.16.840.1.127647.3.579 .2.1259 1989 Unknown [id number] 2.16.840.1.737831.3.579 .2.1259 1989 Unknown [id number] 2.16.840.1.780832.3.579 .2.9 1989 Unknown [id number] 2.16.840.1.721184.3.579 .2.9 1989 Unknown [id number] 2.16.840.1.704187.3.579 .2.9 1989 Unknown [id number] 2.16.840.1.849531.3.579 .2.9 1989 Unknown [id number] 2.16.840.1.507662.3.579 .2.9 1989 Unknown [id number] 2.16.840.1.308027.3.579 .2.9 1989 Unknown [id number] 2.16.840.1.274220.3.579 .2.9 1989 Unknown [id number] 2.16.840.1.343273.3.579 .2.1259 1989 Unknown [id number] 2.16.840.1.923596.3.579 .2.1259 Private Health Insurance [id number] Self-pay Social History Date Type Detail Facility Start: 05-25-2021 End: 11-01-2023 Tobacco smoking status Never smoked tobacco (finding) [facility] Tobacco smoking status Never [facility] Sex Assigned At Female [facility] Tobacco smoking status GAIS Tobacco smoking consumption unknown [facility] Start: 07-01-2023 [facility] Start: 1990 Sex Assigned At Not on file [facility] Medical Equipment Procedure Code Equipment Code Equipment Origin al Text Equipment Identifier Dates Lancets, See Instructions, 100 EA, 0, Test blood sugar TID PRN E11.9, [facility], Supply, 164, cm, 12/22/21 8:44:00 EDT, [...] sugar TID PRN E11.9, [facility], Supply, 164, cm, 12/22/21 8:44:00 EDT, [...] TID PRN E11.9, [facility] [address], 164, cm, 12/22/21 8:44:00 EDT, Height/Length Dosing, 126.7, kg, 12/22/21 8:44:00 EDT, Weight Dosing Start: 12-22-2021 Functional Status Date Assessment Result Facility 11-01-2023 Functional Status N/A [facility] 10-27-2023 Functional Status N/A [facility] 12-07-2022 Functional Status N/A [facility] 03-31-2022 Functional Status N/A [facility] Discharge instructions 11-01-2023 Note Date [...] Your health care provider may recommend: Taking zjvm-aop-tqzqthu medicines. Drinking plenty of fluids. In many [...] water, and low-calorie sports drinks. Eat bland, lpch-nh-ilittd foods in small amounts as you are able. These foods include bananas, applesauce, rice, lean meats, toast, and crackers. Avoid drinking fluids that contain a lot of sugar or caffeine, such as energy drinks, regular sports drinks, and soda. Avoid alcohol. Avoid spicy or fatty foods. General instructions Take rzxu-nmh-tjlwscy and prescription medicines only as told by [...] water are not available, use alcohol-based hand quality control manager. Keep all follow-up visits. This is important. [...] provider. Document Revised: 04/22/2021 Document Reviewed: 04/22/2021 Elsevier Patient Education 2023 [employer]. [facility] History of Present illness [...] of: MARGE Moreno documented in this encounter [facility] Discharge instructions 03-31-2022 Note Date & Type [...] 09/05/2004 Document Revised: 06/27/2019 Document Reviewed: 02/12/2017 [employer] Patient Education 2020 Fitbit. Follow Up Care 03/31/2022 11:31:15 With:Eleazar MELCHOR Address: [address] [place] [address]- When: Unknown Comments:return as otherwise scheduled [facility] Evaluation + Plan note 12-23-2021 Laboratory Note Date & Type Note Facility 12-23-2021 Evaluation + Plan note Future Scheduled TestsTIBC Calculated 12/23/21Ferritin 12/23/21Folate Level 12/23/21Iron Level 12/23/21Vitamin B12 Level 12/23/21 [facility] Note Date & Type Note Facility Evaluation + Plan note No data available for this section [facility] Evaluation + Plan note Note Date & Type Note Facility Evaluation + Plan note Future Appointments Appointment Date:01/02/2022 09:00:00 AM Scheduled Provider:Bill ATKINSON, ДМИТРИЙ, Erika FERNANDEZ Location:[facility] Appointment Type:DM Diabetes Initial Assessment [address] (F Appointment Date:03/24/2022 09:00:00 AM Scheduled Provider:Eleazar MELCHOR Location[facility] Appointment Type: Open [facility] Evaluation note Note Date & Type Note Facility Evaluation note Diagnosis Pruritus Unspecified pruritic disorder Hives Unspecified urticaria documented in this encounter [facility] Discharge instructions Note Date & Type Note Facility Hospital Discharge instructions No data available for this section [facility] Progress note Note Date & Type Note Facility Progress note No data available for this section [facility] Summary Purpose Family History No Family History [...] AUTHOR AUTHOR'S ORGANIZ ATION 11/07/2023 Chano Harris [facility] DATE CREATED AUTHOR AUTHOR'S ORGANIZ ATION 02/22/2024 [facility] EPIC Care Team (unrecognized sect ion and content) Personnel Name: Eleazar MELCHOR Address: [address] [place] [address]- Personnel Name: Eleazar MELCHOR Address: [address] [place] [address] Personnel Name: Shantell Parker PA-C Address: Address: [address] [place] [address]- Personnel Name: Shantell Parker PA-C Address: Address: [address] [place] [address]- Personnel Name: Shantell Parker PA-C Address: Address: [address] [place] [address]- Personnel Name: Shantell Parker PA-C Address: Address: [address] [place] [address]- Reason for Visit (unrecogniz ed section and [...] BE BASED ON THE PRIMARY CLINICAL RECORDS. [employer] provides no warranty or guarantee of the accuracy or completeness of information in this document.
== END 2024-02-26 19:09 | disposition home or self-care (01) ==
LOC: LAB 19:08
PROVIDERS: PCP Obstetrics & Gynecology; Visit Provider Obstetrics & Gynecology
DX: Z34.93 Encounter for supervision of normal pregnancy, unspecified, third trimester (principal)
CPT/HCPCS: 87081

== ENCOUNTER 2024-03-10 14:49 | Inpatient (IN) | payer OTHER, SELFPAY ==
[2024-03-10] VITALS (17 sets, daily range): BP systolic 120–166; BP diastolic 58–94; PULSE 75–99; TEMP 36.2–36.6
--- OUTSIDE RECORDS SUMMARY | 2024-03-10 15:14 | XMS_ITS | CCD ---
Author Organization [facility] Care Team Providers Care Club Lounge Attendant Name Role Phone DEBBY Eleazar Humberto Primary Care Physician GINGER COOLEY Referring Unavailable [...] Parker Attending Unavailable TRENT, NIHARIKA Attending Unavailable MARIELY, JOEY Attending Unavailable TRENT, NIHARIKA Attending Unavailable TRENT, NIHARIKA Attending Unavailable MARIELY, JOEY Attending Unavailable TRENT, NIHARIKA Attending Unavailable MARIELY, JOEY Attending Unavailable MARIELY, JOEY Attending Unavailable MARIELY, JOEY Attending Unavailable TRENT, NIHARIKA Attending Unavailable MARIELY, JOEY Attending Unavailable MARIELY, JOEY Attending Unavailable Allergies Allergy Classification Reported Allergen(s) Allergy Type Date of Onset Reaction(s) Facility (9 sources) metroNIDAZOLE; Translations: [metronidazole] Drug Allergy Weal (disorder) [facility] (4 sources) Penicillins Propensity to adverse reactions 3 [facility] Medications Current Medications Medication Drug Class(es) Dates Sig (Normalized) Sig (Original) [id number] 200 actuat albuterol 0.09 mg/actuat metered dose [...] blood sugar TID PRN, [facility], 164, cm, 12/22/21 8:44:00 EDT, Height/Length [...] 30 cap(s), Refills(s) 0, Pharmacy: [facility][id number], 164, cm, 12/07/22 13:57:00 EDT, Height/Length Dosing, [...] 28 cap(s), Refills(s) 0, [facility]: [facility], 164, cm, 03/31/22 16:32:00 EDT, Height/Length Dosing, 121.6, kg, 03/31/22 16:32:00 EDT, Weight Dosing Start Date: 03/31/22 Stop Date: 04/07/22 Status: Ordered dextromethorphan hydrobromide 3 mg/ml / promethazine hydrochloride 1.25 mg/ml oral solution (2 sources) Phenothiazine, Uncompetitive B-owrrau-K-asparta te Receptor Antagonist, Sigma-1 Agonist Start: 10-27-2023 take 5 mL by mouth every six hours for cough dextromethorphan-prom ethazine 15 mg-6.25 mg/5 mL Oral Syrup 5 mL 5 mL, Oral, q6hr for cough, 240 mL, Refill(s) 0, [id number], 164, cm, 10/27/23 13:44:00 EST, Height/Length Dosing, 101, kg, 10/27/23 13:44:00 EST, Weight Dosing Start Date: 10/27/23 Status: Ordered Glucometer (7 sources) Start: 12-22-2021 Glucometer Glucometer, See Instructions, 1 EA, 0, Glucometer to test blood sugar TID PRN E11.9, [facility], Supply, 164, cm, 12/22/21 8:44:00 [...] # 12 tab(s), Refills(s) 0, Pharmacy: [id number], 164, cm, 10/27/23 13:44:00 EST, Height/Length Dosing, [...] - Use once daily prior to injection., [facility], Supply, 164, cm, 12/22/21 8:44:00 EDT, Height/Length Dosing, 126.7, kg, 12/22/21 8:44:00 EDT, Weight Dosing Start Date: 12/22/21 Status: Ordered Zinc (1 source) Start: 02-15-2024 take 1 mg by mouth once daily [...] q6hr, 1 EA, Refill(s) 0, [id number], 164, cm, 11/01/23 15:38:00 EST, Height/Length Dosing, 97.5, kg, 11/01/23 15:38:00 EST, Weight Dosing Start Date: 11/01/23 Status: Ordered Start: 12-07-2022 take 1 dose by inhal ation every six hours Albuterol (Eqv-ProAir HFA) 90 mcg/inh inhalation aerosol 2 puff(s), Inhalation, q6hr, 1 EA, Refill(s) 1, [id number], 164, cm, 12/07/22 13:57:00 EDT, Height/Length Dosing, [...] prefer broth. On 07/24/2023, she visited her COLOR BUFFER due to the presence of hives on [...] Encouraged the patient to follow up with cooperative manager. If symptoms worsen, she will contact [...] with voice recognition artificial intelligence software, specifically Zong, ideacts innovations and or [employer]. Substitutions may have occurred due to the inherent limitations of voice recognition and artificial intelligence software. ATTESTATION: This note has been generated by Candido TRUONG and edited by Isaac Higgins, [employer]. Follow-up No qualifying data available Patient Education Influenza, Adult Problem List/Past Medical History (more content not included)... Normal [facility] Comment on above: Result Comment: Elec tronically [...] Puffs Inhalation Every 6 hours Pickup at [facility] #[id number] Unchanged aspirin (aspirin 81 mg oral capsule) [...] questions or concerns Pharmacy Information [id number]: [address] [place] [id number] [phone] Allergies metroNIDAZOLE (Hives) Problems Ongoing - Any [...] you for choosing us for your care. [facility] Patient Educationon 11-01-19 Patient Education Infectious Disease [...] health care provider may recommend: ? Taking ejjk-wqs-smzdxke medicines. ? Drinking plenty of fluids. In [...] and low-calorie sports drinks. ? Eat bland, blhm-za-stonqo foods in small amounts as you are able. These foods include bananas, applesauce, rice, lean meats, toast, and crackers. ? Avoid drinking fluids that contain a lot of sugar or caffeine, such as energy drinks, regular sports drinks, and soda. ? Avoid alcohol. ? Avoid spicy or fatty foods. General instructions ? Take bgzm-lwq-zyirzrs and prescription medicines only as told by [...] water are not available, use alcohol-based hand beam carrier hauler pusher. ? Keep all follow-up visits. This is [...] ? Deve (more content not included)... Normal [facility] Grp A Strp PCRon 10-29-2023 Grp A Strp Intrl Ctrl Pass Normal Fis her [facility] Comment on above: Performed By: #### 1 [id number] ####[facility] [id number] [place] [address] S. pyogenes DNA ARNIE+probe Ql (Throat) Negative Normal [facility] Comment on above: Result Comment: Test ing performed using DNA amplification. Performed By: #### 1 [id number] ####[facility] [id number] [place] [address] Family Medicine Office/Clini c Noteon 10-27-2023 Family [...] cough, 240 mL, Refill(s) 0, [id number], 164, cm, 10/27/23 13:44:00 EST, Height/Length Dosing, 101, kg, 10/27/23 13:44:00 EST, Weight Dosing predniSONE, See Instructions, 2 po QAM x4 days, then 1 po QAM x4 days, # 12 tab(s), Refills(s) 0, [facility]acy: [facility][id number], 164, cm, 10/27/23 13:44:00 EST, Height/Length Dosing, 101, kg, 10/27/23 13:44:00 EST, Weight Dosing 2. Sore throat (J02.9: Acute pharyngitis, unspecified) Ordered: dextromethorphan-pr omethazine, 5 mL, Oral, q6hr for cough, 240 mL, Refill(s) 0, [facility] #[id number], 164, cm, 10/27/23 13:44:00 EST, Height/Length Dosing, 101, kg, 10/27/23 13:44:00 EST, Weight Dosing predniSONE, See Instructions, 2 po QAM x4 days, then 1 po QAM x4 days, # 12 tab(s), Refills(s) 0, Pharmacy: [facility] #[id number], 164, cm, 10/27/23 13:44:00 EST, Height/Length Dosing, 101, kg, 10/27/23 13:44:00 EST, Weight Dosing Group A Strep by PCR Influenza Type A&B POC 50608 Rapid Strep POC 73661 3. BMI 37.0-37.9, adult (Z68.37: Body mass index [BMI] 37.0-37.9, adult) Ordered: dextromethorphan-pr omethazine, 5 mL, Oral, q6hr for cough, 240 mL, Refill(s) 0, [facility] #84242, 164, cm, 10/27/23 13:44:00 EST, Height/Length Dosing, 101, kg, 10/27/23 13:44:00 EST, Weight Dosing predniSONE, See Instructions, 2 po QAM x4 days, then 1 po QAM x4 days, # 12 tab(s), Refills(s) 0, Pharmacy: [facility] #[id number], 164, cm, 10/27/23 13:44:00 EST, Height/Length Dosing, [...] not exe (more content not included)... Normal [facility] Comment on above: Result Comment: Elec tronically Signed By: Lai BOYD, Boo W.\.br\Date and Time Signed: 10/27/23 14:06 EST Patient Letter FTon 2023 Patient Letter [facility] [address], [place] [address] October 27, 2023 ERIKA NEWMAN [address] [place] [address] : 1990 Please excuse ERIKA NEWMAN from work . Date and/or Time of Absence: From: 10/26/2023 To: 10/30/2023 May return to work on: 10/31/2023 Restrictions: None Comments: Please excuse due to an acute illness. 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 [address] Normal [facility] AFP, SERUM, OPEN SPINA BIFID Aon 10-26-2023 AFP MOM 0.65 . [facility] AFP VALUE 24.1 ng/mL . [facility] COMMENT: Comment . [facility] Comment on above: Zulema Farr , Ph.D., [facility] Director References: Available Upon Request. Multiples Of Median Cutoffs For AFP Elevations Pham 2.5 Black 2.8 IDD 2.0 Twins 4.5 Abbreviation Definitions IDD - Insulin Dep Diabetes OSBR - Open Spina Bifida Risk For further inquiries contact [facility] at [phone]. This test was developed and its performance characteristics determined by [employer]. It has not been cleared or approved by the Food and Drug Administration. Performed at: [facility] [employer] [address] [id number] Numberer And Wirer: Marita Duggan [facility], Phone: [phone] GEST. AGE ON COLLECTION DATE 18.4 . weeks [facility] GESTAT. AGE BASED ON As provided . [facility] Comment on above: Recalculations are n ot recommended when gestational dating by LMP and ultrasound are within 10 days. INSULIN DEP DIABETES No . [facility] INTERPRETATION Comment . [facility] Comment on above: Interpretation: Scre en Negative [...] Customer Services to discuss available options. The [place] [employer]nec[employer] recommends amniocentesis be offered to women age 35 and older. [age]ER[age] [facility] MULTIPLE GESTATION No . [facility] [place] [address] . [facility] RACE . [facility] RESULTS Report . [facility] TEST RESULTS: Negative . [facility] WEIGHT 215 . lbs [facility] N [id number] 3 16 N 1 Y 215 White/ [facility] CT Abdomen w/ Contraston CT Abdomen w/ [...] Oral contrast amount in ml's: 900 Normal [facility] Consent for Treatmenton 01-16 Consent for Treatment [id number] Normal [facility] Medicine Office/Clini c Noteon 02-01-2023 Family Medicine [...] Information Shantell Parker PA-C Only if needed [address] [place] [phone] Additional Instructions: Patient Education BMI for Adults [...] metroNIDAZOLE (Hives) (more content not included)... Normal [facility] Comment on above: Result Comment: Elec tronically [...] numbers. This can be done either in [place] (U.S.) or metric measurements. Note that charts and online BMI calculators are available to help you find your BMI quickly and easily without having to do these calculations yourself. To calculate your BMI in [place] (U.S.) measurements: 1. Measure your weight in [...] for Disease Control and Prevention: www.cdc.gov ? [place] Heart Association: www.heart.org ? National Heart, Lung, and Blood Bennett: www.nhlbi.nih.gov Summary ? Body mass index (BMI) is a number that is calculated from a person's weight and height. ? BMI may help estimate how much of a person's weight is composed of fat. BMI can help identify those who may be at higher risk for certain medical problems. ? BMI can be measured using Syrian measurements or metric measurements. ? BMI charts are used to identify whether you are underweight, normal weight, overweight, or obese. This information is not intended to replace advice given to you by your health care provider. Make sure you discuss any questions you have with your health care provider. Document Revised: 05/26/2020 Document Reviewed: 04/02/2020 [employer] Patient Education ? 2022 [employer] Budget-Friendly Healthy Eating There are many [...] Nonfat. ? (more content not included)... Normal [facility] Ambulatory Visit Summaryon 0 01-26-2023 Ambulatory Visit [...] Screening for lipid disorders Normal [facility] Medicine Office/Clini c Noteon 12-11-2022 Family Medicine [...] aid with cough suppression. Advised to continue pmnj-spg-agtoguw remedies such as Mucinex, Sudafed, Tylenol or [...] Parker PA-C Only if needed [address] [place] [phone] Additional Instructions: Patient Education Budget-Friendly Healthy Eating [...] lifetime) Tobacco (more content not included)... Normal [facility] Comment on above: Result Comment: Elec tronically [...] fruits, and frozen vegetables. ? Avoid buying khtlx-ca-nid foods, such as pre-cut fruits and vegetables [...] on a (more content not included)... Normal [facility] Ambulatory Visit Summaryon 0 12-07-2022 Ambulatory Visit [...] a day Duration: 10 Days Pickup at [facility] #02320 Changed albuterol (Albuterol (Eqv-ProAir HFA) 90 mcg/ inh inhalation aerosol) 2 Puffs Inhalation Every 6 hours Pickup at [facility] #30420 Unchanged Misc Prescription (Alcohol Swabs) See instructions [...] blood sugar TID PRN E11.9 Pharmacy Information [facility] #[id number]: [address] [place], [place] [phone] What How Much When Comments Stop Taking [...] uterine bleeding (AUB) Screening for lipid disorders [facility] Ambulatory Visit Summary TRENTERIKA :1990 Visit Date:12/07/2022 [...] a day Duration: 10 Days Pickup at [facility] #85447 Changed albuterol (Albuterol (Eqv-ProAir HFA) 90 mcg/ inh inhalation aerosol) 2 Puffs Inhalation Every 6 hours Pickup at [facility] #74298 Unchanged Misc Prescription (Alcohol Swabs) See instructions [...] blood sugar TID PRN E11.9 Pharmacy Information [facility] #[id number]: [address] [place], [place] [phone] What How Much When Comments Stop Taking [...] bleeding (AUB) Screening for lipid disorders Normal [facility] Provider Letteron 12-07-2022 Provider Letter December 07, 2022 ERIKA [address]ervantes[address] [place] [address] To Whom It May Concern, Please excuse above patient from work. Date of Illness: From: _12/07/22 To: _ May Return to Work On: 12/08/22 Restrictions: _None Comments: _ Sincerely, Shantell BIRD [facility] [address] [address] Normal [facility] CHEMISTRYOrdered By: SYSTEM SYSTEM on 12-22-2021 Albumin [...] AM) Normal Negative [facility] UA Auto SS [place].plasma/Lithiu m.RBC (Bld) [Mass ratio] 4-20 /HPF Normal 0-3/HPF [facility] UA Auto SS Nitrite Ql (U) Negative (12/22/21 10:10 AM) Normal Negative [facility] UA Auto SS pH (U) 5.5 *NA* (12/22/21 10:10 AM) Invalid Interpretation Code 5.0 - 9.0 [facility] UA Auto SS Protein (U) [Mass/Vol] 1+ *ABN* (12/22/21 10:10 AM) Invalid Interpretation Code Negative [facility] UA Auto SS Specific gravity (U) [Rel density] >=1.030 *NA* (12/22/21 10:10 AM) Invalid Interpretation Code 1.005 - 1.030 [facility] UA Auto SS UA Spec Desc Clean Catch (12/22/21 10:10 AM) Normal [facility] UA Auto SS Urobilinogen Qn (U) 0.2259498 {Ann'U}/dL Normal 0.0 - 1.0 EU/dL [facility] UA Auto SS WBC Auto Ql (U) Negative (12/22/21 10:10 AM) Normal Negative [facility] UA Auto SS WBC LM.HPF (Urine sed) [#/Area] 0-5 /HPF Normal 0-5/HPF [facility] UA Auto SS Hemoglobin A1Con 12-07-2021 Glucose [Mass/Vol] 157 mg/dL Normal [facility] Comment on above: Result Comment: The ADA and AACC recommend providing the estimated average glucose result to permit better patient understanding of their HBA1c result. Performed By: #### G LYHGB #### [employer] [address] [place], [place] [id number] [employer] Wire[employer]: Suman Villalta MD HbA1c (Bld) [Mass fraction] 7.1 % High 4.0-6.0 [facility] Comment on above: Performed By: #### G LYHGB #### [employer] [address] [place] [address] Numberer And Wirer: Suman Villalta MD Vital Signs Date Time Vital Sign Value Performing Clinician Facility 11-01-2023 15:29-0500 Blood Pressure Location Shantell Echeverriaer [facility] 11-01-2023 15:29-0500 Body temperature 98.24 [degF] Shantell Parker [facility] 11-01-2023 15:29-0500 Diastolic blood pressure 72 mm[Hg] Shantell Parker [facility] 11-01-2023 15:29-0500 Heart rate 103 /min Shantell Parker [facility] 11-01-2023 15:29-0500 Respiratory rate 18 /min Shantell Parker [facility] 11-01-2023 15:29-0500 SaO2% (BldA) [Mass fraction] 100 % Shantell Parker [facility] 11-01-2023 15:29-0500 Systolic blood pressure 124 mm[Hg] Shantell Parker [facility] 10-27-2023 13:41-0500 Blood Pressure Location Boo Hoyt [facility] 10-27-2023 13:41-0500 Body temperature 98.06 [degF] Boo Hoyt [facility] 10-27-2023 13:41-0500 Diastolic blood pressure 74 mm[Hg] Boo Hoyt [facility] 10-27-2023 13:41-0500 Heart rate 97 /min Boo Hoyt [facility] 10-27-2023 13:41-0500 SaO2% (BldA) [Mass fraction] 100 % Boo Hoyt [facility] 10-27-2023 13:41-0500 Systolic blood pressure 122 mm[Hg] Boo Hoyt [facility] 12-07-2022 13:53-0400 Blood Pressure Location Shantell [...] fraction] 99 % Shantell Parker [facility] 12-07-2022 13:53-0400 Systolic blood pressure 128 mm[Hg] Shantell Parker [facility] 03-31-2022 16:19-0400 Blood Pressure Location [facility] 03-31-2022 16:19-0400 Body temperature 98.06 [degF] Marlen MCDOWELL [facility] 03-31-2022 16:19-0400 Diastolic blood pressure 84 mm[Hg] Marlen MCDOWELL [facility] 03-31-2022 16:19-0400 Heart rate 88 /min [employer] [facility] 03-31-2022 16:19-0400 Respiratory rate 16 /min [employer] [facility] 03-31-2022 16:19-0400 SaO2% (BldA) [Mass fraction] 97 % [employer] [facility] 03-31-2022 16:19-0400 Systolic blood pressure 128 mm[Hg] [employer] [facility] Encounters Encounter Date Encounter Type Care Provider Facility Start: 03-03-2024 End: 03-03-2024 ambulatory JOEY MARIELY Not Available Start: 02-26-2024 End: 02-26-2024 ambulatory JOEY MARIELY Not Available Start: 02-21-2024 End: 02-21-2024 ambulatory NIHARIKA TRENT [...] Start: 11-01-2023 End: 11-02-2023 ambulatory Shantell Parker Facility:[facility] Start: 11-01-2023 ambulatory Jeremy dooley:CC Rosita Start: 11-01-2023 End: 11-01-2023 Patient encounter procedure Shantell Parker [facility] Start: 10-27-2023 End: 10-28-2023 ambulatory Boo Hoyt Facility:[facility] Start: 10-27-2023 End: 10-27-2023 Patient encounter procedure Boo Hoyt [facility] Start: 10-24-2023 Bamboo flowsheet Niharika BIRD Work Phone: [facility] Start: 10-24-2023 Bamboo flowsheet Niharika BIRD Work Phone: [facility] Start: 10-24-2023 [facility] Result Encounter Joey Mariely DO Work Phone: [facility] Unsolicited Start: 10-24-2023 End: 10-25-2023 ambulatory Shantell Parker Facility: [facility] Start: 10-24-2023 End: 10-24-2023 Patient encounter procedure Shantell Parker [facility] Start: 10-24-2023 End: 10-24-2023 Office outpatient [...] Start: 02-06-2023 End: 02-07-2023 ambulatory Shantell Parker Facility:[facility] Start: 01-26-2023 End: 01-27-2023 ambulatory Shantell Parker Facility:[facility] Start: 12-07-2022 End: 12-08-2022 ambulatory Shantell Parker Facility:[facility] Start: 12-07-2022 End: 12-07-2022 Patient encounter procedure Shantell Parker [facility] Start: 03-31-2022 End: 03-31-2022 Patient encounter procedure Marlne MCDOWELL [facility] Start: 01-02-2022 End: 04-02-2022 Recurring Kenyatta Humberto [employer] [facility] Start: 12-22-2021 End: 12-22-2021 Lab Drop off Kenyatta A 3ROAMNAMILLER [facility] Start: 12-07-2021 End: 12-08-2021 ambulatory GINGER Mejia [facility] Start: 12-05-2021 End: 12-05-2021 Patient encounter procedure Ana Garcia [facility] Procedures Date Procedure Procedure Detail Performing Clinician Start: 10-24-2023 AFP, SERUM, OPEN SPI NA BIFIDA Joey Mariely DO Work Phone: TM tube Ana Radha Tonsillectomy and adenoidectomy Ana Radha Plan of Treatment Date Care Activity Detail Author Start: 11-07-2023 End: 11-07-2023 Patient encounter procedure 11/07/2023 10:50 AM EST Routine [facility] [address] [phone] Niharika Newman PA [address] [place] [address] [facility] Start: 11-07-2023 End: 11-07-2023 Professional / ancillary services management 11/07/2023 9:30 AM EST [facility] [address] [phone] [facility] Start: 10-24-2023 End: 10-24-2023 Patient encounter procedure 10/24/2023 9:50 AM EST [facility] [address] [address] Niharika Newman, PA [address] [place], [place] [id number] [facility] Comment on above: Arrived Bile acids, total Bile acids, to rosa Lab Routine Pruritus Ordered: 10/24/2023 [facility] Work Phone: Comment on above: Ordered: 10/24/2023 Hepatic function 200 0 panel - Serum or Plasma Hepatic function panel Lab Routine Pruritus Ordered: 10/24/2023 [facility] Comment on above: Ordered: 10/24/2023 Immunizations Immunization Date Immunization Notes Care Provider Fa [facility] 12-15-2012 tetanus toxoid, reduced diphtheria toxoid, and acellular pertussis vaccine, adsorbed Ana Radha [facility] Comment on above: Reason for Medicatio n: Other (see comment) 04-19-2006 tetanus toxoid, reduced diphtheria toxoid, and acellular pertussis vaccine, adsorbed Ana Radha [facility] NEGATED: Highlighted row has not occurred!12-07-2022 influenza virus vaccine, unspecified formulation Shantell Parker [facility] [place] NEGATED: Highlighted row has not occurred!03-31-2022 SARS-CoV-2 mRNA (todinhnamhann 5y-11y) vaccine Marlen MCDOWELL [facility] [place] NEGATED: Highlighted row has not occurred!09-16-2019 influenza virus vaccine, live, attenuated, for intranasal use Ana Garcia [facility] Payers Date Payer Category Payer Unknown RUPAL GOLDSMITH MISSAEL [employer] [id number] 2023-Present [phone] [address] [place] [address] [id number] 2023 Unknown [id number] 2023 Private Health Insurance [id number] 2014 Unknown [id number] 1989 Unknown [id number] 2.16.840.1.102292.3.579 .2.174 1989 Unknown [id number] 2.16.840.1.097126.3.579 .2.727 1989 Unknown [id number] 2.16.840.1.661426.3.579 .2.727 1989 Unknown [id number] 2.16.840.1.933055.3.579 .2.727 1989 Unknown [id number] 2.16.840.1.993786.3.579 .2.727 1989 Unknown [id number] 2.16.840.1.340450.3.579 .2.727 1989 Unknown [id number] 2.16.840.1.332400.3.579 .2.727 1989 Unknown [id number] 2.16.840.1.027719.3.579 .2.727 1989 Unknown [id number] 2.16.840.1.792782.3.579 .2.727 1989 Unknown [id number] 2.16.840.1.043619.3.579 .2.1259 1989 Unknown [id number] 2.16.840.1.741873.3.579 .2.1259 1989 Unknown [id number] 2.16.840.1.464703.3.579 .2.1259 1989 Unknown [id number] 2.16.840.1.890954.3.579 .2.1259 1989 Unknown [id number] 2.16.840.1.707829.3.579 .2.9 1989 Unknown [id number] .2.1259 1989 Unknown [id number] 2.16.840.1.329510.3.579 .2.1259 1989 Unknown [id number] 2.16.840.1.282091.3.579 .2.1259 1989 Unknown [id number] 2.16.840.1.483797.3.579 .2.1259 1989 Unknown [id number] 2.16.840.1.050410.3.579 .2.1259 1989 Unknown [id number] 2.16.840.1.370316.3.579 .2.1259 1989 Unknown [id number] 2.16.840.1.154522.3.579 .2.1259 1989 Unknown [id number] 2.16.840.1.720724.3.579 .2.1259 Private Health Insurance [id number] Self-pay Social History Date Type Detail Facility Start: 05-25-2021 End: 11-01-2023 Tobacco smoking status Never smoked tobacco (finding) [facility] Tobacco smoking status Never [facility] Sex Assigned At Female [facility] Tobacco smoking status SCIS Tobacco smoking consumption unknown [facility] Start: 07-01-2023 [facility] Start: 1990 Sex Assigned At Not on file [facility] Medical Equipment Procedure Code Equipment Code Equipment [...] sugar TID PRN E11.9, [facility], Supply, 164, cm, 12/22/21 8:44:00 EDT, Height/Length Dosing, 126.7, kg, 12/22/21 8:44:00 EDT, Weight Dosing Start: 12-22-2021 Test strips, See Instructions, 100 EA, 0, Test blood sugar TID PRN E11.9, [facility], Supply, 164, cm, 12/22/21 8:44:00 EDT, Height/Length Dosing, 126.7, kg, 12/22/21 8:44:00 EDT, Weight Dosing Start: 12-22-2021 Lancets, See Instructions, 100 EA, 0, Test blood sugar TID PRN E11.9, [facility], Supply, 164, cm, 12/22/21 8:44:00 EDT, Height/Length Dosing, 126.7, kg, 12/22/21 8:44:00 EDT, Weight Dosing Start: 12-22-2021 Test strips, See Instructions, 100 EA, 0, Test blood sugar TID PRN E11.9, [facility], Supply, 164, cm, 12/22/21 8:44:00 EDT, Height/Length Dosing, 126.7, kg, 12/22/21 8:44:00 EDT, Weight Dosing Start: 12-22-2021 Lancets, See Instructions, 100 EA, 0, Test blood sugar TID PRN E11.9, [facility], Supply, 164, cm, 12/22/21 8:44:00 EDT, [...] Status N/A [facility] 10-27-2023 Functional Status N/A [facility] 12-07-2022 Functional Status N/A [facility] 03-31-2022 Functional Status N/A [facility] Discharge instructions 11-01-2023 Note Date & [...] Your health care provider may recommend: Taking ojpk-peo-xlggxpq medicines. Drinking plenty of fluids. In many [...] water, and low-calorie sports drinks. Eat bland, floj-se-sbwpge foods in small amounts as you are able. These foods include bananas, applesauce, rice, lean meats, toast, and crackers. Avoid drinking fluids that contain a lot of sugar or caffeine, such as energy drinks, regular sports drinks, and soda. Avoid alcohol. Avoid spicy or fatty foods. General instructions Take lxzl-yzi-skrhwrx and prescription medicines only as told by [...] water are not available, use alcohol-based hand beam carrier hauler pusher. Keep all follow-up visits. This is important. [...] provider. Document Revised: 04/22/2021 Document Reviewed: 04/22/2021 [employer] Patient Education 2022 [employer]. [facility] [place] History of Present illness Narrative 10-24-2023 MARGE [...] of: MARGE Moreno documented in this encounter [facility] Discharge instructions 03-31-2022 Note Date & [...] 09/05/2004 Document Revised: 06/27/2019 Document Reviewed: 02/12/2017 [employer] Patient Education 2020 [employer]. Follow Up Care 03/31/2022 11:31:15 With:Eleazar MELCHOR Address: [address] [place], [place] [id number]- When: Unknown Comments:return as otherwise scheduled [facility] Evaluation + Plan note 12-23-2021 Laboratory Note Date & Type Note Facility 12-23-2021 Evaluation + Plan note Future Scheduled TestsTIBC Calculated 12/23/21Ferritin 12/23/21Folate Level 12/23/21Iron Level 12/23/21Vitamin B12 Level 12/23/[address] [facility] Evaluation + Plan note Note Date & Type Note Facility Evaluation + Plan note No data available for this section [facility] Evaluation + Plan note Note Date & Type Note Facility Evaluation + Plan note Future Appointments Appointment Date:01/02/2022 09:00:00 AM Scheduled Provider:Bill ATKINSON, ДМИТРИЙ, Erika FERNANDEZ Location:[facility] Appointment Type:DM Diabetes Initial Assessment [address] RD (F Appointment Date:03/24/2022 09:00:00 AM Scheduled Provider:Eleazar MELCHOR Location:[facility] Appointment Type:FM Open [facility] Evaluation note Note Date & Type Note Facility Evaluation note Diagnosis Pruritus Unspecified pruritic disorder Hives Unspecified urticaria documented in this encounter [facility] Discharge instructions Note Date & Type Note Facility Hospital Discharge instructions No data available for this section [facility] Progress note Note Date & Type Note Facility Progress note No data available for this section [facility] [place] Summary Purpose [...] DATE CREATED AUTHOR AUTHOR'S ORGANIZ ATION 11/07/2023 [facility] DATE CREATED AUTHOR AUTHOR'S ORGANIZ ATION 03/03/2024 [facility] EPIC Care Team (unrecognized sect ion and content) Personnel Name: Eleazar MELCHOR Address: [address] [place] [address] Personnel Name: Eleazar MELCHOR Address: [address] [place] [address] Personnel Name: Shantell Parker PA-C Address: Address: [address] [place] [address]- Personnel Name: Shantell Parker PA-C Address: Address: [address] [place] [address]- Personnel Name: Shantell Parker PA-C Address: Address: [address] [place] [address]- Personnel Name: Shantell Parker PA-C Address: Address: [address] [place] [address]- Reason for Visit (unrecogniz ed section and [...] BE BASED ON THE PRIMARY CLINICAL RECORDS. [facility] [employer] [facility]. provides no warranty or guarantee of the accuracy or completeness of information in this document.
[2024-03-10 16:42] LABS: Hematocrit 35.7 % (36.0-48.0); Hemoglobin 11.4 g/dL (12.0-16.0); Mean Corpuscular HGB Conc 31.9 g/dL (29.9-35.2); Mean Corpuscular Hemoglobin 27.5 pg (26.7-34.0); Mean Corpuscular Volume 86.2 fL (81.0-99.0); Mean Platelet Volume 10.8 fL (9.5-13.5); Platelet Count 239 10^3/uL (150-450); Red Blood Count 4.14 10^6/uL (4.20-5.40); Red Cell Distribution Width 17.5 % (11.0-15.0); White Blood Count 13.3 10^3/uL (4.0-11.0)
[2024-03-10] MEDS: DINOPROSTONE 10 MG VAG INSERT.ER VAGINAL (16:43)
[2024-03-10 17:24] LABS: Amphetamine Screen Urine NEGATIVE (NEGATIVE); Barbiturates Screen Urine NEGATIVE (NEGATIVE); Benzodiazepines Screen Urine NEGATIVE (NEGATIVE); Buprenorphine Screen Urine NEGATIVE (NEGATIVE); Cannabinoid Screen Urine NEGATIVE (NEGATIVE); Cocaine Screen Urine NEGATIVE (NEGATIVE); Methadone Screen Urine NEGATIVE (NEGATIVE); Methamphetamines Screen Urine NEGATIVE (NEGATIVE); Opiate Screen Urine NEGATIVE (NEGATIVE); Oxycodone Screen Urine NEGATIVE (NEGATIVE); Phencyclidine Screen Urine NEGATIVE (NEGATIVE); Tricyclic Antidepressant Urine NEGATIVE (NEGATIVE)
[2024-03-11] VITALS (69 sets, daily range): BP systolic 106–183; BP diastolic 53–97; PULSE 71–114; TEMP 36.4–37.8
[2024-03-11] MEDS: 0.9 % SODIUM CHLORIDE 1,000 ML 125 ML IV ×2 (06:18→15:34)
[2024-03-11] MEDS: OXYTOCIN/0.9 % SODIUM CHLORIDE 10 UNITS/500 ML PLAST..BAG 6 UNIT IV (06:45)
[2024-03-11] MEDS: NALBUPHINE HCL 10 MG/ML AMPULE IV (09:10)
[2024-03-11] MEDS: 0.9 % SODIUM CHLORIDE 1,000 ML 1000 ML IV (11:27)
[2024-03-11] MEDS: ROPIVACAINE HCL/PF 400 MG/200 ML PREMIX 10 MG EPIDURAL (12:10)
[2024-03-11] MEDS: OXYTOCIN/0.9 % SODIUM CHLORIDE 20 UNITS/1,000 ML PLAST..BAG 125 UNIT IV (21:33)
--- NOTE | 2024-03-11 21:38 | PM.OBPRCVD ---
Procedure Intrapartal events: None Induction method: per misoprostol protocol Delivery augmentation: rupture of membranes and pitocin Delivery monitor: external FHT and external uterine Route of delivery: Episiotomy Description: none L&D Laceration Description: none Estimated blood loss (mL): 300 Anesthesia type: Epidural Disposition: floor Delivery date: 03/11/24 Gender: male presentation: vertex Placental delivery description: Spontaneous cord description: 3 Vessels
[2024-03-12 02:25] VITALS: BP 148/78; PULSE 86; TEMP 36.7
[2024-03-12 02:26] VITALS: BP 148/78; PULSE 86
[2024-03-12] MEDS: IBUPROFEN 600 MG TABLET PO ×2 (02:38→21:16)
[2024-03-12 05:56] LABS: Basophils Absolute Auto 0.1 10^3/uL (0.0-0.1); Basophils Percent Auto 0.3 % (0.2-2.0); Eosinophils Absolute Auto 0.1 10^3/uL (0.0-0.7); Eosinophils Percent Auto 0.5 % (0.9-7.0); Hematocrit 31.3 % (36.0-48.0); Hemoglobin 10.1 g/dL (12.0-16.0); Immature Granulocytes Abs Auto 0.16 10^3/uL (0.00-0.03); Immature Granulocytes Pct Auto 0.8 % (0.0-0.5); Lymphocytes Absolute Auto 2.1 10^3/uL (1.2-3.8); Mean Corpuscular HGB Conc 32.3 g/dL (29.9-35.2); Mean Corpuscular Hemoglobin 28.1 pg (26.7-34.0); Mean Corpuscular Volume 86.9 fL (81.0-99.0); Mean Platelet Volume 10.8 fL (9.5-13.5); Neutrophils Absolute Auto 17.5 10^3/uL (1.4-6.5); Neutrophils Percent Auto 83.4 % (43.0-75.0); Platelet Count 217 10^3/uL (150-450); Red Cell Distribution Width 17.4 % (11.0-15.0)
--- NOTE | 2024-03-12 07:49 | PM.OBPN ---
OB - PN: Subj Subjective Patient comments: no complaints and pain well controlled Claude status: doing well Exam Constitutional Vital Signs, click to edit/add: Last Vital Signs Temp 98.0 F 03/12/24 02:25 Pulse 86 03/12/24 02:26 Resp 18 03/12/24 02:25 BP 148/78 H 03/12/24 02:26 O2 Del Method Room Air 03/12/24 02:25 Documenting provider has reviewed patient's vital signs: yes Common normals: no apparent distress Respiratory Common normals: normal respiratory effort and clear to auscultation bilaterally Cardio Common normals: regular rate and regular rhythm GI Common normals: Normal to inspection, nondistended, normoactive bowel sounds present Extremity Common normals: no clubbing, cyanosis or edema and no calf tenderness Results Labs Labs: Short CBC 03/12/24 Range/Units 05:43 WBC 21.0 H (4.0-11.0) 10^3/uL Hgb 10.1 L (12.0-16.0) g/dL Hct 31.3 L (36.0-48.0) % Plt Count 217 (150-450) 10^3/uL OB - PN: A/P Plan - Vaginal Delivery day: 1 Plan: routine care Time Spent with Patient Time: Total time spent is greater than 50% in coordination of care (as documented) at patient's floor/unit and/or counseling patient: Total time spent with greater than 50% in coordination of care (as documented) at patient's floor/unit and/or counseling patient: less than 15 minutes
[2024-03-12] MEDS: GLYCERIN/WITCH HAZEL PADS 1 PAD TOPICAL (12:12)
[2024-03-12] MEDS: BENZOCAINE/MENTHOL 85 GRAM SPRAY BOTTLE 1 APPLIC TOPICAL (12:13)
--- NOTE | 2024-03-12 12:16 | PC.NURSE ---
Gwendolyn up to couch to feed baby. Baby sleepy, to breast, offered without shield. Latches but no suck. Stimulated and gives few weak sucks but no sustained latch. Shield placed and same behavior. Encouraged to hold skin to skin and wait for more awake stage of rest. Mother aware of expectations for feeding.
[2024-03-12 14:43] VITALS: BP 144/77; PULSE 93
[2024-03-12] MEDS: DOCUSATE SODIUM 100 MG CAPSULE PO (21:16)
[2024-03-12 22:44] VITALS: BP 149/81; PULSE 90; TEMP 36.7
--- NOTE | 2024-03-13 07:48 | P.OBPN_ITS ---
OB - PN: Subj Subjective Patient comments: no complaints Randolph status: doing well feeding status: exclusively Exam Constitutional Vital Signs, click to edit/add: Last Vital Signs Temp 98.0 F 03/12/24 22:44 Pulse 90 03/12/24 22:44 Resp 18 03/12/24 22:44 BP 149/81 H 03/12/24 22:44 O2 Del Method Room Air 03/12/24 22:44 Documenting provider has reviewed patient's vital signs: yes Common normals: no apparent distress, average body habitus, oriented x3, no workman itations, healthy appearing, alert and well nourished General appearance: cooperative Nutritional appearance: cachectic Orientation/consciousness: Yes awake, Yes oriented to person, Yes oriented to place and Yes oriented to time HENMT Common normals: normocephalic Eye Common normals: EOMs intact bilaterally General eye: normal appearance of both eyes Neck & C-Spine Common normals: full ROM Lymph Lymphatic: no lymphadenopathy noted Chest Common normals: inspection of chest normal Chest: abnormal inspection of the chest Respiratory Common normals: normal respiratory effort Effort & inspection: able to speak in complete sentences Cardio Common normals: regular rate and regular rhythm Rate: regular rate Rhythm: regular rhythm GI Common normals: Normal to inspection, nondistended, normoactive bowel sounds present Inspection: normal to inspection Auscultation: normoactive bowel sounds Palpation: soft Percussion: normal to percussion Common normals: no CVA tenderness Back & Pelvis Common normals: no CVA tenderness Extremity Common normals: normal to inspection General: normal exam except as noted Neuro Common normals: oriented x3, moves all extremities, no focal motor deficits and no sensory deficits noted Sensorium/orientation: awake, alert, oriented to person, oriented to place, oriented to time and orientation impaired Psych Common normals: mental status grossly normal, thought process normal, cooperative and affect normal OB - PN: A/P Plan - Vaginal Delivery day: 2 Plan: discharge home and follow up 6 weeks Time Spent with Patient Time: Total time spent is greater than 50% in coordination of care (as documented) at patient's floor/unit and/or counseling patient: Total time spent with greater than 50% in coordination of care (as documented) at patient's floor/unit and/or counseling patient: less than 15 minutes
[2024-03-13 09:25] VITALS: TEMP 36.1
[2024-03-13] MEDS: IBUPROFEN 600 MG TABLET PO (09:25)
[2024-03-13] MEDS: DOCUSATE SODIUM 100 MG CAPSULE PO (09:25)
[2024-03-13 09:26] VITALS: BP 140/64; PULSE 77
[2024-03-13 09:29] VITALS: TEMP 36.1
--- NOTE | 2024-03-13 12:27 | US_ITS ---
[place] [id number] Patient Name: ERIKA NEWMAN MRN: [id number] date: 1990 Sex: F Assigned Patient Location: [facility] Current Patient Location: [facility] Accession/Order Number: [id number] Exam Date: 03/13/2024 12:30 Report Date: 03/13/2024 13:09 At the request of: JERALD WRIGHT Procedure: US venous doppler LE LT EXAM: US venous doppler LE LT HISTORY: pain COMPARISON: None. TECHNIQUE: Grayscale, color and Doppler FINDINGS: Region: Left leg Flow: Normal Thrombus: None Augmentation: Normal Compressibility: Normal US/US venous doppler LE LT IMPRESSION: No deep or superficial vein thrombus in the left leg Electronically authenticated by: KATIE BUENO Date: 03/13/2024 13:09
--- OUTSIDE RECORDS SUMMARY | 2024-03-24 09:03 | XMS_ITS | CCD ---
Author Organization [facility] Care Team Providers Care Region Manager Name Role Phone DEBBY Eleazar Paul Primary Care Physician GINGER COOLEY Referring Unavailable [...] [metronidazole] Drug Allergy Weal (disorder) [facility] (4 sources) Penicillins Propensity to adverse reactions 3 [facility] Medications Current Medications Medication Drug Class(es) Dates Sig (Normalized) Sig (Original) [id number] 200 actuat albuterol 0.09 mg/actuat metered dose [...] blood sugar TID PRN, [facility], 164, cm, 12/22/21 8:44:00 EDT, Height/Length [...] 30 cap(s), Refills(s) 0, Pharmacy: [facility] #[id number], 164, cm, 12/07/22 13:57:00 EDT, Height/Length Dosing, 100.8, kg, 12/07/22 13:57:00 EDT, Weight Dosing Start Date: 12/07/22 Stop Date: 12/17/22 Status: Ordered cephalexin 500 mg oral capsule (2 sources) Cephalosporin Antibacterial Start: 03-31-2022 End: 04-07-2022 take 2 capsules by mouth twice daily Keflex 500 mg Cap 1,000 mg = 2 cap(s), Oral, BID, X 7 day(s), # 28 cap(s), Refills(s) 0, [facility], 164, cm, 03/31/22 16:32:00 EDT, Height/Length Dosing, 121.6, kg, 03/31/22 16:32:00 EDT, Weight Dosing Start Date: 03/31/22 Stop Date: 04/07/22 Status: Ordered dextromethorphan hydrobromide 3 mg/ml / promethazine hydrochloride 1.25 mg/ml oral solution (2 sources) Phenothiazine, Uncompetitive Z-djzzpp-W-asparta te Receptor Antagonist, Sigma-1 Agonist Start: 10-27-2023 take 5 mL by mouth every six hours for cough dextromethorphan-prom ethazine 15 mg-6.25 mg/5 mL Oral Syrup 5 mL 5 mL, Oral, q6hr for cough, 240 mL, Refill(s) 0, [id number], 164, cm, 10/27/23 13:44:00 EST, Height/Length Dosing, 101, kg, 10/27/23 13:44:00 EST, Weight Dosing Start Date: 10/27/23 Status: Ordered Glucometer (7 sources) Start: 12-22-2021 Glucometer Glucometer, See Instructions, 1 EA, 0, Glucometer to test blood sugar TID PRN E11.9, [facility], Supply, 164, cm, 12/22/21 8:44:00 EDT, [...] # 12 tab(s), Refills(s) 0, Pharmacy: [facility] #[id number], 164, cm, 10/27/23 13:44:00 EST, Height/Length Dosing, [...] - Use once daily prior to injection., [facility] [employer] #16, Supply, 164, cm, 12/22/21 8:44:00 EDT, [...] q6hr, 1 EA, Refill(s) 0, [facility] #[id number], 164, cm, 11/01/23 15:38:00 EST, Height/Length Dosing, 97.5, kg, 11/01/23 15:38:00 EST, Weight Dosing Start Date: 11/01/23 Status: Ordered Start: 12-07-2022 take 1 dose by inhal ation every six hours Albuterol (Eqv-ProAir HFA) 90 mcg/inh inhalation aerosol 2 puff(s), Inhalation, q6hr, 1 EA, Refill(s) 1, [facility] #[id number], 164, cm, 12/07/22 13:57:00 EDT, Height/Length Dosing, [...] prefer broth. 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 If symptoms worsen, she will contact our [...] with voice recognition artificial intelligence software, specifically [employer], [employer] and or [employer]. Substitutions may have occurred due to the inherent limitations of voice recognition and artificial intelligence software. ATTESTATION: This note has been generated by [employer] and edited by Isaac Higgins, Quality Java Consultant. Follow-up No qualifying data available Patient Education Influenza, Adult Problem List/Past Medical History (more content not included)... Normal [facility] Comment on above: Result Comment: Elec tronically Signed By: Shantell Parker PA-C\.br\Date and Time Signed: 11/06/23 06:36 EST\.br\Electronically Co-Signed By: Kamila Vogt\.br\Date and Time Co-Signed: 11/01/23 19:15 EST Ambulatory Visit Summaryon 0 11-01-2023 Ambulatory Visit Summary EIRKA NEWMAN :1990 Visit Date:11/01/2023 Ambulatory Visit Instructions Your [...] Puffs Inhalation Every 6 hours Pickup at [facility] Unchanged aspirin (aspirin 81 mg oral capsule) [...] questions or concerns Pharmacy Information [id number]: [address] [place], [place] [id number] [phone] Allergies metroNIDAZOLE (Hives) Problems Ongoing - Any [...] you for choosing us for your care. Normal [facility] Patient Educationon 11-01-19 24 Patient Education Infectious Disease Influenza, Adult Influenza, [...] health care provider may recommend: ? Taking uvlo-goc-ssfexih medicines. ? Drinking plenty of fluids. In [...] and low-calorie sports drinks. ? Eat bland, ajrb-qt-jhbjpe foods in small amounts as you are able. These foods include bananas, applesauce, rice, lean meats, toast, and crackers. ? Avoid drinking fluids that contain a lot of sugar or caffeine, such as energy drinks, regular sports drinks, and soda. ? Avoid alcohol. ? Avoid spicy or fatty foods. General instructions ? Take ysgn-jnf-njinktn and prescription medicines only as told by [...] water are not available, use alcohol-based hand dynamicist. ? Keep all follow-up visits. This is [...] ? Deve (more content not included)... Normal [facility] Grp A Strp PCRon 10-29-2023 Grp A Strp Intrl Ctrl Pass Normal Fis her [facility] Comment on above: Performed By: #### 1 [id number] ####[facility] [address] [place] [address] S. pyogenes DNA ARNIE+probe Ql (Throat) Negative Normal [facility] Comment on above: Result Comment: Test ing performed using DNA amplification. Performed By: #### 1 [id number] ####[facility] [address] [place] [address] Family Medicine Office/Clini c Noteon 10-27-2023 Family [...] cough, 240 mL, Refill(s) 0, [facility] #[id number], 164, cm, 10/27/23 13:44:00 EST, Height/Length Dosing, 101, kg, 10/27/23 13:44:00 EST, Weight Dosing predniSONE, See Instructions, 2 po QAM x4 days, then 1 po QAM x4 days, # 12 tab(s), Refills(s) 0, Pharmacy: [facility] #[id number], 164, cm, 10/27/23 13:44:00 EST, Height/Length Dosing, 101, kg, 10/27/23 13:44:00 EST, Weight Dosing 2. Sore throat (J02.9: Acute pharyngitis, unspecified) Ordered: dextromethorphan-pr omethazine, 5 mL, Oral, q6hr for cough, 240 mL, Refill(s) 0, [facility] #[id number], 164, cm, 10/27/23 13:44:00 EST, Height/Length Dosing, 101, kg, 10/27/23 13:44:00 EST, Weight Dosing predniSONE, See Instructions, 2 po QAM x4 days, then 1 po QAM x4 days, # 12 tab(s), Refills(s) 0, Pharmacy: [facility] #[id number], 164, cm, 10/27/23 13:44:00 EST, Height/Length Dosing, 101, kg, 10/27/23 13:44:00 EST, Weight Dosing Group A Strep by PCR Influenza Type A&B POC 80575 Rapid Strep POC 44674 3. BMI 37.0-37.9, adult (Z68.37: Body mass index [BMI] 37.0-37.9, adult) Ordered: dextromethorphan-pr omethazine, 5 mL, Oral, q6hr for cough, 240 mL, Refill(s) 0, [facility] #[id number], 164, cm, 10/27/23 13:44:00 EST, Height/Length Dosing, 101, kg, 10/27/23 13:44:00 EST, Weight Dosing predniSONE, See Instructions, 2 po QAM x4 days, then 1 po QAM x4 days, # 12 tab(s), Refills(s) 0, Pharmacy: [facility] #[id number], 164, cm, 10/27/23 13:44:00 EST, Height/Length Dosing, [...] not exe (more content not included)... Normal [facility] Comment on above: Result Comment: Elec tronically Signed By: Lai BOYD, Boo WLeilani\.br\Date and Time Signed: 10/27/23 14:06 EST Patient Letter FTon 2023 Patient Letter [facility] [address], [place] [address] October 27, 2023 ERIKA NEWMAN [address] [place] [address] : 1990 Please excuse ERIKA NEWMAN from work . Date and/or Time of Absence: From: 10/26/2023 To: 10/30/2023 May return to work on: 10/31/2023 Restrictions: None Comments: Please excuse due to an acute illness. Provider Signature: Boo Hoyt PA-C Physician Pharmacy Technician Trainee [address] [address] [place] [address] Normal [facility] AFP, SERUM, OPEN SPINA BIFID Aon 10-26-2023 AFP MOM 0.65 . [facility] AFP VALUE 24.1 ng/mL . [facility] COMMENT: Comment . [facility] Comment on above: Zulema Farr , Ph.D., [facility] Director References: Available Upon Request. Multiples Of Median Cutoffs For AFP Elevations Pham 2.5 Black 2.8 IDD 2.0 Twins 4.5 Abbreviation Definitions IDD - Insulin Dep Diabetes OSBR - Open Spina Bifida Risk For further inquiries contact [employer] [facility] at [phone]. This test was developed and its performance characteristics determined by [employer]. It has not been cleared or approved by the Food and Drug Administration. Performed at: [facility] [place], [place] [id number] Shaper Set Up Operator: Marita Duggan [facility]ly [facility], Phone: [phone] GEST. AGE ON COLLECTION DATE 18.4 . weeks [facility] GESTAT. AGE BASED ON As provided . [facility] Comment on above: Recalculations are n ot recommended when gestational dating by LMP and ultrasound are within 10 days. INSULIN DEP DIABETES No . [facility] INTERPRETATION Comment . [facility] Comment on above: Interpretation: Scre en Negative [...] Customer Services to discuss available options. The [place] [employer] recommends amniocentesis be offered to women age 35 and older. [age]ER[age] [facility] MULTIPLE GESTATION No . [facility] OSBR RISK [address] [place] [address] . [facility] RACE . [facility] RESULTS Report . [facility] TEST RESULTS: Negative . [facility] WEIGHT 215 . lbs [facility] N [id number] 3 16 N 1 Y 215 White/ [facility] CT Abdomen w/ Contraston CT Abdomen w/ [...] Oral contrast amount in ml's: 900 Normal [facility] Consent for Treatmenton 01-16 Consent for Treatment [id number] Normal [facility] Medicine Office/Clini c Noteon 02-01-2023 [facility] Medicine Office/Clinic Note Chief Complaint See [...] Information Shantell Parker PA-C Only if needed [address] [place] [phone] Additional Instructions: Patient Education BMI for Adults [...] metroNIDAZOLE (Hives) (more content not included)... Normal [facility] Comment on above: Result Comment: Elec [...] numbers. This can be done either in Greek (U.S.) or metric measurements. Note that charts and online BMI calculators are available to help you find your BMI quickly and easily without having to do these calculations yourself. To calculate your BMI in Greek (U.S.) measurements: 1. Measure your weight in [...] for Disease Control and Prevention: www.cdc.gov ? [place] Heart Association: www.heart.org ? National Heart, Lung, and Blood [place]: www.nhlbi.nih.gov Summary ? Body mass index (BMI) is a number that is calculated from a person's weight and height. ? BMI may help estimate how much of a person's weight is composed of fat. BMI can help identify those who may be at higher risk for certain medical problems. ? BMI can be measured using Greek measurements or metric measurements. ? BMI charts are used to identify whether you are underweight, normal weight, overweight, or obese. This information is not intended to replace advice given to you by your health care provider. Make sure you discuss any questions you have with your health care provider. Document Revised: 05/26/2020 Document Reviewed: 04/02/2020 [employer] Patient Education ? 2022 [employer]. Budget-Friendly Healthy Eating There are many ways [...] Nonfat. ? (more content not included)... Normal [facility] Ambulatory Visit Summaryon 0 01-26-2023 Ambulatory Visit Summary TRENT ERIKA Rodriguez :1990 MRN: Visit Date:01/26/2023 Ambulatory Visit [...] bleeding (AUB) Screening for lipid disorders Normal [facility] Family Medicine Office/Clini c Noteon 12-11-2022 [...] aid with cough suppression. Advised to continue grdp-vlm-zuttlef remedies such as Mucinex, Sudafed, Tylenol or [...] Keith BOYD, Shantell Read Only if needed [address] [place] [phone] Additional Instructions: Patient Education Budget-Friendly Healthy Eating [...] lifetime) Tobacco (more content not included)... Normal [facility] Comment on above: Result Comment: Elec tronically Signed By: Shantell Parker PA-C.br\Date and Time Signed: 12/11/22 21:41 EDT Patient [...] fruits, and frozen vegetables. ? Avoid buying onxnq-wn-xnl foods, such as pre-cut fruits and vegetables [...] on a (more content not included)... Normal [facility] Ambulatory Visit Summaryon 0 12-07-2022 Ambulatory Visit Summary DEE DEE NEWMANChel Rodriguez :1990 MRN:[id number]-- Visit Date:12/07/2022 Ambulatory Visit Instructions [...] a day Duration: 10 Days [facility]24714 Changed albuterol (Albuterol (Eqv-ProAir HFA) 90 mcg/ inh inhalation aerosol) 2 Puffs Inhalation Every 6 hours [facility]up at [facility]10 Unchanged Misc Prescription (Alcohol Swabs) See instructions [...] blood sugar TID PRN E11.9 Pharm[facility] Information [facility]56511: [address], [place] [phone] What How Much When Comments Stop Taking [...] bleeding (AUB) Screening for lipid disorders Normal [facility] Ambulatory Visit Summary TRENT ERIKA Rodriguez :1990 Visit Date:12/07/2022 Ambulatory Visit Instructions [...] a day Duration: 10 Days Pickup at [facility] #84261 Changed albuterol (Albuterol (Eqv-ProAir HFA) 90 mcg/ inh inhalation aerosol) 2 Puffs Inhalation Every 6 hours Pickup at [facility] #55621 Unchanged Misc Prescription (Alcohol Swabs) See instructions [...] blood sugar TID PRN E11.9 Pharmacy Information [facility] #87930: [address], [place] [phone] What How Much When Comments Stop Taking [...] bleeding (AUB) Screening for lipid disorders Normal [facility] Provider Letteron 12-07-2022 Provider Letter December 07, 2022 ERIKA [address] [place] [address] To Whom It May Concern, Please excuse above patient from work. Date of Illness: From: _12/07/22 To: _ May Return to Work On: 12/08/22 Restrictions: _None Comments: _ Sincerely, Shantell BIRD Family Medicine [address] [address] Normal [facility] CHEMISTRYOrdered By: SYSTEM SYSTEM on 12-22-2021 [...] AM) Normal Negative [facility] UA Auto SS Rough And Ready.plasma/Lithiu m.RBC (Bld) [Mass ratio] 4-20 /HPF Normal 0-3/HPF [facility] UA Auto SS Nitrite Ql (U) Negative (12/22/21 10:10 AM) Normal Negative [facility] UA Auto SS pH (U) 5.5 *NA* (12/22/21 10:10 AM) Invalid Interpretation Code 5.0 - 9.0 [facility] UA Auto SS Protein (U) [Mass/Vol] 1+ *ABN* (12/22/21 10:10 AM) Invalid Interpretation Code Negative [facility] UA Auto SS Specific gravity (U) [Rel density] >=1.030 *NA* (12/22/21 10:10 AM) Invalid Interpretation Code 1.005 - 1.030 [facility] UA Auto SS UA Spec Desc Clean Catch (12/22/21 10:10 AM) Normal [facility] UA Auto SS Urobilinogen Qn (U) 0.9329883 {Ann'U}/dL Normal 0.0 - 1.0 EU/dL [facility] UA Auto SS WBC Auto Ql (U) Negative (12/22/21 10:10 AM) Normal Negative [facility]A Auto SS WBC LM.HPF (Urine sed) [#/Area] 0-5 /HPF Normal 0-5/HPF [facility] UA Auto SS Hemoglobin A1Con 12-07-2021 Glucose [Mass/Vol] 157 mg/dL Normal [facility] Comment on above: Result Comment: The ADA and AACC recommend providing the estimated average glucose result to permit better patient understanding of their HBA1c result. Performed By: #### G LYHGB #### [employer] [address] [place], [place] [id number] Shaper Set Up Operator: Suman Villalta MD HbA1c (Bld) [Mass fraction] 7.1 % High 4.0-6.[address] [facility] Comment on above: Performed By: #### G LYHGB #### [employer] [address] [place], [place] [id number] Shaper Set Up Operator: Suman Villalta MD Vital Signs Date Time Vital Sign Value Performing Clinician Facility 11-01-2023 15:29-0500 Blood Pressure Location Shantell Echeverriaer [facility] 11-01-2023 15:29-0500 Body temperature 98.24 [degF] Shantell Parker [facility] 11-01-2023 15:29-0500 Diastolic blood pressure 72 mm[Hg] Shantell Parker [facility] 11-01-2023 15:29-0500 Heart rate 103 /min Shantell Parker [facility] 11-01-2023 15:29-0500 Respiratory rate 18 /min Shantell Parker [facility] 11-01-2023 15:29-0500 SaO2% (BldA) [Mass fraction] 100 % Shantell Parker [facility] 11-01-2023 15:29-0500 Systolic blood pressure 124 mm[Hg] Shantell Parker [facility] 10-27-2023 13:41-0500 Blood Pressure Location Boo Hoyt [facility] 10-27-2023 13:41-0500 Body temperature 98.06 [degF] Boo Hoyt [facility] 10-27-2023 13:41-0500 Diastolic blood pressure 74 mm[Hg] Boo Hoyt [facility] 10-27-2023 13:41-0500 Heart rate 97 /min Boo Hoyt [facility] 10-27-2023 13:41-0500 SaO2% (BldA) [Mass fraction] 100 % Boo Hoyt [facility] 10-27-2023 13:41-0500 Systolic blood pressure 122 mm[Hg] Boo Hoyt [facility] 12-07-2022 13:53-0400 Blood Pressure Location Shantell Parker [facility] 12-07-2022 13:53-0400 Body temperature 98.24 [degF] Shantell Parker [facility] 12-07-2022 13:53-0400 Diastolic blood pressure 84 mm[Hg] Shantell Parker [facility] 12-07-2022 13:53-0400 Heart rate 60 /min Shantell Parker [facility] 12-07-2022 13:53-0400 Respiratory rate 20 /min Shantell Parker [facility] 12-07-2022 13:53-0400 SaO2% (BldA) [Mass fraction] 99 % Shantell Parker [facility] 12-07-2022 13:53-0400 Systolic blood pressure 128 mm[Hg] Shantell Parker [facility] 03-31-2022 16:19-0400 Blood Pressure Location Marlen MCDOWELL [facility] 03-31-2022 16:19-0400 Body temperature 98.06 [degF] Marlen MCDOWELL [facility] 03-31-2022 16:19-0400 Diastolic blood pressure 84 mm[Hg] Marlen MCDOWELL [facility] 03-31-2022 16:19-0400 Heart rate 88 /min [facility] 03-31-2022 16:19-0400 Respiratory rate 16 /min [facility] 03-31-2022 16:19-0400 SaO2% (BldA) [Mass fraction] 97 % 46elks [facility] 03-31-2022 16:19-0400 Systolic blood pressure 128 mm[Hg] 46elks [facility] Encounters Encounter Date Encounter Type Care Provider Facility Start: 03-10-2024 End: 03-10-2024 ambulatory JOEY MARIELY Not Available Start: 03-03-2024 End: 03-03-2024 ambulatory JOEY MARIELY [...] Start: 11-01-2023 End: 11-02-2023 ambulatory Shantell Parker Facility:[facility] Start: 11-01-2023 ambulatory Jeremy Chaconhortencia Faci lity:[facility] Becker Start: 11-01-2023 End: 11-01-2023 Patient encounter procedure Shantell Parker [facility] Start: 10-27-2023 End: 10-28-2023 ambulatory Boo Hoyt Facility:[facility] Start: 10-27-2023 End: 10-27-2023 Patient encounter procedure Boo Hoyt [facility] Start: 10-24-2023 Bamboo flowsheet Niharika BIRD Work Phone: [facility] Start: 10-24-2023 Bamboo flowsheet Niharika BIRD Work Phone: [facility] Start: 10-24-2023 [facility] Result Encounter Joey Mariely DO Work Phone: [facility] Unsolicited Start: 10-24-2023 End: 10-25-2023 ambulatory Shantell Parker Facility:[facility] Start: 10-24-2023 End: 10-24-2023 Patient encounter procedure Shantell Parker [facility] Start: 10-24-2023 End: 10-24-2023 Office outpatient visit 15 minutes Niharika BIRD Work Phone: [facility] Comment on above: Pruritus; Hives Start: 10-24-2023 End: 10-24-2023 ambulatory NIHARIKA NEWMAN Not Available Start: 10-10-2023 End: 10-10-2023 ambulatory JOEY MARIELY Not Available Start: 09-12-2023 End: 09-12-2023 ambulatory NIHARIKA NEWMAN Not Available Start: 08-17-2023 End: 08-17-2023 ambulatory NIHARIKA NEWMAN Not Available Start: 02-06-2023 End: 02-07-2023 ambulatory Shantell Parker Facility[facility] Start: 01-26-2023 End: 01-27-2023 ambulatory Shantell Parker [facility] Start: 12-07-2022 End: 12-08-2022 ambulatory Shantell Parker Facility:[facility] Start: 12-07-2022 End: 12-07-2022 Patient encounter procedure Shantell Parker [facility] Start: 03-31-2022 End: 03-31-2022 Patient encounter procedure Marlen MCDOWELL [facility] Start: 01-02-2022 End: 04-02-2022 Recurring Kenyatta VELASQUEZ [facility] Start: 12-22-2021 End: 12-22-2021 Lab Drop off [employer] [facility] Start: 12-07-2021 End: 12-08-2021 ambulatory GINGER Mejia [facility] Start: 12-05-2021 End: 12-05-2021 Patient encounter procedure Ana Garcia [facility] Procedures Date Procedure Procedure Detail Performing Clinician Start: 10-24-2023 AFP, SERUM, OPEN SPI NA BIFIDA Joey Mariely DO Work Phone: TM tube Ana Garcia Tonsillectomy and adenoidectomy Ana Radha Plan of Treatment Date Care Activity Detail Author Start: 11-07-2023 End: 11-07-2023 Patient encounter procedure 11/07/2023 10:50 AM EST Routine [facility] [address] [place] [address] Niharika Newman PA [address] [place] [address] [facility] Start: 11-07-2023 End: 11-07-2023 Professional / ancillary services management 11/07/2023 9:30 AM EST Ancillary Procedure [facility] [address] [place] [phone] [facility] Start: 10-24-2023 End: 10-24-2023 Patient encounter procedure 10/24/2023 9:50 AM EST Office Visit [facility] [address] [place] [phone] Niharika Newman PA [address] [address] Arrived [facility] Comment on above: Arrived Bile acids, total Bile acids, to rosa Lab Routine Pruritus Ordered: 10/24/2023 [facility] Work Phone: Comment on above: Ordered: 10/24/2023 Hepatic function 200 0 panel - Serum or Plasma Hepatic function panel Lab Routine Pruritus Ordered: 10/24/2023 [facility] Comment on above: Ordered: 10/24/2023 Immunizations Immunization Date Immunization Notes Care Provider Julian gregg 12-15-2012 tetanus toxoid, reduced diphtheria toxoid, and acellular pertussis vaccine, adsorbed Ana Radha [facility] Comment on above: Reason for Medicatio n: Other (see comment) 04-19-2006 tetanus toxoid, reduced diphtheria toxoid, and acellular pertussis vaccine, adsorbed Ana Radha [facility] NEGATED: Highlighted row has not occurred!12-07-2022 influenza virus vaccine, unspecified formulation Shantell Parker [facility] NEGATED: Highlighted row has not occurred!03-31-2022 SARS-CoV-2 mRNA (tozinameran 5y-11y) vaccine Marlen MCDOWELL [facility] NEGATED: Highlighted row has not occurred!09-16-2019 influenza virus vaccine, live, attenuated, for intranasal use Ana Garcia [facility] Payers Date Payer Category Payer Unknown RUBADELIA GOLDSMITH [employer] [id number] 2023-Present [phone] [address] [place] [address] [id number] 2023 Unknown [id number] 2023 Private Health Insurance [id number] 2014 Unknown [id number] 1990 Unknown [id number] [id number] .2.174 1990 Unknown [id number] 2.16.840.1.931502.3.579 .2.727 1990 Unknown [id number] 2.16.840.1.860394.3.579 .2.727 1989 Unknown [id number] 2.16.840.1.079501.3.579 .2.727 1989 Unknown [id number] 2.16.840.1.421485.3.579 .2.727 1989 Unknown [id number] 2.16.840.1.560029.3.579 .2.727 1989 Unknown [id number] 2.16.840.1.316621.3.579 .2.727 1989 Unknown [id number] 2.16.840.1.258144.3.579 .2.727 1989 Unknown [id number] 2.16.840.1.718264.3.579 .2.727 1990 Unknown [id number] 2.16.840.1.543585.3.579 .2.1259 1989 Unknown [id number] 2.16.840.1.692135.3.579 .2.1259 1989 Unknown [id number] 2.16.840.1.203174.3.579 .2.1259 1989 Unknown [id number] 2.16.840.1.131186.3.579 .2.1259 1989 Unknown [id number] 2.16.840.1.988649.3.579 .2.1259 1989 Unknown [id number] 2.16840.1.492569.3.579 .2.1259 1989 Unknown [id number] 2.16840.1.471200.3.579 .2.1259 1989 Unknown [id number] 2.16.840.1.043037.3.579 .2.1259 1989 Unknown [id number] 2.16.840.1.642906.3.579 .2.1259 1989 Unknown [id number] 2.16840.1.222257.3.579 .2.1259 1989 Unknown [id number] 2.16840.1.688115.3.579 .2.1259 1989 Unknown [id number] 2.16.840.1.758659.3.579 .2.1259 1989 Unknown [id number] 2.16840.1.432279.3.579 .2.1259 1989 Unknown [id number] 2.16840.1.129781.3.579 .2.1259 Private Health Insurance [id number] Self-pay Social History Date Type Detail Facility Start: 05-25-2021 End: 11-01-2023 Tobacco smoking status Never smoked tobacco (finding) [facility] Tobacco smoking status Never [facility] Sex Assigned At Female [facility] Tobacco smoking status NHIS Tobacco smoking consumption unknown [facility] Start: 07-01-2023 [facility] Start: 1990 Sex Assigned At Not on file N [facility] Medical Equipment Procedure Code Equipment Code [...] sugar TID PRN E11.9, [facility], Supply, 164, cm, 12/22/21 8:44:00 EDT, Height/Length Dosing, 126.7, kg, 12/22/21 8:44:00 EDT, Weight Dosing Start: 12-22-2021 Functional Status Date Assessment Result Facility 11-01-2023 Functional Status N/A [facility] 10-27-2023 Functional Status N/A [facility] 12-07-2022 Functional Status N/A [facility] 03-31-2022 Functional Status N/A [facility] Discharge instructions 11-01-2023 Note Date & [...] Your health care provider may recommend: Taking hqlf-eyf-jjndewo medicines. Drinking plenty of fluids. In many [...] water, and low-calorie sports drinks. Eat bland, pkab-wd-hokozh foods in small amounts as you are able. These foods include bananas, applesauce, rice, lean meats, toast, and crackers. Avoid drinking fluids that contain a lot of sugar or caffeine, such as energy drinks, regular sports drinks, and soda. Avoid alcohol. Avoid spicy or fatty foods. General instructions Take apgj-oru-mptuzeu and prescription medicines only as told by [...] water are not available, use alcohol-based hand dynamicist. Keep all follow-up visits. This is important. [...] provider. Document Revised: 04/22/2021 Document Reviewed: 04/22/2021 [employer] Patient Education 2022 [employer]. [facility] [place] History of Present [...] of: MARGE Moreno documented in this encounter [facility] Discharge instructions 03-31-2022 Note Date & [...] 09/05/2004 Document Revised: 06/27/2019 Document Reviewed: 02/12/2017 [employer] Patient Education 2020 [employer]. Follow Up Care 03/31/2022 11:31:15 With:Eleazar MELCHOR Address: [address] [place] [address]- When: Unknown Comments:return as otherwise scheduled [facility] Evaluation + Plan note 12-23-2021 Laboratory Note Date & Type Note Facility 12-23-2021 Evaluation + Plan note Future Scheduled TestsTIBC Calculated 12/23/21Ferritin 12/23/21Folate Level 12/23/21Iron Level 12/23/21Vitamin B12 Level 12/23/21 [facility] Evaluation + Plan note Note Date & Type Note Facility Evaluation + Plan note No data available for this section [facility] Evaluation + Plan note Note Date & Type Note Facility Evaluation + Plan note Future Appointments Appointment Date:01/02/2022 09:00:00 AM Scheduled Provider:Bill ATKINSON REBECCA CHOE Megan K Location:[facility] Appointment Type:DM Diabetes Initial Assessment [address] (F Appointment Date:03/24/2022 09:00:00 AM Scheduled Provider:Eleazar MELCHOR Location:[facility] Moe Appointment Type: [facility] Evaluation note Note Date & Type Note Facility Evaluation note Diagnosis Pruritus Unspecified pruritic disorder Hives Unspecified urticaria documented in this encounter [facility] Discharge instructions Note Date & Type Note Facility Hospital Discharge instructions No data available for this section [facility] Progress note Note Date & Type Note Facility Progress note No data available for this section [facility] [place] Summary Purpose Family History No Family History [...] content) DATE CREATED AUTHOR 12/08/2021 Jackie Rosa [facility] DATE CREATED AUTHOR AUTHOR'S ORGANIZ ATION 11/07/2023 [facility] DATE CREATED AUTHOR AUTHOR'S ORGANIZ ATION 03/11/2024 [facility] EPIC Care Team (unrecognized sect ion and content) Personnel Name: Eleazar MELCHOR Address: [address] [place] [address] Personnel Name: Eleazar MELCHOR Address: [address] [place] [address] Personnel Name: Shantell Parker PA-C Address: Address: [address] [place] [address]- Personnel Name: Shantell Parker PA-C Address: Address: [address] [place] [address]- Personnel Name: Shantell Parker PA-C Address: Address: [address] [place] [address]- Personnel Name: Shantell Parker PA-C Address: Address: [address] [place] [address]- Reason for Visit (unrecogniz ed section and [...] BE BASED ON THE PRIMARY CLINICAL RECORDS. [facility] [employer] [facility]. provides no warranty or guarantee of the accuracy or completeness of information in this document.
== END 2024-03-13 18:55 | disposition home or self-care (01) | DRG 807 ==
PROVIDERS: Admitting Provider Obstetrics & Gynecology; Visit Provider Midwife
DX: O99.284 Endocrine, nutritional and metabolic diseases complicating childbirth (principal); Z37.0 Single live birth; E28.2 Polycystic ovarian syndrome; O99.02 Anemia complicating childbirth; Z3A.38 38 weeks gestation of pregnancy; Z23 Encounter for immunization; Z88.0 Allergy status to penicillin; Z88.8 Allergy status to other drugs, medicaments and biological substances; Z79.899 Other long term (current) drug therapy; O16.3 Unspecified maternal hypertension, third trimester
CPT/HCPCS: 36415; 51702; 80307; 85025; 85027; 86850; 86900; 86901; 93971; 96374; 96375; 96376; J2300; J2795

== ENCOUNTER 2024-06-09 19:29 | Outpatient (REF) | payer SELFPAY ==
--- OUTSIDE RECORDS SUMMARY | 2024-06-09 19:33 | XMS_ITS | CCD ---
Author Organization [facility] Care Team Providers Care Selling Manager Name Role Phone DEBBY Eleazar Paul Primary Care Physician GINGER COOLEY Referring Unavailable KENYATTA BARKER Primary Care Unavailable Shantell Praker Primary Care Physician Unavailable Primary Care Provider UnavailShantell Diaz Referring Unavailable Shantell Parker Attending Unavailable Shantell Parker Admitting Unavailable Boo Hoyt Attending Unavailable Boo oHyt Admitting Unavailable Jeremy Ortega Attending Unavailable Boo Hoyt Attending Unavailable Shantell Parker Attending Unavailable Shantell Parker Attending Unavailable Shantell Parker Attending Unavailable Sahntell Parker Attending Unavailable TRENT, NIHARIKA Attending Unavailable [...] metroNIDAZOLE; Translations: [metronidazole] Drug Allergy Weal (disorder) [facility] (4 sources) Penicillins Propensity to adverse reactions 3 [facility] Medications Current Medications Medication Drug Class(es) Dates Sig (Normalized) Sig (Original) [id number] 200 actuat albuterol 0.09 mg/actuat metered dose [...] blood sugar TID PRN, [facility] [facility], 164, cm, 12/22/21 8:44:00 EDT, [...] day(s), # 30 cap(s), Refills(s) 0, Pharmacy: [facility] #[id number], 164, cm, 12/07/22 13:57:00 EDT, Height/Length Dosing, [...] 28 cap(s), Refills(s) 0, Pharmacy: [facility], 164, cm, 03/31/22 16:32:00 EDT, Height/Length Dosing, 121.6, kg, 03/31/22 16:32:00 EDT, Weight Dosing Start Date: 03/31/22 Stop Date: 04/07/22 Status: Ordered dextromethorphan hydrobromide 3 mg/ml / promethazine hydrochloride 1.25 mg/ml oral solution (2 sources) Phenothiazine, Uncompetitive M-uxlqgk-K-asparta te Receptor Antagonist, Sigma-1 Agonist Start: 10-27-2023 take 5 mL by mouth every six hours for cough dextromethorphan-prom ethazine 15 mg-6.25 mg/5 mL Oral Syrup 5 mL 5 mL, Oral, q6hr for cough, 240 mL, Refill(s) 0, [id number], 164, cm, 10/27/23 13:44:00 EST, Height/Length Dosing, 101, kg, 10/27/23 13:44:00 EST, Weight Dosing Start Date: 10/27/23 Status: Ordered Glucometer (7 sources) Start: 12-22-2021 Glucometer Glucometer, See Instructions, 1 EA, 0, Glucometer to test blood sugar TID PRN E11.9, [facility], Supply, 164, cm, 12/22/21 8:44:00 EDT, [...] days, # 12 tab(s), Refills(s) 0, [id number], 164, cm, 10/27/23 13:44:00 EST, Height/Length Dosing, [...] - Use once daily prior to injection., [facility] #16, Supply, 164, cm, 12/22/21 8:44:00 EDT, [...] q6hr, 1 EA, Refill(s) 0, [id number], 164, cm, 11/01/23 15:38:00 EST, Height/Length Dosing, 97.5, kg, 11/01/23 15:38:00 EST, Weight Dosing Start Date: 11/01/23 Status: Ordered Start: 12-07-2022 take 1 dose by inhal ation every six hours Albuterol (Eqv-ProAir HFA) 90 mcg/inh inhalation aerosol 2 puff(s), Inhalation, q6hr, 1 EA, Refill(s) 1, [facility][id number], 164, cm, 12/07/22 13:57:00 EDT, Height/Length Dosing, [...] prefer broth. 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 If symptoms worsen, she will contact our [...] with voice recognition artificial intelligence software, specifically [employer], [employer] and or [employer]. Substitutions may have occurred due to the inherent limitations of voice recognition and artificial intelligence software. ATTESTATION: This note has been generated by re[employer]ounces and edited by Isaac Higgins, Quality Resource Analyst. Follow-up No qualifying data available Patient Education Influenza, Adult Problem List/Past Medical History (more content not included)... Normal [facility] Comment on above: Result Comment: Elec tronically Signed By: Shantell Parker PA-C\.br\Date and Time Signed: 11/06/23 06:36 EST\.br\Electronically Co-Signed By: Kamila Vogt\.br\Date and Time Co-Signed: 11/01/23 19:15 EST Ambulatory Visit Summaryon 0 11-01-2023 Ambulatory Visit Summary ERIKA NEWMAN :1990 Visit Date:11/01/2023 Ambulatory Visit Instructions [...] Puffs Inhalation Every 6 hours Pickup at [facility] #[id number] Unchanged aspirin (aspirin 81 mg oral capsule) [...] questions or concerns Pharmacy Information [facility] #[id number]: [address] [place], [place] [phone] Allergies metroNIDAZOLE (Hives) Problems Ongoing - Any [...] for choosing us for your care. Gagan [facility] Patient Educationon 11-01-19 Patient Education Infectious Disease [...] health care provider may recommend: ? Taking lhsc-why-ocbymjr medicines. ? Drinking plenty of fluids. In [...] and low-calorie sports drinks. ? Eat bland, rwow-vg-eilqsk foods in small amounts as you are able. These foods include bananas, applesauce, rice, lean meats, toast, and crackers. ? Avoid drinking fluids that contain a lot of sugar or caffeine, such as energy drinks, regular sports drinks, and soda. ? Avoid alcohol. ? Avoid spicy or fatty foods. General instructions ? Take zpmu-fwq-paibwck and prescription medicines only as told by [...] water are not available, use alcohol-based hand patient service representative. ? Keep all follow-up visits. This is [...] (more content not included)... Normal [facility] Grp A Strp PCRon 10-29-2023 Grp A Strp Intrl Ctrl Pass Normal Fis her [facility] Comment on above: Performed By: #### 1 [id number] ####[facility] [id number] [place] [address] S. pyogenes DNA ARNIE+probe Ql (Throat) Negative Normal [facility] Comment on above: Result Comment: Test ing performed using DNA amplification. Performed By: #### 1 [id number] ####[facility] [id number] [place] [address] Family Medicine Office/Clini c Noteon 10-27-2023 Family [...] cough, 240 mL, Refill(s) 0, [id number], 164, cm, 10/27/23 13:44:00 EST, Height/Length Dosing, 101, kg, 10/27/23 13:44:00 EST, Weight Dosing predniSONE, See Instructions, 2 po QAM x4 days, then 1 po QAM x4 days, # 12 tab(s), Refills(s) 0, Pharmacy: [facility] #[id number], 164, cm, 10/27/23 13:44:00 EST, Height/Length Dosing, 101, kg, 10/27/23 13:44:00 EST, Weight Dosing 2. Sore throat (J02.9: Acute pharyngitis, unspecified) Ordered: dextromethorphan-pr omethazine, 5 mL, Oral, q6hr for cough, 240 mL, Refill(s) 0, [facility] #[id number], 164, cm, 10/27/23 13:44:00 EST, Height/Length Dosing, 101, kg, 10/27/23 13:44:00 EST, Weight Dosing predniSONE, See Instructions, 2 po QAM x4 days, then 1 po QAM x4 days, # 12 tab(s), Refills(s) 0, Pharmacy: [facility] #[id number], 164, cm, 10/27/23 13:44:00 EST, Height/Length Dosing, 101, kg, 10/27/23 13:44:00 EST, Weight Dosing Group A Strep by PCR Influenza Type A&B POC 28579 Rapid Strep POC 92705 3. BMI 37.0-37.9, adult (Z68.37: Body mass index [BMI] 37.0-37.9, adult) Ordered: dextromethorphan-pr omethazine, 5 mL, Oral, q6hr for cough, 240 mL, Refill(s) 0, [facility] #[id number], 164, cm, 10/27/23 13:44:00 EST, Height/Length Dosing, 101, kg, 10/27/23 13:44:00 EST, Weight Dosing predniSONE, See Instructions, 2 po QAM x4 days, then 1 po QAM x4 days, # 12 tab(s), Refills(s) 0, Pharmacy: [facility] #[id number], 164, cm, 10/27/23 13:44:00 EST, Height/Length Dosing, [...] (more content not included)... Normal [facility] Comment on above: Result Comment: Elec tronically Signed By: Lai BOYD, Boo WLeilani\.br\Date and Time Signed: 10/27/23 14:06 EST Patient Letter FTon 2023 Patient Letter [facility] [address], [place] [address] October 27, 2023 ERIKA NEWMAN [address] [place] [address] : 1990 Please excuse ERIKA NEWMAN from work . Date and/or Time of Absence: From: 10/26/2023 To: 10/30/2023 May return to work on: 10/31/2023 Restrictions: None Comments: Please excuse due to an acute illness. Provider Signature: Boo Hoyt PA-C Physician Sensor Specialist [facility] [address] [address] Normal [facility] AFP, SERUM, OPEN SPINA BIFID Aon 10-26-2023 AFP MOM 0.65 . [facility] AFP VALUE 24.1 ng/mL . [facility] COMMENT: Comment . [facility] Comment on above: Zulema Farr , Ph.D., [facility] Director References: Available Upon Request. Multiples Of Median Cutoffs For AFP Elevations Pham 2.5 Black 2.8 IDD 2.0 Twins 4.5 Abbreviation Definitions IDD - Insulin Dep Diabetes OSBR - Open Spina Bifida Risk For further inquiries contact [facility] at [phone]. This test was developed and its performance characteristics determined by [employer] It has not been cleared or approved by the Food and Drug Administration. Performed at: [facility] [address] [place], [place] [id number] Measurement Coordinator: Marita Duggan [facility], Phone: [phone] GEST. AGE ON COLLECTION DATE 18.4 . weeks [facility] GESTAT. AGE BASED ON As provided . [facility] Comment on above: Recalculations are n ot recommended when gestational dating by LMP and ultrasound are within 10 days. INSULIN DEP DIABETES No . [facility] INTERPRETATION Comment . [facility] Comment on above: Interpretation: [...] Customer Services to discuss available options. The [employer] recommends amniocentesis be offered to women age 35 and older. [age] [facility] MULTIPLE GESTATION No . [facility] [place] [place] [address] . [facility] RACE . [facility] RESULTS Report . [facility] TEST RESULTS: Negative . [facility] WEIGHT 215 . lbs [facility] N [id number] 3 16 N 1 Y 215 White/ [facility] CT Abdomen w/ Contraston [...] amount in ml's: 900 Normal [facility] Consent for Treatmenton 01-16 Consent for Treatment [id number] Normal [facility] Medicine Office/Clini c Noteon 02-01-2023 [...] With When Contact Information Shantell Parker PA-C if needed [address] [place] [phone] Additional Instructions: Patient Education BMI for Adults [...] (more content not included)... Normal [facility] Comment on above: Result Comment: Elec tronically Signed By: Shantell Parker PA-C\.br\Date and Time Signed: 02/01/23 11:16 EDT Patient [...] numbers. This can be done either in Spanish (U.S.) or metric measurements. Note that charts and online BMI calculators are available to help you find your BMI quickly and easily without having to do these calculations yourself. To calculate your BMI in Spanish (U.S.) measurements: 1. Measure your weight in [...] for Disease Control and Prevention: www.cdc.gov ? [place] Heart Association: www.heart.org ? National Heart, Lung, and Blood Lowell: www.nhlbi.nih.gov Summary ? Body mass index (BMI) is a number that is calculated from a person's weight and height. ? BMI may help estimate how much of a person's weight is composed of fat. BMI can help identify those who may be at higher risk for certain medical problems. ? BMI can be measured using Spanish measurements or metric measurements. ? BMI charts are used to identify whether you are underweight, normal weight, overweight, or obese. This information is not intended to replace advice given to you by your health care provider. Make sure you discuss any questions you have with your health care provider. Document Revised: 05/26/2020 Document Reviewed: 04/02/2020 [employer] Patient Education ? 2022 Sonar.me. Budget-Friendly Healthy Eating There are many ways [...] (more content not included)... Normal [facility] Ambulatory Visit Summaryon 0 01-26-2023 Ambulatory Visit Summary DEE DEE NEWMANChel Rodriguez :1990 Visit Date:01/26/2023 Ambulatory Visit Instructions [...] Screening for lipid disorders Normal [facility] Family Medicine Office/Clini c Noteon 12-11-2022 Family [...] aid with cough suppression. Advised to continue rdlp-nts-wpcixxm remedies such as Mucinex, Sudafed, Tylenol or [...] BOYD, Shantell Read Only if needed [address] [place] [phone] Additional Instructions: Patient Education Budget-Friendly Healthy Eating [...] lifetime) Tobacco (more content not included)... Normal [facility] Comment on above: Result Comment: Elec tronically Signed By: Keith BOYD, Shantell Sutherland.br\Date and Time Signed: 12/11/22 21:41 EDT Patient [...] fruits, and frozen vegetables. ? Avoid buying gdddd-km-yaj foods, such as pre-cut fruits and vegetables and pre-made salads. ? If possible, shop around to discover where you can find the best prices. Consider other retailers such as dollar stores, larger wholesale stores, local fruit and vegetable [employer], and Campus[employer]ap markets. ? Do not shop when you [...] (more content not included)... Normal [facility] Ambulatory Visit Summaryon 0 12-07-2022 Ambulatory Visit [...] a day Duration: 10 Days [facility] #[id number] Changed albuterol (Albuterol (Eqv-ProAir HFA) 90 mcg/ inh inhalation aerosol) 2 Puffs Inhalation Every 6 hours Pick[facility] at [facility] #58746 Unchanged Misc Prescription (Alcohol Swabs) See instructions [...] blood sugar TID PRN E11.9 Pharmacy Information [facility] #73749: [address] [place], [place] [phone] What How Much When Comments Stop Taking [...] bleeding (AUB) Screening for lipid disorders Gagan [facility] Ambulatory Visit Summary ERIKA NEWMAN :1990 Visit Date:12/07/2022 Ambulatory Visit Instructions Your Diagnosis Acute bronchitis, viral Adult BMI 37.0-37.9 kg/sq m Obesity due to excess calories Your Care Team Attending Physician - Shantell Parker PA-C Primary Care Physician - Parker PA-C, Shantell E. This Is Your Medications List Misc Prescription [...] a day Duration: 10 Days Pickup at [facility] #67272 Changed albuterol (Albuterol (Eqv-ProAir HFA) 90 mcg/ inh inhalation aerosol) 2 Puffs Inhalation Every 6 hours Pickup at [facility] #26426 Unchanged Misc Prescription (Alcohol Swabs) See instructions [...] blood sugar TID PRN E11.9 Pharmacy Information [facility] #81361: [address] [place], [place] [phone] What How Much When Comments Stop Taking [...] Screening for lipid disorders Normal [facility] Provider Letteron 12-07-2022 Provider Letter December 07, 2022 ERIKA [address] [place] [address] To Whom It May Concern, Please excuse above patient from work. Date of Illness: From: _12/07/22 To: _ May Return to Work On: 12/08/22 Restrictions: _None Comments: _ Sincerely, Shantell BIRD Family Medicine [address] [address] Normal [facility] CHEMISTRYOrdered By: SYSTEM SYSTEM on 12-22-2021 Albumin [...] Normal >=59mL/min/1. 73 m2 [facility] Chem S Globulin (S) [Mass/Vol] 3.1 g/dL [...] [Mass/Vol] Negative (12/22/21 10:10 AM) Normal Negative FT UA Auto SS [place].plasma/Lithiu m.RBC (Bld) [Mass ratio] 4-20 /HPF Normal [...] Desc Clean Catch (12/22/21 10:10 AM) Normal [facility] UA Auto SS Urobilinogen Qn (U) [id number] {Ann'U}/dL Normal 0.0 - 1.0 EU/dL FT UA Auto SS WBC Auto Ql (U) Negative (12/22/21 10:10 AM) Normal Negative [facility]A Auto SS WBC LM.HPF (Urine sed) [#/Area] 0-5 /HPF Normal 0-5/HPF [facility] UA Auto SS Hemoglobin A1Con 12-07-2021 Glucose [Mass/Vol] 157 mg/dL Normal [facility] Comment on above: Result Comment: The ADA and AACC recommend providing the estimated average glucose result to permit better patient understanding of their HBA1c result. Performed By: #### G LYHGB #### [facility] [address] [place], [place] [id number] Measurement Coordinator: Suman Villalta MD HbA1c (Bld) [Mass fraction] 7.1 % High 4.0-6.0 [facility] Comment on above: Performed By: #### G LYHGB #### [facility] [address] [place], [place] [id number] Measurement Coordinator: Suman Villalta MD Vital Signs Date Time Vital Sign Value Performing Clinician Facility 11-01-2023 15:29-0500 Blood Pressure Location Shantell Parker [facility] 11-01-2023 15:29-0500 Body temperature 98.24 [degF] Shantell Parker [facility] 11-01-2023 15:29-0500 Diastolic blood pressure 72 mm[Hg] Shantell Parker [facility] 11-01-2023 15:29-0500 Heart rate 103 /min Shantell Parker [facility] 11-01-2023 15:29-0500 Respiratory rate 18 /min Shantell Parker [facility] 11-01-2023 15:29-0500 SaO2% (BldA) [Mass fraction] 100 % Shantell Parker [facility] 11-01-2023 15:29-0500 Systolic blood pressure 124 mm[Hg] Shantell Parker [facility] 10-27-2023 13:41-0500 Blood Pressure Location Boo Hoyt [facility] 10-27-2023 13:41-0500 Body temperature 98.06 [degF] Boo Hoyt [facility] 10-27-2023 13:41-0500 Diastolic blood pressure 74 mm[Hg] Boo Hoyt [facility] 10-27-2023 13:41-0500 Heart rate 97 /min Boo Hoyt [facility] 10-27-2023 13:41-0500 SaO2% (BldA) [Mass fraction] 100 % Boo Hoyt [facility] 10-27-2023 13:41-0500 Systolic blood pressure 122 mm[Hg] Boo Hoyt [facility] 12-07-2022 13:53-0400 Blood Pressure Location Shantell Parker [facility] 12-07-2022 13:53-0400 Body temperature 98.24 [degF] Shantell Parker [facility] 12-07-2022 13:53-0400 Diastolic blood pressure 84 mm[Hg] Shantell Parker [facility] 12-07-2022 13:53-0400 Heart rate 60 /min Shantell Parker [facility] 12-07-2022 13:53-0400 Respiratory rate 20 /min Shantell Parker [facility] 12-07-2022 13:53-0400 SaO2% (BldA) [Mass fraction] 99 % Shantell Parker [facility] 12-07-2022 13:53-0400 Systolic blood pressure 128 mm[Hg] Shantell Parker [facility] 03-31-2022 16:19-0400 Blood Pressure Location Marlen MCDOWELL [facility] 03-31-2022 16:19-0400 Body temperature 98.06 [degF] Marlen MCDOWELL [facility] 03-31-2022 16:19-0400 Diastolic blood pressure 84 mm[Hg] Eyesquad [facility] [place] 03-31-2022 16:19-0400 Heart rate 88 /min [facility] [place] 03-31-2022 16:19-0400 Respiratory rate 16 /min [facility] [place] 03-31-2022 16:19-0400 SaO2% (BldA) [Mass fraction] 97 % [facility] [place] 03-31-2022 16:19-0400 Systolic blood pressure 128 mm[Hg] Eyesquad [facility] [place] Encounters Encounter Date Encounter Type Care Provider Facility Start: 05-15-2024 End: 05-15-2024 ambulatory JOEY MARIELY Not Available Start: 05-13-2024 End: 05-13-2024 ambulatory JOEY MARIELY Not Available Start: 04-22-2024 End: 04-22-2024 ambulatory NIHARIKA TRENT Not Available Start: 03-10-2024 End: 03-10-2024 ambulatory JOEY MARIELY [...] Available Start: 01-02-2024 End: 01-02-2024 ambulatory NIHARIKA NEWMAN Not Available Start: 12-05-2023 End: 12-05-2023 ambulatory JOEY MARIELY Not Available Start: 11-07-2023 End: 11-07-2023 ambulatory NIHARIKA NEWMAN Not Available Start: 11-01-2023 End: 11-02-2023 ambulatory Shantell Parker Facility: [facility] Start: 11-01-2023 ambulatory Jeremy Ortega Faci lity:[facility] Start: 11-01-2023 End: 11-01-2023 [facility] Start: 10-27-2023 End: 10-28-2023 ambulatory Boo Hoyt Facility:[facility] Start: 10-27-2023 End: 10-27-2023 Patient encounter procedure Boo Hoyt [facility] Start: 10-24-2023 Bamboo flowsheet Niharika BIRD Work Phone: [facility] Start: 10-24-2023 Bamboo flowsheet Niharika BIRD Work Phone: [facility] Start: 10-24-2023 [facility] Result Encounter Joey Mariely DO Work Phone: [facility] Unsolicited Start: 10-24-2023 End: 10-25-2023 ambulatory Shantell Parker Facility: [facility] Start: 10-24-2023 End: 10-24-2023 [facility] Start: 10-24-2023 End: 10-24-2023 Office outpatient visit 15 minutes Niharika BIRD Work Phone: [facility] Comment on above: Pruritus; Hives Start: 10-24-2023 End: 10-24-2023 ambulatory NIHARIKA NEWMAN Not Available Start: 10-10-2023 End: 10-10-2023 ambulatory JOEY SCHUSTER Not Available Start: 09-12-2023 End: 09-12-2023 ambulatory NIHARIKA NEWMAN Not Available Start: 08-17-2023 End: 08-17-2023 ambulatory NIHARIKA NEWMAN Not Available Start: 02-06-2023 End: 02-07-2023 ambulatory Shantell Parker Facility:[facility] Start: 01-26-2023 End: 01-27-2023 [facility]ulatory [facility] Start: 12-07-2022 End: 12-08-2022 ambulatory Shantell Parker Facility:[facility] Start: 12-07-2022 End: 12-07-2022 Patient encounter procedure Shantell Parker [facility] [place] Start: 03-31-2022 End: 03-31-2022 Patient encounter procedure Marlen MCDOWELL [facility] Start: 01-02-2022 End: 04-02-2022 Recurring Kenyatta Paul DONNAMILLER [facility] Start: 12-22-2021 End: 12-22-2021 Lab Drop off Kenyatta A DONNAMILLER [facility] Start: 12-07-2021 End: 12-08-2021 [facility] Start: 12-05-2021 End: 12-05-2021 Patient encounter procedure Ana Garcia [facility] Procedures Date Procedure Procedure Detail Performing Clinician Start: 10-24-2023 AFP, SERUM, OPEN SPI NA BIFIDA Joey Schustre DO Work Phone: TM tube Ana Radha Tonsillectomy and adenoidectomy Ana Radha Plan of Treatment Date Care Activity Detail Author Start: 11-07-2023 End: 11-07-2023 Patient encounter procedure 11/07/2023 10:50 AM EST [facility] [address] [place] [id number] Niharika Newman PA [address] [place], [place] [id number] [facility] Start: 11-07-2023 End: 11-07-2023 Professional / ancillary services management 11/07/2023 9:30 AM EST Ancillary Procedure [facility] [address] [place] [phone] [facility] Start: 10-24-2023 End: 10-24-2023 Patient encounter procedure 10/24/2023 9:50 AM EST Office Visit [facility] [address] [place] [address] Niharika Newman, PA [address] [place], [place] [phone] Arrived [facility] Comment on above: Arrived Bile acids, total Bile acids, to rosa Lab Routine Pruritus Ordered: 10/24/2023 [facility] Work Phone: Comment on above: Ordered: 10/24/2023 Hepatic function 200 0 panel - Serum or Plasma Hepatic function panel Lab Routine Pruritus Ordered: 10/24/2023 [facility] Comment on above: Ordered: 10/24/2023 Immunizations Immunization Date Immunization Notes Care Provider Fa marysol 12-15-2012 tetanus toxoid, reduced diphtheria toxoid, and acellular pertussis vaccine, adsorbed Ana Radha [facility] Comment on above: Reason for Medicatio n: Other (see comment) 04-19-2006 tetanus toxoid, reduced diphtheria toxoid, and acellular pertussis vaccine, adsorbed Anacarlos Garcia [facility] NEGATED: Highlighted row has not occurred!12-07-2022 influenza virus vaccine, unspecified formulation Shantell Parker [facility] NEGATED: Highlighted row has not occurred!03-31-2022 SARS-CoV-2 mRNA (tozinameran 5y-11y) vaccine Marlen MCDOWELL [facility] [place] NEGATED: Highlighted row has not occurred!09-16-2019 influenza virus vaccine, live, attenuated, for intranasal use Ana Garcia [facility] Payers Date Payer Category Payer Unknown [id number] 2023 Unknown RUPAL GOLDSMITH [employer]NOR [employer] [id number] 2023-Present [phone] [address] [place] [address] [id number] .2.7.3.709343.315 2023 Unknown [id number] 2023 Private Health Insurance [id number] 2014 Unknown [id number] 1989 Unknown [id number] 2.16.840.1.691327.3.579 .2.174 1989 Unknown [id number] 2.16.840.1.551961.3.579 .2.727 1989 Unknown [id number] 2.16.840.1.239226.3.579 .2.727 1989 Unknown [id number] 2.16.840.1.231561.3.579 .2.727 1989 Unknown [id number] 2.16.840.1.488832.3.579 .2.727 1989 Unknown [id number] 2.16840.1.187427.3.579 .2.727 1989 Unknown [id number] 2.16840.1.073985.3.579 .2.727 1989 Unknown [id number] 2.840.1.556452.3.579 .2.727 1989 Unknown [id number] 2.16840.1.283419.3.579 .2.727 1989 Unknown [id number] 2.840.1.256502.3.579 .2.1258 1989 Unknown [id number] 2.840.1.947165.3.579 .2.1258 1989 Unknown [id number] 2840.1.654678.3.579 .2.1258 1989 Unknown [id number] 2.840.1.905773.3.579 .2.1259 1989 Unknown [id number] 2840.1.912517.3.579 .2.1258 1989 Unknown [id number] 2.840.1.618948.3.579 .2.1259 1989 Unknown [id number] 2840.1.529586.3.579 .2.125 1989 Unknown [id number] 2.16840.1.484310.3.579 .2.1259 1989 Unknown [id number] 2.16840.1.133332.3.579 .2.125 1989 Unknown [id number] 2.16840.1.228592.3.579 .2.1259 1989 Unknown [id number] 2.16840.1.852795.3.579 .2.1259 1989 Unknown [id number] 2.16840.1.899092.3.579 .2.1259 1989 Unknown [id number] 2.16.840.1.270500.3.579 .2.1259 1989 Unknown [id number] 2.16.840.1.511157.3.579 .2.1259 1989 Unknown [id number] 2.16.840.1.165449.3.579 .2.1259 1989 Unknown [id number] 2.16.840.1.093414.3.579 .2.1259 1989 Unknown [id number] 2.16.840.1.680970.3.579 .2.1259 Private Health Insurance [id number] Self-pay Social History Date Type Detail Facility Start: 05-25-2021 End: 11-01-2023 Tobacco smoking status Never smoked tobacco (finding) [facility] Tobacco smoking status Never [facility] Sex Assigned At Female [facility] Tobacco smoking status [facility] Tobacco smoking consumption unknown [facility] Start: 07-01-2023 [facility] Start: 1989 Sex Assigned At Not on file [facility] Medical Equipment Procedure Code Equipment Code Equipment Origin al Text Equipment Identifier Dates Lancets, See Instructions, 100 EA, 0, Test blood sugar TID PRN E11.9, [facility], cm, 12/22/21 8:44:00 EDT, Height/Length Dosing, [...] Assessment Result Facility 11-01-2023 Functional Status N/A [facility] 10-27-2023 Functional Status N/A [facility] 12-07-2022 Functional Status N/A [facility] 03-31-2022 Functional Status N/A [facility] Hospital Discharge instructions 11-01-2023 Note [...] Your health care provider may recommend: Taking jcor-kfl-ngyzyiq medicines. Drinking plenty of fluids. In many [...] water, and low-calorie sports drinks. Eat bland, vggh-wa-blofgl foods in small amounts as you are able. These foods include bananas, applesauce, rice, lean meats, toast, and crackers. Avoid drinking fluids that contain a lot of sugar or caffeine, such as energy drinks, regular sports drinks, and soda. Avoid alcohol. Avoid spicy or fatty foods. General instructions Take hdhq-biz-dexfukd and prescription medicines only as told by [...] water are not available, use alcohol-based hand patient service representative. Keep all follow-up visits. This is important. [...] provider. Document Revised: 04/22/2021 Document Reviewed: 04/22/2021 [employer] Patient Education 2022 [employer] [facility] [place] History of Present illness Narrative 10-24-2023 MARGE [...] MARGE Moreno documented in this encounter [facility] Discharge instructions 03-31-2022 Note Date [...] 09/05/2004 Document Revised: 06/27/2019 Document Reviewed: 02/12/2017 [employer] Patient Education 2020 [employer] Follow Up Care 03/31/2022 11:31:15 With:Eleazar MELCHOR Address: [address] [place] [address]- When: Unknown Comments:[facility] 12-23-2021 Laboratory Note Date & Type Note Facility 12-23-2021 Evaluation + Plan note Future Scheduled TestsTIBC Calculated 12/23/21Ferritin 12/23/21Folate Level 12/23/21Iron Level 12/23/21Vitamin B12 Level 12/23/21 [facility] Evaluation + Plan note Note Date & Type Note Facility Evaluation + Plan note No data available for this section [facility] Evaluation + Plan note Note Date & Type Note Facility Evaluation + Plan note Future Appointments Appointment Date:01/02/2022 09:00:00 AM Scheduled Provider:Bill ATKINSON, ДМИТРИЙ, Erika FERNANDEZ Location:[facility] Appointment Type:DM Diabetes Initial Assessment [address] (F Appointment Date:03/24/2022 09:00:00 AM Scheduled Provider:Eleazar MELCHOR Location:[facility] Appointment Type: Open [facility] Evaluation note Note Date & Type Note Facility Evaluation note Diagnosis Pruritus Unspecified pruritic disorder Hives Unspecified urticaria documented in this encounter [facility] Hospital Discharge instructions Note Date & Type Note Facility Hospital Discharge instructions No data available for this section [facility] Progress note Note Date & Type Note Facility Progress note No data available for this section [facility] Summary Purpose Family History No Family [...] DATE CREATED AUTHOR AUTHOR'S ORGANIZ ATION 11/07/2023 [facility] DATE CREATED AUTHOR AUTHOR'S ORGANIZ ATION 05/15/2024 [facility] EPIC Care Team (unrecognized sect ion and content) Personnel Name: DEBBY Eleazar BIRD Address: [address] [place] [address] Personnel Name: DEBBY MARGE Eleazar Humberto Address: [address] [place] [address] Personnel Name: Shantell Parker PA-C Address: Address: [address] [place] [address]- Personnel Name: Shantell Parker PA-C Address: Address: [address] [place] [address]- Personnel Name: Shantell Parker PA-C Address: Address: [address] [place] [address]- Personnel Name: Shantell Parker PA-C Address: Address: [address] [place] [address]- Reason for Visit (unrecogniz ed section and [...] BE BASED ON THE PRIMARY CLINICAL RECORDS. [employer] provides no warranty or guarantee of the accuracy or completeness of information in this document.
== END 2024-06-09 19:30 | disposition home or self-care (01) ==
LOC: LAB 19:29
PROVIDERS: Visit Provider Obstetrics & Gynecology
DX: Z01.419 Encounter for gynecological examination (general) (routine) without abnormal findings (principal)
CPT/HCPCS: 87624; 88175

== ENCOUNTER 2025-07-01 19:01 | Outpatient (REF) | payer SELFPAY ==
--- OUTSIDE RECORDS SUMMARY | 2025-07-01 19:06 | XMS_ITS | CCD ---
Author Organization [facility] Inform ion [facility] Care Team Providers Care Automobile Rental Agent Name Role Phone Eleazar GUARDADO Primary Care Physician GINGER COOLEY Referring Unavailable KENYATTA BARKER Primary Care Unavailable Shantell Parker Primary Care Physician Unavailable Primary Care Provider Unavailabl e TRENT, NIHARIKA Attending Unavailable MARIELY, JOEY Attending [...] JOEY Attending Unavailable MARIELY, JOEY Attending Unavailable [facility], GENERIC Primary Care Physician Unavailab Boo Whitney. Admitting Unavailable Boo Hoyt Attending Unavailable Jeremy Ortega Attending Unavailable Boo Hoyt Attending Unavailable Freddy Shields Attending Unavailable Shantell Parker Attending Unavailable Shantell Parker Attending Unavailable Allergies Allergy Classification Reported Allergen(s) Allergy Type Date of Onset Reaction(s) Facility (17 sources) metroNIDAZOLE; Translations: [metronidazole] Drug Allergy 4 Weal (disorder), Hives [facility] (13 sources) Penicillins; Translations: [penicillins] Propensity to adverse reactions 3 Hives, Unknown [facility] Medications Current Medications Medication Drug Class(es) Dates Sig (Normalized) Sig (Original) [id number] 200 actuat albuterol 0.09 mg/actuat metered dose [...] Start Date: 05/26/21 Status: Ordered Alcohol Swabs (8 sources) Start: 12-22-2021 Alcohol Swabs Alcohol Swabs, See Instructions, 100 EA, 0, Alcohol swabs to use when testing blood sugar TID PRN, [facility], Supply, 164, cm, 12/22/21 8:44:00 EDT, Height/Length Dosing, 126.7, kg, 12/22/21 8:44:00 EDT, Weight Dosing Start Date: 12/22/21 Status: Ordered aspirin 81 mg oral capsule (2 sources) Platelet Aggregation Inhibitor, Nonsteroidal Anti-inflammatory Drug Start: 11-01-2023 take 1 mg by mouth every twenty-four hours aspirin 81 mg oral capsule mg cap(s), Oral, q24hr, Refills(s) 0 Start Date: 11/01/23 Status: Ordered benzonatate 100 mg oral capsule (2 sources) Non-narcotic Antitussive Start: 09-18-2024 End: 09-28-2024 take 1 capsule by mouth three times daily Tessalon 100 mg Cap 100 mg = 1 cap(s), Oral, TID, X 10 day(s), # 30 cap(s), Refills(s) 0, Pharmacy: [facility]16, 164, cm, 09/18/24 9:59:00 EST, Height/Length Dosing, 114.8, kg, 09/18/24 9:59:00 EST, Weight Dosing Start Date: 09/18/24 Stop Date: 09/28/24 Status: Ordered Start: 12-07-2022 End: 12-17-2022 take 1 capsule by mouth three times daily benzonatate 100 mg Cap 100 mg = 1 cap(s), Oral, TID, X 10 day(s), # 30 cap(s), Refills(s) 0, Pharmacy: [facility] #[id number], 164, cm, 12/07/22 13:57:00 EDT, Height/Length Dosing, 100.8, kg, 12/07/22 13:57:00 EDT, Weight Dosing Start Date: 12/07/22 Stop Date: 12/17/22 Status: Ordered cephalexin 500 mg oral capsule (2 sources) Cephalosporin Antibacterial Start: 03-31-2022 End: 04-07-2022 take 2 capsules by mouth twice daily Keflex 500 mg Cap 1,000 mg = 2 cap(s), Oral, BID, X 7 day(s), # 28 cap(s), Refills(s) 0, [facility]acy: [facility], 164, cm, 03/31/22 16:32:00 EDT, Height/Length Dosing, 121.6, kg, 03/31/22 16:32:00 EDT, Weight Dosing Start Date: 03/31/22 Stop Date: 04/07/22 Status: Ordered dextromethorphan hydrobromide 3 mg/ml / promethazine hydrochloride 1.25 mg/ml oral solution (3 sources) Phenothiazine, Uncompetitive N-bgpium-X-asparta te Receptor Antagonist, Sigma-1 Agonist Start: 10-27-2023 take 5 mL by mouth every six hours for cough dextromethorphan-prom ethazine 15 mg-6.25 mg/5 mL Oral Syrup 5 mL 5 mL, Oral, q6hr for cough, 240 mL, Refill(s) 0, [id number], 164, cm, 10/27/23 13:44:00 EST, Height/Length Dosing, 101, kg, 10/27/23 13:44:00 EST, Weight Dosing Start Date: 10/27/23 Status: Ordered Glucometer (8 sources) Start: 12-22-2021 Glucometer Glucometer, See Instructions, 1 EA, 0, Glucometer to test blood sugar TID PRN E11.9, [facility] , Supply, 164, cm, 12/22/21 8:44:00 EDT, Height/Length Dosing, 126.7, kg, 12/22/21 8:44:00 EDT, Weight Dosing Start Date: 12/22/21 Status: Ordered levonorgestrel 0.610285 mg/hr intrauterine system (6 sources) Progestin, Progestin-containi ng Intrauterine Device Start: 05-15-2024 End: 05-14-2029 Levonorgestrel intrauterine device 52 mg metFORMIN hydrochloride 1000 mg oral tablet (4 [...] 09/19/2024 Active predniSONE 20 mg oral tablet (3 sources) Start: 10-27-2023 take 2 tablets by mouth once daily in the morning, then take 1 tablet by mouth once daily in the morning predniSONE 20 mg Tab See Instructions, 2 po QAM x4 days, then 1 po QAM x4 days, # 12 tab(s), Refills(s) 0, [id number], 164, cm, 10/27/23 13:44:00 EST, Height/Length Dosing, 101, kg, 10/27/23 13:44:00 EST, Weight Dosing Start Date: 10/27/23 Status: Ordered Multivitamins (2 sources) Start: 11-01-2023 take 1 tablet by mouth [...] morning. 90 tablet 3 08/17/2023 08/16/2024 Active Promethazine (1 source) Phenothiazine Start: 09-18-2024 take 5 mL by mouth every six hours for cough Promethazine DM oral syrup 5 mL, Oral, q6hr for cough, 120 mL, Refill(s) 0, [facility], 164, cm, 09/18/24 9:59:00 EST, Height/Length Dosing, 114.8, kg, 09/18/24 9:59:00 EST, Weight Dosing Start Date: 09/18/24 Status: Ordered Single Use Alcohol Pad (8 sources) Start: 12-22-2021 Single Use Alcohol Pad Single Use Alcohol Pad, See Instructions, 100 EA, 1, Single Use Alcohol Pad - Use once daily prior to injection., [facility], Supply, 164, cm, 12/22/21 8:44:00 EDT, Height/Length Dosing, 126.7, kg, 12/22/21 8:44:00 EDT, Weight Dosing Start Date: 12/22/21 Status: Ordered Zinc (2 sources) Start: 11-01-2023 take 1 mg by mouth once daily Zinc mg, Oral, Daily, Refills(s) 0 Start Date: 11/01/23 Status: Ordered Completed/Discontinued Medications Medication Drug Class(es) Dates Sig (Normalized) Sig (Original) Albuterol (Eqv-ProAir HFA) 90 mcg/inh inhalation aerosol (4 sources) Start: 11-01-2023 take 1 dose by inhalation every six hours Albuterol (Eqv-ProAir HFA) 90 mcg/inh inhalation aerosol 2 puff(s), Inhalation, q6hr, 1 EA, Refill(s) 0, [facility] #[id number], 164, cm, 11/01/23 15:38:00 EST, Height/Length Dosing, 97.5, kg, 11/01/23 15:38:00 EST, Weight Dosing Start Date: 11/01/23 Status: Ordered Start: 12-07-2022 take 1 dose by inhal ation every six hours Albuterol (Eqv-ProAir HFA) 90 mcg/inh inhalation aerosol 2 puff(s), Inhalation, q6hr, 1 EA, Refill(s) 1, [facility] #[id number], 164, cm, 12/07/22 13:57:00 EDT, Height/Length Dosing, 100.8, kg, 12/07/22 13:57:00 EDT, Weight Dosing Start Date: 12/07/22 Status: Ordered citalopram 20 mg oral tablet (6 sources) Serotonin Reuptake Inhibitor Start: 04-22-2024 End: 10-19-2024 take 1 tablet by mouth once daily citalopram (CeleXA) 20 MG tablet Indications: 6 weeks follow-up Take 1 tablet (20 mg) by mouth Daily 30 tablet 5 04/22/2024 06/09/2024 Discontinued Vit-Fe Fumarate-FA ( Multivitamins) 28-0.8 MG tablet (6 sources) Start: 11-01-2023 End: 06-09-2024 Vit-Fe Fumarate-FA ( Multivitamins) 28-0.8 MG tablet Take by mouth 11/01/2023 06/09/2024 Discontinued Start: 11-01-2023 Vit-F e Fumarate-FA ( Multivitamins) 28- 0.8 MG tablet Take by mouth 11/01/2023 Active ProAir HFA 90 mcg/inh inhalation aerosol (2 [...] unspecified] 10-24-2023 Episodic Diabetes mellitus with complications (10 sources) Type 2 diabetes mellitus in obese; Translations: [Complication due to diabetes mellitus] Onset: 03-31-2022 12-22-2021 Chronic Genitourinary symptoms and ill-defined conditions (8 sources) Dysuria 12-22-2021 Episodic Headache; including migraine (9 sources) Migraine 02-11-2020 Chronic Influenza (2 sources) Influenza; Translations: [Influenza due to unidentified influenza virus with other respiratory manifestations] Onset: 10-27-2023 Episodic Other endocrine disorders (9 sources) Polycystic ovaries 12-07-2020 Chronic Other female genital disorders (7 sources) Abnormal uterine bleeding 03-31-2022 Chronic Other gastrointestinal disorders (9 sources) Irritable bowel syndrome 11-09-2020 Chronic Other inflammatory condition of skin (2 sources) Pruritus, unspecified; Translations: [Unspecified pruritic disorder] 10-24-2023 Episodic Other nutritional; endocrine; and metabolic disorders (10 sources) Body mass index 40+ - severely obese; Translations: [Body mass index (BMI) 45.0-49.9, adult] Onset: 03-31-2022 11-09-2020 Chronic Other nutritional; endocrine; and metabolic disorders (10 sources) Morbid obesity; Translations: [Morbid (severe) obesity due to excess calories] Onset: 03-31-2022 12-07-2020 Chronic Other nutritional; endocrine; and metabolic disorders (3 sources) Obese class II; Translations: [Body mass index (BMI) 37.0-37.9, adult] Onset: 12-07-2022 Chronic Other nutritional; endocrine; and metabolic disorders (2 sources) Obesity; Translations: [Other obesity due to excess calories] Onset: 12-07-2022 Chronic Other nutritional; endocrine; and metabolic disorders (2 sources) Body mass index 30+ - obesity 11-01-2023 Chronic Other nutritional; endocrine; and metabolic disorders (2 sources) Obesity caused by energy imbalance 11-01-2023 Chronic Other skin disorders (9 sources) Acanthosis nigricans 03-03-2019 Episodic Other upper respiratory infections (2 sources) Acute pharyngitis; Translations: [Acute pharyngitis, unspecified] Onset: 10-27-2023 Episodic Residual codes; unclassified (1 source) Gestation period, 19 weeks; Translations: [19 weeks gestation of ] Onset: 11-01-2023 Episodic Thyroid disorders (9 sources) Goiter 03-03-2019 Chronic Unclassified (1 source) Drug therapy finding 12-07-2020 Urinary tract infections (8 sources) Acute hemorrhagic cystitis; Translations: [Acute cystitis with hematuria] Onset: 03-31-2022 Episodic Past or Other Problems Problem Classification Problem Date Documented Date Episodic/Chronic Contraceptive and procreative management (4 sources) Patient encounter status; Translations: [Encounter for contraceptive management, unspecified] 05-13-2024 Episodic Unclassified (9 sources) Onset: 03-17-2012 Resolved: 12-13-2012 03-25-2015 Unclassified (8 sources) Patient encounter status 12-22-2021 Results Test Name Value Interpretation Reference Range Facility Ambulatory Visit Summaryon 0 09-18-2024 Ambulatory Visit Summary Ambulatory Visit Summary DEE DEE NEWMNAChel Rodriguez :1990 Visit Date:09/18/2024 Ambulatory Visit Instructions Your Diagnosis Acute URI Your Care Team Attending Physician - Cornelius MELLO, Freddy Richardson Primary Care Physician - [facility], GENER[facility] This Is Your Medications List Misc Prescription (Alcohol Swabs) Misc Prescription (Glucometer) Misc Prescription (Lancets) Misc Prescription (Single Use Alcohol Pad) Misc Prescription (Test strips) albuterol (Albuterol (Eqv-ProAir HFA) 90 mcg/inh inhalation aerosol) aspirin (aspirin 81 mg oral capsule) benzonatate (Tessalon 100 mg Cap) dextromethorphan-pro methazine (Promethazine DM oral syrup) dextromethorphan-pro methazine (dextromethorphan-pr omethazine 15 mg-6.25 mg/5 mL Oral Syrup 5 mL) multivitamin, ( Multivitamins) predniSONE (predniSONE 20 mg Tab) zinc sulfate (Zinc) Procedures Performed TM tube, Tonsillectomy and adenoidectomy. Discharge Vitals Temperature (Temporal Artery) 36.3 ???C Heart Rate (Peripheral) 96 Respiratory Rate 20 Blood Pressure 128/70 Height 164.0 cm Height 65 in Weight 114.8 kg Weight 253.09 lb BMI 42.68 Medications What How Much When Why Instructions New benzonatate (Tessalon 100 mg Cap) 1 Capsules By Mouth 3 times a day Duration: 10 Days Pickup at [facility] Changed dextromethorphan-pro methazine (dextromethorphan-pr omethazine 15 mg-6.25 mg/ 5 mL Oral Syrup 5 mL) 5 Milliliter By Mouth Every 6 hours as needed for for cough Influenza Sore throat BMI 37.0-37.9, adult Changed dextromethorphan-pro methazine (Promethazine DM oral syrup) 5 Milliliter By Mouth Every 6 hours as needed for for cough Pickup at [facility]16 Unchanged albuterol (Albuterol (Eqv-ProAir HFA) 90 mcg/ inh inhalation aerosol) 2 Puffs Inhalation Every 6 hours Unchanged aspirin (aspirin 81 mg oral capsule) By Mouth Every 24 hours Unchanged Misc Prescription (Alcohol Swabs) See [...] Test blood sugar TID PRN E11.9 Unchanged multivitamin, ( Multivitamins) 1 Tablets By Mouth Every day Unchanged predniSONE (predniSONE 20 mg Tab) See instructions Influenza Sore throat BMI 37.0-37.9, adult 2 po QAM x4 days, then 1 po QAM x4 days Unchanged zinc sulfate (Zinc) By Mouth Every day Pharmacy Information [facility]16: [address], [place] [id number] [phone] Allergies metroNIDAZOLE (Hives) penicillins (Hives, Unknown) Problems Ongoing - Any problem that you [...] for choosing us for your care. Normal [facility] Family Medicine Office/Clini c Noteon 09-18-2024 Family Medicine Office/Clinic Note Family Medicine Office/Clinic Note Chief Complaint sore throat, cough ,losing voice, no fever started 4-5 days ago. HPI Staff Patient present for Sore throat Onset:4-5 days ago Sinus congestion: Denies Swollen nodes: Denies Red/ white spots: Denies Fever/ Chills: Denies Body aches: Denies Nausea/ Vomiting: Denies Cough: Yes Ear pain: Yes OTC: Tylenol and Motrin, History of Present Illness sore throat, cough ,losing voice, no fever started 4-5 days ago. contacts child has a URI, has tried otc cold meds and honey and elderberry and not much help. doesn't to smoke or vape and no hx asthma. Review of Systems PHQ Score Initial Depression Screen Score: 0 SCORE Physical Exam Vitals & Measurements T: 36.3 ???C(Temporal Artery) HR: 96(Peripheral) RR: 20 BP: 128/70 SpO2: 96% HT: 65 in HT: 164.0 cm WT: 114.8 kg WT: 253.09 lb BMI: 42.68 GENERAL: NAD HEENT: Clear nasal congestion, mild erythema post pharynx, moderate TH no exudate NECK:no tmg, mild ant cervical LA, no masses CARDIAC: reg rate and rhythm, no mrcg LUNGS: clear to auscultation, no wheezes, rales, or rhonchi EXT: no edema MUSCULOSKELETAL: nl gait PSYCHIATRIC: alert and oriented x 3, nl speech and thought content, nl mood and affect Assessment/Plan 1. Acute URI (J06.9: Acute upper respiratory infection, unspecified) Likely viral infection. Recommend conservative care, plenty of rest and fluids, over the counter cold medications as appropriate PRN. Will typically worsen at day 2-3 of illness, then will gradually improve from there. If symptoms not improving or are worsening with time, let me know anuel. Need for testing and use of antivirals are limited to those with risk factors or clinical need. Orders: benzonatate, 100 mg = 1 cap(s), Oral, TID, X 10 day(s), # 30 cap(s), Refills(s) 0, Pharmacy: [facility]16, 164, cm, 09/18/24 9:59:00 EST, Height/Length Dosing, 114.8, kg, 09/18/24 9:59:00 EST, Weight Dosing dextromethorphan-pro methazine, 5 mL, Oral, q6hr for cough, 120 mL, Refill(s) 0, [facility], 164, cm, 09/18/24 9:59:00 EST, Height/Length Dosing, 114.8, kg, 09/18/24 9:59:00 EST, Weight Dosing Follow-up No qualifying data available Problem List/Past [...] mcg/inh inhalation aerosol, 2 puff(s), Inhalation, q6hr, Not taking Alcohol Swabs, See Instructions aspirin 81 mg oral capsule, Oral, q24hr, Not taking dextromethorphan-pro methazine 15 mg-6.25 mg/5 mL Oral Syrup 5 mL, 5 mL, Oral, q6hr, PRN, Not taking Glucometer, See Instructions Lancets, See Instructions predniSONE 20 mg Tab, See Instructions, Not taking Multivitamins, 1 tab(s), Oral, Daily Promethazine DM oral syrup, 5 mL, Oral, q6hr, PRN Single Use Alcohol Pad, See Instructions, 1 refills Tessalon 100 mg Cap, 100 mg= 1 cap(s), Oral, TID Test strips, See Instructions Zinc, Oral, Daily, Not taking Allergies metroNIDAZOLE (Hives) penicillins (Hives, Unknown) Social History Alcohol - Denies Alcohol Use, 12/13/2012 Employment/School Unemployed, 12/13/2012 Exercise - Does not exercise, 12/13/2012 Home/Environment Lives with Father, Mother. Living situation: Home/Independent. Alcohol abuse in household: No. Substance abuse in household: No. Smoker in household: No. Injuries/Abuse/Negle ct in household: No. Feels unsafe at home: [...] Never (less than 100 in lifetime) Tobacco Use:. Never Smokeless Tobacco Use:., 09/18/2024 Family History Congestive heart disease: Father. Diabetes mellitus type 2: Father and Father. Heart disease: Father. Hyperlipidemia: Father. Hypertension: Father and Father. Immunizations Vaccine Date Status Comments influenza virus vaccine, inactivated - Not Given Postpone due to refusal SARS-CoV-2 mRNA (tozinameran 5y-11y) vac - Not Given Postpone due to refusal influenza virus vaccine, live, trivalent - Not Given Patient Refuses diphtheria/pertussis , acel/tetanus adult 12/15/2012 Given Other (see comment) diphtheria/pertussis , acel/tetanus adult 04/19/2006 (more content not included)... Normal [facility] Comment on above: Result Comment: Elec tronically Signed By: Freddy Shields MD\.br\Date and Time Signed: 09/18/24 10:30 EST IGP,APTIMA HPV,AGE GDLNon AGE GDLN ACOG TESTING Note . [facility] Comment on above: TESTS RESULT FLAG UN ITS REF RANGE LAB Clinician Provided Cytology Information Source.............Cervix;Endocervix No. of containers..01 ThinPrep Vial Age Christiano SINGH Leticia... 29 FLAG LEGEND: L-Low Normal,H-High Normal,LL-Alert Low,HH-Alert High <-Panic Low,>-Panic High,A-Abnormal,AA-Critical Abnormal Performed at: 01 =[address] [address] Bhumi Pack MD, HPV APTIMA Negative Negative [facility] Comment on above: This nucleic acid am plification test detects fourteen high- risk HPV types (16,18,31,33,35,39,45,51,52,56,58,59,66,68) without differentiation. Performed at: =[address] [id number] Kindergarten Paraprofessional: Bhumi Pack MD, Phone: [phone] Performed at: - [address] [id number] Kindergarten Paraprofessional: Bhumi Pack MD, Phone: [phone] IGP, APTIMA HPV, RFX 16/18,45 Note . [facility] Comment on above: TESTS RESULT FLAG UN ITS REF RANGE LAB DIAGNOSIS: 02 NEGATIVE FOR INTRAEPITHELIAL LESION OR MALIGNANCY. Specimen adequacy: 02 Satisfactory for evaluation. Endocervical and/or squamous metaplastic cells (endocervical component) are present. Performed by: Mikie Ornelas Tape Folding Machine Operator ([facility]) . 02 Note: Note 02 The Pap smear is a screening test designed to aid in the detection of premalignant and malignant conditions of the uterine cervix. It is not a diagnostic procedure and should not be used as the sole means of detecting cervical cancer. Both false-positive and false-negative reports do occur. Test Methodology: Note 02 This liquid based ThinPrep(R) pap test was screened with the use of an image guided system. HPV Genotype Reflex Note 02 Criteria not met, HPV Genotype not performed. FLAG LEGEND: L-Low Normal,H-High Normal,LL-Alert Low,HH-Alert High <-Panic Low,>-Panic High,A-Abnormal,AA-Critical Abnormal Performed at: [address] [address] Bhumi Pack MD, BRUSH-SPATULA CERVIX ENDOCERVIX [facility] HCG ( test) Ql (U)o n 05-15-2024 Interpretation and review of laboratory results Normal [facility] Preg Test, Ur Negative [facility] IUD Insertionon 05-15-2024 Alpa Jennings LPN 05/16/2024 3:29 PM IUD Insertion Date/Time: 05/15/2024 10:15 AM Performed by: Joey Schuster DO Authorized by: Joey Schuster DO Consent: Consent obtained: Written Consent given by: Patient Procedure risks and benefits discussed: yes Patient questions answered: yes Patient agrees, verbalizes understanding, and wants to proceed: yes Educational handouts given: yes Instructions and paperwork completed: yes Procedure: Pelvic exam performed: yes Negative GC/chlamydia test: no Negative urine test: yes Negative serum test: no Cervix cleaned and prepped: yes Speculum placed in vagina: yes Tenaculum applied to cervix: yes Uterus sounded: yes IUD inserted with no complications: yes IUD type: Mirena Strings trimmed: yes Post-procedure: Patient tolerated procedure well: yes Patient will follow up after next period: yes [facility] Family Medicine Office/Clini c Noteon 11-06-2023 Family [...] prefer broth. On 07/24/2023, she visited her HYPERION ADMINISTRATOR due to the presence of hives on [...] Encouraged the patient to follow up with pharmacy services director. If symptoms worsen, she will contact our [...] with voice recognition artificial intelligence software, specifically [employer], to-BBB and or [employer]. Substitutions may have occurred due to the inherent limitations of voice recognition and artificial intelligence software. ATTESTATION: This note has been generated by [employer] and edited by Isaac Higgins, Quality Supervisor Reclamation. Follow-up No qualifying data available Patient Education Influenza, Adult Problem List/Past Medical History (more content not included)... Normal [facility] Comment on above: Result Comment: [...] Parker PA-C. This Is Your Medications List albuterol (Albuterol (Eqv-ProAir HFA) 90 mcg/inh inhalation aerosol) Contact prescribing physician if questions or concerns Misc Prescription (Alcohol Swabs) Misc Prescription (Glucometer) Misc Prescription (Lancets) Misc Prescription (Single Use Alcohol Pad) Misc Prescription (Test strips) aspirin (aspirin 81 mg oral capsule) dextromethorphan-pro methazine (dextromethorphan-pr omethazine 15 mg-6.25 mg/5 mL Oral Syrup [...] Puffs Inhalation Every 6 hours Pickup at [facility] #[id number] Unchanged aspirin (aspirin 81 mg oral capsule) By Mouth Every 24 hours Contact prescribing physician if questions or concerns Unchanged dextromethorphan-pro methazine (dextromethorphan-pr omethazine 15 mg-6.25 mg/ 5 mL Oral Syrup [...] questions or concerns Pharmacy Information [id number]: [address] [place], [place] [id number] [phone] Allergies metroNIDAZOLE (Hives) Problems Ongoing - Any [...] you for choosing us for your care. [facility] Patient Educationon 11-01-19 Patient Education Infectious Disease [...] health care provider may recommend: ? Taking kvxt-xti-cwabfzi medicines. ? Drinking plenty of fluids. In [...] and low-calorie sports drinks. ? Eat bland, fvyq-bh-xxkmzs foods in small amounts as you are able. These foods include bananas, applesauce, rice, lean meats, toast, and crackers. ? Avoid drinking fluids that contain a lot of sugar or caffeine, such as energy drinks, regular sports drinks, and soda. ? Avoid alcohol. ? Avoid spicy or fatty foods. General instructions ? Take tsul-psv-lidaxsw and prescription medicines only as told by [...] water are not available, use alcohol-based hand poultry picker. ? Keep all follow-up visits. This is [...] (more content not included)... Normal [facility] Grp A Strp PCRon 10-29-2023 Grp A Strp Intrl Ctrl Pass Normal [facility] Comment on above: Performed By: #### 1 [id number] #### [facility] [address] [place] [address] S. pyogenes DNA ARNIE+probe Ql (Throat) Negative Normal [facility] Comment on above: Result Comment: Test ing performed using DNA amplification. Performed By: #### 1 [id number] #### [facility] [address] [place] [address] Family Medicine Office/Clini c Noteon 10-27-2023 Family [...] Eyes: Denies visual change or eye discharge Head/Ears/Nose/Throa t: Denies earache. Focal complaint of a sore [...] influenza virus with other respiratory manifestations) Ordered: dextromethorphan-pro methazine, 5 mL, Oral, q6hr for cough, 240 mL, Refill(s) 0, [facility] #[id number], 164, cm, 10/27/23 13:44:00 EST, Height/Length Dosing, 101, kg, 10/27/23 13:44:00 EST, Weight Dosing predniSONE, See Instructions, 2 po QAM x4 days, then 1 po QAM x4 days, # 12 tab(s), Refills(s) 0, Pharmacy: [facility] #[id number], 164, cm, 10/27/23 13:44:00 EST, Height/Length Dosing, 101, kg, 10/27/23 13:44:00 EST, Weight Dosing 2. Sore throat (J02.9: Acute pharyngitis, unspecified) Ordered: dextromethorphan-pro methazine, 5 mL, Oral, q6hr for cough, 240 mL, Refill(s) 0, [facility] #[id number], 164, cm, 10/27/23 13:44:00 EST, Height/Length Dosing, 101, kg, 10/27/23 13:44:00 EST, Weight Dosing predniSONE, See Instructions, 2 po QAM x4 days, then 1 po QAM x4 days, # 12 tab(s), Refills(s) 0, [facility]acy: [id number], 164, cm, 10/27/23 13:44:00 EST, Height/Length Dosing, 101, kg, 10/27/23 13:44:00 EST, Weight Dosing Group A Strep by PCR Influenza Type A&B POC 29871 Rapid Strep POC 63736 3. BMI 37.0-37.9, adult (Z68.37: Body mass index [BMI] 37.0-37.9, adult) Ordered: dextromethorphan-pro methazine, 5 mL, Oral, q6hr for cough, 240 mL, Refill(s) 0, [id number], 164, cm, 10/27/23 13:44:00 EST, Height/Length Dosing, 101, kg, 10/27/23 13:44:00 EST, Weight Dosing predniSONE, See Instructions, 2 po QAM x4 days, then 1 po QAM x4 days, # 12 tab(s), Refills(s) 0, Pharmacy: [facility] #[id number], 164, cm, 10/27/23 13:44:00 EST, Height/Length Dosing, [...] and adenoidectomy. Medications Alcohol Swabs, See Instructions dextromethorphan-pro methazine 15 mg-6.25 mg/5 mL Oral Syrup 5 mL, 5 mL, Oral, q6hr, PRN Glucometer, See Instructions Lancets, See Instructions predniSONE 20 mg Tab, See Instructions Single Use Alcohol Pad, See Instructions, 1 refills Test strips, See Instructions Allergies metroNIDAZOLE (Hives) Social History Alcohol - Denies Alcohol Use, 12/13/2012 Employment/School Unemployed, 12/13/2012 Exercise - Does not exe (more content not included)... Normal [facility] Comment on above: Result Comment: Elec tronically Signed By: Lai BOYD, Boo WLeilani\.br\Date and Time Signed: 10/27/23 14:06 EST Patient Letter FTon 2023 Patient Letter [facility] [address], [place] [address] October 27, 2023 ERIKA NEWMAN [address] [place] [address] : 1990 Please excuse ERIKA NEWMAN from work . Date and/or Time of Absence: From: 10/26/2023 To: 10/30/2023 May return to work on: 10/31/2023 Restrictions: None Comments: Please excuse due to an acute illness. Provider Signature: Boo Hoyt PA-C Physician [employer] [address] [place] [address] Normal [facility] AFP, SERUM, OPEN SPINA BIFID Aon 10-26-2023 AFP MOM 0.65 . [facility] AFP VALUE 24.1 ng/mL . [facility] COMMENT: Comment . [facility] Comment on above: Zulema Farr , Ph.D., [facility] Director References: Available Upon Request. Multiples Of Median Cutoffs For AFP Elevations Pham 2.5 Black 2.8 IDD 2.0 Twins 4.5 Abbreviation Definitions IDD - Insulin Dep Diabetes OSBR - Open Spina Bifida Risk For further inquiries contact [employer] at [phone]. This test was developed and its performance characteristics determined by [employer]. It has not been cleared or approved by the Food and Drug Administration. Performed at: [facility] [employer] RTP [address] [place] [address] [phone] Kindergarten Paraprofessional: Marita Duggan Formerly [facility], Phone: [phone] GEST. AGE ON COLLECTION DATE 18.4 . weeks [facility] GESTAT. AGE BASED ON As provided . [facility] Comment on above: Recalculations are n ot recommended when gestational dating by LMP and ultrasound are within 10 days. INSULIN DEP DIABETES No . [facility] INTERPRETATION Comment . [facility] Comment on above: Interpretation: Scre en Negative [...] Customer Services to discuss available options. The [employer] recommends amniocentesis be offered to women age 35 and older. [age] [facility] MULTIPLE GESTATION No . [facility] [place] [id number] . [facility] RACE . [facility] RESULTS Report . [facility] TEST RESULTS: Negative . [facility] WEIGHT 215 . lbs [facility] N [id number] 16 N 1 Y 215 White/ [facility] CHEMISTRYOrdered By: SYSTEM SYSTEM on 12-22-2021 Albumin [...] AM) Normal Negative [facility] UA Auto SS [employer].plasma/Lithiu m.RBC (Bld) [Mass ratio] 4-20 /HPF Normal [...] AM) Invalid Interpretation Code 1.005 - 1.030 [facility] UA Auto SS UA Spec Desc Clean Catch (12/22/21 10:10 AM) Normal [facility] UA Auto SS Urobilinogen Qn (U) [id number] {Ann'U}/dL Normal 0.0 - 1.0 EU/dL [facility] UA Auto SS WBC Auto Ql (U) Negative (12/22/21 10:10 AM) Normal Negative [facility] UA Auto SS WBC LM.HPF (Urine sed) [#/Area] 0-5 /HPF Normal 0-5/HPF [facility] UA Auto SS Hemoglobin A1Con 12-07-2021 Glucose [Mass/Vol] 157 mg/dL Normal [facility] Comment on above: Result Comment: The ADA and AACC recommend providing the estimated average glucose result to permit better patient understanding of their HBA1c result. Performed By: #### G LYHGB #### [facility] [address] [place] [id number] Kindergarten Paraprofessional: Suman Villalta MD HbA1c (Bld) [Mass fraction] 7.1 % High 4.0-6.0 [facility] Comment on above: Performed By: #### G LYHGB #### [facility] [place] [address] Kindergarten Paraprofessional: Suman Villalta MD Vital Signs Date Time Vital Sign Value Performing Clinician Facility 09-18-2024 09:52-0500 Blood Pressure Location Freddy Toward [facility] 09-18-2024 09:52-0500 Body temperature 97.34 [degF] Freddy Toward [facility] 09-18-2024 09:52-0500 Diastolic blood pressure 70 mm[Hg] Freddy Toward [facility] 09-18-2024 09:52-0500 Heart rate 96 /min Freddy Toward [facility] 09-18-2024 09:52-0500 Respiratory rate 20 /min Freddy Toward [facility] 09-18-2024 09:52-0500 SaO2% (BldA) [Mass fraction] 96 % Freddy Toward [facility] 09-18-2024 09:52-0500 Systolic blood pressure 128 mm[Hg] Freddy Toward [facility] 06-09-2024 13:22-0400 Body mass index (BMI) [Ratio] 43.19 kg/m2 Joey Mariely DO Work Phone: [facility] 06-09-2024 13:22-0400 Body weight 110.59 kg Joey Mariely DO Work Phone: [facility] 06-09-2024 13:22-0400 Diastolic blood pressure 68 mm[Hg] Joey Mariely DO Work Phone: [facility] 06-09-2024 13:22-0400 Systolic blood pressure 110 mm[Hg] Joey Mariely DO Work Phone: [facility] 05-15-2024 09:30-0400 Body mass index (BMI) [Ratio] 42.51 kg/m2 Joey Mariely DO Work Phone: [facility] 05-15-2024 09:30-0400 Body weight 108.86 kg Joey Mariely DO Work Phone: [facility] 05-15-2024 09:30-0400 Diastolic blood pressure 80 mm[Hg] Joey Mariely DO Work Phone: [facility] 05-15-2024 09:30-0400 Systolic blood pressure 130 mm[Hg] Joey Mariely DO Work Phone: [facility] 05-13-2024 13:37-0400 Body mass index (BMI) [Ratio] 42.58 kg/m2 Joey Mariely DO Work Phone: [facility] 05-13-2024 13:37-0400 Body weight 109.05 kg Joey Mariely DO Work Phone: [facility] 05-13-2024 13:37-0400 Diastolic blood pressure 80 mm[Hg] Joey Mariely DO Work Phone: [facility] 05-13-2024 13:37-0400 Systolic blood pressure 120 mm[Hg] Joey Mariely DO Work Phone: [facility] 11-01-2023 15:29-0500 Blood Pressure Location Shantell Parker [facility] 11-01-2023 15:29-0500 Body temperature 98.24 [degF] Shantell Parker [facility] 11-01-2023 15:29-0500 Diastolic blood pressure 72 mm[Hg] Shantell Parker [facility] 11-01-2023 15:29-0500 Heart rate 103 /min Shantell Parker [facility] 11-01-2023 15:29-0500 Respiratory rate 18 /min Shantell Parker [facility] 11-01-2023 15:29-0500 SaO2% (BldA) [Mass fraction] 100 % Shantell Parker [facility] 11-01-2023 15:29-0500 Systolic blood pressure 124 mm[Hg] Shantell Parker [facility] 10-27-2023 13:41-0500 Blood Pressure Location Boo Hoyt [facility] 10-27-2023 13:41-0500 Body temperature 98.06 [degF] Boo Hoyt [facility] 10-27-2023 13:41-0500 Diastolic blood pressure 74 mm[Hg] Boo Hoyt [facility] 10-27-2023 13:41-0500 Heart rate 97 /min Boo Hoyt [facility] 10-27-2023 13:41-0500 SaO2% (BldA) [Mass fraction] 100 % Boo Hoyt [facility] 10-27-2023 13:41-0500 Systolic blood pressure 122 mm[Hg] Boo Hoyt [facility] 12-07-2022 13:53-0400 Blood Pressure Location Shantell Parker [facility] 12-07-2022 13:53-0400 Body temperature 98.24 [degF] Shantell Parker [facility] 12-07-2022 13:53-0400 Diastolic blood pressure 84 mm[Hg] Shantell Parker [facility] 12-07-2022 13:53-0400 Heart rate 60 /min Shantell Parker [facility] 12-07-2022 13:53-0400 Respiratory rate 20 /min Shantell Parker [facility] 12-07-2022 13:53-0400 SaO2% (BldA) [Mass fraction] 99 % Shantell Parker [facility] 12-07-2022 13:53-0400 Systolic blood pressure 128 mm[Hg] Shantell Parker [facility] 03-31-2022 16:19-0400 Blood Pressure Location the grafter [facility] 03-31-2022 16:19-0400 Body temperature 98.06 [degF] the grafter [facility] 03-31-2022 16:19-0400 Diastolic blood pressure 84 mm[Hg] the grafter [facility] 03-31-2022 16:19-0400 Heart rate 88 /min the grafter [facility] 03-31-2022 16:19-0400 Respiratory rate 16 /min the grafter [facility] 03-31-2022 16:19-0400 SaO2% (BldA) [Mass fraction] 97 % the grafter [facility] 03-31-2022 16:19-0400 Systolic blood pressure 128 mm[Hg] Marlen [employer] [facility] Encounters Encounter Date Encounter Type Care Provider Facility Start: 09-18-2024 End: 09-18-2024 ambulatory Freddy E Toward Facility: [facility] Start: 09-18-2024 End: 09-18-2024 Patient encounter procedure Freddy E Toward [facility] Start: 06-09-2024 End: 06-09-2024 Bamboo flowsheet Joey Mariely DO Work Phone: [facility] Start: 06-09-2024 End: 06-15-2024 Clinisync Result Encounter Joey Mariely DO Work Phone: [facility] Unsolicited Start: 06-09-2024 End: 06-15-2024 Clinisync Result Encounter Joey Mariely DO Work Phone: [facility] Unsolicited Start: 06-09-2024 End: 06-09-2024 Patient encounter procedure Joey Mariely DO Work Phone: [facility] Work Phone: Start: 06-09-2024 End: 06-09-2024 Periodic preventive med est patient 18-39 yrs Joey Mariely DO Work Phone: [facility] Comment on above: Well woman exam with routine gynecological exam Start: 06-09-2024 End: 06-09-2024 ambulatory JOEY MARIELY Not Available Start: 05-15-2024 End: 05-15-2024 ambulatory JOEY MARIELY Not Available Start: 05-15-2024 End: 05-15-2024 Patient encounter procedure Joey Mariely DO Work Phone: [facility] Comment on above: Encounter for insert ion of intrauterine contraceptive device (IUD); Encounter for insertion of mirena IUD Start: 05-13-2024 End: 05-13-2024 Office outpatient visit 15 minutes Joey Mariely DO Work Phone: [facility] Comment on above: Encounter for contra ceptive management, unspecified type Start: 05-13-2024 End: 05-13-2024 ambulatory JOEY MARIELY Not Available Start: 04-22-2024 End: 04-22-2024 ambulatory NIHARIKA NEWMAN Not Available Start: 03-10-2024 End: 03-10-2024 ambulatory [...] NIHARIKA TRENT Not Available Start: 11-01-2023 End: 11-01-2023 ambulatory Shantell Parker Facility:[facility] Start: 11-01-2023 End: 11-01-2023 Patient encounter procedure Shantell Parker [facility] Start: 11-01-2023 ambulatory Jeremy Guerrero lity:[facility] [place] Start: 10-27-2023 End: 10-27-2023 ambulatory Boo Hoyt Facility:[facility] Start: 10-27-2023 End: 10-27-2023 Patient encounter procedure Boo Hoyt [facility] Start: 10-24-2023 Bamboo flowsheet Niharika BIRD Work Phone: [facility] Start: 10-24-2023 Bamboo flowsheet Niharika BIRD Work Phone: [facility] Start: 10-24-2023 Clinisync Result Encounter Joey Mariely DO Work Phone: [facility] Unsolicited Start: 10-24-2023 End: 10-24-2023 Patient encounter procedure Shantell Parker [facility] Start: 10-24-2023 End: 10-24-2023 Office outpatient visit 15 minutes Niharika BIRD Work Phone: [facility] Comment on above: Pruritus; Hives Start: 10-24-2023 End: 10-24-2023 ambulatory NIHARIKA NEWMAN Not Available Start: 10-10-2023 End: 10-10-2023 ambulatory JOEY SCHUSTER Not Available Start: 09-12-2023 End: 09-12-2023 ambulatory NIHARIKA NEWMAN Not Available Start: 08-17-2023 End: 08-17-2023 ambulatory NIHARIKA NEWMAN Not Available Start: 12-07-2022 End: 12-07-2022 Patient encounter procedure Shantell Parker [facility] Start: 03-31-2022 End: 03-31-2022 Patient encounter [facility] Start: 01-02-2022 End: 04-02-2022 Recurring Kenyatta Paul DONNAMSUSANAR [facility] Start: 12-22-2021 End: 12-22-2021 Lab Drop off Kenyatta A DONNAMILLER [facility] Start: 12-07-2021 End: 12-08-2021 ambulatory [facility] Start: 12-05-2021 End: 12-05-2021 Patient encounter procedure Ana Garcia [facility] Procedures Date Procedure Procedure Detail Performing Clinician Start: 06-09-2024 IGP,APTIMA HPV,AGE GDLN Joey Mariely DO Work Phone: Start: 05-15-2024 IUD INSERTION Joey Montoya io DO Work Phone: Start: 05-15-2024 Urine test visual color cmprsn meths Joey Mariely DO Work Phone: Start: 10-24-2023 AFP, SERUM, OPEN SPI NA BIFIDA Joey Mariely DO Work Phone: TM tube Ana Radha Tonsillectomy and adenoidectomy Ana Radha Plan of Treatment Date Care Activity Detail Author Start: 06-16-2025 End: 06-16-2025 Patient encounter procedure 06/16/2025 2:00 PM EDT Office Visit [facility] [address] [place] [address] Joey Schuster, DO [address] [place] [address] [facility] Start: 06-09-2024 End: 06-09-2024 Patient encounter procedure [facility] Comment on above: Arrived Start: 05-15-2024 End: 05-15-2024 Patient encounter procedure 05/15/2024 9:00 AM EDT Procedure Visit [facility] [address] [place] [address] Joey Schuster, DO [address] [place], [place] [id number] [facility] Start: 11-07-2023 End: 11-07-2023 Patient encounter procedure 11/07/2023 10:50 AM EST Routine [facility] [address] [place] [address] Niharika Newman PA [address] [place], [place] [id number] [facility] Start: 11-07-2023 End: 11-07-2023 Professional / ancillary services management 11/07/2023 9:30 AM EST Ancillary Procedure [facility] [address] [address] [place] [phone] [facility] Start: 10-24-2023 End: 10-24-2023 Patient encounter procedure 10/24/2023 9:50 AM EST Office Visit [facility] [address] [place] [id number] Niharika Newman PA [address] [facility] [place] [address] Arrived [facility] Comment on above: Arrived Bile acids, total Bile acids, to rosa Lab Routine Pruritus Ordered: 10/24/2023 [facility] Work Phone: Comment on above: Ordered: 10/24/2023 Cytology Cervical or vaginal smear or scraping study Pap Smear Pathology and Cytology Routine Well woman exam with routine gynecological exam Ordered: 06/09/2024 [facility] Work Phone: Comment on above: Ordered: 06/09/2024 Hepatic function 200 0 panel - Serum or Plasma Hepatic function panel Lab Routine Pruritus Ordered: 10/24/2023 [facility] Comment on above: Ordered: 10/24/2023 Human papilloma viru s DNA [Presence] in Unspecified specimen by Probe with amplification HPV DNA probe, amplified Microbiology Routine Well woman exam with routine gynecological exam Ordered: 06/09/2024 [facility] Comment on above: Ordered: 06/09/2024 Immunizations Immunization Date Immunization Notes Care Provider Fa cility 12-15-2012 tetanus toxoid, reduced diphtheria toxoid, and acellular pertussis vaccine, adsorbed Ana Radha [facility] Comment on above: Reason for Medicatio n: Other (see comment) 04-19-2006 tetanus toxoid, reduced diphtheria toxoid, and acellular pertussis vaccine, adsorbed Ana Radha [facility] NEGATED: Highlighted row has not occurred!12-07-2022 influenza virus vaccine, unspecified formulation Shantell Parker [facility] NEGATED: Highlighted row has not occurred!03-31-2022 SARS-CoV-2 mRNA (tozinameran 5y-11y) vaccine Marlen MCDOWELL [facility] NEGATED: Highlighted row has not occurred!09-16-2019 influenza virus vaccine, live, attenuated, for intranasal use Ana Garcia [facility] Payers Date Payer Category Payer Self-pay 2023 Unknown [id number] 2023 Unknown [id number] 2023 Unknown [id number] 2014 Unknown [id number] 1989 Unknown [id number] 2.16.8 40.1.745347.3.579.2.174 1989 Unknown [id number] 2.16.84 0.1.371301.3.579.2.1259 1989 Unknown [id number] 2.16.84 0.1.631303.3.579.2.1259 1989 Unknown [id number] 2.16.84 0.1.941313.3.579.2.1259 1989 Unknown [id number] 2.16.84 0.1.446277.3.579.2.1259 1989 Unknown [id number] 2.16.84 0.1.109472.3.579.2.1259 1989 Unknown [id number] 2.16.84 0.1.962108.3.579.2.1259 1989 Unknown [id number] 2.16.84 0.1.236711.3.579.2.1259 1989 Unknown [id number] 2.16.84 0.1.608786.3.579.2.1259 1989 Unknown [id number] 2.16.84 0.1.490689.3.579.2.1259 1989 Unknown [id number] 2.16.84 0.1.904403.3.579.2.1259 1989 Unknown [id number] 2.16.84 0.1.336235.3.579.2.1259 1989 Unknown [id number] 2.16.84 0.1.374482.3.579.2.1259 1989 Unknown [id number] 2.16.84 0.1.434564.3.579.2.1259 1989 Unknown [id number] 2.16.84 0.1.355919.3.579.2.1259 1989 Unknown [id number] 2.16.84 0.1.471052.3.579.2.1259 1989 Unknown [id number] 2.16.84 0.1.742255.3.579.2.1259 1989 Unknown [id number] 2.16.840 .1.450168.3.579.2.1259 1989 Unknown [id number] 2.16.840 .1.174201.3.579.2.1259 1989 Unknown [id number] 2.16.8 40.1.581555.3.579.2.727 1989 Unknown [id number] 2.16.8 40.1.430607.3.579.2.727 1989 Unknown [id number] 2.16.8 40.1.783075.3.579.2.727 1989 Unknown [id number] 2.16.8 40.1.173048.3.579.2.727 1989 Unknown [id number] 2.16.8 40.1.122895.3.579.2.727 1989 Unknown [id number] 2.16.8 40.1.619821.3.579.2.727 Social History Date Type Detail Facility Start: 05-25-2021 End: 09-18-2024 Tobacco smoking status Never smoked tobacco (finding) [facility] Tobacco smoking status Never [facility] Start: 03-10-2024 Sex Assigned At Female F [facility] Tobacco smoking stat [facility] Tobacco smoking consumption unknown [facility] Start: 07-01-2023 [facility] Start: 1990 Sex Assigned At Not on file [facility] Start: 03-10-2024 Tobacco use and exposure Smokeless tobacco non-user [facility] Start: 05-13-2024 End: 06-09-2024 Alcoholic beverage intake Lifetime non-drinker (finding) [facility] Start: 03-10-2024 History of Social function [facility] Medical Equipment Procedure Code Equipment Code Equipment Origin al Text Equipment Identifier Dates Lancets, See Instructions, 100 EA, 0, Test blood sugar TID PRN E11.9, [facility], Supply, 164, cm, 12/22/21 8:44:00 EDT, Height/Length Dosing, 126.7, kg, 12/22/21 8:44:00 EDT, Weight Dosing Start: 12-22-2021 Test strips, See Instructions, 100 EA, 0, Test blood sugar TID PRN E11.9, [facility] [place] Supply, 164, cm, 12/22/21 8:44:00 EDT, Height/Length Dosing, 126.7, kg, 12/22/21 8:44:00 EDT, Weight Dosing Start: 12-22-2021 Lancets, See Instructions, 100 EA, 0, Test blood sugar TID PRN E11.9, [facility], Supply, 164, cm, 12/22/21 8:44:00 EDT, [...] sugar TID PRN E11.9, [facility], Supply, 164, cm, 12/22/21 8:44:00 EDT, Height/Length Dosing, 126.7, kg, 12/22/21 8:44:00 EDT, Weight Dosing Start: 12-22-2021 Functional Status Date Assessment Result Facility 09-18-2024 Functional Status N/A [facility] 11-01-2023 Functional Status N/A [facility] 10-27-2023 Functional Status N/A [facility] 12-07-2022 Functional Status N/A [facility] 03-31-2022 Functional Status N/A [facility] Clinical Notes 12-23-2021 to 06-09-2024 Alpa Jennings LPN - 06/09/2024 1:30 PM Steven Jennings LPN - 05/15/2024 9:00 AM Maria E Torres LPN - 05/13/2024 1:30 PM MARGE Orourke - 10/24/2023 9:50 AM ESTLaboratory Note Date & Type Note Facility 06-09-2024 History of Presen t illness Narrative Reason for Appointment: Patient ID: Erika Newman is a 33 y.o. female who presents for Well Women Visit Patient presents today for Annual Exam. MEDICATIONS No current outpatient medications ALLERGIES Allergies Allergen Reactions Metronidazole Hives Penicillins PROBLEMS Active Ambulatory Problems Diagnosis Date Noted No Active Ambulatory Problems Resolved Ambulatory Problems Diagnosis Date Noted No Resolved Ambulatory Problems Past Medical History: Diagnosis Date Diabetes mellitus ([facility]) 2021 Female infertility 2016 PCOS (polycystic ovarian syndrome) HISTORY PAST MEDICAL HISTORY SOCIAL HISTORY Past Medical History: Diagnosis Date Diabetes mellitus ([facility]) 2021 Female infertility 2017 PCOS (polycystic ovarian syndrome) Social History Tobacco Use Smoking status: Never Smokeless tobacco: Never Substance Use Topics Alcohol use: Never Drug use: Never FAMILY HISTORY Family History Problem Relation Name Age of Onset No Known Problems Mother Heart disease Father Jessee Coats Diabetes Father Jessee Coats Hypertension Father Jessee Coats No Known Problems Sister No Known Problems Son Stroke Father's Sister Julee Proctor SURGICAL HISTORY Past Surgical History: Procedure Laterality Date TONSILLECTOMY and adenoidectomy REVIEW OF SYSTEMS Review of Systems: Review of Systems Genitourinary: Positive for vaginal bleeding. All other systems reviewed and are negative. OBJECTIVE Objective: Physical Exam Constitutional: Appearance: Normal appearance. She is well-developed. Genitourinary: Vulva normal. Breasts: Breasts are soft. Right: Normal. Left: Normal. Cardiovascular: Rate and Rhythm: Normal rate and regular rhythm. Pulmonary: Effort: Pulmonary effort is normal. Breath sounds: Normal breath sounds. Abdominal: General: Bowel sounds are normal. There is no distension. Palpations: Abdomen is soft. Tenderness: There is no abdominal tenderness. There is no guarding or rebound. Musculoskeletal: General: No swelling. Normal range of motion. Right lower leg: No edema. Left lower leg: No edema. Neurological: Mental Status: She is alert and oriented to person, place, and time. Skin: General: Skin is warm and dry. Psychiatric: Mood and Affect: Mood normal. Behavior: Behavior normal. Vitals and nursing note reviewed. Exam conducted with a sonographer present. Vitals: Estimated body mass index is 43.19 kg/m as calculated from the following: Height as of 24: 5' 3 . Weight as of this encounter: 243 lb 12.8 oz. BP: 110/68 No LMP recorded. ASSESSMENT & PLAN ICD-10-CM 1. Well woman exam with routine gynecological exam Z01.419 Pap Smear HPV DNA probe, amplified Annual Exam: Patient presents today for an annual exam. Patient states she is doing well and has no complaints. Pap was obtained without difficulty. Discussed irregular bleeding with Mirena IUD and what to expect. PVU that irregular spotting should improve over 2-3 months post IUD insertion. Orders Placed This Encounter Procedures HPV DNA probe, amplified Follow Up: Patient is to return in one year for annual unless needed otherwise. Documented by Alpa Jennings LPN on behalf of: Joey Schuster DO documented in this encounter [facility] 05-15-2024 History of Presen t illness Narrative Associated Order(s): IUD Insertion Post-Procedure Diagnose(s): Encounter for insertion of intrauterine contraceptive device (IUD); Encounter for insertion of mirena IUD Reason for Appointment: Patient ID: Erika Newman is a 33 y.o. female who presents for Contraception Patient presents today for a IUD Insertion appointment. MEDICATIONS Current Outpatient Medications Medication Instructions citalopram (CELEXA) 20 mg, Oral, Daily Vit-Fe Fumarate-FA ( Multivitamins) 28-0.8 MG tablet Oral ALLERGIES Allergies Allergen Reactions Metronidazole Hives Penicillins SURGICAL HISTORY Past Surgical History: Procedure Laterality Date TONSILLECTOMY and adenoidectomy REVIEW OF SYSTEMS Review of Systems: Review of Systems All other systems reviewed and are negative. OBJECTIVE Objective: Physical Exam Constitutional: Appearance: Normal appearance. She is well-developed. Genitourinary: Vulva normal. Cardiovascular: Rate and Rhythm: Normal rate and regular rhythm. Pulmonary: Effort: Pulmonary effort is normal. Breath sounds: Normal breath sounds. Abdominal: General: Bowel sounds are normal. There is no distension. Palpations: Abdomen is soft. Tenderness: There is no abdominal tenderness. There is no guarding or rebound. Musculoskeletal: General: No swelling. Normal range of motion. Right lower leg: No edema. Left lower leg: No edema. Neurological: Mental Status: She is alert and oriented to person, place, and time. Skin: General: Skin is warm and dry. Psychiatric: Mood and Affect: Mood normal. Behavior: Behavior normal. Vitals and nursing note reviewed. Exam conducted with a sonographer present. Vitals: Estimated body mass index is 42.51 kg/m as calculated from the following: Height as of 24: 5' 3 . Weight as of this encounter: 240 lb. BP: 130/80 Patient's last menstrual period was 06/17/2023. ASSESSMENT & PLAN Assessment/Plan Encounter Diagnosis: ICD-10-CM 1. Encounter for insertion of intrauterine contraceptive device (IUD) Z30.430 2. Encounter for insertion of mirena IUD Z30.430 POCT , urine manually resulted Levonorgestrel intrauterine device 52 mg IUD Insertion Date/Time: 05/15/2024 10:15 AM Performed by: Joey Schuster DO Authorized by: Joey Schuster DO Consent: Consent obtained: Written Consent given by: Patient Procedure risks and benefits discussed: yes Patient questions answered: yes Patient agrees, verbalizes understanding, and wants to proceed: yes Educational handouts given: yes Instructions and paperwork completed: yes Procedure: Pelvic exam performed: yes Negative GC/chlamydia test: no Negative urine test: yes Negative serum test: no Cervix cleaned and prepped: yes Speculum placed in vagina: yes Tenaculum applied to cervix: yes Uterus sounded: yes IUD inserted with no complications: yes IUD type: Mirena Strings trimmed: yes Post-procedure: Patient tolerated procedure well: yes Patient will follow up after next period: yes IUD Insertion: Patient presents today for an IUD Insertion. Patient is having a Mirena placed and written consent was obtained. Patient was placed in the dorsal lithotomy position with feet in stirrups. A sterile speculum ws placed into the vagina and the cervix was visualized. Cervix was cleansed with betadine and the anterior lip was grasped with ring forceps. Uterus was then gently sounded. New IUD device was gently advanced through the endocervix, toward te uterine fundus. The IUD was then deployed as device was gently removed from the uterus. The IUD strings were cut to the length from external os. All instruments were removed from the vagina. Post-procedure instructions given. All of patients questions were answered and she expressed understanding. Advised to call interim with any questions or concerns. Patient had complaints of migraines prior to and still after . Advised patient to take previously prescribed Magnesium Oxide daily as it does not work on a PRN basis. If patient is still having symptoms after two weeks of taking Magnesium Oxide routinely then patient is to reach out to office. Patient to also obtain work note to return to work with no restrictions on 05/25/24 instead of previously decided date. Follow Up: Patient is to return to the office in 4 weeks for a string check. Documented by Alpa Jennings LPN on behalf of: Joey Schuster DO documented in this encounter [facility] 05-13-2024 History of Presen t illness Narrative Reason for Appointment: Patient ID: Erika Newman is a 33 y.o. female who presents for Contraception Patient presents today for Acute Visit. MEDICATIONS Current Outpatient Medications Medication Instructions citalopram (CELEXA) 20 mg, Oral, Daily Vit-Fe Fumarate-FA ( Multivitamins) 28-0.8 MG tablet Oral ALLERGIES Allergies Allergen Reactions Metronidazole Hives Penicillins PROBLEMS Active Ambulatory Problems Diagnosis Date Noted No Active Ambulatory Problems Resolved Ambulatory Problems Diagnosis Date Noted No Resolved Ambulatory Problems Past Medical History: Diagnosis Date Diabetes mellitus ([facility]) 2021 Female infertility 2016 PCOS (polycystic ovarian syndrome) HISTORY PAST MEDICAL HISTORY SOCIAL HISTORY Past Medical History: Diagnosis Date Diabetes mellitus ([facility]) 2021 Female infertility 2017 PCOS (polycystic ovarian syndrome) Social History Tobacco Use Smoking status: Never Smokeless tobacco: Never Substance Use Topics Alcohol use: Never Drug use: Never FAMILY HISTORY Family History Problem Relation Name Age of Onset No Known Problems Mother Heart disease Father Jessee Coats Diabetes Father Jessee Coats Hypertension Father Jessee Coats No Known Problems Sister No Known Problems Son Stroke Father's Sister Jluee Proctor SURGICAL HISTORY Past Surgical History: Procedure Laterality Date TONSILLECTOMY and adenoidectomy REVIEW OF SYSTEMS Review of Systems: Review of Systems OBJECTIVE Objective: OBGyn Exam Vitals: Estimated body mass index is 42.58 kg/m as calculated from the following: Height as of 04/22/24: 5' 3 . Weight as of this encounter: 240 lb 6.4 oz. BP: 120/80 Patient's last menstrual period was 06/17/2023. ASSESSMENT & PLAN ICD-10-CM 1. Encounter for contraceptive management, unspecified type Z30.9 Pt presents to discuss control. All options discussed with pt in great detail. Pt desires Mirena IUD. Pt to return for placement. Documented by Marianne Torres LPN on behalf of: Joey Schuster DO documented in this encounter [facility] 11-01-2023 Hospital Discharg e instructions Patient Education [...] Your health care provider may recommend: Taking pwbk-xra-gakircp medicines. Drinking plenty of fluids. In many [...] water, and low-calorie sports drinks. Eat bland, yzrx-vp-gfhkbm foods in small amounts as you are able. These foods include bananas, applesauce, rice, lean meats, toast, and crackers. Avoid drinking fluids that contain a lot of sugar or caffeine, such as energy drinks, regular sports drinks, and soda. Avoid alcohol. Avoid spicy or fatty foods. General instructions Take spcr-gzf-hmohkip and prescription medicines only as told by [...] water are not available, use alcohol-based hand poultry picker. Keep all follow-up visits. This is important. [...] provider. Document Revised: 04/22/2021 Document Reviewed: 04/22/2021 Relive Patient Education 2022 [employer]. [facility] [place] 10-24-2023 History of Presen t illness Narrative [...] of: MARGE Moreno documented in this encounter [facility] 03-31-2022 Hospital Discharg e instructions Patient Education [...] 09/05/2004 Document Revised: 06/27/2019 Document Reviewed: 02/12/2017 Relive Patient Education One Month Follow Up Care 03/31/2022 11:31:15 With:Eleazar MELCHOR Address: [address] [place], [place] [id number]- When: Unknown Comments:return as otherwise scheduled [facility] 12-23-2021 Evaluation + Plan note Future Scheduled TestsTIBC Calculated 12/23/21Ferritin 12/23/21Folate Level 12/23/21Iron Level 12/23/21Vitamin B12 Level 12/23/21 [facility] Evaluation + Plan note No data available for this section [facility] Evaluation + Plan note Future Appointments Appointment Date:01/02/2022 09:00:00 AM Scheduled Provider:Bill ATKINSON, ДМИТРИЙ, Erika FERNANDEZ Location:[facility] Appointment Type:DM Diabetes Initial Assessment [address] (F Appointment Date:03/24/2022 09:00:00 AM Scheduled Provider:Eleazar MELCHOR Location:[facility] Appointment Type:[facility] Evaluation note Diagnosis Pruritus Unspecified pruritic disorder Hives Unspecified urticaria [facility] Encounter for contraceptive management, unspecified type [facility] Diagnosis Encounter for insertion of intrauterine contraceptive device (IUD) Encounter for insertion of mirena IUD [facility] Diagnosis Well woman exam with routine gynecological exam Routine gynecological examination [facility] No data available for this section [facility] data available for this section [facility] [place] Summary Purpose Family History No Family History Records Found No data available for this section No data available for this section No data available for this section No Family History Records Found No data available for this section No Family History Records Found Advance Directives No Advanced Directives Records FoundNo Advanced Directives Records FoundNo Advanced Directives Records Found Additional Source Comments INFORMATION SOURCE (unrecogn ized section and content) DATE CREATED AUTHOR 12/08/2021 [facility] DATE CREATED AUTHOR AUTHOR'S ORGANIZ ATION 06/11/2024 [facility] EPIC DATE CREATED AUTHOR AUTHOR'S ORGANIZ ATION 09/19/2024 [facility] Care Team (unrecognized sect ion and content) Personnel Name: Eleazar MELCHOR Address: [address] [place] [address] Personnel Name: Eleazar MELCHOR Address: [address] [place] [address] Personnel Name: Shantell Parker PA-C Address: Address: [address] [place] [address]- Personnel Name: Shantell Parker PA-C Address: Address: [address] [place] [address]- Personnel Name: Shantell Parker PA-C Address: Address: [address] [place] [address]- Personnel Name: Shantell Parker PA-C Address: Address: [address] [place] [address]- Personnel Name: LLC, GENERIC Reason for Visit (unrecogniz ed section and content) Reason Comments Rash Reason Comments Contraception Reason Comments Well Women Visit FOR RECORDS PERTAINING TO PATIENTS WHO ARE [...] BE BASED ON THE PRIMARY CLINICAL RECORDS. [facility] [employer] [facility]. provides no warranty or guarantee of the accuracy or completeness of information in this document.
[2025-07-07 14:09] LABS: Age Gdln ACOG Testing Note (.); IGP, Aptima HPV, rfx 16/18,45 Note (.)
== END 2025-07-01 19:02 | disposition home or self-care (01) ==
LOC: LAB 19:01
PROVIDERS: Visit Provider Obstetrics & Gynecology
DX: Z01.419 Encounter for gynecological examination (general) (routine) without abnormal findings (principal)
CPT/HCPCS: 87624; 88175